=== PATIENT | female | born 1945 | race Caucasian/White ===

== ENCOUNTER 2020-03-27 06:55 | Outpatient (REF) | payer MEDICARE, SELFPAY | END 2020-03-27 06:56 | disposition home or self-care (01) | LOC: HO.MDS 06:55 | PROVIDERS: Visit Provider Internal Medicine | DX: G61.81 Chronic inflammatory demyelinating polyneuritis (principal) | CPT/HCPCS: 96365; 96366; 96375; J1572; Q0163 ==

== ENCOUNTER 2020-03-28 | Outpatient (REF) | payer MEDICARE, SELFPAY | END 2020-03-28 00:01 | disposition home or self-care (01) | LOC: HO.MDS | PROVIDERS: Visit Provider Internal Medicine | DX: G61.81 Chronic inflammatory demyelinating polyneuritis (principal) | CPT/HCPCS: Q0163 ==

== ENCOUNTER 2020-03-29 | Outpatient (REF) | payer MEDICARE, SELFPAY | END 2020-03-29 00:01 | disposition home or self-care (01) | LOC: HO.MDS | PROVIDERS: Visit Provider Internal Medicine | DX: G61.81 Chronic inflammatory demyelinating polyneuritis (principal) | CPT/HCPCS: 96365; 96366; 96375; J1572; Q0163 ==

== ENCOUNTER 2020-03-30 | Outpatient (REF) | payer MEDICARE, SELFPAY | END 2020-03-30 00:01 | disposition home or self-care (01) | LOC: HO.MDS | PROVIDERS: Visit Provider Internal Medicine | DX: G61.81 Chronic inflammatory demyelinating polyneuritis (principal) ==

== ENCOUNTER 2020-03-31 06:49 | Outpatient (REF) | payer MEDICARE, SELFPAY | END 2020-03-31 06:50 | disposition home or self-care (01) | LOC: HO.MDS 06:49 | PROVIDERS: Visit Provider Internal Medicine | DX: G61.81 Chronic inflammatory demyelinating polyneuritis (principal) | CPT/HCPCS: 96365; 96366; 96375; J1572; Q0163 ==

== ENCOUNTER → 2020-05-10 10:40 | Outpatient (BNV) | payer MEDICARE, SELFPAY | PROVIDERS: Visit Provider Internal Medicine | DX: D47.2 Monoclonal gammopathy (principal) | CPT/HCPCS: 99213; 99214; G2211 ==

== ENCOUNTER 2020-07-06 08:57 | Outpatient (REF) | payer MEDICARE, SELFPAY | END 2020-07-06 08:58 | disposition home or self-care (01) | LOC: HO.LAB 08:57 | PROVIDERS: Visit Provider Nurse Practitioner Family | DX: R30.0 Dysuria (principal) | CPT/HCPCS: 87086 ==

== ENCOUNTER 2020-07-08 11:06 | Emergency (ER) | payer MEDICARE, SELFPAY ==
[2020-07-08 12:03] VITALS: BP 148/59; PULSE 94; RESP 18; TEMP 36.8; O2SAT 93; BMI 23.1
[2020-07-08 12:54] LABS: Glucose Urine UA 100 MG/DL (NEG); Leukocyte Esterase Urine NEG (NEG); Nitrite Urine NEG (NEG); PH 6.5 (5.0-8.0); Urine Blood TRACE (NEG); Urine Ketones NEG (NEG); Urine Protein NEG (NEG-TRACE)
[2020-07-08 12:58] LABS: Appearance Urine CLEAR; Color Urine YELLOW
[2020-07-08 13:12] LABS: RBC Urine 0-2 /HPF (0); Squamous Epithelial Cell Urine TRACE /LPF; WBC Urine 0-2 /HPF (0-4)
--- NOTE | 2020-07-08 16:13 | CT_ITS ---
EXAMINATION: CT ABDOMEN AND PELVIS WITHOUT CONTRAST CLINICAL INFORMATION: Right flank pain COMPARISON: Previous abdominal ultrasound July TECHNIQUE: Multidetector volumetric imaging was performed from the superior aspect of the liver through the pubic symphysis. Sagittal and coronal reformatted images were obtained on the technologist's workstation. This CT examination was performed using dose optimization techniques as appropriate, variously including the following: *Automated exposure control *Adjustment of mA and/or kV according to patient size (this includes techniques or standardized protocols for targeted exams where dose is matched to indication/reason for exam; i.e. extremities or head) *Use of iterative reconstruction technique DLP: 431 mGy-cm FINDINGS: LUNG BASES: There are several small bilateral pulmonary nodules. These appear to be associated with bronchi representing bronchial wall thickening and bronchial soft tissue opacification. LIVER, GALLBLADDER, AND BILIARY TREE: There is a small 5 mm low-attenuation lesion in the right lobe of the liver axial image 18 series 2. This is a small to definitively characterize but may represent a small cyst. No other focal liver lesion is seen. The liver is otherwise unremarkable. The gallbladder is unremarkable. There is no biliary duct dilatation. PANCREAS: Unremarkable. SPLEEN: Unremarkable. ADRENAL GLANDS: There is slightly nodular contour to both adrenal glands. There is calcification of the posterior limb of the right adrenal gland. KIDNEYS AND URETERS: There are bilateral low-attenuation renal lesions probably representing cysts. No stone or hydronephrosis is seen. BLADDER: Unremarkable. GASTROINTESTINAL TRACT: There is severe diverticulosis of the colon. No evidence of diverticulitis is seen. Small and large bowel is otherwise unremarkable. The appendix is not identified. The stomach is unremarkable. ABDOMINAL WALL: No significant hernia is appreciated. LYMPH NODES: Normal. VASCULAR: There is evidence of atherosclerotic disease. No aneurysm is seen. PELVIC VISCERA: The uterus is enlarged with multiple calcifications suggestive of fibroids. OSSEOUS STRUCTURES: There are degenerative changes of the spine. CT/CT abdomen pelvis wo con IMPRESSION: Severe diverticulosis of the colon. No evidence of diverticulitis. Appendix not seen. No inflammatory changes in the right lower quadrant. Probable bilateral renal cysts. No renal stone or hydronephrosis. Probable small liver cyst. Evidence of mild airways disease at the lung bases. Degenerative changes of the spine.
--- NOTE | 2020-07-08 16:16 | ED_ITS ---
HPI - General Adult General Chief complaint: Abdominal Pain Stated complaint: flank pain Time Seen by Provider: 07/08/20 16:00 Source: patient Mode of arrival: ambulatory Limitations: no limitations History of Present Illness HPI narrative: Patient comes to the emergency room complaining of right-sided flank pain. Patient states the pain started approximately 6-7 days ago. Two days ago patient went to a walk-in clinic, she was prescribed cephalexin. At that time, patient states that she did not have pain. Patient states she took the antibiotic, but now the pain returned. Patient has been seeing blood inte rmittently throughout the week when she wipes. Patient describes the pain as nagging and intermittent. Patient denies dysuria. MD complaint: Right-sided flank pain Onset (ago): week(s) Related Data Home Medications Medication Instructions Recorded Confirmed Vitamin D3 25 mg PO DAILY 05/10/20 05/10/20 clindamycin phosphate 1 % lotion TOPICAL BID 07/06/20 lorazepam 1 mg tablet 1 mg PO BID 07/06/20 Previous Rx's Medication Instructions Recorded ferrous sulfate 1 tab PO DAILY #30 tab 05/30/20 cephalexin 500 mg capsule 500 mg PO TID 10 Days #30 cap 07/06/20 Allergies Allergy/AdvReac Type Severity Reaction Status Date / Time dextran 40 [DEXTRAN 40] Allergy Severe TACHYCARDIA Verified 07/08/20 12:03 AND HYPERTENSIVE azithromycin AdvReac Unknown nauseous Verified 07/08/20 12:03 erythromycin base AdvReac Unknown NAUSEA & Verified 07/08/20 12:03 [ERYTHROMYCIN BASE] VOMITING succinylcholine AdvReac Unknown FEVER, Verified 07/08/20 12:03 [SUCCINYLCHOLINE] COULD NOT MOVE immune globulin,gamma (IgG) AdvReac Hives Verified 07/08/20 12:03 human [From Flebogamma] Erythromycin AdvReac Unknown nausea Uncoded 01/28/19 00:00 Review of Systems Review of Systems: Constitutional : No Weight loss, No Fever, No Chills, No Night Sweats, No Fatigue, No Malaise ENT/Mouth : No Hearing loss, No Ear Pain, No Nasal Congestion, No Sinus Pain, No Hoarseness, No sore throat, No Rhinorrhea, No Swallowing Difficulty Eyes: No Eye Pain, No Swelling, No Redness, No Foreign Body, No Discharge, No Vision Changes Cardiovascular : No Chest Pain, No SOB, No Dyspnea on Exertion, No Orthopnea, No Edema, No Palpitations Respiratory : No Cough, No Sputum, No Wheezing, No Smoke Exposure, No Dyspnea Gastrointestinal : No Nausea, No Vomiting, No Diarrhea, No Constipation, No abdominal Pain, No Hematochezia, No Melena Genitourinary : no irregular bleeding, No Dysuria, No Urinary Frequency, complaining of intermittent Hematuria, right-sided flank pain No Urinary Incontinence, No Urgency, No Flank Pain, No Urinary Flow Changes, No Hesitancy Musculoskeletal : No joint pain, No Myalgias, No Joint Swelling Skin : No Skin Lesions, No rash Neuro : No Weakness, No Numbness, No Paresthesias, No Loss of Consciousness, No Dizziness, No Headache Psych : No Anxiety/Panic, No Depression, No SI/HI/AH/VH, No Social Issues, Heme/Lymph: No Bruising, No Bleeding,No Lymphadenopathy Endocrine : No Polyuria, No Polydipsia, No Temperature Intolerance PMFSH Past Medical History Medical History Neuropathy Surgical History History of bladder surgery Family History Family History (Updated 05/10/20 @ 12:01 by Mary Ann Reyes RN) Sister Heart disease Brother Heart disease Sister Cancer Father Diabetes Mother Ovarian cancer Social History Social History Advance Directives: No Advance Directives Information Provided: Yes Physical Exam Vital Signs: Vital Signs: Last Vital Signs Temp 98.3 F 07/08/20 12:03 Pulse 87 07/08/20 18:47 Resp 18 07/08/20 18:47 BP 131/56 L 07/08/20 18:47 Pulse Ox 93 07/08/20 18:47 Body Mass Index 23.1 Appearance: Alert. Oriented X3. No acute distress. Eyes: Pupils equal, round and reactive to light. ENT: Pharynx normal. Neck: Normal inspection. Neck supple. No lymph nodes noted. No crepitus CVS: Normal heart rate and rhythm. Pulses normal. Normal S1 and S2 Respiratory: No respiratory distress. Breath sounds normal. No Wheezing. No rales Abdomen: Soft and nontender. No rigidity. No distention. good BS x4, mild positive CVA tenderness in the right flank Skin: Skin warm and dry. Normal skin color. Normal skin turgor. Extremities: No lower extremity edema. No lower extremity edema. No Lacerations. No Rash Neuro: Oriented X 3. No motor deficit. No sensory deficit. Moving all extermities. No slurred speech. Course Course Course Narrative: I discussed the labs and imaging with the patient, patient did not have a kidney stone, it is possible that she may have passed already a small stone. At this time, patient states that she feels better, she is very hungry and has no pain. No urinary tract infection. Patient was instructed to finish the course of antibiotic that was prescribed at the walk-in clinic. I also discussed with the patient that her appendix was not visualized on CT scan, however there is no surrounding inflammation or elevated white blood cell count that would indicate appendicitis, But it cannot be rule out. I discussed with the patient that if she has any worsening symptoms, to return to the emergency room. Medical Decision Making Lab Data Result diagrams: 07/08/20 17:02 07/08/20 18:00 Labs: Lab Results 07/08/20 07/08/20 07/08/20 Range/Units 12:14 17:02 18:00 WBC 9.0 (4.8-10.8) X10*3/uL RBC 5.29 (4.20-5.50) X10*6/uL Hgb 14.9 (12.0-16.0) g/dl Hct 47.2 H (37-47) % MCV 89.2 (80-98) fL MCH 28.2 (27.0-33.0) pg MCHC 31.6 (31.0-35.0) g/dl RDW 12.2 (11.0-16.0) % Plt Count 413 H (160-400) X10*3/uL MPV 10.3 (9.4-12.3) fL Immature Gran % (Auto) 0.2 (0.0-0.4) % Neut % (Auto) 68.1 (45-73) % Lymph % (Auto) 19.8 L (20-40) % [place] % (Auto) 8.9 (2-11) % Eos % (Auto) 2.2 (0-4) % Baso % (Auto) 0.8 (0-2) % Lymph # (Auto) 1.8 (1.2-4.9) X10*3/uL [place] # (Auto) 0.8 (0.1-1.2) X10*3/uL Eos # (Auto) 0.2 (0.0-0.4) X10*3/uL Baso # (Auto) 0.1 (0.0-0.2) X10*3/uL Abs Immat Gran (auto) 0.02 (0.00-0.03) X10*3/uL Absolute Neuts (auto) 6.2 (2.0-8.3) X10*3/uL Absolute Nucleated RBC 0.000 (0.0-0.012) X10*3/uL Nucleated RBC % (auto) 0.0 (0.0-0.2) /100WBC Sodium 139 (135-145) mmol/L Potassium 4.5 (3.3-5.1) mmol/l Chloride 101 (96-108) mmol/L Carbon Dioxide 29 (22-29) mmol/L Anion Gap 14 (12-20) BUN 12 (9-16) mg/dL Creatinine 0.73 (0.5-1.4) mg/dL Estim Creat Clear Calc 62.3 Estimated GFR > 60 Random Glucose 88 (60-115) mg/dL Calcium 9.2 (8.4-10.2) mg/dL Total Bilirubin 0.3 (0.0-1.0) mg/dL Direct Bilirubin 0.2 (0.0-0.5) mg/dL AST 16 (5-31) U/L ALT 22 (0-31) U/L Alkaline Phosphatase 117 (39-117) U/L Total Protein 7.3 (6.5-8.0) g/dL Albumin 4.2 (3.5-5.0) g/dL Urine Color YELLOW Urine Appearance CLEAR Urine pH 6.5 (5.0-8.0) Ur Specific [place] 1.010 (1.005-1.025) Urine Protein NEG (NEG-TRACE) MG/DL Urine Glucose (UA) 100 H (NEG) MG/DL Urine Ketones NEG (NEG) MG/DL Urine Blood TRACE (NEG) Urine Nitrite NEG (NEG) Ur Leukocyte Esterase NEG (NEG) Urine RBC 0-2 (0) /HPF Urine WBC 0-2 (0-4) /HPF Ur Squamous Epith Cells TRACE /LPF Urine Bacteria NONE /LPF Imaging Data CT scan - abdomen: Radiologist's impression: INDINGS: LUNG BASES: There are several small bilateral pulmonary nodules. These appear to be associated with bronchi representing bronchial wall thickening and bronchial soft tissue opacification. LIVER, GALLBLADDER, AND BILIARY TREE: There is a small 5 mm low-attenuation lesion in the right lobe of the liver axial image 18 series 2. This is a small to definitively characterize but may represent a small cyst. No other focal liver lesion is seen. The liver is otherwise unremarkable. The gallbladder is unremarkable. There is no biliary duct dilatation. PANCREAS: Unremarkable. SPLEEN: Unremarkable. ADRENAL GLANDS: There is slightly nodular contour to both adrenal glands. There is calcification of the posterior limb of the right adrenal gland. KIDNEYS AND URETERS: There are bilateral low-attenuation renal lesions probably representing cysts. No stone or hydronephrosis is seen. BLADDER: Unremarkable. GASTROINTESTINAL TRACT: There is severe diverticulosis of the colon. No evidence of diverticulitis is seen. Small and large bowel is otherwise unremarkable. The appendix is not identified. The stomach is unremarkable. ABDOMINAL WALL: No significant hernia is appreciated. LYMPH NODES: Normal. VASCULAR: There is evidence of atherosclerotic disease. No aneurysm is seen. PELVIC VISCERA: The uterus is enlarged with multiple calcifications suggestive of fibroids. OSSEOUS STRUCTURES: There are degenerative changes of the spine. CT/CT abdomen pelvis wo con IMPRESSION: Severe diverticulosis of the colon. No evidence of diverticulitis. Appendix not seen. No inflammatory changes in the right lower quadrant. Probable bilateral renal cysts. No renal stone or hydronephrosis. Probable small liver cyst. Evidence of mild airways disease at the lung bases. Degenerative changes of the spine. Discharge Plan Discharge Clinical Impression: Acute right flank pain Patient Disposition: Home, Self-Care Instructions: Flank Pain (ED) Additional Instructions: Please finish a course of antibiotics that were prescribed for UTI. Please follow-up with your primary care physician tomorrow. If you have any worsening or new symptoms, please return to the emergency room or call 911 Prescriptions: No Action Vitamin D3 25 mg PO DAILY RF: 0 ferrous sulfate 324 mg (65 mg iron) tablet,delayed release (DR/EC) 1 tab PO DAILY Qty: 30 RF: 3 clindamycin phosphate 1 % lotion topical BID RF: 0 lorazepam 1 mg tablet 1 mg PO BID RF: 0 cephalexin [Keflex] 500 mg capsule 500 mg PO TID 10 Days Qty: 30 RF: 0
[2020-07-08] MEDS: ondansetron HCL 4 MG/2 ML VIAL IVPUSH (16:51)
[2020-07-08] MEDS: Ketorolac Tromethamine 30 MG/ML VIAL IVPUSH (16:51)
[2020-07-08 17:06] LABS: MANUAL DIFF FLAG NO
[2020-07-08 17:40] LABS: Basophils Absolute Auto 0.1 X10*3/uL (0.0-0.2); Basophils Percent Auto 0.8 % (0-2); Eosinophils Absolute Auto 0.2 X10*3/uL (0.0-0.4); Eosinophils Percent Auto 2.2 % (0-4); Hematocrit 47.2 % (37-47); Hemoglobin 14.9 g/dl (12.0-16.0); Imm Gran Abs Auto 0.02 X10*3/uL (0.00-0.03); Imm Gran Pct Auto 0.2 % (0.0-0.4); Lymphocytes Absolute Auto 1.8 X10*3/uL (1.2-4.9); Lymphocytes Percent Auto 19.8 % (20-40); Mean Corpuscular HGB Conc 31.6 g/dl (31.0-35.0); Mean Corpuscular Hemoglobin 28.2 pg (27.0-33.0); Mean Corpuscular Volume 89.2 fL (80-98); Mean Platelet Volume 10.3 fL (9.4-12.3); Monocytes Absolute Auto 0.8 X10*3/uL (0.1-1.2); Monocytes Percent Auto 8.9 % (2-11); Neutrophils Absolute Auto 6.2 X10*3/uL (2.0-8.3); Neutrophils Percent Auto 68.1 % (45-73); Platelet Count 413 X10*3/uL (160-400); Red Blood Count 5.29 X10*6/uL (4.20-5.50); Red Cell Distribution Width 12.2 % (11.0-16.0)
--- NOTE | 2020-07-08 17:55 | PC.NURSE ---
nurse notified of recollect
[2020-07-08 18:47] VITALS: BP 131/56; PULSE 87; RESP 18; O2SAT 93
[2020-07-08 18:47] LABS: Alanine Aminotransferase 22 U/L (0-31); Albumin Level 4.2 g/dL (3.5-5.0); Alkaline Phosphatase 117 U/L (39-117); Anion Gap 14 (12-20); Aspartate Amino Transferase 16 U/L (5-31); Bilirubin Direct 0.2 mg/dL (0.0-0.5); Bilirubin Total 0.3 mg/dL (0.0-1.0); Blood Urea Nitrogen 12 mg/dL (9-16); Calcium 9.2 mg/dL (8.4-10.2); Carbon Dioxide 29 mmol/L (22-29); Chloride 101 mmol/L (96-108); Creatinine Clr Calc Pharmacy 62.3; Estimated Glomerular Filt Rate > 60; Glucose Random 88 mg/dL (60-115); Potassium 4.5 mmol/l (3.3-5.1); Sodium 139 mmol/L (135-145); Total Protein 7.3 g/dL (6.5-8.0)
[2020-07-08 19:47] VITALS: BP 138/58; PULSE 75; RESP 16; O2SAT 91
== END 2020-07-08 19:58 | disposition home or self-care (01) ==
PROVIDERS: Emergency Provider Emergency Medicine
DX: R10.9 Unspecified abdominal pain (principal); Z79.899 Other long term (current) drug therapy
CPT/HCPCS: 36415; 74176; 80048; 80076; 81001; 81003; 85025; 96374; 96375; 99284; J1885; J2405

== ENCOUNTER 2020-07-17 08:29 | Outpatient (REF) | payer MEDICARE, SELFPAY ==
--- NOTE | 2020-07-17 08:32 | US_ITS ---
EXAMINATION: US RETROPERITONEAL COMPLETE (RENAL) CLINICAL INFORMATION: Bilateral renal cysts/hematuria. COMPARISON: CT abdomen and pelvis 07/08/2020. TECHNIQUE: Real-time imaging of the kidneys and bladder. FINDINGS: RIGHT KIDNEY: 10.7 x 4.2 x 5.6 cm (SAG x AP x TRV). The kidney is normal in size, contour, and echogenicity. Renal cortical thickness is normal. There are a few anechoic cyst. In upper pole cyst measures 1.2 x 1.4 x 1.5 cm. In midpole cyst measures 0.5 x 0.6 x 0.5 cm. There is an echogenic upper pole calculus measuring 0.4 x 0.3 x 0.3 cm. There is no caliectasis. There is no hydronephrosis. LEFT KIDNEY: 11.6 x 6.0 x 5.1 cm (SAG x AP x TRV). The kidney is normal in size, contour, and echogenicity. Renal cortical thickness is normal. No renal calculi or hydronephrosis. There are several anechoic cysts seen. An upper pole cyst measures 1.3 x 1.5 x 1.2 cm and 0.8 x 1.0 x 0.9 cm, partially exophytic. Midpole partially exophytic cyst measures 0.9 x 1.0 x 1.1 cm and 1.2 x 1.1 x 1.3 cm, partially exophytic. BLADDER: Well distended and normal. Bilateral ureteral jets are demonstrated. Prevoid bladder volume is 196 mL. Postvoid bladder volume is 15.7 mL. US/US retroperitoneal comp IMPRESSION: Bilateral renal cysts. Nonobstructive echogenic stone upper pole right kidney. There is no calyces or hydronephrosis on either side. Tiny postvoid residual volume with normal bilateral ureteral jets seen.
== END 2020-07-17 08:30 | disposition home or self-care (01) ==
LOC: HO.HMGCX 08:29
PROVIDERS: PCP Physician Assistant; Visit Provider Physician Assistant
DX: R31.9 Hematuria, unspecified (principal); N28.1 Cyst of kidney, acquired
CPT/HCPCS: 76770

== ENCOUNTER 2020-07-18 13:15 | Outpatient (REF) | payer MEDICARE, SELFPAY ==
[2020-07-18 14:09] LABS: Urine Cytology See Pathology rpt
[2020-07-18 14:25] LABS: Glucose Urine UA NEG (NEG); Leukocyte Esterase Urine NEG (NEG); Nitrite Urine NEG (NEG); Urine Blood TRACE (NEG); Urine Ketones NEG (NEG); Urine Protein NEG (NEG-TRACE)
[2020-07-18 14:30] LABS: Appearance Urine CLEAR; Color Urine YELLOW
[2020-07-18 14:37] LABS: Mucus Urine 1+ /LPF; RBC Urine 0-2 /HPF (0); Squamous Epithelial Cell Urine 1+ /LPF; WBC Urine 0 /HPF (0-4)
== END 2020-07-18 13:16 | disposition home or self-care (01) ==
LOC: HO.LAB 13:15
PROVIDERS: PCP Physician Assistant; Visit Provider Physician Assistant
DX: R31.9 Hematuria, unspecified (principal)
CPT/HCPCS: 81001; 88112

== ENCOUNTER 2020-08-11 16:08 | Outpatient (REF) | payer MEDICARE, SELFPAY ==
--- NOTE | ~2020-08-11 | CT_ITS ---
EXAMINATION: CT ABDOMEN AND PELVIS WITHOUT CONTRAST CLINICAL INFORMATION: Abdominal pain. Calculus of kidney. COMPARISON: CT scan abdomen pelvis 07/08/2020 TECHNIQUE: Multidetector volumetric imaging was performed from the superior aspect of the liver through the pubic symphysis. Sagittal and coronal reformatted images were obtained on the technologist's workstation. This CT examination was performed using dose optimization techniques as appropriate, variously including the following: *Automated exposure control *Adjustment of mA and/or kV according to patient size (this includes techniques or standardized protocols for targeted exams where dose is matched to indication/reason for exam; i.e. extremities or head) *Use of iterative reconstruction technique DLP: 293 mGy-cm FINDINGS: LUNG BASES: The visualized lung bases are unremarkable. LIVER, GALLBLADDER, AND BILIARY TREE: The liver is normal in size, shape, and attenuation. No focal hepatic lesion or biliary ductal dilatation is present. The gallbladder is unremarkable with no evidence of radiopaque gallstones, gallbladder wall thickening, or obvious pericholecystic inflammatory changes. PANCREAS: Unremarkable. SPLEEN: Unremarkable. ADRENAL GLANDS: Adrenal glands of normal size. Small calcifications in the right adrenal gland. KIDNEYS AND URETERS: The kidneys are normal in size, shape, and attenuation. No hydronephrosis, hydroureter, or calculi seen. No perinephric stranding. Stable hypodense lesions in both kidneys likely small cyst. BLADDER: Unremarkable. GASTROINTESTINAL TRACT: There are numerous diverticula of the colon. There is no diverticulitis. There is no bowel wall thickening /edema. There is no bowel obstruction. There is a moderate volume of stool in the colon. The appendix is nonvisualized . There is no inflammatory change of the mesentery. The small bowel loops are unremarkable. The stomach is normal. There is no hiatal hernia. ABDOMINAL WALL: No significant hernia is appreciated. LYMPH NODES: Normal. VASCULAR: There are vascular calcifications of aorta and iliac arteries. There is no aneurysm. PELVIC VISCERA: Uterus is anteverted. Multiple coarse calcifications within the uterus. There is no adnexal abnormality. OSSEOUS STRUCTURES: Multilevel degenerative spondylosis spine. CT/CT abdomen pelvis wo con IMPRESSION: There is marked diverticulosis of the colon. There is no acute abnormality of the bowel, no diverticulitis. No acute abnormality of the abdomen or pelvis.
== END 2020-08-11 16:09 | disposition home or self-care (01) ==
LOC: HO.CT 16:08
PROVIDERS: PCP Physician Assistant; Visit Provider Urology
DX: N20.0 Calculus of kidney (principal)
CPT/HCPCS: 74176

== ENCOUNTER 2020-08-28 06:09 | Outpatient (REF) | payer MEDICARE, SELFPAY ==
[2020-08-28 11:23] LABS: Glucose Urine UA 100 MG/DL (NEG); Leukocyte Esterase Urine NEG (NEG); Nitrite Urine NEG (NEG); Specific Gravity - Urine >= 1.030 (1.005-1.025); Urine Blood 1+ (NEG); Urine Ketones NEG (NEG); Urine Protein NEG (NEG-TRACE)
[2020-08-28 11:25] LABS: Appearance Urine CLOUDY; Color Urine YELLOW
[2020-08-28 11:40] LABS: Cholesterol 163 mg/dL; HDL Cholesterol 46 mg/dL; LDL Cholesterol Calculated 97 mg/dl; Triglycerides 100 mg/dL
[2020-08-28 12:03] LABS: Squamous Epithelial Cell Urine 1+ /LPF; WBC Urine 0-2 /HPF (0-4)
[2020-08-28 12:04] LABS: Amorphous Sediment Urine 2+ /LPF
[2020-08-28 12:16] LABS: TSH reflex Free T4 0.66 uIU/mL (0.32-4.0)
== END 2020-08-28 06:10 | disposition home or self-care (01) ==
LOC: HO.HMGCLDS 06:09
PROVIDERS: PCP Physician Assistant; Visit Provider Physician Assistant
DX: R30.0 Dysuria (principal); R31.9 Hematuria, unspecified; Z13.29 Encounter for screening for other suspected endocrine disorder; Z13.220 Encounter for screening for lipoid disorders
CPT/HCPCS: 36415; 80061; 81001; 84443

== ENCOUNTER 2020-09-22 07:44 | Day surgery (SDC) | payer MEDICARE, SELFPAY ==
[2020-09-15 20:42] VITALS: BMI 23.2
--- NOTE | 2020-09-21 08:55 | P.CONAN_ITS ---
HPI - Anesthesia Eval Consult details Narrative: 75yo F for Colonoscopy PMFSH Active Problems Active Problems: All Active Problems (Updated 09/15/20 @ 20:46 by Radha Mcpherson RN) Gammopathy, monoclonal (Chronic) Hematuria (Acute) Dysuria (Acute) Smoker (Acute) Bilateral renal cysts (Acute) Nephrolithiasis (Acute) Tubular adenoma of colon (Acute) Screening for hypercholesterolemia (Acute) Screening for hypothyroidism (Acute) Flank pain (Acute) Microscopic hematuria (Acute) Past Medical History Medical History (Updated 09/15/20 @ 20:46 by Radha Mcpherson RN) Anemia Arthritis GERD (gastroesophageal reflux disease) Neuropathy Family History Family History Sister Heart disease Brother Heart disease Sister Cancer Father Diabetes Mother Ovarian cancer Surgical History Surgical History (Updated 09/15/20 @ 20:46 by Radha Mcpherson RN) History of appendectomy History of bladder surgery History of colonoscopy Social History Social History (Updated 07/12/20 @ 07:32 by Siddharth Garcia PA-C) Are you a primary career and technology education teacher to a significant other at home: No Do you presently have visiting nurse or other home services: No Smoking Status: Current every day smoker Packs Per Day: 1 Cigarettes Per Day: 20.0 Years Smoked: 50 Smoked in Last 30 Days: Yes Patient Interested in Nicotine Replacement: No Patient Given Instructions on How to Stop Smoking: No Second Hand Smoke Exposure: No Use of substances other than those prescribed or required for medical reasons: No Have you been hit, kicked, punched, or otherwise hurt by someone within the past year? If so, by whom?: No Advance Directives: Yes Advance Directives Information Provided: Yes Advance Directives on File: No (will bring copy) Advance Directives Date on File: 07/25/14 Meds Allergies Allergy/AdvReac Type Severity Reaction Status Date / Time dextran 40 [DEXTRAN 40] Allergy Severe TACHYCARDIA Verified 09/22/20 08:03 AND HYPERTENSIVE azithromycin AdvReac Unknown nauseous Verified 09/22/20 08:03 erythromycin base AdvReac Unknown NAUSEA & Verified 09/22/20 08:03 [ERYTHROMYCIN BASE] VOMITING succinylcholine AdvReac Unknown FEVER, Verified 09/22/20 08:03 [SUCCINYLCHOLINE] COULD NOT MOVE immune globulin,gamma (IgG) AdvReac Hives Verified 09/22/20 08:03 human [From [facility]] Home Medications Medication Instructions Recorded Confirmed Last Taken Type Vitamin D3 25 mg PO DAILY 05/10/20 09/15/20 Unknown History lorazepam 1 mg tablet 1 mg PO BID PRN 07/06/20 09/22/20 09/22/20 History ferrous sulfate 1 tab PO DAILY 09/15/20 09/15/20 Unknown History omeprazole 1 cap PO DAILY 09/15/20 09/15/20 Unknown History Exam Exam Date and Time: September 21, 2020 0855 Height,Weight and Vital Signs: Height 5 ft 6 in Weight 65.317 kg Pertinent Lab Results Pertinent Lab Results: Laboratory Tests 07/08/20 07/08/20 17:02 18:00 WBC 9.0 Hgb 14.9 Hct 47.2 H Plt Count 413 H Sodium 139 Potassium 4.5 Chloride 101 Carbon Dioxide 29 BUN 12 Creatinine 0.73
[2020-09-22 08:05] VITALS: BP 139/70; PULSE 85; RESP 18; TEMP 36.2; O2SAT 95
[2020-09-22] MEDS: Lactated Ringers 1,000 ML 100 ML IVCONT (08:26)
--- NOTE | 2020-09-22 09:06 | MHC.SHP ---
Pre-Procedural Eval Section A The patient is an INPATIENT: No Changes since office visit: No Cold of Flu in the past 2 weeks, No New Medical Problems, No Changes in Medication and No Patient answered all questions The History & Physical has been completed within 30 days and I have reviewed it.: Yes Section B Chief Complaint: hx colonic polyps Allergies: Allergies Allergy/AdvReac Type Severity Reaction Status Date / Time dextran 40 [DEXTRAN 40] Allergy Severe TACHYCARDIA Verified 09/22/20 08:03 AND HYPERTENSIVE azithromycin AdvReac Unknown nauseous Verified 09/22/20 08:03 erythromycin base AdvReac Unknown NAUSEA & Verified 09/22/20 08:03 [ERYTHROMYCIN BASE] VOMITING succinylcholine AdvReac Unknown FEVER, Verified 09/22/20 08:03 [SUCCINYLCHOLINE] COULD NOT MOVE immune globulin,gamma (IgG) AdvReac Hives Verified 09/22/20 08:03 human [From [facility]] Plan I have reviewed the history and physical and performed a pertinent physical examination on my patient. No changes have occurred unless specified.
--- NOTE | 2020-09-22 09:09 | HO.ANESPROP2 ---
[facility] Active Problems Active Problems: All Active Problems (Updated 09/15/20 @ 20:46 by Radha Mcpherson RN) Gammopathy, monoclonal (Chronic) Hematuria (Acute) Dysuria (Acute) Smoker (Acute) Bilateral renal cysts (Acute) Nephrolithiasis (Acute) Tubular adenoma of colon (Acute) Screening for hypercholesterolemia (Acute) Screening for hypothyroidism (Acute) Flank pain (Acute) Microscopic hematuria (Acute) Past Medical History Medical History (Updated 09/15/20 @ 20:46 by Radha Mcpherson RN) Anemia Arthritis GERD (gastroesophageal reflux disease) Neuropathy Family History Family History Sister Heart disease Brother Heart disease Sister Cancer Father Diabetes Mother Ovarian cancer Surgical History Surgical History (Updated 09/15/20 @ 20:46 by Radha Mcpherson RN) History of appendectomy History of bladder surgery History of colonoscopy Social History Social History (Updated 07/12/20 @ 07:32 by Siddharth Garcia PA-C) Are you a primary care rep to a significant other at home: No Do you presently have visiting nurse or other home services: No Smoking Status: Current every day smoker Packs Per Day: 1 Cigarettes Per Day: 20.0 Years Smoked: 50 Smoked in Last 30 Days: Yes Patient Interested in Nicotine Replacement: No Patient Given Instructions on How to Stop Smoking: No Second Hand Smoke Exposure: No Use of substances other than those prescribed or required for medical reasons: No Have you been hit, kicked, punched, or otherwise hurt by someone within the past year? If so, by whom?: No Advance Directives: Yes Advance Directives Information Provided: Yes Advance Directives on File: No (will bring copy) Advance Directives Date on File: 07/25/14 Meds Allergies Allergy/AdvReac Type Severity Reaction Status Date / Time dextran 40 [DEXTRAN 40] Allergy Severe TACHYCARDIA Verified 09/22/20 08:03 AND HYPERTENSIVE azithromycin AdvReac Unknown nauseous Verified 09/22/20 08:03 erythromycin base AdvReac Unknown NAUSEA & Verified 09/22/20 08:03 [ERYTHROMYCIN BASE] VOMITING succinylcholine AdvReac Unknown FEVER, Verified 09/22/20 08:03 [SUCCINYLCHOLINE] COULD NOT MOVE immune globulin,gamma (IgG) AdvReac Hives Verified 09/22/20 08:03 human [From [facility]bog[facility]] Active Medications: Current Medications Generic Name Dose Route Start Last Admin Trade Name Earl PRN Reason Stop Dose Admin Lactated Ringer's 1,000 mls @ 100 mls/hr 09/22/20 08:00 09/22/20 08:26 Lr IVCONT 100 mls/hr .Q10H QASIM Administration Ondansetron HCl 4 mg 09/22/20 08:51 Ondansetron Hcl 4 Mg/2 Ml Vial IVPUSH ONCE PRN Nausea and Vomiting Home Medications Medication Instructions Recorded Confirmed Last Taken Type Vitamin D3 25 mg PO DAILY 05/10/20 09/15/20 Unknown History lorazepam 1 mg tablet 1 mg PO BID PRN 07/06/20 09/22/20 09/22/20 History ferrous sulfate 1 tab PO DAILY 09/15/20 09/15/20 Unknown History omeprazole 1 cap PO DAILY 09/15/20 09/15/20 Unknown History Exam Exam Date and Time: September 22, 2020 0909 Height,Weight and Vital Signs: Height 5 ft 6 in Weight 65.317 kg Last Vital Signs Temp 97.2 F 09/22/20 08:05 Pulse 85 09/22/20 08:05 Resp 18 09/22/20 08:05 BP 139/70 09/22/20 08:05 Pulse Ox 95 09/22/20 08:05 Airway Mallampati Class: II TM Dist: >3cm Neck ROM: Full Heart: RRR Lungs: CTA BL Assessment and Plan Assessment Anesthesia Assessment: Anesthesia Plan Discussed and Chart Reviewed Final Anesthetic Review NPO: Yes (Sip water with meds) ASA Class: III Final Preanesthetic Review: No Changes in Pt Med Stat and Consent Obtained/Reviewed Patient Risk: Intermediate Procedure Risk: Intermediate Anesthetic Plan Anesthetic Plan: MAC: Disposition: Standard PACU
[2020-09-22 09:44] VITALS: BP 100/45; PULSE 72; RESP 16; TEMP 36; O2SAT 92
--- NOTE | 2020-09-22 09:48 | PM.OP ---
Brief Operative Note Date of Service: 09/22/20 Pre-op diagnosis: hx polyps Post-op diagnosis: same Surgeon: Jude Jimenez Anesthesia: MAC Estimated blood loss (mL): 0 Pathology: other (polyps x 2) Condition: stable Disposition: PACU
[2020-09-22 09:59] VITALS: BP 106/51; PULSE 76; RESP 18; O2SAT 95
[2020-09-22 10:14] VITALS: BP 123/60; PULSE 74; RESP 16; O2SAT 96
--- NOTE | 2020-09-22 11:41 | OP_ITS ---
SURGEON: Jude Jimenez MD INDICATIONS: Colon cancer screening and prior history of adenomatous colon polyps. PREOPERATIVE DIAGNOSIS: POSTOPERATIVE DIAGNOSIS: PROCEDURE PERFORMED: Colonoscopy to the terminal ileum with snare polypectomy. ESTIMATED BLOOD LOSS: COMPLICATIONS: ANESTHESIA: ASSISTANTS: SPECIMENS: MEDICATIONS: Monitored anesthesia care. DESCRIPTION OF PROCEDURE: History and physical performed. The risks and benefits of the procedure were explained to the patient. Informed consent was obtained. The patient was placed in the left lateral decubitus position. A digital rectal exam was performed and was found to be normal. The Olympus pediatric video colonoscope was introduced into the rectum and advanced to the cecum without difficulty. The cecum was identified by transillumination, palpation, and identification of ileocecal valve. Examination was performed and the scope was removed. She tolerated the procedure well and was taken to recovery area in stable condition. FINDINGS: The terminal ileum was normal. The visualized colonic mucosa was normal. There were 2 AVMs in the right colon, one just above the cecum measuring approximately 10 mm and one near the hepatic flexure measuring approximately 4 mm. Two polyps were identified and removed with a snare. Both measured approximately 6 mm. These were located at 50 cm and in the rectosigmoid at 15 cm. There was extensive sigmoid diverticulosis. Retroflexed examination was normal. IMPRESSION: Colon polyps. RECOMMENDATION: Follow up the biopsy results. MD BHAVYA Gilman/BRENTONL / [id number]
== END 2020-09-22 10:44 | disposition home or self-care (01) ==
PROVIDERS: PCP Physician Assistant; Visit Provider Internal Medicine Gastroenterology
PROC: 0DJD8ZZ Inspection of Lower Intestinal Tract, Via Natural or Artificial Opening Endoscopic (ICD-10-PCS; CPT 45378; principal; 2020-09-22 09:00)
DX: Z12.11 Encounter for screening for malignant neoplasm of colon (principal); Z86.010 Personal history of colon polyps; D12.5 Benign neoplasm of sigmoid colon; D12.7 Benign neoplasm of rectosigmoid junction; K21.9 Gastro-esophageal reflux disease without esophagitis; D64.9 Anemia, unspecified; G57.93 Unspecified mononeuropathy of bilateral lower limbs; F17.210 Nicotine dependence, cigarettes, uncomplicated; Z79.899 Other long term (current) drug therapy; Z88.1 Allergy status to other antibiotic agents; Z88.8 Allergy status to other drugs, medicaments and biological substances
CPT/HCPCS: 45385; 88305

== ENCOUNTER 2020-11-13 07:24 | Outpatient (REF) | payer MEDICARE, SELFPAY | END 2020-11-13 07:25 | disposition home or self-care (01) | LOC: HO.MDS 07:24 | PROVIDERS: PCP Physician Assistant; Visit Provider Internal Medicine | DX: G61.81 Chronic inflammatory demyelinating polyneuritis (principal) | CPT/HCPCS: 96365; 96366; 96375; J1569 ==

== ENCOUNTER 2020-11-14 07:24 | Outpatient (REF) | payer MEDICARE, SELFPAY | END 2020-11-14 07:25 | disposition home or self-care (01) | LOC: HO.MDS 07:24 | PROVIDERS: PCP Physician Assistant; Visit Provider Internal Medicine | DX: G61.81 Chronic inflammatory demyelinating polyneuritis (principal) | CPT/HCPCS: 96365; 96366; 96375; J1569 ==

== ENCOUNTER 2020-11-15 07:26 | Outpatient (REF) | payer MEDICARE, SELFPAY | END 2020-11-15 07:27 | disposition home or self-care (01) | LOC: HO.MDS 07:26 | PROVIDERS: PCP Physician Assistant; Visit Provider Internal Medicine | DX: G61.81 Chronic inflammatory demyelinating polyneuritis (principal) | CPT/HCPCS: 96365; 96366; 96375; J1569 ==

== ENCOUNTER 2020-11-16 07:30 | Outpatient (REF) | payer MEDICARE, SELFPAY | END 2020-11-16 07:31 | disposition home or self-care (01) | LOC: HO.MDS 07:30 | PROVIDERS: PCP Physician Assistant; Visit Provider Internal Medicine | DX: G61.81 Chronic inflammatory demyelinating polyneuritis (principal) | CPT/HCPCS: 96365; 96366; 96375; J1569 ==

== ENCOUNTER 2020-11-17 07:20 | Outpatient (REF) | payer MEDICARE, SELFPAY | END 2020-11-17 07:21 | disposition home or self-care (01) | LOC: HO.MDS 07:20 | PROVIDERS: PCP Physician Assistant; Visit Provider Internal Medicine | DX: G61.81 Chronic inflammatory demyelinating polyneuritis (principal) | CPT/HCPCS: 96365; 96366; J1569 ==

== ENCOUNTER 2020-11-28 12:23 | Outpatient (REF) | payer MEDICARE, SELFPAY ==
--- NOTE | ~2020-11-28 | XR_ITS ---
EXAMINATION: XR SHOULDER, RIGHT CLINICAL INFORMATION: Pain. COMPARISON: None TECHNIQUE: AP external rotation, Grashey, scapular Y, and axillary views of the right shoulder. FINDINGS: There is bony demineralization. Bony alignment is normal. The glenohumeral joint is intact. There is mild osteoarthritic change of the glenohumeral joint. The acromioclavicular and coracoclavicular intervals are normal. There is moderate osteoarthritic change of the acromioclavicular joint. There is calcific tendinitis of the right rotator cuff insertion. There is distal acromial osteophyte formation. There is cortical irregularity of the greater tuberosity of the proximal right humerus. No foreign body is seen. There is no right pneumothorax. XR/XR shoulder RT min 2V IMPRESSION: 1. There is calcific tendinitis of the right rotator cuff. 2. There is mild osteoarthritic change of the right glenohumeral joint, and moderate osteoarthritic change is seen of the acromioclavicular joint. 3. No fracture or dislocation is seen.
== END 2020-11-28 12:24 | disposition home or self-care (01) ==
LOC: HO.XRAY 12:23
PROVIDERS: PCP Physician Assistant; Visit Provider Physician Assistant
DX: M25.511 Pain in right shoulder (principal)
CPT/HCPCS: 73030

== ENCOUNTER → 2021-01-02 07:58 | Outpatient (BNVA) | payer MEDICARE, SELFPAY | PROVIDERS: Visit Provider Physician Assistant | DX: M19.011 Primary osteoarthritis, right shoulder (principal); M75.32 Calcific tendinitis of left shoulder | CPT/HCPCS: 20610; 99202; J1040 ==

== ENCOUNTER 2021-01-17 07:22 | Outpatient (REF) | payer MEDICARE, SELFPAY ==
--- NOTE | ~2021-01-17 | MM_ITS ---
EXAMINATION: MM SCREENING DIGITAL BREAST TOMOSYNTHESIS, BILATERAL CLINICAL INFORMATION: Screening. Asymptomatic. The lifetime risk of breast cancer based on the Tyrer-Cuzick Model is 2%. COMPARISON: Mammography: 01/12/2020, 01/06/2019, 12/17/2017 TECHNIQUE: Digital breast tomosynthesis is performed in both the craniocaudal and mediolateral oblique views along with computer-aided detection (CAD). Synthesized 2D images are generated from the tomosynthesis. FINDINGS: There are scattered areas of fibroglandular density (ACR BI-RADS breast composition Category b). There are no significant masses, abnormal calcifications, or other abnormalities. Parenchymal pattern is similar to prior studies. The axilla and skin contours are unremarkable. There are no significant changes. MM/MM tomosynthesis screening BI IMPRESSION: No mammographic evidence of malignancy. ASSESSMENT: BI-RADS 1: Negative RECOMMENDATION: Routine annual mammography screening. This patient's information was entered into a reminder system with a target due date for their next mammogram.
--- NOTE | ~2021-01-17 | MM_ITS ---
EXAMINATION: BONE DENSITOMETRY CLINICAL INDICATION: Asymptomatic menopausal state. COMPARISON: Baseline BD dated 04/20/2007. TECHNIQUE: Using a [employer] DXA System (software version: 13.1) manufactured by [employer], dual-energy x-ray absorptiometry was performed of the spine and left hip. The images are of good technical quality. Summary results are attached. FINDINGS: AP SPINE L1-L4: Current: BMD 1.300 g/cm2, Z-score 2.8, T-score 1.0, normal, 1.8% decrease from baseline (<5% change is not significant). Baseline: BMD 1.324 g/cm2. LEFT FEMUR, NECK: Current: BMD 0.835 g/cm2, Z-score 0.5, T-score -1.5, osteopenia. Baseline: BMD 0.970 g/cm2. LEFT FEMUR, TOTAL: Current: BMD 0.878 g/cm2, Z-score 0.8, T-score -1.0, normal, 21.3% decrease from baseline (<5% change is not significant). Baseline: BMD 1.115 g/cm2. IDENTIFIED RISK FACTORS: Menopause, tobacco use (current smoker), recurrent falls. HISTORY OF FRACTURE: None listed. MEDICATIONS: Vitamin D. MM/XR DEXA axial skeleton IMPRESSION: 1. DIAGNOSIS: Osteopenia based on the lowest T-score value of -1.5 in the femoral neck applying World Health Organization criteria. 2. 10-YEAR FRACTURE RISK PREDICTION, FRAX: Major osteoporotic fracture (clinical spine, forearm, hip or shoulder) 11.9%. Hip fracture 3.8%. 3. Treatment Recommendations: NOF guidelines recommend consideration for treatment in postmenopausal women and men age 50 and older presenting with the following: -A hip or vertebral (clinical or morphometric) fracture. -T-score less than or equal to -2.5 at the femoral neck or spine after appropriate evaluation to exclude secondary causes. -Low bone mass at the hip or spine and a 10-year fracture probability by FRAX of greater than or equal to 3% for hip fracture or greater than or equal to 20% for major osteoporotic fracture based on the [place] adapted WHO algorithm. 4. Other Recommendations: All treatment decisions require clinical judgment and consideration of individual patient factors, including patient preferences, comorbidities, previous drug use, risk factors not captured in the FRAX model (e.g. frailty, falls, vitamin D deficiency, increased bone turnover, interval significant decline in bone density) and possible under or overestimation of fracture risk by FRAX. Additional medical evaluation for secondary cause of low bone mineral density may be appropriate. FUTURE SCAN RECOMMENDATION: People with diagnosed cases of osteoporosis or at high risk for fracture should have regular bone mineral density tests. For patients eligible for Medicare, routine testing is allowed once every 2 years. The testing frequency can be increased to one year for patients who have rapidly progressing disease, those who are receiving or discontinuing medical therapy to restore bone mass, or have additional risk factors.
== END 2021-01-17 07:23 | disposition home or self-care (01) ==
LOC: HO.MAMMO 07:22
DX: Z12.31 Encounter for screening mammogram for malignant neoplasm of breast (principal); Z13.820 Encounter for screening for osteoporosis; M85.80 Other specified disorders of bone density and structure, unspecified site; F17.200 Nicotine dependence, unspecified, uncomplicated; Z78.0 Asymptomatic menopausal state; Z79.899 Other long term (current) drug therapy
CPT/HCPCS: 77063; 77067; 77080

== ENCOUNTER 2021-01-24 06:01 | Outpatient (REF) | payer MEDICARE, SELFPAY ==
[2021-01-24 11:27] LABS: Glucose Urine UA 500 MG/DL (NEG); Leukocyte Esterase Urine NEG (NEG); Nitrite Urine NEG (NEG); Specific Gravity - Urine <= 1.005 (1.005-1.025); Urine Blood NEG (NEG); Urine Ketones NEG (NEG); Urine Protein NEG (NEG-TRACE)
[2021-01-24 11:33] LABS: Appearance Urine CLEAR; Color Urine YELLOW
[2021-01-24 11:36] LABS: Alanine Aminotransferase 23 U/L (0-31); Albumin Level 4.3 g/dL (3.5-5.0); Alkaline Phosphatase 108 U/L (39-117); Anion Gap 12 (12-20); Aspartate Amino Transferase 18 U/L (5-31); Bilirubin Total 0.5 mg/dL (0.0-1.0); Blood Urea Nitrogen 15 mg/dL (9-16); Calcium 9.6 mg/dL (8.4-10.2); Carbon Dioxide 33 mmol/L (22-29); Chloride 100 mmol/L (96-108); Estimated Glomerular Filt Rate > 60; Glucose Fasting 110 mg/dL (60-99); Potassium 5.2 mmol/L (3.3-5.1); Sodium 140 mmol/L (135-145); Total Protein 7.3 g/dL (6.5-8.0)
[2021-01-24 11:56] LABS: Estimated Average Glucose 123 mg/dL; Hemoglobin A1c % 5.9 %
[2021-01-24 11:58] LABS: TSH reflex Free T4 0.53 uIU/mL (0.32-4.0)
[2021-01-24 12:07] LABS: Folate 7.9 ng/mL (> or = 4.0); Vitamin B12 637 pg/mL (200-900)
[2021-01-27 23:06] LABS: Arsenic, Blood <3 mcg/L (<23); Lead, Blood <1 mcg/dL (<5); Mercury, Blood <4 mcg/L (<=10)
[2021-01-29 12:16] LABS: Vitamin B6 6.1 ng/mL (2.1-21.7)
== END 2021-01-24 06:02 | disposition home or self-care (01) ==
LOC: HO.HMGCLDS 06:01
PROVIDERS: PCP Physician Assistant; Visit Provider Physician Assistant
DX: R30.0 Dysuria (principal); R31.29 Other microscopic hematuria; G62.9 Polyneuropathy, unspecified
CPT/HCPCS: 36415; 80053; 81003; 82175; 82607; 82746; 83036; 83655; 83825; 84207; 84443

== ENCOUNTER 2021-03-14 07:00 | Outpatient (RCR) | payer MEDICARE, SELFPAY ==
--- NOTE | 2021-02-07 09:50 | MHC.PT.EP ---
[facility] [place] Office [place] Office [place] Office [address] Katie Hernandez [address] [phone] F: [phone] F: [phone] F: [phone] F: [phone] Physical Therapy Plan of Care Date of Evaluation: Date of Surgery: Diagnosis: OA of R shoulder Assessment: Patient is a 75 year old R handed female who presents with s/s consistent with R shoulder pain. She sustained the injury after a fall in her cellar, landing on the involved side. She is not working but likes to stay active at home with house and yard chores. Patient past medical history includes GERD and neuropathy. Current impairments include pain, ROM, strength, safety, independence, activity tolerance and functional mobility. Functional limitations include decreased ability to reach overhead or out to the side, lift, carry, and perform weight bearing activities.. Patient is motivated with good rehab potential. Skilled PT will address impairments and functional limitations in order to achieve goals. Frequency and Duration: The patient will be seen 2x/week for 5 weeks Short Term Goals: I with HEP - 2 weeks Pain free AROM flex and abd to 130 - 3 weeks IR/ER arc to 120 - 3 weeks Intermediate Goals: No pain with ADLS - [address] hands behind head on couch pain free - 5 weeks Strength 4+/5 grossly - 5 weeks Treatment Plan: Modalities to reduce pain, spasms and effusion. Manual therapy to restore motion and function. Therapeutic exercise to improve strength and flexibility. Neuromuscular re-education for posture and balance. Therapeutic activities to return to functional activities of daily living. Electronically signed by: Jack Agustin, PT Please sign and return to therapist. Thank you for your referral.
--- NOTE | 2021-05-30 13:36 | MHC.PT.DC ---
[facility] [place] Office [place] Office [place] Office [address] [phone] F: [phone] F: [phone] F: [phone] F: [phone] Physical Therapy Discharge Report Diagnosis: OA of R shoulder Date of Surgery: Date of Evaluation: 02/07/21 Date of Discharge: 03/14/21 Treatments to Date: 8 Cancellations to Date: 0 No Shows to Date: 0 Discharge Status: Patient Elected to Stop Discharge Summary: 03/14/21: pt has been demonstrating excellent AROM and AAROM. s/s of pain with AROM seem to be less consistent but we are cautious with progression. Pt is contemplating getting another cortisone. At this time, we she decided to stop PT. 03/12/21: Pt notes she still has pain with reaching overhead at varying angles. We assessed her ROM and strength today with is improving. Flexion to 150, ER to 65, IR 64, Abduction to 140. We issued a stat patch with instructions again in order to reduce painful arc. Patient is a 75 year old R handed female who presents with s/s consistent with R shoulder pain. She sustained the injury after a fall in her cellar, landing on the involved side. She is not working but likes to stay active at home with house and yard chores. Patient past medical history includes GERD and neuropathy. Current impairments include pain, ROM, strength, safety, independence, activity tolerance and functional mobility. Functional limitations include decreased ability to reach overhead or out to the side, lift, carry, and perform weight bearing activities.. Patient is motivated with good rehab potential. Skilled PT will address impairments and functional limitations in order to achieve goals. Electronically signed by: Jack Agustin, PT Please sign and return to therapist. Thank you for your referral.
== END 2021-05-30 13:37 | disposition home or self-care (01) ==
LOC: HO.PTCHIC 07:00
PROVIDERS: PCP Physician Assistant; Visit Provider Physician Assistant
DX: M19.011 Primary osteoarthritis, right shoulder (principal)
CPT/HCPCS: 97110; 97140; 97161

== ENCOUNTER 2021-03-27 07:56 | Outpatient (REF) | payer MEDICARE, SELFPAY ==
[2021-03-27 12:03] LABS: Appearance Urine CLEAR; Color Urine STRAW; Glucose Urine UA >=1000 MG/DL (NEG); Leukocyte Esterase Urine NEG (NEG); Nitrite Urine NEG (NEG); Specific Gravity - Urine <= 1.005 (1.005-1.025); UACC Culture Trigger NO; Urine Blood TRACE (NEG); Urine Ketones NEG (NEG); Urine Protein NEG (NEG-TRACE)
[2021-03-27 12:35] LABS: Squamous Epithelial Cell Urine 1+ /LPF
[2021-03-27 12:36] LABS: RBC Urine 0 /HPF (0); WBC Urine 0 /HPF (0-4)
== END 2021-03-27 07:57 | disposition home or self-care (01) ==
LOC: HO.HMGCLDS 07:56
PROVIDERS: PCP Physician Assistant; Visit Provider Physician Assistant
DX: R30.0 Dysuria (principal); R31.29 Other microscopic hematuria
CPT/HCPCS: 81001; 81003

== ENCOUNTER 2021-06-08 13:14 | Outpatient (REF) | payer MEDICARE, SELFPAY ==
--- NOTE | ~2021-06-08 | CT_ITS ---
EXAMINATION: CT CHEST SCREENING CLINICAL INFORMATION: Smoking history. 56 pack year history. COMPARISON: Current previous chest x-ray September 2013 TECHNIQUE: Multidetector volumetric CT imaging of the chest is performed without contrast using low dose technique. Additional 2D coronal and sagittal reformatted images and axial 3D maximum intensity projection (MIP) images are generated on the CT workstation. This CT examination was performed using dose optimization techniques as appropriate, variously including the following: *Automated exposure control *Adjustment of mA and/or kV according to patient size (this includes techniques or standardized protocols for targeted exams where dose is matched to indication/reason for exam; i.e. extremities or head) *Use of iterative reconstruction technique DLP: 62 mGy-cm FINDINGS: LUNGS: There is evidence of emphysema. There is a 6 x 9 mm semisolid left upper lobe nodule axial image 19 series 5. There is a 4 mm superior segment left lower lobe semisolid nodule axial image 170 series 5. There is evidence of airways disease seen at the lung bases with bronchial wall thickening and some bronchial soft tissue opacification. There are clustered peribronchial nodules or tree-in-bud appearance in the medial segment of the right middle lobe and inferior segment of the left lower lobe probably representing airways disease, for example axial image 380 and 403 series 5. There is a 5 mm heterogeneous or semisolid left lower lobe nodule axial image 355 series 5. MEDIASTINUM: The thyroid gland is enlarged. There is a 4 x 2.8 cm left isthmus and lower lobe nodule. There is a 2.3 cm partially calcified right lower pole nodule. The heart does not appear enlarged. There is no pericardial effusion. There is mild coronary artery calcification. The thoracic aorta is normal in caliber. There are no enlarged hilar or mediastinal lymph nodes. PLEURA: There is no pleural effusion. No pleural mass or thickening. AXILLA: No lymphadenopathy. UPPER ABDOMEN: There is calcification in the right adrenal gland probably related to old granulomatous disease or trauma. There is a 1.6 cm lesion exophytic to the medial upper pole of the left kidney. Hounsfield units about contrast measure 21 not compatible with a simple cyst. OSSEOUS STRUCTURES: There are degenerative changes of the spine. CT/CT lung screening IMPRESSION: Emphysema. Several heterogeneous or semisolid pulmonary nodules, largest measuring 6 x 9 mm in the left upper lobe. Airways disease and clustered peribronchial nodules or tree-in-bud appearance in the right middle lobe and lingula. Mild coronary artery calcification. Enlarged thyroid gland with bilateral nodules. Indeterminate 1.6 cm left renal lesion. ASSESSMENT: Lung-RADS category 3S RECOMMENDATION: Six-month low-dose chest CT follow-up. Thyroid and renal ultrasound follow-up recommended.
== END 2021-06-08 13:15 | disposition home or self-care (01) ==
LOC: HO.CT 13:14
PROVIDERS: PCP Physician Assistant; Visit Provider Physician Assistant Medical
DX: Z12.2 Encounter for screening for malignant neoplasm of respiratory organs (principal); F17.210 Nicotine dependence, cigarettes, uncomplicated
CPT/HCPCS: 71271; G0296

== ENCOUNTER 2021-06-20 12:04 | Outpatient (REF) | payer MEDICARE, SELFPAY ==
[2021-06-20 15:26] LABS: TSH reflex Free T4 0.49 uIU/mL (0.32-4.0)
[2021-06-20 15:27] LABS: Cholesterol 178 mg/dL; HDL Cholesterol 50 mg/dL; LDL Cholesterol Calculated 100 mg/dl; Triglycerides 141 mg/dL
== END 2021-06-20 12:05 | disposition home or self-care (01) ==
LOC: HO.HMGCLDS 12:04
PROVIDERS: Visit Provider Physician Assistant
DX: Z13.220 Encounter for screening for lipoid disorders (principal); Z13.29 Encounter for screening for other suspected endocrine disorder
CPT/HCPCS: 36415; 80061; 84443

== ENCOUNTER 2021-06-28 13:56 | Outpatient (REF) | payer MEDICARE, SELFPAY ==
--- NOTE | ~2021-06-28 | US_ITS ---
EXAMINATION: US RETROPERITONEAL COMPLETE (RENAL) CLINICAL INFORMATION: Left renal lesion. COMPARISON: CT chest dated 06/08/2021. CT abdomen pelvis dated 08/02/2020; renal ultrasound dated 07/17/2020. TECHNIQUE: Real-time imaging of the kidneys and bladder. FINDINGS: RIGHT KIDNEY: 9.5 x 4.0 x 6.1 cm (SAG x AP x TRV). The kidney is normal in size, contour, and echogenicity. Renal cortical thickness is normal. No focal parenchymal solid lesions. At the upper pole, a 1.9 cm in maximal diameter simple cyst is seen. At the interpolar aspect, a 7 mm in maximal diameter simple cyst is seen. At the upper pole, a 3 mm nonobstructing calculus is seen, with twinkle artifact. No hydronephrosis. LEFT KIDNEY: 10.3 x 5.8 x 5.4 cm (SAG x AP x TRV). The kidney is normal in size, contour, and echogenicity. Renal cortical thickness is normal. No calculi or focal parenchymal solid lesions. At the upper pole, 1.9 cm and 0.9 cm in maximal diameter simple cysts are seen. At the interpolar aspect, a 1.1 cm in maximal diameter single cyst is seen. At the lower pole, a 1.2 cm in maximal diameter simple cyst is seen. No hydronephrosis. BLADDER: Well distended and normal. Bilateral ureteral jets are demonstrated. Prevoid bladder volume is 481 mL. Postvoid bladder volume is 71 mL. US/US retroperitoneal comp IMPRESSION: 1. Multiple simple bilateral renal cysts are seen, as above. No solid renal mass is noted. 2. A tiny right renal upper pole nonobstructing calculus is seen, with twinkle artifact. 3. There is a borderline increased postvoid residual volume.
--- NOTE | ~2021-06-28 | US_ITS ---
EXAMINATION: US THYROID CLINICAL INFORMATION: Nontoxic single thyroid nodule. COMPARISON: None TECHNIQUE: Linear transducer grayscale and color Doppler examination with attention to the region of the thyroid. FINDINGS: SIZE: Measurements of the thyroid lobes and nodules are given in sagittal, anteroposterior and transverse dimensions respectively. Right Thyroid Lobe: 6.14 x 2.96 x 2.16 cm, volume 20.6 mL. Parenchyma: The gland echotexture is heterogeneous. Thyroid vascularity is normal. Left Thyroid Lobe: 7.37 x 4.02 x 2.77 cm, volume 43.0 mL. Parenchyma: The gland echotexture is heterogeneous. Thyroid vascularity is normal. Isthmus: 1.27 cm in maximum AP dimension. Estimated total number of nodules greater than or equal to 1 cm: 6 to 10. [place] nodules are described as follows: 1. Location: Isthmus. Size: 0.8 x 0.6 x 0.6 cm, volume 0.15 mL. Nodule characteristics: Composition: Cannot be determined (2). Echogenicity: Cannot be determined (1). Shape: Not taller than wide (0). Margins: Smooth (0). Echogenic Foci: Peripheral calcifications (2). ACR TI-RADS total points: 5 ACR TI-RADS category: 4 2. Location: Right inferior. Size: 0.8 x 0.8 x 1.0 cm, volume 0.33 mL. Nodule characteristics: Composition: Cannot be determined (2). Echogenicity: Hypoechoic (2). Shape: Not taller than wide (0). Margins: Smooth (0). Echogenic Foci: Peripheral calcifications (2). ACR TI-RADS total points: 6 ACR TI-RADS category: 4 3. Location: Right mid. Size: 2.0 x 1.7 x 1.6 cm, volume 2.8 mL. Nodule characteristics: Composition: Solid (2). Echogenicity: Hyperechoic (1). Shape: Not taller than wide (0). Margins: Smooth (0). Echogenic Foci: Punctate echogenic foci (3). ACR TI-RADS total points: 6 ACR TI-RADS category: 4 4. Location: Right mid. Size: 2.8 x 1.9 x 2.2 cm, volume 6.1 mL. Nodule characteristics: Composition: Mixed cystic and solid (1). Echogenicity: Cannot be determined (1). Shape: Not taller than wide (0). Margins: Smooth (0). Echogenic Foci: Punctate echogenic foci (3). ACR TI-RADS total points: 5 ACR TI-RADS category: 4 5. Location: Left mid/inferior. Size: 4.7 x 2.5 x 4.4 cm, volume 27.0 mL. Nodule characteristics: Composition: Mixed cystic and solid (1). Echogenicity: Hyperechoic (1). Shape: Not taller than wide (0). Margins: Smooth (0). Echogenic Foci: Punctate echogenic foci (3). ACR TI-RADS total points: 5 ACR TI-RADS category: 4 NODES: Within the left neck is a hypoechoic appearing lymph node measuring up to 8 mm in short axis. US/US thyroid IMPRESSION: 1. Nodule in the isthmus measures up to 0.8 cm with a TI-RADS Category 4. Nodule does not require follow-up. 2. Nodule in the lower pole of the right thyroid lobe measures up to 1.0 cm with a TI-RADS category of 4. Follow-up as below. 3. Nodule in the midportion of the right thyroid lobe (nodule #3) measures up to 2.0 cm with a TI-RADS Category 4. Nodule is amenable to biopsy if not already performed. 4. Nodule in the midportion of the right thyroid lobe (nodule #4) measures up to 2.8 cm with a TI-RADS Category 4. Nodule is amenable to biopsy if not already performed. 5. Nodule in the mid/lower region of the left thyroid lobe measures up to 4.7 cm with a TI-RADS Category 4. Nodule is amenable to biopsy already performed. 6. Bilateral thyroid lobes demonstrate heterogeneous echotexture with normal vascularity, both are enlarged with asymmetry in size, left greater than right. 7. Within the left neck is a hypoechoic appearing lymph node measuring up to 8 mm in short axis. ACR TI-RADS RECOMMENDATION REFERENCE: * TR4 (4-6 points): FNA if more than or equal to 1.5 cm in maximum dimension, followup ultrasound in 1, 2, 3 and 5 years if 1 to 1.4 cm in maximum dimension. * TR4 nodules that are below the size threshold for follow up receive no follow up.
== END 2021-06-28 13:57 | disposition home or self-care (01) ==
LOC: HO.HMGCX 13:56
PROVIDERS: PCP Physician Assistant; Visit Provider Physician Assistant
DX: N28.9 Disorder of kidney and ureter, unspecified (principal); E04.1 Nontoxic single thyroid nodule
CPT/HCPCS: 76536; 76770

== ENCOUNTER 2021-07-13 08:27 | Outpatient (REF) | payer MEDICARE, SELFPAY ==
--- NOTE | ~2021-07-13 | XR_ITS ---
EXAMINATION: XR DORSAL SPINE CLINICAL INFORMATION: Reason for Exam M54.6 - Pain in thoracic spine COMPARISON: None available at the time of this dictation. TECHNIQUE: Frontal and lateral FINDINGS: There is no evidence of fracture or dislocation. The vertebral bodies maintain normal height and alignment. Narrowing of intervertebral disc spaces suggest underlying degenerative disc disease. Calcification along the anterior longitudinal ligament suggesting DISH. The paravertebral soft tissues are unremarkable. Included adjacent lungs are clear. XR/XR thoracic spine 3V IMPRESSION: No fracture Narrowing of intervertebral disc spaces suggest underlying degenerative disc disease. . Calculation along the anterior longitudinal ligament suggesting probably DISH.
--- NOTE | ~2021-07-13 | XR_ITS ---
EXAMINATION: XR HIP, RIGHT , CLINICAL INFORMATION: Pain COMPARISON: 2016 TECHNIQUE: Frontal and lateral views of the hip acquired. , FINDINGS: There is no evidence of acute fracture or dislocation. There are mild degenerative arthritic changes of the hip evident by sclerotic changes of the acetabular roof and narrowing of the joint space. Mild degenerative changes of the symphysis pubis. Mild degenerative changes of the SI joints. Coarse popcorn pelvic calcifications probably necrotic uterine fibroid unchanged. Adjacent pubic rami are intact. Surrounding soft tissues are unremarkable. XR/XR hip RT min 2V IMPRESSION: Mild degenerative arthritis. Coarse popcorn calcification in the pelvis most likely necrotic uterine fibroid.
== END 2021-07-13 08:28 | disposition home or self-care (01) ==
LOC: HO.HMGCX 08:27
PROVIDERS: Visit Provider Physician Assistant
DX: M54.6 Pain in thoracic spine (principal); M25.551 Pain in right hip
CPT/HCPCS: 72072; 73502

== ENCOUNTER → 2021-07-16 12:26 | Outpatient (BNVA) | payer MEDICARE, SELFPAY | PROVIDERS: PCP Physician Assistant; Visit Provider Internal Medicine | DX: Z13.89 Encounter for screening for other disorder (principal) | CPT/HCPCS: 99202 ==

== ENCOUNTER 2021-07-16 13:25 | Outpatient (REF) | payer MEDICARE, SELFPAY ==
[2021-07-16 16:54] LABS: Alanine Aminotransferase 19 U/L (0-31); Albumin Level 4.3 g/dL (3.5-5.0); Alkaline Phosphatase 105 U/L (39-117); Anion Gap 12 (12-20); Aspartate Amino Transferase 18 U/L (5-31); Bilirubin Total 0.4 mg/dL (0.0-1.0); Blood Urea Nitrogen 12 mg/dL (9-16); Calcium 9.9 mg/dL (8.4-10.2); Carbon Dioxide 32 mmol/L (22-29); Chloride 101 mmol/L (96-108); Estimated Glomerular Filt Rate > 60; Glucose Random 88 mg/dL (60-115); Potassium 4.8 mmol/L (3.3-5.1); Sodium 140 mmol/L (135-145); Total Protein 7.7 g/dL (6.5-8.0)
[2021-07-16 17:18] LABS: Free T4 (Free Thyroxine) 1.08 ng/dL (0.71-1.85); Thyroid Stimulating Hormone 0.46 uIU/mL (0.32-4.0); Vitamin D 25-OH Total 49.2 ng/mL (>30)
[2021-07-17 14:20] LABS: PTHI 29 pg/mL (14-64)
== END 2021-07-16 13:26 | disposition home or self-care (01) ==
LOC: HO.HMGCLDS 13:25
PROVIDERS: PCP Internal Medicine; Visit Provider Internal Medicine
DX: E04.2 Nontoxic multinodular goiter (principal); E55.9 Vitamin D deficiency, unspecified
CPT/HCPCS: 36415; 80053; 82306; 83970; 84100; 84439; 84443; 99202

== ENCOUNTER 2021-07-24 07:37 | Outpatient (REF) | payer MEDICARE, SELFPAY ==
--- NOTE | ~2021-07-24 | CT_ITS ---
EXAMINATION: CT SOFT TISSUE NECK WITHOUT CONTRAST CLINICAL INFORMATION: Nontoxic multinodular goiter. COMPARISON: Previous thyroid ultrasound from earlier this month and chest CT May 2021. TECHNIQUE: Helical imaging was performed in the axial plane with generation of coronal and sagittal reformatted images. This CT examination was performed using dose optimization techniques as appropriate, variously including the following: *Automated exposure control *Adjustment of mA and/or kV according to patient size (this includes techniques or standardized protocols for targeted exams where dose is matched to indication/reason for exam; i.e. extremities or head) *Use of iterative reconstruction technique DLP: 365 mGy-cm FINDINGS: The thyroid gland is enlarged. The right lobe measures 7.2 x 0.3 x 2 cm in longitudinal AP and transverse dimension. The left lobe measures 7.3 x 4.5 x 3.2 cm in sagittal AP and transverse dimension. Thyroid isthmus measures 1.3 cm. There are multiple bilateral nodules. Largest nodule is a 2.6 x 3.6 cm left inferior nodule. There are calcified nodules in the right isthmus and lower pole. There is an exophytic nodule arising from the inferior right lobe that extends to the level of the clavicular head/clavicular manubrial joint. There is minimal displacement of the trachea to the right. There is no mass effect on the trachea. There are small cervical lymph nodes. No enlarged lymph nodes are seen. Visualized intracranial structures are normal. The orbits are normal. The paranasal sinuses, mastoid air cells and middle ears are clear. The salivary glands are normal. The nasooro-and hypopharynx and larynx are normal. There is biapical pleural and parenchymal scarring. There is evidence of mild centrilobular emphysema. Evaluation of the lung apices is limited due to respiratory motion artifact. There is a 1 cm heterogeneous or semisolid left upper lobe nodule axial image 122 series 2. This is not appear appreciably changed from most recent chest CT May 2021. There is multilevel degenerative spondylosis of the cervical spine. CT/CT soft tissue neck wo con IMPRESSION: Enlarged thyroid gland with multiple bilateral nodules. Slight displacement of the trachea to the right. No mass effect on the trachea. No enlarged cervical lymph nodes. Stable chest CT findings from May 2021.
== END 2021-07-24 07:38 | disposition home or self-care (01) ==
LOC: HO.CT 07:37
PROVIDERS: Visit Provider Internal Medicine
DX: E04.2 Nontoxic multinodular goiter (principal)
CPT/HCPCS: 70490

== ENCOUNTER 2021-08-30 09:31 | Outpatient (REF) | payer MEDICARE, SELFPAY ==
--- NOTE | ~2021-08-30 | CT_ITS ---
EXAMINATION: CT CHEST SCREENING CLINICAL INFORMATION: Smoker. COMPARISON: CT chest 06/08/2021. TECHNIQUE: Multidetector volumetric CT imaging of the chest is performed without contrast using low dose technique. Additional 2D coronal and sagittal reformatted images and axial 3D maximum intensity projection (MIP) images are generated on the CT workstation. This CT examination was performed using dose optimization techniques as appropriate, variously including the following: *Automated exposure control *Adjustment of mA and/or kV according to patient size (this includes techniques or standardized protocols for targeted exams where dose is matched to indication/reason for exam; i.e. extremities or head) *Use of iterative reconstruction technique DLP: 46 mGy-cm FINDINGS: LUNGS: There is a 7 mm ground-glass opacity left upper lobe axial image 15/4, 4 mm ground-glass nodule left lower lobe laterally axial image 357/6, 5 mm nodule in the lingula axial image 296/6, 5 mm subpleural nodule in the lingula axial image 390/6. There are focal atelectatic changes in the right middle lobe. Mild thickening of the right medial inferior major fissure is stable as well. MEDIASTINUM: Heart size and the great vessels are normal caliber. The left thyroid lobe is enlarged with heterogeneous appearance consistent with goiter. There is some scattered calcification seen in the right lobe. Mild compromise of the trachea from thyroid enlargement is noted. Rest of the trachea is widely patent. Trace coronary artery calcification seen. No abnormal-sized mediastinal or hilar lymph node seen. PLEURA: There is no pleural effusion. No pleural mass or thickening. AXILLA: No lymphadenopathy. UPPER ABDOMEN: Visualized liver, spleen, pancreas and bilateral adrenal glands are unremarkable. There is bulbous appearance of right adrenal gland medial limb with trace calcification. Exophytic lesion upper pole left kidney measures 1.6 cm is stable. OSSEOUS STRUCTURES: No lytic or sclerotic process seen. There is anterior longitudinal ligament calcification. CT/CT lung screen follow up IMPRESSION: Stable several ground-glass/semisolid pulmonary nodules largest nodule measuring 7 mm in the left upper lobe compared to 9 mm on the previous study. No new nodules. No tree-in-bud appearance trace coronary artery calcifications. Minimal atelectatic changes right middle lobe and lingula. Likely thyroid goiter with enlarged left lobe and scattered calcifications in the right lobe. Stable exophytic lesion upper pole left kidney and right adrenal focal nodule with calcification. ASSESSMENT: Lung-RADS category 2: Benign RECOMMENDATION: Low-dose annual CT chest.
== END 2021-08-30 09:32 | disposition home or self-care (01) ==
LOC: HO.CT 09:31
PROVIDERS: Visit Provider Physician Assistant Medical
DX: Z87.891 Personal history of nicotine dependence (principal)
CPT/HCPCS: 71250

== ENCOUNTER → 2021-09-14 10:05 | Outpatient (BNVA) | payer MEDICARE, SELFPAY | PROVIDERS: PCP Physician Assistant; Visit Provider Surgery | DX: F17.210 Nicotine dependence, cigarettes, uncomplicated (principal); R91.1 Solitary pulmonary nodule | CPT/HCPCS: 99202 ==

== ENCOUNTER 2021-10-01 08:00 | Outpatient (REF) | payer MEDICARE, SELFPAY ==
--- NOTE | 2021-10-01 11:06 | PFT_ITS ---
FLOWS: FEV1 40% of predicted at 0.92 L. FVC 58% of predicted at 1.74 L. FEV1 to FVC ratio of 0.53. Positive bronchodilator response. LUNG VOLUMES: Total lung capacity 75% of predicted at 4.02 L. Residual volume 100% of predicted at 2.44 L. Slow vital capacity 54% of predicted at 1.58 L. Expiratory reserve volume 88% of predicted at 0.60 L. Diffusion capacity is severely decreased, diffusion capacity adjust to being moderately decreased after correction for alveolar ventilation. IMPRESSION: Severe to very severe obstructive ventilatory defect combined with restrictive ventilatory defect with positive bronchodilator response. Decreased diffusion capacity suggests emphysema. MD LUIS Rice/MODL / [id number]
== END 2021-10-01 08:01 | disposition home or self-care (01) ==
LOC: HO.RESP 08:00
PROVIDERS: PCP Physician Assistant; Visit Provider Surgery
DX: R91.1 Solitary pulmonary nodule (principal)
CPT/HCPCS: 94060; 94727; 94729

== ENCOUNTER 2021-11-20 06:00 | Outpatient (REF) | payer MEDICARE, SELFPAY ==
[2021-11-20 11:38] LABS: Hematocrit 43.1 % (37.0-47.0); Mean Corpuscular HGB Conc 30.2 g/dl (31.0-35.0); Mean Corpuscular Hemoglobin 26.5 pg (27.0-33.0); Mean Corpuscular Volume 87.8 fL (80.0-98.0); Mean Platelet Volume 10.2 fL (9.4-12.3); Platelet Count 443 X10*3/uL (160-400); Red Blood Count 4.91 X10*6/uL (4.20-5.50); Red Cell Distribution Width 13.1 % (11.0-16.0); White Blood Count 6.1 X10*3/uL (4.8-10.8)
[2021-11-20 12:04] LABS: Alanine Aminotransferase 15 U/L (0-31); Albumin Level 4.3 g/dL (3.5-5.0); Alkaline Phosphatase 92 U/L (39-117); Anion Gap 13 (12-20); Aspartate Amino Transferase 16 U/L (5-31); Bilirubin Total 0.5 mg/dL (0.0-1.0); Blood Urea Nitrogen 18 mg/dL (9-16); Calcium 9.9 mg/dL (8.4-10.2); Carbon Dioxide 30 mmol/L (22-29); Chloride 101 mmol/L (96-108); Cholesterol 153 mg/dL; Estimated Average Glucose 131 mg/dL; Estimated Glomerular Filt Rate > 60; Glucose Fasting 107 mg/dL (60-99); HDL Cholesterol 46 mg/dL; Hemoglobin A1c % 6.2 %; LDL Cholesterol Calculated 92 mg/dl; Potassium 4.9 mmol/L (3.3-5.1); Sodium 139 mmol/L (135-145); Total Protein 7.7 g/dL (6.5-8.0); Triglycerides 78 mg/dL
[2021-11-20 12:39] LABS: TSH reflex Free T4 0.27 uIU/mL (0.32-4.0)
[2021-11-20 13:31] LABS: Free T4 (Free Thyroxine) 1.23 ng/dL (0.71-1.85)
== END 2021-11-20 06:01 | disposition home or self-care (01) ==
LOC: HO.HMGCLDS 06:00
PROVIDERS: Visit Provider Physician Assistant
DX: Z13.1 Encounter for screening for diabetes mellitus (principal); Z13.220 Encounter for screening for lipoid disorders; E04.2 Nontoxic multinodular goiter; R73.01 Impaired fasting glucose
CPT/HCPCS: 36415; 80053; 80061; 83036; 84439; 84443; 85027

== ENCOUNTER → 2021-11-23 08:51 | Outpatient (BNVA) | payer MEDICARE, SELFPAY | PROVIDERS: PCP Physician Assistant; Visit Provider Surgery | DX: R91.1 Solitary pulmonary nodule (principal); F17.210 Nicotine dependence, cigarettes, uncomplicated; Z71.6 Tobacco abuse counseling | CPT/HCPCS: 99212 ==

== ENCOUNTER 2022-01-18 07:50 | Outpatient (REF) | payer MEDICARE, SELFPAY ==
--- NOTE | ~2022-01-18 | MM_ITS ---
EXAMINATION: MM SCREENING DIGITAL BREAST TOMOSYNTHESIS, BILATERAL CLINICAL INFORMATION: Screening. Asymptomatic. The lifetime risk of breast cancer based on the Tyrer-Cuzick Model is 4%. COMPARISON: Mammography: 01/17/2021, 01/12/2020, 01/06/2019 TECHNIQUE: Digital breast tomosynthesis is performed in both the craniocaudal and mediolateral oblique views along with computer-aided detection (CAD). Synthesized 2D images are generated from the tomosynthesis. FINDINGS: There are scattered areas of fibroglandular density (ACR BI-RADS breast composition Category b). Parenchymal pattern is similar to prior studies and there is no developing density or interval mass or architectural abnormality. No abnormal calcifications on the right. The bilateral axilla and skin contours are unremarkable. Left breast has some loosely grouped calcifications posterior upper outer quadrant increased in number from prior study along with probable digital processing artifact. Patient will be recalled for additional magnification views to fully characterize. MM/MM tomosynthesis screening BI IMPRESSION: Left: -Loosely grouped calcifications posterior upper outer left breast. Right: -No mammographic evidence of malignancy. ASSESSMENT: BI-RADS 0: Incomplete - Need Additional Imaging Evaluation RECOMMENDATION: 1. Additional views of the left breast (magnification CC, magnification ML). 2. Radiology department staff will contact the patient for additional imaging. This patient's information was entered into a reminder system with a target due date for their next mammogram.
== END 2022-01-18 07:51 | disposition home or self-care (01) ==
LOC: HO.MAMMO 07:50
PROVIDERS: Visit Provider Physician Assistant
DX: Z12.31 Encounter for screening mammogram for malignant neoplasm of breast (principal)
CPT/HCPCS: 77063; 77067

== ENCOUNTER 2022-01-24 07:46 | Outpatient (REF) | payer MEDICARE, SELFPAY ==
--- NOTE | 2022-01-24 08:58 | P.BOP_ITS ---
Brief Operative Note Date of Service: 01/24/22 Pre-op diagnosis: Multinodular Thyroid Procedure: This is doctor Tanya Coombs. This is an ultrasound-guided fine-needle aspiration report. Date of Examination: 01/24/2022 Indication: Multinodular Thyroid Porcedure: Procedure was explained to the patient. Alternatives, the risk and benefits were discussed. Written consent was obtained. A time-out was also obtained. After sterile preparation, fine-needle aspiration of a left mid pole 4.3 cm thyroid nodule was performed using direct ultrasound guidance to confirm accurate needle placement. Four aspirations were made using 27 gauge needles. Samples were submitted for cytology. One pass was dedicated for [employer] sequencing consumer safety officer testing. Our attention was then turned to the right lobe. Fine-needle aspiration of a right mid pole 1.8 cm thyroid nodule was performed using direct ultrasound guidance to confirm accurate needle placement. Four aspirations were made using 27 gauge needles. Samples were submitted for cytology. One pass was dedicated for [employer] sequencing consumer safety officer testing. Our attention was then turned to the right lower pole. Fine-needle aspiration of a right lower lobe 1.8 cm thyroid nodule was performed using direct ultrasound guidance to confirm accurate needle placement. Four aspirations were made using 27 gauge needles. Samples were submitted for cytology. One pass was dedicated for [employer] sequencing consumer safety officer testing. She additionally had 2 fully calcified nodules within the R lobe which were not biopsied. Her L lobe was found to be significantly enlarged and she is complaining of compressive symptoms, so we discussed the need for at least a left hemithyroidectomy today. Decision of total vs hemithyroidectomy will be based on final cytology. The patient tolerated the procedure well. Aftercare instructions were provided. Impression: Uncomplicated fine needle aspiration biopsy of a left mid pole 4.3 cm, right mid pole 1.8 cm and right lower pole 1.8 cm thyroid nodule under ultrasound guidance. Surgeon: Tanya Coombs, DO Was an Propellant Charge Loader used for this Procedure?: No Estimated blood loss (mL): 0
[2022-01-24] MEDS: Lidocaine HCl 1 % MPF 5 ML VIAL SUBCUT (09:50)
== END 2022-01-24 07:47 | disposition home or self-care (01) ==
LOC: HO.US 07:46
PROVIDERS: Visit Provider Internal Medicine
DX: E04.2 Nontoxic multinodular goiter (principal)
CPT/HCPCS: 10005; 10006; 88172; 88173; 88177

== ENCOUNTER 2022-01-30 14:05 | Outpatient (REF) | payer MEDICARE, SELFPAY ==
--- NOTE | ~2022-01-30 | MM_ITS ---
EXAMINATION: MM DIAGNOSTIC DIGITAL MAMMOGRAPHY, LEFT CLINICAL INFORMATION: Recall from screening for loosely grouped calcifications posterior upper outer left breast. COMPARISON: Mammography: 01/18/2022 (BI-RADS 0), 01/17/2021, 01/12/2020, 01/06/2019 TECHNIQUE: Digital mammography is performed in the following views: Magnification CC and magnification ML FINDINGS: There are scattered areas of fibroglandular density (ACR BI-RADS breast composition Category b). The additional magnification views confirm some additional loosely grouped calcifications in the upper outer left breast. They appear relatively coarse and likely related to fibroadenomatous changes. Left breast will be reassessed again in 6 months to include magnification views. Results are discussed with the patient at time of visit. MM/MM added views LT IMPRESSION: Probable benign relatively coarse calcifications upper outer quadrant, suspect benign fibroadenomatous change. ASSESSMENT: BI-RADS 3: Probably Benign RECOMMENDATION: Diagnostic left mammography in 6 months. This patient's information was entered into a reminder system with a target due date for their next mammogram.
== END 2022-01-30 14:06 | disposition home or self-care (01) ==
LOC: HO.MAMMO 14:05
PROVIDERS: PCP Physician Assistant; Visit Provider Physician Assistant
DX: R92.1 Mammographic calcification found on diagnostic imaging of breast (principal)
CPT/HCPCS: 77065

== ENCOUNTER 2022-02-07 12:23 | Outpatient (REF) | payer MEDICARE, SELFPAY ==
[2022-02-07 17:11] LABS: Albumin Level 4.4 g/dL (3.5-5.0); Phosphorus 4.4 mg/dL (2.7-4.5)
[2022-02-07 17:35] LABS: Free T4 (Free Thyroxine) 1.23 ng/dL (0.71-1.85); Thyroid Stimulating Hormone 0.22 uIU/mL (0.32-4.0); Vitamin D 25-OH Total 66.2 ng/mL (>30)
[2022-02-10 12:52] LABS: Calcium (PTHI) 9.8 mg/dL (8.6-10.4); PTHI 37 pg/mL (16-77)
== END 2022-02-07 12:24 | disposition home or self-care (01) ==
LOC: HO.HMGCLDS 12:23
PROVIDERS: PCP Physician Assistant; Visit Provider Internal Medicine
DX: E04.2 Nontoxic multinodular goiter (principal); E55.9 Vitamin D deficiency, unspecified
CPT/HCPCS: 36415; 82040; 82306; 83970; 84100; 84439; 84443; 99212

== ENCOUNTER 2022-02-11 11:54 | Outpatient (REF) | payer MEDICARE, SELFPAY | END 2022-02-11 11:55 | disposition home or self-care (01) | LOC: HO.LNP 11:54 | PROVIDERS: Visit Provider Nurse Practitioner Family | DX: N30.01 Acute cystitis with hematuria (principal) | CPT/HCPCS: 87086; 87088; 87186 ==

== ENCOUNTER 2022-02-12 11:17 | Outpatient (REF) | payer MEDICARE, SELFPAY ==
[2022-02-12 14:52] LABS: Thyroid Stimulating Hormone 0.25 uIU/mL (0.32-4.0)
[2022-02-14 04:45] LABS: Triiodothyronine T3 Total 132 ng/dL (76-181)
[2022-02-16 18:51] LABS: Thyrotropin Receptor Antibody <1.00 IU/L (<=2.00)
[2022-02-20 16:06] LABS: Thyroid Stimulating Immunoglob <89 % baseline (<140)
== END 2022-02-12 11:18 | disposition home or self-care (01) ==
LOC: HO.HMGCLDS 11:17
PROVIDERS: PCP Physician Assistant; Visit Provider Internal Medicine
DX: E04.2 Nontoxic multinodular goiter (principal)
CPT/HCPCS: 36415; 83520; 84439; 84443; 84445; 84480

== ENCOUNTER 2022-02-26 15:49 | Outpatient (REF) | payer MEDICARE, SELFPAY ==
--- NOTE | ~2022-02-26 | CT_ITS ---
EXAMINATION: CT CHEST SCREENING CLINICAL INFORMATION: Six-month follow-up. 100 fractures smoking history. Current smoker. COMPARISON: Previous chest CT scans August 2021 and May 2021 TECHNIQUE: Multidetector volumetric CT imaging of the chest is performed without contrast using low dose technique. Additional 2D coronal and sagittal reformatted images and axial 3D maximum intensity projection (MIP) images are generated on the CT workstation. This CT examination was performed using dose optimization techniques as appropriate, variously including the following: *Automated exposure control *Adjustment of mA and/or kV according to patient size (this includes techniques or standardized protocols for targeted exams where dose is matched to indication/reason for exam; i.e. extremities or head) *Use of iterative reconstruction technique DLP: 59 mGy-cm FINDINGS: LUNGS: There is evidence of emphysema. There is mild biapical pleural and parenchymal scarring. There is a 1 cm semisolid left upper lobe nodule axial image 97 series 5. Slightly increased from 7 x 8 mm August 2021 exam and may be slightly increased in density. The 5 mm solid lingula nodule axial image 281 series 5 is stable. The groundglass attenuation left lower lobe nodule measures 4 x 7 mm axial image 341 series 5 and does not appear appreciably changed. There are scattered areas of bronchial wall thickening. There are clustered peribronchial nodules or nodular opacities in the right middle lobe and lingula. These appear increased from previous exam and may be related to airways disease/infectious or inflammatory process.. MEDIASTINUM: Enlarged heterogeneous thyroid gland with multiple nodules and calcification. This not appear appreciably changed. Coronary artery calcification. Normal heart size. Normal caliber thoracic aorta. No enlarged hilar or mediastinal lymph nodes. PLEURA: There is no pleural effusion. No pleural mass or thickening. AXILLA: No lymphadenopathy. UPPER ABDOMEN: 1.3 cm lesion exophytic to the upper pole the left kidney stable. Small calcifications right adrenal gland and low-attenuation left adrenal nodule that are stable. OSSEOUS STRUCTURES: Degenerative changes of the spine. CT/CT lung screen follow up IMPRESSION: Severe emphysema. Slight interval increase in size and density in the now 1 cm slightly spiculated nodule in the left upper lobe. Stable solid 5 mm lingular nodule and 4 x 7 mm left lower lobe groundglass attenuation nodule. Probable increasing airways disease in the right middle lobe and lingula. Enlarged thyroid gland with multiple nodules. Mild coronary artery calcification. Stable abdominal findings. ASSESSMENT: Lung-RADS category 4B: Suspicious RECOMMENDATION: Tissue sampling, PET/CT or short-term follow-up chest CT should be considered.
== END 2022-02-26 15:50 | disposition home or self-care (01) ==
LOC: HO.CT 15:49
PROVIDERS: PCP Physician Assistant; Visit Provider Physician Assistant Medical
DX: R91.1 Solitary pulmonary nodule (principal)
CPT/HCPCS: 71250

== ENCOUNTER → 2022-02-27 10:24 | Outpatient (REF) | payer MEDICARE, SELFPAY ==
--- NOTE | ~2022-02-27 | NM_ITS ---
EXAMINATION: THYROID UPTAKE AND SCAN CLINICAL INFORMATION: Thyrotoxicosis. COMPARISON: No previous radionuclide thyroid scan is available for comparison. Thyroid ultrasound dated 06/28/2021 is available for comparison. TECHNIQUE: Following the oral administration of 261 microcuries of I-123 sodium iodide, thyroid uptake was performed and expressed as a percentage of the administrated dose. Gamma scintillation camera images of the thyroid in the anterior and right and left anterior oblique views were obtained using a pinhole collimator following the administration of 10 mCi Tc-99m pertechnetate. FINDINGS: The uptake is 8.4% at 4 hours and 27.1% at 24 hours (Normal radioiodine uptake at 24 hours is 10% to 30%). The radioiodine uptake is normal. The radiopertechnetate thyroid scintigram shows the thyroid gland to be moderately enlarged approximately 3 times normal in size. There is moderate heterogeneity within the gland with small foci of decreased activity present laterally in the mid to upper and mid to lower aspects of the right lobe and medially in the mid left lobe. The trapping function in the remainder of the gland is moderately increased. A single anterior radioiodine image obtained at the time of the 24-hour uptake measurement is similar to the radio pertechnetate image but does not delineate detail within the gland as well. The thyroid ultrasound dated 06/28/2021 showed multiple bilateral nodules of varying sizes, the largest in the mid left lobe, possibly corresponding to the focus of decreased activity in this region described above, but the latter is not as large as the nodule on the ultrasound. NM/NM thyroid w uptake IMPRESSION: These findings in the clinical setting of thyrotoxicosis are probably due to Graves' disease with multiple coexisting hypofunctioning (cold) nodules. Less likely, the findings may be due to a toxic multinodular goiter (Charleston's disease). If clinically indicated, the presence or absence of thyroid stimulating immunoglobulins should be helpful in differentiating these two entities. The radioiodine uptake is normal and this would be more compatible with Charleston's disease rather than Graves' disease.
== END ==
LOC: HO.NUCMED 10:24
PROVIDERS: PCP Physician Assistant; Visit Provider Internal Medicine
DX: E05.90 Thyrotoxicosis, unspecified without thyrotoxic crisis or storm (principal)
CPT/HCPCS: 78014; A9512; A9516

== ENCOUNTER → 2022-03-01 08:52 | Outpatient (BNVA) | payer MEDICARE, SELFPAY | PROVIDERS: PCP Physician Assistant; Visit Provider Surgery | DX: R91.1 Solitary pulmonary nodule (principal); Z87.891 Personal history of nicotine dependence | CPT/HCPCS: 99212 ==

== ENCOUNTER 2022-03-12 06:27 | Outpatient (REF) | payer MEDICARE, SELFPAY ==
[2022-03-12 12:15] LABS: Estimated Average Glucose 131 mg/dL; Hemoglobin A1c % 6.2 %
[2022-03-12 12:20] LABS: Alanine Aminotransferase 16 U/L (0-31); Albumin Level 4.3 g/dL (3.5-5.0); Alkaline Phosphatase 108 U/L (39-117); Anion Gap 15 (12-20); Aspartate Amino Transferase 16 U/L (5-31); Bilirubin Total 0.6 mg/dL (0.0-1.0); Blood Urea Nitrogen 15 mg/dL (9-16); Calcium 9.7 mg/dL (8.4-10.2); Carbon Dioxide 32 mmol/L (22-29); Chloride 98 mmol/L (96-108); Estimated Glomerular Filt Rate > 60; Glucose Fasting 125 mg/dL (60-99); Potassium 4.9 mmol/L (3.3-5.1); Sodium 140 mmol/L (135-145); Total Protein 7.5 g/dL (6.5-8.0)
== END 2022-03-12 06:28 | disposition home or self-care (01) ==
LOC: HO.HMGCLDS 06:27
PROVIDERS: PCP Physician Assistant; Visit Provider Physician Assistant
DX: R73.09 Other abnormal glucose (principal)
CPT/HCPCS: 36415; 80053; 83036

== ENCOUNTER 2022-03-25 10:58 | Outpatient (REF) | payer MEDICARE, SELFPAY ==
[2022-03-25 14:55] LABS: Free T4 (Free Thyroxine) 1.22 ng/dL (0.71-1.85); Thyroid Stimulating Hormone 0.24 uIU/mL (0.32-4.0)
[2022-03-27 02:27] LABS: Triiodothyronine T3 Total 135 ng/dL (76-181)
== END 2022-03-25 10:59 | disposition home or self-care (01) ==
LOC: HO.HMGCLDS 10:58
PROVIDERS: PCP Physician Assistant; Visit Provider Internal Medicine
DX: E05.90 Thyrotoxicosis, unspecified without thyrotoxic crisis or storm (principal)
CPT/HCPCS: 36415; 84439; 84443; 84480

== ENCOUNTER 2022-03-26 10:57 | Outpatient (REF) | payer MEDICARE, SELFPAY ==
[2022-03-26 14:16] LABS: Appearance Urine Clear; Color Urine Yellow; Glucose Urine UA 500 mg/dL (Negative); Leukocyte Esterase Urine Negative (Negative); Nitrite Urine Negative (Negative); Urine Blood Negative (Negative); Urine Ketones Negative (Negative); Urine Protein Negative (Neg-Trace)
== END 2022-03-26 10:58 | disposition home or self-care (01) ==
LOC: HO.HMGCLDS 10:57
PROVIDERS: PCP Physician Assistant; Visit Provider Physician Assistant
DX: R30.0 Dysuria (principal); R39.15 Urgency of urination
CPT/HCPCS: 81003

== ENCOUNTER → 2022-04-10 12:01 | Day surgery (SDC) | payer MEDICARE, SELFPAY ==
--- NOTE | ~2022-04-10 | CT_ITS ---
PROCEDURE: ABORTED CT GUIDED BIOPSY, LUNG CLINICAL INFORMATION: Patient stated prior to being consented for the lung biopsy that she did not want to take the risk of the biopsy at this point. I then discussed options with the patient including follow up or biopsy with its complications. I also discussed possibility of performing a PET CT and using the results of this exam to direct whether to proceed with biopsy or follow up. RECOMMENDATION: PET/CT. If left upper lobe lesion is PET positive then recommend attempted biopsy versus surgical resection. If PET/CT is negative would recommend CT follow up in 6 months.
[2022-04-10 10:30] VITALS: BP 144/65; PULSE 90; RESP 16; TEMP 36.8; O2SAT 95
[2022-04-10 10:45] VITALS: PULSE 73; RESP 22; O2SAT 93
[2022-04-10 12:33] VITALS: BMI 22.6
[2022-04-10 13:15] VITALS: PULSE 82; RESP 18; O2SAT 93
[2022-04-10] MEDS: Albuterol Sulfate 2.5 MG, Albuterol Sulfate (0.083%) 2.5 MG 5 MG INHALE (13:15)
[2022-04-10 13:33] LABS: MANUAL DIFF FLAG NO
[2022-04-10 13:37] LABS: Basophils Absolute Auto 0.1 X10*3/uL (0.0-0.2); Basophils Percent Auto 0.8 % (0-2); Eosinophils Absolute Auto 0.1 X10*3/uL (0.0-0.4); Eosinophils Percent Auto 1.5 % (0-4); Hematocrit 44.4 % (37.0-47.0); Hemoglobin 13.6 g/dl (12.0-16.0); Imm Gran Abs Auto 0.02 X10*3/uL (0.00-0.03); Imm Gran Pct Auto 0.3 % (0.0-0.4); Lymphocytes Percent Auto 14.6 % (20-40); Mean Corpuscular HGB Conc 30.6 g/dl (31.0-35.0); Mean Corpuscular Volume 84.9 fL (80.0-98.0); Mean Platelet Volume 9.9 fL (9.4-12.3); Monocytes Absolute Auto 0.6 X10*3/uL (0.1-1.2); Neutrophils Absolute Auto 5.2 x10*3/uL (2.0-8.3); Neutrophils Percent Auto 73.8 % (45-73); Platelet Count 445 X10*3/uL (160-400); Red Blood Count 5.23 X10*6/uL (4.20-5.50); Red Cell Distribution Width 13.6 % (11.0-16.0); White Blood Count 7.1 X10*3/uL (4.8-10.8)
[2022-04-10 13:42] LABS: Prothrombin Time 11.4 SEC (10.0-13.1)
[2022-04-10 13:44] LABS: Partial Thromboplastin Time 34.9 SEC (26.0-36.4)
[2022-04-10 13:48] LABS: Anion Gap 15 (12-20); Carbon Dioxide 31 mmol/L (22-29); Chloride 101 mmol/L (96-108); Potassium 5.7 mmol/L (3.3-5.1); Sodium 141 mmol/L (135-145)
== END ==
PROVIDERS: Radiology Diagnostic Radiology; PCP Physician Assistant; Visit Provider Radiology Diagnostic Radiology
DX: R91.1 Solitary pulmonary nodule (principal); Z53.8 Procedure and treatment not carried out for other reasons; Z79.51 Long term (current) use of inhaled steroids; F17.210 Nicotine dependence, cigarettes, uncomplicated
CPT/HCPCS: 32408; 36415; 80051; 85025; 85610; 85730; 94640; J2250; J3010

== ENCOUNTER 2022-04-12 10:07 | Outpatient (REF) | payer MEDICARE, SELFPAY ==
[2022-04-12 12:38] LABS: Free T4 (Free Thyroxine) 1.03 ng/dL (0.71-1.85)
[2022-04-14 15:37] LABS: Triiodothyronine T3 Total 136 ng/dL (76-181)
== END 2022-04-12 10:08 | disposition home or self-care (01) ==
LOC: HO.HMGCLDS 10:07
PROVIDERS: PCP Physician Assistant; Visit Provider Internal Medicine
DX: E05.90 Thyrotoxicosis, unspecified without thyrotoxic crisis or storm (principal)
CPT/HCPCS: 36415; 84439; 84480

== ENCOUNTER → 2022-04-19 09:56 | Outpatient (BNVA) | payer MEDICARE, SELFPAY | PROVIDERS: PCP Physician Assistant; Visit Provider Surgery | DX: R91.1 Solitary pulmonary nodule (principal); F17.210 Nicotine dependence, cigarettes, uncomplicated | CPT/HCPCS: 99212 ==

== ENCOUNTER 2022-04-30 09:12 | Outpatient (REF) | payer MEDICARE, SELFPAY ==
--- NOTE | ~2022-04-30 | PE_ITS ---
EXAMINATION: Fluorine-18 FDG PET/CT Scan CLINICAL INDICATION: Initial treatment management. Pulmonary nodule. PROCEDURE: 68 minutes following the intravenous administration of 14.7 mCi of fluorine 18 FDG, images from the base of the skull to the mid thighs were obtained using a combined PET/CT scanner with CT scan based attenuation correction. No oral contrast was administered. No intravenous contrast was administered. Transverse, coronal, sagittal, and volume reconstruction projections were obtained. The patient's blood glucose as determined by a finger stick, was 102 mg/dl immediately prior to injection. Total CT exam dose-length product 338.64 mGy-cm * These CT images were obtained using dose optimization techniques as appropriate, variously including the following: Automated exposure control * Adjustment of mA and/or kV according to patient size (this includes techniques or standardized protocols for targeted exams where dose is matched to indication/reason for exam; i.e. extremities or head) * Use of iterative reconstruction technique COMPARISON: No previous PET/CT scan is available for comparison. CT scan of the chest dated 02/26/[address] scan of the abdomen and pelvis dated 08/11/2020 are available for comparison. CT scan of the neck soft tissues dated 07/24/2021 is also available for comparison. FINDINGS: NECK AND VISUALIZED HEAD: No foci of abnormal FDG activity are noted. The distribution of FDG activity is physiological. There is no cervical lymphadenopathy. The thyroid gland is moderately enlarged and multinodular in appearance with dense coarse calcifications present in the right lobe. There is no suspicious abnormally increased FDG activity present within the thyroid gland. The appearance is not significantly changed from the CT scan of the neck soft tissues dated 07/24/2021. THORAX: Several small pulmonary nodules are present. The largest of these is a subpleural nodule in the anterolateral aspect of the left upper lobe measuring 1.0 x 0.5 cm in largest transverse dimensions. This is probably too small to be characterized on the FDG PET images. It does not appear significantly changed since 02/26/[address] scan[address]Several additional smaller pulmonary nodules are visualized, and these are all too small to be characterized on the FDG PET images. These do not appear significantly changed from the diagnostic 02/26/2022 CT scan, although the smaller nodules in particular were better visualized on that diagnostic quality chest CT scan. There are some nodular subcentimeter opacities associated with scarring or atelectasis anteriorly in the right middle lobe and anterolaterally in the lingula and although these show no abnormal FDG activity, they are probably too small to be characterized on the FDG PET images. No foci of abnormal FDG activity are present in the chest. There is no pleural or pericardial fluid or pneumothorax. There is no mediastinal, supraclavicular, or axillary lymphadenopathy.: ABDOMEN AND PELVIS: There are are no foci of abnormal FDG activity in the abdomen or pelvis. There is mild FDG activity present throughout the gastrointestinal tract without a suspicious focal component. There is extensive diverticulosis without evidence of diverticulitis, most prominently in the rectosigmoid colon. The hollow viscera are otherwise unremarkable. The liver, gallbladder, spleen, kidneys, adrenal glands and pancreas appear unremarkable. There is no retroperitoneal, mesenteric, pelvic or inguinal lymphadenopathy. Calcified uterine fibroids are present but the uterus does not appear significantly changed from the 08/11/[address] scan. The pelvic organs are otherwise unremarkable. MUSCULOSKELETAL: There are no foci of abnormal FDG activity in the osseous structures. A mild thoracolumbar scoliosis is present with lumbar convexity to the left. There are degenerative changes in the spine but no suspicious sclerotic or lytic lesions are visualized. VASCULAR: Vascular calcifications are noted. PET/PET CT fusion skull to thigh IMPRESSION: 1. A left upper lobe pulmonary nodule is visualized and is probably too small to be characterized on the FDG PET images. The absence of abnormal FDG activity which suggests a benign etiology but this nodule is probably too small to properly characterized. Because approximately 10% of pulmonary malignancies demonstrate no abnormal FDG activity, if biopsy of this nodule is not obtained, followup with diagnostic CT scan in 6 months is recommended. 2. Several additional small subcentimeter pulmonary nodules are present, most of these better visualized on the recent 02/26/[address] scan and all too small to be characterized on the FDG PET images. Monitoring these with diagnostic CT imaging in 9-12 months is recommended for follow-up. 3. No additional abnormalities suspicious for metastatic or other malignant lesions are noted.
== END 2022-04-30 09:13 | disposition home or self-care (01) ==
LOC: HO.PET 09:12
PROVIDERS: Visit Provider Surgery
DX: Z13.89 Encounter for screening for other disorder (principal)

== ENCOUNTER 2022-05-08 09:53 | Outpatient (REF) | payer MEDICARE, SELFPAY ==
[2022-05-08 12:17] LABS: Free T4 (Free Thyroxine) 0.96 ng/dL (0.71-1.85)
[2022-05-10 02:17] LABS: Triiodothyronine T3 Total 118 ng/dL (76-181)
== END 2022-05-08 09:54 | disposition home or self-care (01) ==
LOC: HO.HMGCLDS 09:53
PROVIDERS: PCP Physician Assistant; Visit Provider Internal Medicine
DX: E05.90 Thyrotoxicosis, unspecified without thyrotoxic crisis or storm (principal)
CPT/HCPCS: 36415; 84439; 84480

== ENCOUNTER → 2022-05-10 08:55 | Outpatient (BNVA) | payer MEDICARE, SELFPAY | PROVIDERS: PCP Physician Assistant; Visit Provider Surgery | DX: R91.1 Solitary pulmonary nodule (principal); F17.210 Nicotine dependence, cigarettes, uncomplicated | CPT/HCPCS: 99212 ==

== ENCOUNTER 2022-06-04 09:20 | Outpatient (REF) | payer MEDICARE, SELFPAY ==
[2022-06-04 12:53] LABS: Free T4 (Free Thyroxine) 0.92 ng/dL (0.71-1.85); Thyroid Stimulating Hormone 2.41 uIU/mL (0.32-4.0)
[2022-06-06 08:53] LABS: Triiodothyronine T3 Total 134 ng/dL (76-181)
== END 2022-06-04 09:21 | disposition home or self-care (01) ==
LOC: HO.HMGCLDS 09:20
PROVIDERS: PCP Physician Assistant; Visit Provider Internal Medicine
DX: E05.90 Thyrotoxicosis, unspecified without thyrotoxic crisis or storm (principal)
CPT/HCPCS: 36415; 84439; 84443; 84480

== ENCOUNTER 2022-06-25 06:02 | Outpatient (REF) | payer MEDICARE, SELFPAY ==
[2022-06-25 11:39] LABS: Hematocrit 44.3 % (37.0-47.0); Hemoglobin 13.5 g/dl (12.0-16.0); Mean Corpuscular HGB Conc 30.5 g/dl (31.0-35.0); Mean Corpuscular Hemoglobin 26.9 pg (27.0-33.0); Mean Corpuscular Volume 88.4 fL (80.0-98.0); Mean Platelet Volume 10.1 fL (9.4-12.3); Platelet Count 436 X10*3/uL (160-400); Red Blood Count 5.01 X10*6/uL (4.20-5.50); Red Cell Distribution Width 13.9 % (11.0-16.0); White Blood Count 5.7 X10*3/uL (4.8-10.8)
[2022-06-25 11:55] LABS: Estimated Average Glucose 126 mg/dL
[2022-06-25 12:12] LABS: Alanine Aminotransferase 18 U/L (0-31); Albumin Level 4.4 g/dL (3.5-5.0); Alkaline Phosphatase 130 U/L (39-117); Anion Gap 11 (12-20); Aspartate Amino Transferase 19 U/L (5-31); Bilirubin Total 0.5 mg/dL (0.0-1.0); Blood Urea Nitrogen 17 mg/dL (9-16); Calcium 9.8 mg/dL (8.4-10.2); Carbon Dioxide 33 mmol/L (22-29); Chloride 100 mmol/L (96-108); Estimated Glomerular Filt Rate > 60; Glucose Fasting 112 mg/dL (60-99); Potassium 4.8 mmol/L (3.3-5.1); Sodium 139 mmol/L (135-145); Total Protein 7.6 g/dL (6.5-8.0)
== END 2022-06-25 06:03 | disposition home or self-care (01) ==
LOC: HO.HMGCLDS 06:02
PROVIDERS: PCP Physician Assistant; Visit Provider Physician Assistant
DX: R73.09 Other abnormal glucose (principal); E55.9 Vitamin D deficiency, unspecified; E05.90 Thyrotoxicosis, unspecified without thyrotoxic crisis or storm; E04.2 Nontoxic multinodular goiter
CPT/HCPCS: 36415; 80053; 83036; 85027

== ENCOUNTER 2022-06-26 12:25 | Outpatient (REF) | payer MEDICARE, SELFPAY ==
[2022-06-26 14:37] LABS: Alanine Aminotransferase 21 U/L (0-31); Albumin Level 4.7 g/dL (3.5-5.0); Alkaline Phosphatase 131 U/L (39-117); Anion Gap 12 (12-20); Aspartate Amino Transferase 18 U/L (5-31); Bilirubin Total 0.4 mg/dL (0.0-1.0); Blood Urea Nitrogen 15 mg/dL (9-16); Calcium 10.3 mg/dL (8.4-10.2); Carbon Dioxide 31 mmol/L (22-29); Chloride 101 mmol/L (96-108); Estimated Glomerular Filt Rate > 60; Glucose Random 84 mg/dL (60-115); Phosphorus 4.4 mg/dL (2.7-4.5); Potassium 5.4 mmol/L (3.3-5.1); Sodium 139 mmol/L (135-145); Total Protein 8.1 g/dL (6.5-8.0)
[2022-06-26 14:44] LABS: Vitamin D 25-OH Total 69.3 ng/mL (>30)
[2022-06-27 14:13] LABS: Calcium (PTHI) 10.3 mg/dL (8.6-10.4); PTHI 17 pg/mL (16-77)
[2022-06-28 05:14] LABS: Thyroglobulin Antibodies 3 IU/mL (< or = 1); Thyroid Peroxidase Antibodies 129 IU/mL (<9)
[2022-06-30 10:18] LABS: Thyrotropin Receptor Antibody <1.00 IU/L (<=2.00)
[2022-07-01 15:18] LABS: Thyroid Stimulating Immunoglob <89 % baseline (<140)
== END 2022-06-26 12:26 | disposition home or self-care (01) ==
LOC: HO.LAB 12:25
PROVIDERS: PCP Physician Assistant; Visit Provider Internal Medicine
DX: E05.90 Thyrotoxicosis, unspecified without thyrotoxic crisis or storm (principal); E55.9 Vitamin D deficiency, unspecified; E04.2 Nontoxic multinodular goiter; R91.8 Other nonspecific abnormal finding of lung field; Z79.899 Other long term (current) drug therapy
CPT/HCPCS: 36415; 80053; 82306; 83520; 83970; 84100; 84445; 86376; 86800; 99212

== ENCOUNTER 2022-08-06 10:55 | Outpatient (REF) | payer MEDICARE, SELFPAY ==
--- NOTE | ~2022-08-06 | MM_ITS ---
EXAMINATION: MM DIAGNOSTIC DIGITAL BREAST TOMOSYNTHESIS, LEFT CLINICAL INFORMATION: Short interval follow-up probable benign calcifications posterior upper outer left breast, suspect fibroadenomatous change. TC score 4%. Family history breast cancer, sister. COMPARISON: Mammography: 01/30/2022, 01/18/2022 (BI-RADS 0), 01/17/2021 TECHNIQUE: Digital breast tomosynthesis is performed in both the craniocaudal and mediolateral oblique views along with computer-aided detection (CAD). Synthesized 2D images are generated from the tomosynthesis. Additional magnification left CC and magnification left ML views are obtained. FINDINGS: There are scattered areas of fibroglandular density (ACR BI-RADS breast composition Category b). Parenchymal pattern is similar to prior exams and there is no developing density or interval mass or architectural abnormality. The calcifications for follow-up are stable, probable benign and possibly fibroadenomatous change. They will be reassessed again at time of annual bilateral mammography, due in 6 months. Results are provided to the patient at time of visit by the technologist. MM/MM tomosynthesis diagnostic LT IMPRESSION: No significant changes probable benign calcifications for follow-up upper outer left breast. ASSESSMENT: BI-RADS 3: Probably Benign RECOMMENDATION: Diagnostic mammography at time of annual bilateral exam, due in 6 months. This patient's information was entered into a reminder system with a target due date for their next mammogram.
== END 2022-08-06 10:56 | disposition home or self-care (01) ==
LOC: HO.MAMMO 10:55
PROVIDERS: Visit Provider Physician Assistant
DX: R92.1 Mammographic calcification found on diagnostic imaging of breast (principal)
CPT/HCPCS: 77061; 77065

== ENCOUNTER 2022-11-08 07:20 | Outpatient (REF) | payer MEDICARE, SELFPAY ==
--- NOTE | ~2022-11-08 | CT_ITS ---
EXAMINATION: CT CHEST SCREENING CLINICAL INFORMATION: Current smoker. 50 pack year history. COMPARISON: Previous CT scan most recent February 2022 TECHNIQUE: Multidetector volumetric CT imaging of the chest is performed without contrast using low dose technique. Additional 2D coronal and sagittal reformatted images and axial 3D maximum intensity projection (MIP) images are generated on the CT workstation. This CT examination was performed using dose optimization techniques as appropriate, variously including the following: *Automated exposure control *Adjustment of mA and/or kV according to patient size (this includes techniques or standardized protocols for targeted exams where dose is matched to indication/reason for exam; i.e. extremities or head) *Use of iterative reconstruction technique DLP: 63 mGy-cm FINDINGS: LUNGS: Severe emphysema. Diffuse airways disease with areas of wall thickening. Stable 10 mm heterogeneous or semisolid left upper lobe nodule axial image 112 series 5. Stable heterogeneous 7 mm left lower lobe nodule axial image 358 series 5. New abnormal parenchymal density measuring 0.3 x 1.5 cm in AP and transverse dimension axial image 188 series 5. New heterogeneous or semisolid 7 mm right upper lobe nodule axial image 220 series 5. New increased areas of groundglass attenuation in the right upper lobe for example axial 2 6 0 series 5. Multiple new peripheral or subpleural right lower lobe nodules for example, 2 adjacent nodules medially adjacent to the posterior mediastinum measuring 4 mm axial image 36 series 5 and 2 adjacent nodules in the posterior costophrenic sulcus adjacent to the right hemidiaphragm largest measuring 0.5 x 0.7 cm and 4 mm axial image 360 series 5. New 4 mm left lower lobe nodules laterally and peripheral or pleural nodules medially adjacent to the posterior mediastinum and more anteriorly adjacent to the diaphragm axial image 400 series 5. Atelectasis/airspace disease seen in the right middle lobe and lingula. This is increased in the right middle lobe compared to previous exam. Increased attenuation in the bilateral mainstem bronchi probably representing patient secretions. MEDIASTINUM: The thyroid gland has been removed. Small mediastinal lymph nodes. No enlarged mediastinal lymph nodes. Normal heart size. CORONARY ARTERY CALCIFICATION: Mild PLEURA: There is no pleural effusion. No pleural mass or thickening. AXILLA: No lymphadenopathy. UPPER ABDOMEN: Right adrenal calcification. Small liver and left renal lesions that appear stable. OSSEOUS STRUCTURES: Degenerative changes of the spine. CT/CT lung screen follow up IMPRESSION: Severe emphysema. Diffuse airways disease increased from previous exam. Multiple new pulmonary nodules, largest measuring 7 mm in the right upper lobe and 0.3 x 1.5 cm in the right upper lobe. ASSESSMENT: Lung-RADS category 4 RECOMMENDATION: 3 month low-dose chest CT follow-up recommended.
== END 2022-11-08 07:21 | disposition home or self-care (01) ==
LOC: HO.CT 07:20
PROVIDERS: PCP Physician Assistant; Visit Provider Surgery
DX: R91.1 Solitary pulmonary nodule (principal)
CPT/HCPCS: 71250

== ENCOUNTER 2022-11-19 13:47 | Outpatient (REF) | payer MEDICARE, SELFPAY ==
[2022-11-19 17:02] LABS: Free T4 (Free Thyroxine) 1.22 ng/dL (0.71-1.85); Thyroid Stimulating Hormone 3.71 uIU/mL (0.32-4.0)
[2022-11-21 11:28] LABS: Triiodothyronine T3 Total 105 ng/dL (76-181)
== END 2022-11-19 13:48 | disposition home or self-care (01) ==
LOC: HO.HMGCLDS 13:47
PROVIDERS: PCP Physician Assistant; Visit Provider Internal Medicine
DX: E05.90 Thyrotoxicosis, unspecified without thyrotoxic crisis or storm (principal); E04.2 Nontoxic multinodular goiter
CPT/HCPCS: 36415; 84439; 84443; 84480

== ENCOUNTER 2022-12-05 13:54 | Outpatient (REF) | payer MEDICARE, SELFPAY ==
[2022-12-05 15:53] LABS: Alanine Aminotransferase 11 U/L (0-31); Albumin Level 4.1 g/dL (3.5-5.0); Alkaline Phosphatase 97 U/L (39-117); Anion Gap 14 (12-20); Aspartate Amino Transferase 13 U/L (5-31); Bilirubin Total 0.3 mg/dL (0.0-1.0); Blood Urea Nitrogen 13 mg/dL (9-16); Calcium 9.7 mg/dL (8.4-10.2); Carbon Dioxide 31 mmol/L (22-29); Chloride 100 mmol/L (96-108); Estimated Glomerular Filt Rate > 60; Glucose Random 94 mg/dL (60-115); Phosphorus 3.6 mg/dL (2.7-4.5); Potassium 4.5 mmol/L (3.3-5.1); Sodium 140 mmol/L (135-145); Total Protein 7.9 g/dL (6.5-8.0)
[2022-12-05 16:02] LABS: Free T4 (Free Thyroxine) 1.05 ng/dL (0.71-1.85); Thyroid Stimulating Hormone 6.17 uIU/mL (0.32-4.0)
[2022-12-09 15:34] LABS: Calcium (PTHI) 9.9 mg/dL (8.6-10.4); PTHI 52 pg/mL (16-77)
== END 2022-12-05 13:55 | disposition home or self-care (01) ==
LOC: HO.LAB 13:54
PROVIDERS: PCP Physician Assistant; Visit Provider Internal Medicine
DX: E04.2 Nontoxic multinodular goiter (principal); E89.0 Postprocedural hypothyroidism; E55.9 Vitamin D deficiency, unspecified
CPT/HCPCS: 36415; 80053; 82306; 83970; 84100; 84439; 84443; 99212

== ENCOUNTER → 2022-12-06 08:51 | Outpatient (BNVA) | payer MEDICARE, SELFPAY | PROVIDERS: PCP Physician Assistant; Visit Provider Surgery | DX: R91.1 Solitary pulmonary nodule (principal); F17.210 Nicotine dependence, cigarettes, uncomplicated | CPT/HCPCS: 99212 ==

== ENCOUNTER 2023-02-04 10:49 | Outpatient (REF) | payer MEDICARE, SELFPAY ==
--- NOTE | ~2023-02-04 | MM_ITS ---
EXAMINATION: MM DIAGNOSTIC DIGITAL BREAST TOMOSYNTHESIS, BILATERAL CLINICAL INFORMATION: Diagnostic for left breast calcifications upper outer quadrant, middle one third depth. Patient also due for routine bilateral screening exam. The lifetime risk of breast cancer based on the Tyrer-Cuzick Model is 4%. COMPARISON: Mammography: 08/06/2022, 01/30/2022, 01/18/2022, 01/17/2021, and exams dating back to 2015. TECHNIQUE: Digital breast tomosynthesis is performed in both the craniocaudal and mediolateral oblique views along with computer-aided detection (CAD). Synthesized 2D images are generated from the tomosynthesis. In addition, a solitary left spot magnification CC view was performed. FINDINGS: There are scattered areas of fibroglandular density (ACR BI-RADS breast composition Category b). In the left breast, upper outer quadrant, there are loosely grouped somewhat coarse appearing calcifications with a few filling barely perceptible punctate calcifications interspersed. No significant pleomorphism, and casting, or branching. Distribution is unremarkable. Findings are probably benign. Otherwise, no suspicious calcifications, suspicious masses, or regions of architectural distortion are identified in either breast. The parenchymal pattern is stable from prior exams. Results are provided to the patient at time of visit by the technologist. MM/MM tomosynthesis diagnostic BI IMPRESSION: Probably benign calcifications upper outer left breast. Six-month interval follow-up left breast magnification views in the CC and ML projections recommended to ensure stability. No suspicious findings in the right breast. ASSESSMENT: BI-RADS BI-RADS 3 - Probably benign finding(s) - 6 month follow-up suggested RECOMMENDATION: 6 Month F/U This patient's information was entered into a reminder system with a target due date for their next mammogram.
== END 2023-02-04 10:50 | disposition home or self-care (01) ==
LOC: HO.MAMMO 10:49
PROVIDERS: PCP Physician Assistant; Visit Provider Physician Assistant
DX: R92.1 Mammographic calcification found on diagnostic imaging of breast (principal)
CPT/HCPCS: 77062; 77066

== ENCOUNTER → 2023-02-04 11:00 | Outpatient (BNV) | payer MEDICARE, SELFPAY | PROVIDERS: PCP Physician Assistant; Visit Provider Radiology Diagnostic Radiology | DX: R92.1 Mammographic calcification found on diagnostic imaging of breast (principal) | CPT/HCPCS: 77062; 77066; G0279 ==

== ENCOUNTER 2023-02-21 07:21 | Outpatient (REF) | payer MEDICARE, SELFPAY ==
--- NOTE | ~2023-02-21 | CT_ITS ---
EXAMINATION: CT CHEST WITHOUT CONTRAST CLINICAL INFORMATION: Pulmonary nodule COMPARISON: Previous chest CT scans, most recent lung cancer screening exam October 2022 ON back to oldest available chest CT May 2021 TECHNIQUE: Multidetector volumetric CT imaging of the chest was done. Axial MIP volume rendering provided. Sagittal and coronal reformatted images were obtained. This CT examination was performed using dose optimization techniques as appropriate, variously including the following: *Automated exposure control *Adjustment of mA and/or kV according to patient size (this includes techniques or standardized protocols for targeted exams where dose is matched to indication/reason for exam; i.e. extremities or head) *Use of iterative reconstruction technique DLP: 190 mGy-cm FINDINGS: LUNGS: Mild biapical pleural parenchymal scarring There is evidence of emphysema. There is a heterogeneous partially solid partially groundglass attenuation left upper lobe nodule. Solid component measures 4 mm. Axial image 1:15 series 6. Including more peripheral groundglass attenuation component of this measures 1 cm in diameter. Compared to prior exams, for example May 2021 the solid component appears new/increased in density. Overall there is no appreciable change in size. There is mild focal bronchiectasis and bronchial wall thickening in the right upper lobe for example axial image 189 series 6. This is seen in the area previously described as abnormal parenchymal density appears less dense/less solid. There is interval decrease in size in the previously identified new right upper lobe nodule from 5 to 3 mm axial image 221 series 5. There are clustered peribronchial nodules and bronchial wall thickening in the right middle lobe and lingula that appear unchanged. There is a heterogeneous 6 mm left lower lobe nodule axial image 361 series 6 that is unchanged. Previously described areas of increased groundglass attenuation on most recent exam October 2022 are no longer seen. MEDIASTINUM: The thyroid gland may been removed. No enlarged mediastinal lymph nodes. Normal heart size. Mild coronary artery and aortic valve calcification. No pericardial effusion. CORONARY ARTERY CALCIFICATION: None visualized on this study. PLEURA: There is no pleural effusion. No pleural mass or thickening. AXILLA: No lymphadenopathy. UPPER ABDOMEN: Stable abdominal findings of the probable liver and left renal cysts and right adrenal calcification.. OSSEOUS STRUCTURES: Degenerative changes of the spine. CT/CT chest wo IV con IMPRESSION: Emphysema. Gradual increase in density with now 4 mm central solid component of the heterogeneous left upper lobe nodule. PET CT scan or tissue sampling recommended. Scattered airways disease. Improved scattered areas of groundglass attenuation and right upper nodules that were new on October 2022 exam. Heterogeneous left lower lobe nodule appears unchanged. Fleischner guidelines were followed. Findings will be communicated by the [employer] workflow customer service advisor
== END 2023-02-21 07:22 | disposition home or self-care (01) ==
LOC: HO.CT 07:21
PROVIDERS: PCP Physician Assistant; Visit Provider Surgery
DX: R91.1 Solitary pulmonary nodule (principal)
CPT/HCPCS: 71250

== ENCOUNTER 2023-02-26 13:07 | Outpatient (AMB) | payer MEDICARE, SELFPAY ==
--- NOTE | 2023-02-26 13:19 | A.OFFVIS_ITS ---
Intake Vital Signs 02/26/23 13:26 Height 5 ft 6 in Weight 136 lb 2 oz BMI 22.0 BP 130/60 Blood Pressure Location Lt brachial Position Sitting Respiration 16 Pulse 80 Pulse Source Pulse Oximeter Pulse Oximetry (%) 94 Oxygen Delivery Method Room Air Intake Visit Reasons: AWV Intake Note: Patient is here for an Annual Wellness Visit. Detention Deputy Required: No Accompanied by: Self / Same As Patient Allergies dextran 40 [DEXTRAN 40] Allergy (Severe, Verified 02/26/23 13:37) TACHYCARDIA AND HYPERTENSIVE prednisone Adverse Reaction (Intermediate, Verified 02/26/23 13:37) flushed azithromycin Adverse Reaction (Unknown, Verified 02/26/23 13:37) nauseous erythromycin base [ERYTHROMYCIN BASE] Adverse Reaction (Unknown, Verified 02/26/23 13:37) NAUSEA & VOMITING succinylcholine [SUCCINYLCHOLINE] Adverse Reaction (Unknown, Verified 02/26/23 13:37) FEVER, COULD NOT MOVE immune globulin,gamma (IgG) human [From Flebogamma] Adverse Reaction (Verified 02/26/23 13:37) Hives Medication List - Last Reconciled 02/26/23 by Siddharth Garcia PA-C calcium citrate-vitamin D3 315 mg-6.25 mcg (250 unit) (Citracal + Vitamin D Maximum) 1 tab PO DAILY ferrous sulfate 1 tab PO DAILY fluticasone propion-salmeterol 250-50 mcg/dose (Wixela Inhub) 1 inh inhalation Q12H levothyroxine 112 mcg PO DAILY 30 days lorazepam (Ativan) 1 mg PO BID PRN HPI AWV HPI Details 78-year-old female here today for annual wellness visit. Discussed patient's [place] of care and end of life planning and given a MOLST form to fill out with her family. -concern-> continues to have neuropathy in her lower extremities which has caused her to have balance issues due to weakness in her legs. She is interested in physical therapy to help with her balance. Hearing has been a concern bilaterally and is willing to getting hearing exam to evaluate for the need for hearing aids. Vaccines: Up-to-date with COVID vaccine, pneumonia vaccine, declines tetanus and flu vaccines. Mammogram: Up-to-date with mammogram HPI Comments History of Present Illness Details reviewed past medical history- yes reviewed surgical / hospitalization history- yes reviewed current medications- yes reviewed family history- yes home safety throw rugs? grab bars? raised toilet seat? working smoke detectors? activities of daily living difficulty bathing or showering? difficulty dressing? difficulty using the toilet? difficulty getting in and out of bed? difficulty walking? receives help from other person's with any of the above tasks? instrumental activities of daily living uses telephone - gets to place out of walking distance- go shopping for groceries- repairs own meals- does own minor home maintenance- does own laundry- does own housework- manages own money- currently takes medication- end of life planning discussed advanced directives- yes advanced directives on file? discussed wishes expressed in advanced directives. fall risk have you had any falls with injuries in the past year? have you had 2 or more falls in the past year? fall risk assessment: [facility] Medical History Anemia Arthritis AMANDA (generalized anxiety disorder) Gammopathy, monoclonal (~2018) GERD (gastroesophageal reflux disease) Hyperthyroidism Hyperthyroidism Multinodular thyroid Neuropathy Nicotine dependence, cigarettes, uncomplicated Osteopenia (~2020) Post-menopausal Postoperative hypothyroidism Tubular adenoma of colon (~2020) Vitamin D deficiency Surgical History H/O thyroidectomy (~10/15/22) History of bone marrow biopsy (~01/2019) History of esophagogastroduodenoscopy (EGD) (~2018) History of colonoscopy (~09/2020) History of appendectomy History of bladder surgery (~1994) Family History Sister Heart disease Brother Heart disease Sister Cancer Father Diabetes Mother Ovarian cancer Social History Housing: House Are you a primary in home caregiver to a significant other at home: No Do you presently have visiting nurse or other home services: No Alcohol intake: current Alcohol intake frequency: does not drink Patient Tobacco Use Status: Current everyday Tobacco user Tobacco use type: Cigarette Cigarette Packs Per Day: 1.5 Cigarettes Per Day: 20.0 Years Smoked: onset 20yo, 1-1.5ppd x 56yrs - 70+PYH e-Cigarette/Vaping Use: Never Used Second Hand Smoke Exposure: No Advance Directives Date on File: 07/25/14 Current occupational status: retired Cognitive needs: No Hearing needs: No Vision needs: Yes Questionnaire Medicare Wellness Checkup What [age] What gender do you identify with?: female During the past 4 weeks, how much have you been bothered by emotional problems such as feeling anxious, depressed, irritable, sad or downhearted, and blue?: quite a bit During the past 4 weeks, has your physical & emotional health limited your social activities with family, friends, neighbors, or groups?: slightly During the past 4 weeks, how much bodily pain have you generally had?: very mild pain During the past 4 weeks, was someone available to help you if you needed & wanted help?: yes, as much as I wanted During the past 4 weeks, what was the hardest physical activity you could do for at least 2 minutes?: light Can you get to places out of walking distance without help? (For eg., can you travel alone on buses, taxis or drive your car?): Yes Can you go shopping for groceries or clothes without someone's help?: Yes Can you prepare your own meals?: Yes Can you do your housework without help?: Yes Because of any health problems, do you need the help of another person with your personal care needs such as eating, bathing, dressing or getting around the house?: No Can you handle your own money without help?: Yes During the past 4 weeks, how would you rate your health in general?: good During the past 4 weeks how have things been going for you?: good & bad parts about equal Are you having difficulties driving your car?: no Do you always fasten your seat belt when you are in a car?: no During past 4 weeks, have you been bothered by the following: never: Falling or dizzy when standing up, often: Sexual problems? and always: Trouble eating well? (no appetite per pt) Have you fallen 2 or more times in the past year?: No Are you afraid of falling?: Yes Are you a smoker?: yes, and I might quit During the past 4 weeks, how many drinks of wine, beer, or other alcoholic beverages did you have?: no alcohol at all Do you exercise for about 20 minutes 3 or more times a week?: no, I usually do not exercise this much Have you been given information to help with the following?: yes: Hazards in your house that might hurt you? and yes: Keeping track of your medications? How often do you have trouble taking medicines the way you have been told to take them?: I always take medicine as prescribed How confident are you that you can control & manage most of your health problems?: somewhat confident What is your race?: White Mini Mental State Exam (MMSE) Orientation What is the (year) (season) (date) (day) (month)?: year Where are we (state) (county) (town or city) (hospital) (floor)?: county and town or city Attention & Calculation (CHOOSE ONE) Spell WORLD backwards (DLROW): 5 letters Score Score: 8 Activity of Daily Living Bathing - sponge bath, tub bath or shower: receives no assistance (gets in/out by self, if usual bathing means Dressing - getting clothes from closets & drawers, including inner/outer garments & fasteners.: gets clothes & gets completely dressed without help Toileting - going to the 'toilet room' for urine/bowel elimination & cleaning self/arranging clothes: goes to toilet room, cleans self, arranges clothes without help Transfer: moves in & out of bed and chair without help (may use support object) Continence: controls urination/bowel movements completely by self Feeding: feeds self without help Total Score: 0 Information obtained from: patient Using telephone: independent Traveling: independent Shopping: independent Preparing meals: independent Housework: independent Taking medicine: independent Managing money: independent PHQ-9 Over the last 2 weeks, how often have you been bothered by any of the following problems? 1. Little interest or pleasure in doing things: not at all 2. Feeling down, depressed, or hopeless: not at all 3. Trouble falling or staying asleep, or sleeping too much: more than half the days 4. Feeling tired or having little energy: more than half the days 5. Poor appetite or overeating: more than half the days 6. Feeling bad about yourself - or that you are a failure or have let yourself or your family down: not at all 7. Trouble concentrating on things, such as reading the newspaper or watching television: not at all 8. Moving or speaking so slowly that other people could have noticed. Or the opposite - being so fidgety or restless that you have been moving around a lot more than usual: not at all 9. Thoughts that you would be better off or of hurting yourself in some way: not at all Total score: 6 Depression Screening Interpretation: Positive 18448 - PHQ-9 Billing: Yes Source: Developed by Drs. Barry Treviño, Tanya Nuñez, Evelio Ruiz and colleagues, with an educational obi from [employer]. Physical Exam Vital Signs: Last Vital Signs Pulse 80 02/26/23 13:26 Resp 16 02/26/23 13:26 BP 130/60 02/26/23 13:26 Pulse Ox 94 02/26/23 13:26 Oxygen Delivery Method Room Air 02/26/23 13:26 BMI result Body Mass Index 22.0 HEENT Other: hearing screening whisper test- failed Eyes Other: vision screening- 20/20 OS OD OU Other: urinary incontinence? - no Neuro Other: balance Romberg- normal tandem walk test- able walk-in turned test- able rise from sit to stand- within 2 seconds Assessment & Plan Assessment & Plan (1) Medicare annual wellness visit, initial: Code(s): Z00.00 - Encounter for general adult medical examination without abnormal findings (2) Balance problem: Code(s): R26.89 - Other abnormalities of gait and mobility Plan: Will order PT for balance training (3) Post-menopausal: Code(s): Z78.0 - Asymptomatic menopausal state Plan: Bone density done in 2020 showing osteopenia. Will repeat own density to evaluate for osteoporosis (4) SNHL (sensorineural hearing loss): Code(s): H90.5 - Unspecified sensorineural hearing loss Qualifiers: Laterality: bilateral Qualified Code(s): H90.3 - Sensorineural hearing loss, bilateral Plan: Failed was per test today in office. Will send for audiological testing. Orders: Orders PT Evaluation and Treatment 02/26/23 R26.89 - Other abnormalities of gait and mobility XR DEXA axial skeleton Today M85.80 - Other specified disorders of bone density and structure, unspecified site, Z78.0 - Asymptomatic menopausal state Referrals Speech and Hearing Referral H90.5 - Unspecified sensorineural hearing loss Medications: Changed From lorazepam (Ativan) 1 mg PO BID PRN Anxiety F41.1 - Generalized anxiety disorder To lorazepam (Ativan) 1 mg PO BID PRN 60 tabs 3RF Anxiety 30 days F41.1 - Generalized anxiety disorder Refilled levothyroxine 112 mcg PO DAILY 30 tabs 3RF 30 days R26.89 - Other abnormalities of gait and mobility Quality Reporting (2019) Depression/Bipolar (159/160/161/177) PHQ-9: Total score: 6 Coding Level of Care Code Medicare First (G0438) Diagnoses Medicare annual wellness visit, initial Z00.00 Balance problem R26.89 Post-menopausal Z78.0 Sensorineural hearing loss (SNHL) of both ears H90.3 Laterality: bilateral CPT Codes Advance Care Planning - Time spent: 1-15 minutes, not on file ([id number]) Advance Care Planning Advance Care Planning discussion: Exists, not on file Date of discussion: 02/26/23 Forms completed: MOLST Time spent: 1-15 minutes, not on file
[2023-02-26 13:26] VITALS: BP 130/60; PULSE 80; RESP 16; O2SAT 94; BMI 22.0
== END 2023-02-26 14:20 | disposition home or self-care (01) ==
PROVIDERS: PCP Physician Assistant; Visit Provider Physician Assistant
DX: Z00.00 Encounter for general adult medical examination without abnormal findings (principal); R26.89 Other abnormalities of gait and mobility; Z78.0 Asymptomatic menopausal state; H90.3 Sensorineural hearing loss, bilateral
CPT/HCPCS: 1124F; G0438; G0439

== ENCOUNTER 2023-03-07 09:14 | Outpatient (AMB) | payer MEDICARE, SELFPAY ==
--- NOTE | 2023-03-07 09:27 | A.OFFVIS_ITS ---
Intake Vital Signs 03/07/23 09:36 Height 5 ft 6 in Weight 138 lb BMI 22.3 BP 140/80 H Blood Pressure Location Lt brachial Position Sitting Pulse 90 Pulse Oximetry (%) 90 L Intake Visit Reasons: S/p ct chest Allergies dextran 40 [DEXTRAN 40] Allergy (Severe, Verified 03/07/23 09:37) TACHYCARDIA AND HYPERTENSIVE prednisone Adverse Reaction (Intermediate, Verified 03/07/23 09:37) flushed azithromycin Adverse Reaction (Unknown, Verified 03/07/23 09:37) nauseous erythromycin base [ERYTHROMYCIN BASE] Adverse Reaction (Unknown, Verified 03/07/23 09:37) NAUSEA & VOMITING succinylcholine [SUCCINYLCHOLINE] Adverse Reaction (Unknown, Verified 03/07/23 09:37) FEVER, COULD NOT MOVE immune globulin,gamma (IgG) human [From Flebogamma] Adverse Reaction (Verified 03/07/23 09:37) Hives Medication List - Last Reconciled 03/07/23 by Devan Claudio MD calcium citrate-vitamin D3 315 mg-6.25 mcg (250 unit) (Citracal + Vitamin D Maximum) 1 tab PO DAILY ferrous sulfate 1 tab PO DAILY fluticasone propion-salmeterol 250-50 mcg/dose (Wixela Inhub) 1 inh inhalation Q12H levothyroxine 112 mcg PO DAILY 30 days lorazepam (Ativan) 1 mg PO BID PRN 30 days HPI S/p ct chest HPI Details [age] old woman long-time and current smoker 2 packs per day who is part of the lung cancer screening program initially had a low-dose CT scan on 06/08 2021 showing a small mixed ground-glass solid nodule in the left upper lobe any even smaller left lower lobe pulmonary nodule.? This was followed up with a low-dose CT scan on 08/30/2021 which again showed this left upper lobe and left lower lobe pulmonary nodules both were stable at that point.? She did have pulmonary function testing on 09/21/2021 which showed an FEV1 of 32% of predicted which goes up to 40% of predicted with bronchodilators and a DLCO VA of 52% of predicted.? At a previous visit she opted for continued surveillance and a six-month follow-up CT scan of the chest was arranged which was done on 02/26/2022.? there is slight increase in size and density of the nodule in the left upper lobe and stable left lower lobe pulmonary nodule.? Initially, after a previous visit she opted for 3 month surveillance which was set up and then called back about a month later and wanted to have a CT-guided biopsy.? She did go to that appointment for her biopsy but declined to have the procedure done due to anxiety at the time.? After that visit, we decided to get a PET scan and go from there.? The PET scan was done on 04/30/2022 which showed no increased uptake in the nodule and no increased uptake outside of the chest. At that point she opted for six-month follow-up CT scan of the chest which was done on 11/08/2022 which showed a stable left upper lobe nodule that we have been following but some new right-sided nodules including a 7 mm right upper lobe nodule and a 0.3 x 1.5 cm right upper lobe nodule that are irregularly shaped. She does continue to smoke and has not been able to get an appointment with the smoking cessation counselor as of yet. She did finally have her thyroid surgery in September about 2 weeks prior to her CT scan. We then have repeated her CT scan again on 02/21/2023 which showed the mixed left upper lobe nodule measuring 1 cm in size with a 4 mm solid component now that has increased in density and solid component. She has seen the smoking cessation counselor in we did discuss today for about 6 minutes using the lozenges to slowly wean down off cigarettes over the course of several weeks rather than trying to stop abruptly. She is going to make another appointment with the counselor but thinks she is going to try the technique discussed today to stop smoking completely. [facility] Medical History Postoperative hypothyroidism Hyperthyroidism Nicotine dependence, cigarettes, uncomplicated Hyperthyroidism Vitamin D deficiency Multinodular thyroid Osteopenia (~2020) AMANDA (generalized anxiety disorder) Post-menopausal Arthritis Anemia GERD (gastroesophageal reflux disease) Tubular adenoma of colon (~2020) Neuropathy Gammopathy, monoclonal (~2018) Surgical History H/O thyroidectomy (~10/15/22) History of bone marrow biopsy (~01/2019) History of esophagogastroduodenoscopy (EGD) (~2018) History of colonoscopy (~09/2020) History of appendectomy History of bladder surgery (~1994) Family History Sister Heart disease Brother Heart disease Sister Cancer Father Diabetes Mother Ovarian cancer Social History Housing: House Are you a primary healthcare economics consultant to a significant other at home: No Do you presently have visiting nurse or other home services: No Alcohol intake: current Alcohol intake frequency: does not drink Patient Tobacco Use Status: Current everyday Tobacco user Tobacco use type: Cigarette Cigarette Packs Per Day: 1.5 Cigarettes Per Day: 20.0 Years Smoked: onset 20yo, 1-1.5ppd x 56yrs - 70+PYH e-Cigarette/Vaping Use: Never Used Second Hand Smoke Exposure: No Advance Directives Date on File: 07/25/14 Current occupational status: retired Cognitive needs: No Hearing needs: No Vision needs: Yes Physical Exam Vital Signs: Last Vital Signs Pulse 90 03/07/23 09:36 BP 140/80 H 03/07/23 09:36 Pulse Ox 90 L 03/07/23 09:36 BMI result Body Mass Index 22.3 General: No acute distress HEENT: Moist mucous membranes, normocephalic, pupils equal round and reactive to light. Neck: No thyromegaly, supple, no JVD Lymph: No cervical, supraclavicular, or other lymphadenopathy Chest: No chest wall abnormalities or deformities Heart: Regular rate and rhythm Lungs: Clear to auscultation bilaterally Abdomen: Soft, nontender, normal bowel sounds Extremities: No edema, cyanosis, or clubbing. Full range of motion Neuro: Grossly intact, alert and oriented x3, and nonfocal Skin: Warm and dry no rashes Affect: Normal Assessment & Plan Assessment & Plan (1) Nicotine dependence, cigarettes, uncomplicated: Comment: (active smoker, onset 20, 1-2ppd x 56yrs, 80+PYH) Code(s): F17.210 - Nicotine dependence, cigarettes, uncomplicated Plan: Smoking cessation as above (2) Pulmonary nodule: Code(s): R91.1 - Solitary pulmonary nodule Plan: 78-year-old woman now with an enlarging and increasing density pulmonary nodule in the left upper lobe that has been followed now for some time. This is a clinical stage I lung cancer in till proven otherwise in my opinion. I spent time discussing with her pulmonary nodules in general again hilar size, shape, and increase over time factor level of suspicion for malignancy specially in smokers or former smokers. I discussed with her the options of continued observation which I would not necessarily recommend versus needle biopsy and possibly SBRT versus surgical wedge resection which is all I think she would tolerate. Again we also talked about the diagnosis, staging, and treatment of lung cancer which he seemed understand. She wants to take some time to discuss this with her and decide how to proceed and she will call us with what she wants to do. Coding Level of Care Code Est Pt Level 5 (25069) Diagnoses Nicotine dependence, cigarettes, uncomplicated F17.210 Pulmonary nodule R91.1
[2023-03-07 09:36] VITALS: BP 140/80; PULSE 90; O2SAT 90; BMI 22.3
== END 2023-03-07 09:59 | disposition home or self-care (01) ==
PROVIDERS: PCP Physician Assistant; Visit Provider Surgery
DX: F17.210 Nicotine dependence, cigarettes, uncomplicated (principal); R91.1 Solitary pulmonary nodule

== ENCOUNTER → 2023-03-07 09:14 | Outpatient (BNVA) | payer MEDICARE, SELFPAY | PROVIDERS: PCP Physician Assistant; Visit Provider Surgery | DX: R91.1 Solitary pulmonary nodule (principal); F17.210 Nicotine dependence, cigarettes, uncomplicated | CPT/HCPCS: 99212 ==

== ENCOUNTER 2023-03-14 08:14 | Outpatient (REF) | payer MEDICARE, SELFPAY ==
--- NOTE | ~2023-03-14 | MM_ITS ---
EXAMINATION: BONE DENSITOMETRY CLINICAL INDICATION: Asymptomatic menopausal state. COMPARISON: Previous BD dated 01/17/2021 and baseline BD dated 04/20/2007. TECHNIQUE: Using a [employer] DXA System (software version: 13.1) manufactured by [employer], dual-energy x-ray absorptiometry was performed of the lumbar spine and left hip. The images are of good technical quality. Summary results are attached. FINDINGS: LEFT FEMUR, NECK: Current: BMD 0.609 g/cm2, Z-score -1.0, T-score -3.1, osteoporosis. Prior: BMD 0.835 g/cm2. Baseline: BMD 0.970 g/cm2. LEFT FEMUR, TOTAL: Current: BMD 0.680 g/cm2, Z-score -0.6, T-score -2.6, osteoporosis, 22.6% decrease from previous, 39.0% decrease from baseline (<5% change is not significant). Prior: BMD 0.878 g/cm2. Baseline: BMD 1.115 g/cm2. AP SPINE L1-L4: Current: BMD 1.251 g/cm2, Z-score 2.5, T-score 0.6, normal, 3.8% decrease from previous, 5.5% decrease from baseline (<5% change is not significant). Prior: BMD 1.300 g/cm2. Baseline: BMD 1.324 g/cm2. IDENTIFIED RISK FACTORS: Menopause, tobacco use (current smoker). HISTORY OF FRACTURE: None listed. MEDICATIONS: None listed. MM/XR DEXA axial skeleton IMPRESSION: 1. DIAGNOSIS: Osteoporosis based on the lowest T-score value of -3.1 in the femoral neck applying World Health Organization criteria. 2. 10-YEAR FRACTURE RISK PREDICTION, FRAX: According to the guidelines, FRAX calculation should only be performed on patients in the osteopenia bone density category. Therefore, FRAX was not performed on this patient. 3. Treatment Recommendations: NOF guidelines recommend consideration for treatment in postmenopausal women and men age 50 and older presenting with the following: -A hip or vertebral (clinical or morphometric) fracture. -T-score less than or equal to -2.5 at the femoral neck or spine after appropriate evaluation to exclude secondary causes. -Low bone mass at the hip or spine and a 10-year fracture probability by FRAX of greater than or equal to 3% for hip fracture or greater than or equal to 20% for major osteoporotic fracture based on the [place] adapted WHO algorithm. 4. Other Recommendations: All treatment decisions require clinical judgment and consideration of individual patient factors, including patient preferences, comorbidities, previous drug use, risk factors not captured in the FRAX model (e.g. frailty, falls, vitamin D deficiency, increased bone turnover, interval significant decline in bone density) and possible under or overestimation of fracture risk by FRAX. Additional medical evaluation for secondary cause of low bone mineral density may be appropriate. FUTURE SCAN RECOMMENDATION: People with diagnosed cases of osteoporosis or at high risk for fracture should have regular bone mineral density tests. For patients eligible for Medicare, routine testing is allowed once every 2 years. The testing frequency can be increased to one year for patients who have rapidly progressing disease, those who are receiving or discontinuing medical therapy to restore bone mass, or have additional risk factors.
== END 2023-03-14 08:15 | disposition home or self-care (01) ==
LOC: HO.MAMMO 08:14
PROVIDERS: PCP Physician Assistant; Visit Provider Physician Assistant
DX: Z13.820 Encounter for screening for osteoporosis (principal); Z78.0 Asymptomatic menopausal state; M85.80 Other specified disorders of bone density and structure, unspecified site
CPT/HCPCS: 77080

== ENCOUNTER 2023-06-03 15:15 | Outpatient (REF) | payer MEDICARE, SELFPAY | END 2023-06-03 15:16 | disposition home or self-care (01) | LOC: HO.SH 15:15 | PROVIDERS: Visit Provider Physician Assistant | DX: Z01.118 Encounter for examination of ears and hearing with other abnormal findings (principal); H90.3 Sensorineural hearing loss, bilateral | CPT/HCPCS: 92557; 92567 ==

== ENCOUNTER 2023-07-23 08:10 | Outpatient (AMB) | payer MEDICARE, SELFPAY ==
[2023-07-23 08:31] VITALS: BP 128/62; PULSE 106; O2SAT 94; BMI 22.0
--- NOTE | 2023-07-23 08:31 | AM.OFFWIN_ITS ---
Intake Vital Signs 3 07/23/23 08:31 Height 5 ft 6 in Weight 136 lb 2 oz BMI 22.0 BP 128/62 Blood Pressure Location Rt brachial Position Sitting Pulse 106 H Pulse Source Pulse Oximeter Pulse Oximetry (%) 94 Oxygen Delivery Method Room Air Intake Visit Reasons: EP ?UTI Patient Tobacco Use Status: Current everyday Tobacco user Allergies dextran 40 [DEXTRAN 40] Allergy (Severe, Verified 07/23/23 08:35) TACHYCARDIA AND HYPERTENSIVE prednisone Adverse Reaction (Intermediate, Verified 07/23/23 08:35) flushed azithromycin Adverse Reaction (Unknown, Verified 07/23/23 08:35) nauseous erythromycin base [ERYTHROMYCIN BASE] Adverse Reaction (Unknown, Verified 07/23/23 08:35) NAUSEA & VOMITING succinylcholine [SUCCINYLCHOLINE] Adverse Reaction (Unknown, Verified 07/23/23 08:35) FEVER, COULD NOT MOVE immune globulin,gamma (IgG) human [From Flebogamma] Adverse Reaction (Verified 07/23/23 08:35) Hives Medication List - Last Reconciled 07/23/23 by Mireille Bryant MD calcium carbonate (Calcium 500) 500 mg PO BID 90 days cholecalciferol (vitamin D3) 50 mcg PO DAILY 90 days ferrous sulfate 325 mg PO DAILY fluticasone propion-salmeterol 250-50 mcg/dose (Wixela Inhub) 1 inh inhalation Q12H levothyroxine 112 mcg PO DAILY 30 days lorazepam (Ativan) 1 mg PO BID PRN 30 days Do you need a note to return to daycare/school/sports/work: No HPI EP ?UTI 2 HPI0 Details Patient is a 78-year-old female came in today to be evaluated for possible urinary tract infection Patient has been having symptoms for the past 4 days, which are frequency and dysuria This morning she also noticed some blood when she wiped after urinating There is no fever no chills no back pain no abdominal pain there is no nausea vomiting She also have a rash on her left buttock that has been there for a while Patient says that she is embarrassed to talk to her primary care about it But she let me examine her She has eczematous scaly round patch left buttock for that I have sent Lotrisone cream Patient is to follow with primary care [facility] Medical History Postoperative hypothyroidism (~2022) Nicotine dependence, cigarettes, uncomplicated Vitamin D deficiency Osteopenia (~2020) AMANDA (generalized anxiety disorder) Post-menopausal Arthritis Anemia GERD (gastroesophageal reflux disease) Tubular adenoma of colon (~2020) Neuropathy Gammopathy, monoclonal (~2018) Surgical History History of total thyroidectomy (~2022) History of bone marrow biopsy (~2018) History of esophagogastroduodenoscopy (EGD) (~2018) History of colonoscopy (~2020) History of appendectomy History of bladder surgery (~1994) Family History Sister Heart disease Brother Heart disease Sister Cancer Father Diabetes Mother Ovarian cancer Social History Household Members: Spouse Housing: House Are you a primary director critical care to a significant other at home: No Do you presently have visiting nurse or other home services: No Alcohol intake: current Alcohol intake frequency: does not drink Patient Tobacco Use Status: Current everyday Tobacco user Tobacco use type: Cigarette Cigarette Packs Per Day: 1.5 Cigarettes Per Day: 20.0 Years Smoked: onset 20yo, 1-1.5ppd x 56yrs - 70+PYH e-Cigarette/Vaping Use: Never Used Second Hand Smoke Exposure: No Advance Directives Date on File: 07/25/14 service: No Current occupational status: retired Cognitive needs: No Hearing needs: No Vision needs: Yes Review of Systems Const All systems reviewed & are unremarkable except as noted in HPI and below Physical Exam Vital Signs: Last Vital Signs Pulse 106 H 07/23/23 08:31 BP 128/62 07/23/23 08:31 Pulse Ox 94 07/23/23 08:31 Oxygen Delivery Method Room Air 07/23/23 08:31 BMI result Body Mass Index 22.0 Const General: no acute distress Orientation/consciousness: patient oriented x3 Eyes General: appearance normal, both eyes and all related structures Resp Effort & Inspection: normal respiratory effort and able to speak in complete sentences Auscultation: clear to auscultation bilaterally Cardio Other: S1 S2 GI Other: No suprapubic pain General: Yes no CVA tenderness Back/Spine/Pelvis Back: no CVA tenderness Skin Full body images: 2 1. Round about 3 in diameter scaly erythematous rash Neuro General: patient oriented x3 Psych Mental Status: mental status grossly normal Results AMB Urinalysis, Automated 2 UA Leukoctes 125 Sonja/uL Last Edit by Sue Parson CMA on 07/23/23 08:45 UA Nitrite Negative Last Edit by Sue Parson CMA on 07/23/23 08:45 UA Urobilinogen 0.2 mg/dL Last Edit by Sue Parson CMA on 07/23/23 08:45 UA Protein 15 mg/dL Last Edit by Sue Parson CMA on 07/23/23 08:45 UA pH 6.0 Last Edit by Sue Parson CMA on 07/23/23 08:45 UA Blood 200 Srinivasa/uL Last Edit by Sue Parson CMA on 07/23/23 08:45 UA Specific [place] 1.010 Last Edit by Sue Parson CMA on 07/23/23 08:4 5 UA Ketone Negative Last Edit by Sue Parson CMA on 07/23/23 08:45 UA Bilirubin 0 mg/dL Last Edit by Sue Parson CMA on 07/23/23 08:45 UA Glucose 0 mg/dL Last Edit by Sue Parson CMA on 07/23/23 08:45 Results Reviewed Results Reviewed: Laboratory Last Values Urine pH (Auto) 6.0 07/23/23 08:44 Specific [place] (Auto) 1.010 07/23/23 08:44 Urine Protein (Auto) 15 mg/dL 07/23/23 08:44 Glucose (UA)(Auto) 0 mg/dL 07/23/23 08:44 Urine Ketones (Auto) Negative 07/23/23 08:44 Urine Blood (Auto) 200 Srinivasa/uL 07/23/23 08:44 Urine Nitrite (Auto) Negative 07/23/23 08:44 Urine Bilirubin (Auto) 0 mg/dL 07/23/23 08:44 Urine Urobilinogen (Auto) 0.2 mg/dL 07/23/23 08:44 Leukocyte Esterase (Auto) 125 Sonja/uL 07/23/23 08:44 Assessment & Plan Assessment & Plan (1) Acute cystitis: Code(s): N30.00 - Acute cystitis without hematuria Qualifiers: Hematuria presence: with hematuria Qualified Code(s): N30.01 - Acute cystitis with hematuria (2) Eczema: Code(s): L30.9 - Dermatitis, unspecified Qualifiers: Eczema type: unspecified Qualified Code(s): L30.9 - Dermatitis, unspecified Plan Patient is a 78-year-old female came in today to be evaluated for possible urinary tract infection Patient has been having symptoms for the past 4 days, which are frequency and dysuria This morning she also noticed some blood when she wiped after urinating There is no fever no chills no back pain no abdominal pain there is no nausea vomiting She also have a rash on her left buttock that has been there for a while Patient says that she is embarrassed to talk to her primary care about it But she let me examine her She has eczematous scaly round patch left buttock for that I have sent Lotrisone cream Patient is to follow with primary care Orders: Orders 2 AMB Urinalysis Automated Today Z13.9 - Encounter for screening, unspecified Urine Culture Today N30.00 - Acute cystitis without hematuria Medications: New 2 clotrimazole-betamethasone 1-0.05 % 1 appl topical ONCE 45 grams 0RF 30 days levofloxacin 500 mg PO DAILY 5 tabs 0RF 5 days Coding Level of Care Code Est Pt Level 4 (47835) Diagnoses Acute cystitis with hematuria N30.01 Hematuria presence: with hematuria Eczema, unspecified type L30.9 Eczema type: unspecified
== END 2023-07-23 09:18 | disposition home or self-care (01) ==
PROVIDERS: PCP Physician Assistant; Visit Provider Internal Medicine
DX: N30.01 Acute cystitis with hematuria (principal); L30.9 Dermatitis, unspecified
CPT/HCPCS: 81003; 99214

== ENCOUNTER 2023-07-23 12:17 | Outpatient (REF) | payer MEDICARE, SELFPAY | END 2023-07-23 12:18 | disposition home or self-care (01) | LOC: HO.LNP 12:17 | PROVIDERS: Visit Provider Internal Medicine | DX: N30.00 Acute cystitis without hematuria (principal) | CPT/HCPCS: 87086; 87088; 87186 ==

== ENCOUNTER 2023-07-31 10:41 | Outpatient (AMB) | payer MEDICARE, SELFPAY ==
[2023-07-31 10:43] VITALS: BP 160/68; PULSE 90; TEMP 36.2; O2SAT 89; BMI 22.1
--- NOTE | 2023-07-31 10:43 | MHC.OFFWIV ---
Intake Vital Signs 07/31/23 10:43 Height 5 ft 6 in Weight 137 lb BMI 22.1 BP 160/68 H Blood Pressure Location Lt brachial Position Sitting Pulse 90 Pulse Source Pulse Oximeter Temp 97.2 F Temp Source Temporal Artery Scan Pulse Oximetry (%) 89 L Oxygen Delivery Method Room Air Intake Visit Reasons: EST/right side back pain (lobby) Intake Note: pt is here for rt side back pain started yesterday Patient Tobacco Use Status: Current everyday Tobacco user Allergies dextran 40 [DEXTRAN 40] Allergy (Severe, Verified 07/31/23 10:43) TACHYCARDIA AND HYPERTENSIVE prednisone Adverse Reaction (Intermediate, Verified 07/31/23 10:43) flushed azithromycin Adverse Reaction (Unknown, Verified 07/31/23 10:43) nauseous erythromycin base [ERYTHROMYCIN BASE] Adverse Reaction (Unknown, Verified 07/31/23 10:43) NAUSEA & VOMITING succinylcholine [SUCCINYLCHOLINE] Adverse Reaction (Unknown, Verified 07/31/23 10:43) FEVER, COULD NOT MOVE immune globulin,gamma (IgG) human [From Flebogamma] Adverse Reaction (Verified 07/31/23 10:43) Hives Do you need a note to return to daycare/school/sports/work: No HPI HPI Comments History of Present Illness Details 78 y/o female presents to walk in clinic with c/o lower back pain since yesterday. 07/23 she was diagnosed with cystitis and treated with Levofl, she completed the course. Today denies Urinary or vaginal symptoms. Denies trauma or injury to back. [facility] Medical History Postoperative hypothyroidism (~2022) Nicotine dependence, cigarettes, uncomplicated Vitamin D deficiency Osteopenia (~2020) AMANDA (generalized anxiety disorder) Post-menopausal Arthritis Anemia GERD (gastroesophageal reflux disease) Tubular adenoma of colon (~2020) Neuropathy Gammopathy, monoclonal (~2018) Surgical History History of total thyroidectomy (~2022) History of bone marrow biopsy (~2018) History of esophagogastroduodenoscopy (EGD) (~2018) History of colonoscopy (~2020) History of appendectomy History of bladder surgery (~1994) Family History Sister Heart disease Brother Heart disease Sister Cancer Father Diabetes Mother Ovarian cancer Social History Household Members: Spouse Housing: House Are you a primary care information associate to a significant other at home: No Do you presently have visiting nurse or other home services: No Alcohol intake: current Alcohol intake frequency: does not drink Patient Tobacco Use Status: Current everyday Tobacco user Tobacco use type: Cigarette Cigarette Packs Per Day: 1.5 Cigarettes Per Day: 20.0 Years Smoked: onset 20yo, 1-1.5ppd x 56yrs - 70+PYH e-Cigarette/Vaping Use: Never Used Second Hand Smoke Exposure: No Advance Directives Date on File: 07/25/14 service: No Current occupational status: retired Cognitive needs: No Hearing needs: No Vision needs: Yes Review of Systems Const All systems reviewed & are unremarkable except as noted in HPI and below Physical Exam Vital Signs: Last Vital Signs Temp 97.2 F 07/31/23 10:43 Pulse 90 07/31/23 10:43 BP 160/68 H 07/31/23 10:43 Pulse Ox 89 L 07/31/23 10:43 Oxygen Delivery Method Room Air 07/31/23 10:43 BMI result Body Mass Index 22.1 Const General: no acute distress General: Yes no CVA tenderness Back/Spine/Pelvis Back: no CVA tenderness, No mass and No erythema Cervical Spine: normal cervical lordosis and cervical ROM normal Thoracic/Lumbar Spine: thoracic and lumbar spine normal to inspection and thoraco-lumbar ROM normal Sacrum: no ecchymosis, no erythema and no swelling Coccyx: no swelling Assessment & Plan Assessment & Plan (1) Lower back pain: Code(s): M54.50 - Low back pain, unspecified Qualifiers: Back pain laterality: bilateral Chronicity: acute Sciatica presence: without sciatica Qualified Code(s): M54.50 - Low back pain, unspecified Plan: - Acetaminophen for relief - Will order urine culture Orders: Orders Urine Culture Today M54.50 - Low back pain, unspecified Medications: New acetaminophen 1,000 mg (2 x 500 mg) PO Q6H PRN 30 caps 0RF back pain M54.50 - Low back pain, unspecified Coding Level of Care Code Est Pt Level 3 (12103) Diagnoses Acute bilateral low back pain without sciatica M54.50 Back pain laterality: bilateral Chronicity: acute Sciatica presence: without sciatica Time Spent (min) 15
== END 2023-07-31 11:55 | disposition home or self-care (01) ==
PROVIDERS: PCP Physician Assistant; Visit Provider Nurse Practitioner Family
DX: M54.50 Low back pain, unspecified (principal)
CPT/HCPCS: 99213

== ENCOUNTER 2023-07-31 13:50 | Outpatient (REF) | payer MEDICARE, SELFPAY | END 2023-07-31 13:51 | disposition home or self-care (01) | LOC: HO.LNP 13:50 | PROVIDERS: Visit Provider Nurse Practitioner Family | DX: M54.50 Low back pain, unspecified (principal) | CPT/HCPCS: 87086 ==

== ENCOUNTER → 2023-08-12 08:30 | Outpatient (BNV) | payer MEDICARE, SELFPAY | PROVIDERS: PCP Physician Assistant; Visit Provider Radiology Diagnostic Radiology | DX: R92.1 Mammographic calcification found on diagnostic imaging of breast (principal) | CPT/HCPCS: 77065; G0279 ==

== ENCOUNTER 2023-08-12 08:34 | Outpatient (REF) | payer MEDICARE, SELFPAY ==
--- NOTE | ~2023-08-12 | MM_ITS ---
EXAMINATION: MM DIAGNOSTIC DIGITAL BREAST TOMOSYNTHESIS, LEFT CLINICAL INFORMATION: The patient presents for six-month follow-up of the upper outer quadrant left breast calcifications. COMPARISON: Mammography: This study is compared with prior mammograms dating back to 2020. TECHNIQUE: Digital breast tomosynthesis is performed in both the craniocaudal and mediolateral oblique views along with computer-aided detection (CAD). Synthesized 2D images are generated from the tomosynthesis. FINDINGS: There are scattered areas of fibroglandular density (ACR BI-RADS breast composition Category b). There are no significant masses, abnormal calcifications, or other abnormalities. There has been no interval change in the slowly coarsening upper outer quadrant calcifications of the left breast. A 6 month follow-up examination is advised for the left breast. At that time, the screening mammogram of the right breast will be due. MM/MM tomosynthesis diagnostic LT IMPRESSION: There are no significant changes from prior study. ASSESSMENT: BI-RADS BI-RADS 3 - Probably benign finding(s) - 12 month follow-up suggested RECOMMENDATION: 6 Month F/U Results were provided to the patient at time of visit by the technologist. This patient's information was entered into a reminder system with a target due date for their next mammogram.
== END 2023-08-12 08:35 | disposition home or self-care (01) ==
LOC: HO.MAMMO 08:34
PROVIDERS: PCP Physician Assistant; Visit Provider Physician Assistant
DX: R92.1 Mammographic calcification found on diagnostic imaging of breast (principal)
CPT/HCPCS: 77061; 77065

== ENCOUNTER 2023-08-14 12:00 | Outpatient (RCR) | payer MEDICARE, SELFPAY ==
--- NOTE | 2023-05-20 10:03 | MHC.PT.EP ---
[facility] [place] Office [place] Office [place] Office [address] [phone] F: [phone] F: [phone] F: [phone] F: [phone] Physical Therapy Plan of Care Date of Evaluation: 05/20/23 Date of Surgery: Diagnosis: gait abnormality, balance Assessment: Patient is a pleasant 78 y.o. female who is referred to PT by Siddharth Garcia PA-C with Dx of abnormalities of gait and mobility, impaired balance secondary to neuropathy in bilateral feet. Patient impairments include weakness in hips, antalgic gait and fair to poor static and dynamic balance. Patient current functional limitations are walking, stair use with railing (one at at time), bathing/standing, difficulty on uneven surfaces, getting on/off curb. Patient will benefit from skilled PT to address aforementioned impairments and functional limitations to meet established goals. Frequency and Duration: The patient will be seen 2x/week for 4 weeks Short Term Goals: 2 weeks Patient demonstrates consistency and independence with HEP to self manage symptoms. Group Home Goals: 4 weeks Patient is able to perform SLS on R 5 seconds to improve gait and reduce gait deviation. Patient presents with increased bilateral hip flexion 4+/5 to be able to perform reciprocal stairs with railings. Treatment Plan: Modalities to reduce pain, spasms and effusion. Manual therapy to restore motion and function. Therapeutic exercise to improve strength and flexibility. Neuromuscular re-education for posture and balance. Therapeutic activities to return to functional activities of daily living. Electronically signed by: Nohemi Burgess, PT, DPT Please sign and return to therapist. Thank you for your referral.
--- NOTE | 2023-08-14 14:32 | MHC.PT.DC ---
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 I reinforced to her to perform holding onto sturdy chair or counter for safety and utilize one hand and as it improves, progress to 2 fingers then 1 finger. She reports feeling confident to continue this at home and doing the exercises she feels improves her gait. She feels ready for discharge this session, can continue independently with HEP. Electronically signed by: Nohemi Burgess, PT, DPT Please sign and return to therapist. Thank you for your referral.
== END 2023-08-14 14:32 | disposition home or self-care (01) ==
LOC: HO.PT 12:00
PROVIDERS: PCP Physician Assistant; Visit Provider Physician Assistant
DX: R26.89 Other abnormalities of gait and mobility (principal)
CPT/HCPCS: 97110; 97112; 97161; 97530

== ENCOUNTER 2023-08-28 06:01 | Outpatient (REF) | payer MEDICARE, SELFPAY ==
[2023-08-28 11:52] LABS: Estimated Average Glucose 123 mg/dL; Hemoglobin A1C 149.9846 umol/L; Hemoglobin A1c % 5.9 % (<6.0)
[2023-08-28 12:27] LABS: Alanine Aminotransferase 16 U/L (0-31); Albumin Level 4.4 g/dL (3.5-5.0); Alkaline Phosphatase 105 U/L (39-117); Anion Gap 12 (12-20); Aspartate Amino Transferase 17 U/L (5-31); Bilirubin Total 0.4 mg/dL (0.0-1.0); Blood Urea Nitrogen 12 mg/dL (9-16); Calcium 9.5 mg/dL (8.4-10.2); Carbon Dioxide 33 mmol/L (22-29); Chloride 99 mmol/L (96-108); Estimated Glomerular Filt Rate > 60; Glucose Fasting 106 mg/dL (60-99); Potassium 4.5 mmol/L (3.3-5.1); Sodium 139 mmol/L (135-145); TSH reflex Free T4 1.22 uIU/mL (0.32-4.0); Total Protein 8.1 g/dL (6.5-8.0); Vitamin D 25-OH Total 31.8 ng/mL (>30)
== END 2023-08-28 06:02 | disposition home or self-care (01) ==
LOC: HO.HMGCLDS 06:01
PROVIDERS: PCP Physician Assistant; Visit Provider Physician Assistant
DX: R73.09 Other abnormal glucose (principal); E05.90 Thyrotoxicosis, unspecified without thyrotoxic crisis or storm; E55.9 Vitamin D deficiency, unspecified
CPT/HCPCS: 36415; 80053; 82306; 83036; 84443

== ENCOUNTER 2023-09-04 08:21 | Outpatient (AMB) | payer MEDICARE, SELFPAY ==
[2023-09-04 08:36] VITALS: BP 140/62; PULSE 82; O2SAT 91; BMI 21.8
--- NOTE | 2023-09-04 08:36 | A.OFFPC_ITS ---
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 Required: No Tax Assessor: Not Required per policy Accompanied by: Self / Same As Patient Allergies dextran 40 [DEXTRAN 40] Allergy (Severe, Verified 09/04/23 08:45) TACHYCARDIA AND HYPERTENSIVE prednisone Adverse Reaction (Intermediate, Verified 09/04/23 08:45) flushed azithromycin Adverse Reaction (Unknown, Verified 09/04/23 08:45) nauseous erythromycin base [ERYTHROMYCIN BASE] Adverse Reaction (Unknown, Verified 09/04/23 08:45) NAUSEA & VOMITING succinylcholine [SUCCINYLCHOLINE] Adverse Reaction (Unknown, Verified 09/04/23 08:45) FEVER, COULD NOT MOVE immune globulin,gamma (IgG) human [From Flebogamma] Adverse Reaction (Verified 09/04/23 08:45) Hives Medication List - Last Reconciled 09/04/23 by Siddharth Garcia PA-C acetaminophen 1,000 mg (2 x 500 mg) PO Q6H PRN calcium carbonate (Calcium 500) 500 mg PO BID 90 days cholecalciferol (vitamin D3) 50 mcg PO DAILY 90 days clotrimazole-betamethasone 1-0.05 % 1 appl topical ONCE 30 days ferrous sulfate 325 mg PO DAILY levothyroxine 112 mcg PO DAILY 30 days lorazepam (Ativan) 1 mg PO BID PRN 30 days Tobacco use date assessed: 09/04/23 Fall risk assessment: No Falls in past year Last assessed Fall Risk: 09/04/23 Dental Screening Dental Screen Date: 09/04/23 Did you have a dental visit in the last 12 months?: Yes Did you have a dental problem in the last 6 months where you did not have access to dental care?: No Was dental information given to patient?: Patient has dentist HPI f/u AMANDA/ smoking cessation HPI Details patient is a 78-year-old female here today for follow-up visit..? Patient has a past medical history significant for tobacco use disorder, thyroid nodules, nephrolithiasis, impaired glucose metabolism, anxiety disorder, gammopathy monoclonal. Concern--> has been dealing with a dry itchy rash over her left buttocks. Has been using dual clotrimazole beclomethasone cream though feels it is not effective. PLAN: Will change to a more occlusive agents such as triamcinolone ointment. Advised on hgly-owe-yefrtyc D and D ointment to be used as well. .. Pulmonary nodule:? Patient is followed by thoracic surgeon lung cancer screening program.? Has an upper left pulmonary nodule at 9 mm that is stable since previous imaging.? She has chosen to follow this nodule over a 3 month baisis. Considering lung biopsy Patient likely not surgical candidate. She is followed up with a inside sales director in recent [place] showing stable nodules. She did undergo a pulmonary function test did show evidence of COPD. She was advised to start inhaler for maintenance .. .. Impaired glucose metabolism: Most recent A1c 5.9 fasting blood sugar has improved. . /.. Gammopathy:? 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 She reports she continues to have neuropathy in both her hands and feet. She is very bothered by her neuropathic pain worse at night. She is willing to start low-dose gabapentin at night. .. Smoking:? She does understand she needs to quit smoking though reports it is very hard for her.? Has tried nicotine replacement in the past.? Also discussed her smoking history as she has been smoking over 30 years. She is tried Chantix in the past though had side effect. We did discuss perhaps using Wellbutrin SR though she is considering. Does have nicotine patches available to her at home [facility] Medical History (Updated 09/04/23 @ 09:05 by Siddharth Garcia PA-C) Postoperative hypothyroidism (~2022) Nicotine dependence, cigarettes, uncomplicated Vitamin D deficiency Osteopenia (~2020) AMANDA (generalized anxiety disorder) Post-menopausal Arthritis Anemia GERD (gastroesophageal reflux disease) Tubular adenoma of colon (~2020) Neuropathy Gammopathy, monoclonal (~2018) Surgical History History of total thyroidectomy (~2022) History of bone marrow biopsy (~2018) History of esophagogastroduodenoscopy (EGD) (~2018) History of colonoscopy (~2020) History of appendectomy History of bladder surgery (~1994) Family History Sister Heart disease Brother Heart disease Sister Cancer Father Diabetes Mother Ovarian cancer Social History Household Members: Spouse Housing: House Are you a primary adult care manager to a significant other at home: No Do you presently have visiting nurse or other home services: No Alcohol intake: current Alcohol intake frequency: does not drink Patient Tobacco Use Status: Current everyday Tobacco user Tobacco use type: Cigarette Cigarette Packs Per Day: 1.5 Cigarettes Per Day: 20.0 Years Smoked: onset 20yo, 1-1.5ppd x 56yrs - 70+PYH e-Cigarette/Vaping Use: Never Used Second Hand Smoke Exposure: No Advance Directives Date on File: 07/25/14 service: No Current occupational status: retired Cognitive needs: No Hearing needs: No Vision needs: Yes Questionnaire PHQ-9 Over the last 2 weeks, how often have you been bothered by any of the following problems? 1. Little interest or pleasure in doing things: not at all 2. Feeling down, depressed, or hopeless: not at all 3. Trouble falling or staying asleep, or sleeping too much: not at all 4. Feeling tired or having little energy: not at all 5. Poor appetite or overeating: not at all 6. Feeling bad about yourself - or that you are a failure or have let yourself or your family down: not at all 7. Trouble concentrating on things, such as reading the newspaper or watching television: not at all 8. Moving or speaking so slowly that other people could have noticed. Or the opposite - being so fidgety or restless that you have been moving around a lot more than usual: not at all 9. Thoughts that you would be better off or of hurting yourself in some way: not at all Total score: 0 Depression Screening Interpretation: Positive Depression Screening Done: Yes 45207 - PHQ-9 Billing: Yes Source: Developed by Drs. Barry Treviño, Tanya Nuñez, Evelio Ruiz and colleagues, with an educational obi from [employer] Thrive Questionnaire Date Thrive assessed: 09/04/23 I am a: Patient What is your living situation today?: I have a steady place to live Within the past 12 months, did the food you bought not last and you didn't have the money to get more?: Never true Within the past 12 months, did you worry whether your food would run out before you got money to buy more?: Never true Do you have trouble paying for medicines?: No Do you have trouble getting transportation to medical appointments?: No Do you have trouble paying your heating and electricity bill?: No Do you have trouble taking care of your child, family member or friend?: No Do you have trouble with day-to-day activities such as bathing, preparing meals, shopping, managing finances, etc.?: No Are you currently unemployed and looking for a job?: No Are you interested in more education?: No Please select the resources that you would like help with: None THRIVE Score: 0 AUDIT C Alcohol Use Questionnaire (AUDIT-C) 1. How often do you have a drink containing alcohol?: Never 3. How often do you have six or more drinks on one occasion?: Never Total Score: 0 AMANDA-7 AMB Questionnaire AMANDA-7 Date AMANDA - 7 assessed: 09/04/23 Feeling nervous, anxious, or on edge: 0 = Not at all Not being able to stop or control worryin = Not at all Worrying too much about different things: 0 = Not at all Trouble relaxin = Not at all Being so restless that it is hard to sit still: 0 = Not at all Becoming easily annoyed or irritable: 0 = Not at all Feeling afraid as if something awful might happen: 0 = Not at all Total AMANDA-7 score (0-4 normal; 5-9 mild; 10-14 moderate; 15-21 severe): 0 Source: Developed by Drs. Barry Treviño, Tanya Nuñez, Evelio Ruiz and colleagues, with an educational obi from [employer] Review of Systems Const Denies headache(s) Eyes Denies loss of vision ENT Denies vertigo, Denies dizziness, Denies headache(s) and Denies sore throat Card Denies chest pain, Denies leg edema and Denies lightheadedness Resp Denies cough, Denies hemoptysis and Denies wheezing GI Denies abdominal pain, Denies melena, Denies constipation, Denies diarrhea and Denies vomiting Denies urinary frequency, Denies dysuria and Denies urinary urgency Musc Denies arthralgias, Denies joint swelling, Denies numbness and Denies tingling Neuro Denies Abnormal speech present, Denies behavioral changes, Denies vertigo, Denies dizziness, Denies headache(s), Denies loss of vision, Denies memory loss, Denies numbness and Denies tingling Psych Denies anxiety, Denies behavioral changes, Denies depression, Denies memory loss and Denies panic attacks Sergei/Lymph Denies easy bleeding and Denies easy bruising Aller/Immun Denies wheezing Physical exam (Primary Care) Vital Signs: Last Vital Signs Pulse 82 09/04/23 08:36 BP 140/62 H 09/04/23 08:36 Pulse Ox 91 L 09/04/23 08:36 Oxygen Delivery Method Room Air 09/04/23 08:36 BMI result Body Mass Index 21.8 Tobacco/Smoking Status: Tobacco use Status Tobacco use date assessed 09/04/23 09/04/23 08:37 Patient Tobacco Use Status Current everyday Tobacco 09/04/23 08:37 Tobacco use type Cigarette 09/04/23 08:37 e-Cigarette/Vaping Use Never Used 09/04/23 08:37 Are you ready to quit: Yes Tobacco cessation counseling provided: Yes Items discussed: Nicotine replacement Relapse Prevention: discussed the importance of a supportive environment, discussed negative mood or depression after quitting, weight gain after smoking is common and discussed dietary, exercise and/or lifestyle changes Number of minutes spent counselin CPT code: 90720 - 4-10 Minutes PHQ-9: PHQ-9 Score PHQ-9: Total score 0 09/04/23 08:51 Depression Screening Interpretation: Positive Thrive Assessment: Date of Thrive Assessment Date Thrive assessed 09/04/23 09/04/23 08:37 Const General: healthy appearing, no acute distress, alert and awake Nutritional Appearance: well nourished Orientation/consciousness: oriented to person, oriented to place and oriented to time HENMT Ears: TM's normal bilaterally General nose exam: Normal nasal mucous membranes and turbinates present Eyes Conjunctivae: conjunctivae normal Sclerae: sclerae normal Pupils: Equal, round and reactive pupils present Neck Neck: Yes no lymphadenopathy and Yes no JVD Thyroid: Thyroid normal Carotids: no bruits Resp Effort & Inspection: normal respiratory effort and not tachypneic Auscultation: no crackles, no rales, no rhonchi and no wheezes Cardio Rate: regular rate Rhythm: regular rhythm Heart sounds: no murmurs and normal S1 and S2 GI Palpation (GI): Soft to palpation, nontender, no hepatomegaly and no splenomegaly Auscultation: normal bowel sounds Skin General skin exam: no rashes or lesions noted and dry skin Neuro General: oriented to person, oriented to place and oriented to time Cranial nerves: Yes Equal, round and reactive pupils present Speech: No Abnormal speech present Gait exam (Neuro): Normal gait present Motor exam (neuro): no tremor noted Extrem Right upper extremity: full ROM Left upper extremity: full ROM Right lower extremity: full ROM; no edema Left lower extremity: full ROM; no edema Psych Mental Status: mental status grossly normal Speech and movement: Normal speech and movement present Affect: normal affect Attitude: cooperative Thought process: Normal thought process present Assessment and Plan Assessment & Plan (1) COPD (chronic obstructive pulmonary disease): Code(s): J44.9 - Chronic obstructive pulmonary disease, unspecified Qualifiers: COPD type: chronic bronchitis Chronic bronchitis type: simple Qualified Code(s): J41.0 - Simple chronic bronchitis Plan: Has recently established care with a inside sales director at [facility]. CT scan showing stable nodules. She underwent a pulmonary function test did show COPD. She was told to follow up with her PCP about starting inhalers. Had long discussion about smoking cessation and she is willing to try with nicotine patches (2) Hyperthyroidism: Code(s): E05.90 - Thyrotoxicosis, unspecified without thyrotoxic crisis or storm Plan: Patient followed by endocrinology and recently placed on methimazole for her hyperthyroidism. (3) Pulmonary nodule: Code(s): R91.1 - Solitary pulmonary nodule Plan: Now followed by Pulmponologist at [facility] and get CT chest, has multiple stable nodules. (4) Personal history of nicotine dependence: Comment: (active smoker, onset 20, 1-2ppd x 56yrs, 80+PYH) Code(s): Z87.891 - Personal history of nicotine dependence Plan: Patient does understand she needs to quit smoking and has been reducing her smoking on her own. Not interested in doing nicotine replacement at this time. (5) AMANDA (generalized anxiety disorder): Code(s): F41.1 - Generalized anxiety disorder Plan: Patient reports her anxiety has not been well controlled in reports she has to use lorazepam more often. She does understand that lorazepam visit habit- forming medication and will only use on a p.r.n. basis. Not interested in any daily anxiety medication at this time. (6) Impaired glucose metabolism: Code(s): R73.09 - Other abnormal glucose Plan: Most recent A1c is improved at 5.9.. Was previously on metformin though stop this medication. Goal fasting blood sugar below 110 (7) Neuropathy: Comment: feet bilateral Code(s): G62.9 - Polyneuropathy, unspecified Plan: Continues to have neuropathic pain worse at night in her lower legs and feet. She is willing to try gabapentin at night to help her with her neuropathic symptoms (8) Dermatitis: Code(s): L30.9 - Dermatitis, unspecified Plan: As per HPI Medications: New umeclidinium-vilanterol 62.5-25 mcg/actuation (Anoro Ellipta) 1 inh inhalation DAILY 30 days 60 ea 3RF J41.0 - Simple chronic bronchitis triamcinolone acetonide 0.1% 1 appl topical DAILY 30 days 80 grams 1RF L30.9 - Dermatitis, unspecified albuterol sulfate 90 mcg/actuation 1 inh inhalation QID 30 days PRN 8.5 grams 0RF shortness of breath or wheezing J41.0 - Simple chronic bronchitis gabapentin 100 mg PO BEDTIME 30 days 30 caps 3RF D47.2 - Monoclonal gammopathy, G62.9 - Polyneuropathy, unspecified Discontinued clotrimazole-betamethasone 1-0.05 % Discontinued Reason: Doctor's Order 1 appl topical ONCE 30 days 45 grams 0RF Coding Level of Care Code Est Pt Level 4 (09935) Diagnoses Simple chronic bronchitis J41.0 COPD type: chronic bronchitis Chronic bronchitis type: simple Hyperthyroidism E05.90 Pulmonary nodule R91.1 Personal history of nicotine dependence Z87.891 AMANDA (generalized anxiety disorder) F41.1 Impaired glucose metabolism R73.09 Neuropathy G62.9 Dermatitis L30.9 Additional Codes Vital Signs *Quality* - CPT code: 54040 - 4-10 Minutes ([id number])
== END 2023-09-04 09:18 | disposition home or self-care (01) ==
PROVIDERS: PCP Physician Assistant; Visit Provider Physician Assistant
DX: J41.0 Simple chronic bronchitis (principal); E05.90 Thyrotoxicosis, unspecified without thyrotoxic crisis or storm; R91.1 Solitary pulmonary nodule; Z87.891 Personal history of nicotine dependence; F17.210 Nicotine dependence, cigarettes, uncomplicated; F41.1 Generalized anxiety disorder; R73.09 Other abnormal glucose; G62.9 Polyneuropathy, unspecified; L30.9 Dermatitis, unspecified
CPT/HCPCS: 99214; 99406

== ENCOUNTER 2023-11-05 10:10 | Outpatient (AMB) | payer MEDICARE, SELFPAY ==
[2023-11-05 10:20] VITALS: BP 122/60; PULSE 84; O2SAT 95; BMI 22.2
--- NOTE | 2023-11-05 10:20 | A.OFFPC_ITS ---
Vital Signs 11/05/23 10:20 Height 5 ft 6 in Weight 137 lb 8 oz BMI 22.2 BP 122/60 Blood Pressure Location Lt brachial Position Sitting Pulse 84 Pulse Source Pulse Oximeter Pulse Oximetry (%) 95 Oxygen Delivery Method Room Air Intake Visit Reasons: f/u smoking cessation Door Fitter Required: No Accompanied by: Self / Same As Patient Allergies dextran 40 [DEXTRAN 40] Allergy (Severe, Verified 11/05/23 10:26) TACHYCARDIA AND HYPERTENSIVE prednisone Adverse Reaction (Intermediate, Verified 11/05/23 10:26) flushed azithromycin Adverse Reaction (Unknown, Verified 11/05/23 10:26) nauseous erythromycin base [ERYTHROMYCIN BASE] Adverse Reaction (Unknown, Verified 11/05/23 10:26) NAUSEA & VOMITING succinylcholine [SUCCINYLCHOLINE] Adverse Reaction (Unknown, Verified 11/05/23 10:) FEVER, COULD NOT MOVE immune globulin,gamma (IgG) human [From Flebogamma] Adverse Reaction (Verified 11/05/23 10:26) Hives Medication List - Last Reconciled 11/05/23 by Siddharth Garcia PA-C acetaminophen 1,000 mg (2 x 500 mg) PO Q6H PRN albuterol sulfate 90 mcg/actuation 1 inh inhalation QID PRN 30 days calcium carbonate (Calcium 500) 500 mg PO BID 90 days cholecalciferol (vitamin D3) 50 mcg PO DAILY 90 days ferrous sulfate 325 mg PO DAILY levothyroxine 112 mcg PO DAILY 30 days lorazepam (Ativan) 1 mg PO BID PRN 30 days umeclidinium-vilanterol 62.5-25 mcg/actuation (Anoro Ellipta) 1 inh inhalation DAILY 30 days Tobacco use date assessed: 09/04/23 Fall risk assessment: No Falls in past year Last assessed Fall Risk: 11/05/23 Dental Screening Dental Screen Date: 09/04/23 HPI f/u smoking cessation HPI Details patient is a 78-year-old female here today for follow-up visit..? Patient has a past medical history significant for tobacco use disorder, thyroid nodules, nephrolithiasis, impaired glucose metabolism, anxiety disorder, gammopathy monoclonal. Concern--> .. Pulmonary nodule:? Patient is followed by thoracic surgeon lung cancer screening program.? Has an upper left pulmonary nodule at 9 mm that is stable since previous imaging.? She has chosen to follow this nodule over a 3 month baisis. Considering lung biopsy Patient likely not surgical candidate. She is followed up with a tool and die assembler in recent [place] showing stable nodules. She did undergo a pulmonary function test did show evidence of COPD. She was advised to start inhaler for maintenance .. .. Impaired glucose metabolism: Most recent A1c 5.9 fasting blood sugar has improved. . /.. Gammopathy:? 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 She reports she continues to have neuropathy in both her hands and feet. She is very bothered by her neuropathic pain worse at night. She has tried some physical therapy which included lower extremity cycling which had helped. She is considering getting herself a seated cycling machine. .. Smoking:? She does understand she needs to quit smoking though reports it is very hard for her.? Has tried nicotine replacement in the past.? Also discussed her smoking history as she has been smoking over 30 years. She is tried Chantix in the past though had side effect. We did discuss perhaps using Wellbutrin SR though she is considering. Does have nicotine patches available to her at home [facility] Medical History Postoperative hypothyroidism (~2022) Nicotine dependence, cigarettes, uncomplicated Vitamin D deficiency Osteopenia (~2020) AMANDA (generalized anxiety disorder) Post-menopausal Arthritis Anemia GERD (gastroesophageal reflux disease) Tubular adenoma of colon (~2020) Neuropathy Gammopathy, monoclonal (~2018) Surgical History History of total thyroidectomy (~2022) History of bone marrow biopsy (~2018) History of esophagogastroduodenoscopy (EGD) (~2018) History of colonoscopy (~2020) History of appendectomy History of bladder surgery (~1994) Family History Sister Heart disease Brother Heart disease Sister Cancer Father Diabetes Mother Ovarian cancer Social History Household Members: Spouse Housing: House Are you a primary career technical supervisor to a significant other at home: No Do you presently have visiting nurse or other home services: No Alcohol intake: current Alcohol intake frequency: does not drink Patient Tobacco Use Status: Current everyday Tobacco user Tobacco use type: Cigarette Cigarette Packs Per Day: 1.5 Cigarettes Per Day: 20.0 Years Smoked: onset 20yo, 1-1.5ppd x 56yrs - 70+PYH e-Cigarette/Vaping Use: Never Used Second Hand Smoke Exposure: No Advance Directives Date on File: 07/25/14 service: No Current occupational status: retired Cognitive needs: No Hearing needs: No Vision needs: Yes Questionnaire Thrive Questionnaire Date Thrive assessed: 09/04/23 AMANDA-7 AMB Questionnaire AMANDA-7 Date AMANDA - 7 assessed: 09/04/23 Source: Developed by Drs. Barry Treviño, Tanya Nuñez, Evelio Ruiz and colleagues, with an educational obi from [employer]. Review of Systems Const Denies headache(s) Eyes Denies loss of vision ENT Denies vertigo, Denies dizziness, Denies headache(s) and Denies sore throat Card Denies chest pain, Denies leg edema and Denies lightheadedness Resp Denies cough, Denies hemoptysis and Denies wheezing GI Denies abdominal pain, Denies melena, Denies constipation, Denies diarrhea and Denies vomiting Denies urinary frequency, Denies dysuria and Denies urinary urgency Musc Denies arthralgias, Denies joint swelling, Denies numbness and Denies tingling Neuro Denies Abnormal speech present, Denies behavioral changes, Denies vertigo, Denies dizziness, Denies headache(s), Denies loss of vision, Denies memory loss, Denies numbness and Denies tingling Psych Denies anxiety, Denies behavioral changes, Denies depression, Denies memory loss and Denies panic attacks Sergei/Lymph Denies easy bleeding and Denies easy bruising Aller/Immun Denies wheezing Physical exam (Primary Care) Vital Signs: Last Vital Signs Pulse 84 11/05/23 10:20 BP 122/60 11/05/23 10:20 Pulse Ox 95 11/05/23 10:20 Oxygen Delivery Method Room Air 11/05/23 10:20 BMI result Body Mass Index 22.2 Tobacco/Smoking Status: Tobacco use Status Tobacco use date assessed 09/04/23 11/05/23 10:25 Patient Tobacco Use Status Current everyday Tobacco 11/05/23 10:25 Tobacco use type Cigarette 11/05/23 10:25 e-Cigarette/Vaping Use Never Used 11/05/23 10:25 Are you ready to quit: No Tobacco cessation counseling provided: Yes Items discussed: Nicotine replacement Relapse Prevention: discussed the importance of a supportive environment, discussed negative mood or depression after quitting, weight gain after smoking is common and discussed dietary, exercise and/or lifestyle changes Number of minutes spent counselin CPT code: 08597 - 4-10 Minutes Thrive Assessment: Date of Thrive Assessment Date Thrive assessed 09/04/23 11/05/23 10:25 Const General: healthy appearing, no acute distress, alert and awake Nutritional Appearance: well nourished Orientation/consciousness: oriented to person, oriented to place and oriented to time HENMT Ears: TM's normal bilaterally General nose exam: Normal nasal mucous membranes and turbinates present Eyes Conjunctivae: conjunctivae normal Sclerae: sclerae normal Pupils: Equal, round and reactive pupils present Neck Neck: Yes no lymphadenopathy and Yes no JVD Thyroid: Thyroid normal Carotids: no bruits Resp Effort & Inspection: normal respiratory effort and not tachypneic Auscultation: no crackles, no rales, no rhonchi and no wheezes Cardio Rate: regular rate Rhythm: regular rhythm Heart sounds: no murmurs and normal S1 and S2 GI Palpation (GI): Soft to palpation, nontender, no hepatomegaly and no splenomegaly Auscultation: normal bowel sounds Skin General skin exam: no rashes or lesions noted and dry skin Neuro General: oriented to person, oriented to place and oriented to time Cranial nerves: Yes Equal, round and reactive pupils present Speech: No Abnormal speech present Gait exam (Neuro): Normal gait present Motor exam (neuro): no tremor noted Extrem Right upper extremity: full ROM Left upper extremity: full ROM Right lower extremity: full ROM; no edema Left lower extremity: full ROM; no edema Psych Mental Status: mental status grossly normal Speech and movement: Normal speech and movement present Affect: normal affect Attitude: cooperative Thought process: Normal thought process present Assessment and Plan Assessment & Plan (1) COPD (chronic obstructive pulmonary disease): Code(s): J44.9 - Chronic obstructive pulmonary disease, unspecified Qualifiers: COPD type: chronic bronchitis Chronic bronchitis type: simple Qualified Code(s): J41.0 - Simple chronic bronchitis Plan: Seeing tool and die assembler at [facility]. CT scan showing stable nodules. She underwent a pulmonary function test did show COPD. She was told to follow up with her PCP about starting inhalers. Had long discussion about smoking cessation and she is willing to try with nicotine patches (2) Pulmonary nodule: Code(s): R91.1 - Solitary pulmonary nodule Plan: Now followed by Pulmponologist at [facility] and get CT chest, has multiple stable nodules. (3) Personal history of nicotine dependence: Comment: (active smoker, onset 20, 1-2ppd x 56yrs, 80+PYH) Code(s): Z87.891 - Personal history of nicotine dependence Plan: Patient does understand she needs to quit smoking and has been reducing her smoking on her own. She does nicotine replacement available to her though has found it very difficult to start (4) Impaired glucose metabolism: Code(s): R73.09 - Other abnormal glucose Plan: Most recent A1c is improved at 5.9.. Was previously on metformin though stop this medication. Goal fasting blood sugar below 110 (5) Neuropathy: Comment: feet bilateral Code(s): G62.9 - Polyneuropathy, unspecified Plan: Continues to have neuropathic pain worse at night in her lower legs and feet. Physical therapy has been helpful. (6) Hypothyroid: Code(s): E03.9 - Hypothyroidism, unspecified Qualifiers: Hypothyroidism type: acquired Qualified Code(s): E03.9 - Hypothyroidism, unspecified Plan: Patient continues on levothyroxine 112 mcg and seems to be clinically and chemically euthyroid. Most recent TSH stable Orders: Orders Hemoglobin A1c Today R73.09 - Other abnormal glucose Comprehensive [place]. Panel Fast Today R73.09 - Other abnormal glucose Vitamin D 25-OH Total Today E55.9 - Vitamin D deficiency, unspecified TSH reflex Free T4 Today E05.90 - Thyrotoxicosis, unspecified without thyrotoxic crisis or storm Medications: Refilled levothyroxine 112 mcg PO DAILY 90 tabs 1RF 30 days R26.89 - Other abnormalities of gait and mobility Coding Level of Care Code Est Pt Level 4 (90499) Diagnoses Simple chronic bronchitis J41.0 COPD type: chronic bronchitis Chronic bronchitis type: simple Pulmonary nodule R91.1 Personal history of nicotine dependence Z87.891 Impaired glucose metabolism R73.09 Neuropathy G62.9 Acquired hypothyroidism E03.9 Hypothyroidism type: acquired Additional Codes Vital Signs *Quality* - CPT code: 72607 - 4-10 Minutes ([id number])
== END 2023-11-05 10:48 | disposition home or self-care (01) ==
PROVIDERS: PCP Physician Assistant; Visit Provider Physician Assistant
DX: J41.0 Simple chronic bronchitis (principal); R91.1 Solitary pulmonary nodule; Z87.891 Personal history of nicotine dependence; R73.09 Other abnormal glucose; G62.9 Polyneuropathy, unspecified; E03.9 Hypothyroidism, unspecified
CPT/HCPCS: 99214

== ENCOUNTER 2024-03-04 10:45 | Outpatient (REF) | payer MEDICARE, SELFPAY ==
--- NOTE | ~2024-03-04 | MM_ITS ---
EXAMINATION: MM DIAGNOSTIC DIGITAL BREAST TOMOSYNTHESIS, BILATERAL CLINICAL INFORMATION: -6 month follow-up for probably benign left breast calcifications upper outer quadrant, middle one third. COMPARISON: Mammography: 08/06/2022, 01/30/2022, 01/18/2022, 01/17/2021, and exams dating back to 2016. TECHNIQUE: Digital breast tomosynthesis is performed in both the craniocaudal and mediolateral oblique views along with computer-aided detection (CAD). Synthesized 2D images are generated from the tomosynthesis. In addition to standard views, 2-D spot magnification left CC and ML view x2 are also obtained. FINDINGS: There are scattered areas of fibroglandular density (ACR BI-RADS breast composition Category b). Calcifications in the upper outer left breast have remained entirely stable over the past 2 years since 01/30/2022, and are hence benign. No aggressive changes are present. Otherwise, there are no suspicious masses, new suspicious grouped calcifications, or areas of architectural distortion in either breast. The parenchymal pattern is stable from prior exams. There is no skin or axillary abnormality. MM/MM tomosynthesis diagnostic BI IMPRESSION: -No mammographic evidence of malignancy. -Left breast upper outer calcifications and stable over 2 years, without aggressive changes, and are benign. No further follow-up suggested. Recommend the patient resume routine annual screening mammography. ASSESSMENT: BI-RADS BI-RADS 2 - Benign Findings RECOMMENDATION: 1 year F/U Results were provided to the patient at time of visit by the technologist. This patient's information was entered into a reminder system with a target due date for their next mammogram. Electronically signed by: Raymon Kaur MD 03/04/2024 01:19 PM EDT
== END 2024-03-04 10:46 | disposition home or self-care (01) ==
LOC: HO.MAMMO 10:45
PROVIDERS: PCP Physician Assistant; Visit Provider Physician Assistant
DX: R92.1 Mammographic calcification found on diagnostic imaging of breast (principal)
CPT/HCPCS: 77062; 77066

== ENCOUNTER → 2024-03-04 11:00 | Outpatient (BNV) | payer MEDICARE, SELFPAY | PROVIDERS: PCP Physician Assistant; Visit Provider Radiology Diagnostic Radiology | DX: R92.1 Mammographic calcification found on diagnostic imaging of breast (principal) | CPT/HCPCS: 77066; G0279 ==

== ENCOUNTER 2024-05-12 09:03 | Outpatient (AMB) | payer MEDICARE, SELFPAY ==
[2024-05-12 09:04] VITALS: BP 122/74; PULSE 76; O2SAT 96; BMI 21.8
--- NOTE | 2024-05-12 09:04 | MHC.PC.OV ---
Vital Signs 05/12/24 09:04 Height 5 ft 6 in Weight 135 lb BMI 21.8 BP 122/74 Blood Pressure Location Lt brachial Position Sitting Pulse 76 Pulse Source Pulse Oximeter Pulse Oximetry (%) 96 Oxygen Delivery Method Room Air Intake Visit Reasons: f/u Hypothy, smoking - see comments Welt Stitch Cleaner Required: No Allergies dextran 40 [DEXTRAN 40] Allergy (Severe, Verified 05/12/24 09:27) TACHYCARDIA AND HYPERTENSIVE prednisone Adverse Reaction (Intermediate, Verified 05/12/24 09:27) flushed azithromycin Adverse Reaction (Unknown, Verified 05/12/24 09:27) nauseous erythromycin base [ERYTHROMYCIN BASE] Adverse Reaction (Unknown, Verified 05/12/24 09:27) NAUSEA & VOMITING succinylcholine [SUCCINYLCHOLINE] Adverse Reaction (Unknown, Verified 05/12/24:) FEVER, COULD NOT MOVE immune globulin,gamma (IgG) human [From Flebogamma] Adverse Reaction (Verified 05/12/24 09:27) Hives Medication List - Last Reconciled 05/12/24 by Siddharth Garcia PA-C acetaminophen 1,000 mg (2 x 500 mg) PO Q6H PRN albuterol sulfate 90 mcg/actuation 1 inh inhalation QID PRN 30 days calcium carbonate (Calcium 500) 500 mg PO BID 90 days cholecalciferol (vitamin D3) 50 mcg PO DAILY 90 days ferrous sulfate 325 mg PO DAILY levothyroxine 112 mcg PO DAILY 30 days lorazepam (Ativan) 1 mg PO BID PRN 30 days umeclidinium-vilanterol 62.5-25 mcg/actuation (Anoro Ellipta) 1 inh inhalation DAILY 30 days Tobacco use date assessed: 05/12/24 Fall risk assessment: No Falls in past year Last assessed Fall Risk: 05/12/24 Dental Screening Dental Screen Date: 09/04/23 HPI f/u Hypothy, smoking - see comments HPI Details patient is a 79-year-old female here today for follow-up visit..? Patient has a past medical history significant for tobacco use disorder, thyroid nodules, nephrolithiasis, impaired glucose metabolism, anxiety disorder, gammopathy monoclonal. Concern--> she reports her appetite has not been great over the past few years. She has lost 5 lb since 2021. She is willing to try mirtazapine 7.5 mg at night to try to help her with her appetite .. Pulmonary nodule:? Patient is followed by thoracic surgeon lung cancer screening program.? Has an upper left pulmonary nodule at 9 mm that is stable since previous imaging.? She has chosen to follow this nodule over a 3 month baisis. Considering lung biopsy Patient likely not surgical candidate. She is followed up with a shirt ironer supervisor in recent CT showing stable nodules. She did undergo a pulmonary function test did show evidence of COPD. She was advised to start inhaler for maintenance .. .. Impaired glucose metabolism: Most recent A1c 5.9 fasting blood sugar has improved. . /.. Gammopathy:? Continues to follow robotics engineer, does also follow a specialist in [place] and receives infusions. She reports she continues to have neuropathy in both her hands and feet. She is very bothered by her neuropathic pain worse at night. She has tried an online supplement though does not feel it is helpful. PLAN: Will try alpha lipoic acid for her neuropathic pain in her lower extremities She has tried some physical therapy which included lower extremity cycling which had helped. She is considering getting herself a seated cycling machine. .. Smoking:? She does understand she needs to quit smoking though reports it is very hard for her.? Has tried nicotine replacement in the past.? Also discussed her smoking history as she has been smoking over 30 years. She is tried Chantix in the past though had side effect. We did discuss perhaps using Wellbutrin SR though she is considering. Does have nicotine patches available to her at home. Laboratory Tests 06/25/22 11/06/22 12/05/22 06:09 09:13 14:42 RBC 4.55 Hgb Carbon Dioxide Creatinine 0.82 Random Glucose 94 Fasting Glucose Hemoglobin A1c % 6.0 Ferritin Total Protein 25-OH Vitamin D To alondra TSH 6.17 H IgM 04/30/23 08/28/23 10/29/23 08:42 06:05 08:28 RBC 4.66 Hgb Carbon Dioxide 28 33 H Creatinine 0.74 Random Glucose Fasting Glucose 106 H Hemoglobin A1c % 5.9 Ferritin 18 Total Protein 8.1 H 25-OH Vitamin D To alondra 31.8 TSH 1.22 IgM 418 H 446 H 04/26/24 09:07 RBC 4.70 Hgb 12.8 Carbon Dioxide Creatinine 0.83 Random Glucose Fasting Glucose Hemoglobin A1c % Ferritin Total Protein 8.2 H 25-OH Vitamin D To alondra TSH IgM 442 H PFSH Medical History Postoperative hypothyroidism (~2022) Nicotine dependence, cigarettes, uncomplicated Vitamin D deficiency Osteopenia (~2020) AMANDA (generalized anxiety disorder) Post-menopausal Arthritis Anemia GERD (gastroesophageal reflux disease) Tubular adenoma of colon (~2020) Neuropathy Gammopathy, monoclonal (~2018) Surgical History History of total thyroidectomy (~2022) History of bone marrow biopsy (~2018) History of esophagogastroduodenoscopy (EGD) (~2018) History of colonoscopy (~2020) History of appendectomy History of bladder surgery (~1994) Family History Sister Heart disease Brother Heart disease Sister Cancer Father Diabetes Mother Ovarian cancer Social History Household Members: Spouse Housing: House Are you a primary out of school hours care worker to a significant other at home: No Do you presently have visiting nurse or other home services: No Alcohol intake: current Alcohol intake frequency: does not drink Patient Tobacco Use Status: Current everyday Tobacco user Tobacco use type: Cigarette Cigarette Packs Per Day: 1.5 Cigarettes Per Day: 20.0 Years Smoked: onset 20yo, 1-1.5ppd x 56yrs - 70+PYH e-Cigarette/Vaping Use: Never Used Second Hand Smoke Exposure: No Advance Directives Date on File: 07/25/14 service: No Current occupational status: retired Cognitive needs: No Hearing needs: No Vision needs: Yes Questionnaire Thrive Questionnaire Date Thrive assessed: 09/04/23 AUDIT C Alcohol Use Questionnaire (AUDIT-C) 1. How often do you have a drink containing alcohol?: Never 3. How often do you have six or more drinks on one occasion?: Never Total Score: 0 AMANDA-7 AMB Questionnaire AMANDA-7 Date AMANDA - 7 assessed: 09/04/23 Source: Developed by Drs. Barry Treviño, Tanya Nuñez, Evelio Ruiz and colleagues, with an educational obi from [employer]. Review of Systems Const Denies headache(s) Eyes Denies loss of vision ENT Denies vertigo, Denies dizziness, Denies headache(s) and Denies sore throat Card Denies chest pain, Denies leg edema and Denies lightheadedness Resp Denies cough, Denies hemoptysis and Denies wheezing GI Denies abdominal pain, Denies melena, Denies constipation, Denies diarrhea and Denies vomiting Denies urinary frequency, Denies dysuria and Denies urinary urgency Musc Denies arthralgias, Denies joint swelling, Denies numbness and Denies tingling Neuro Denies Abnormal speech present, Denies behavioral changes, Denies vertigo, Denies dizziness, Denies headache(s), Denies loss of vision, Denies memory loss, Denies numbness and Denies tingling Psych Denies anxiety, Denies behavioral changes, Denies depression, Denies memory loss and Denies panic attacks Sergei/Lymph Denies easy bleeding and Denies easy bruising Aller/Immun Denies wheezing Physical exam (Primary Care) Vital Signs: Last Vital Signs Pulse 76 05/12/24 09:04 BP 122/74 05/12/24 09:04 Pulse Ox 96 05/12/24 09:04 Oxygen Delivery Method Room Air 05/12/24 09:04 BMI result Body Mass Index 21.8 Tobacco/Smoking Status: Tobacco use Status Tobacco use date assessed 05/12/24 05/12/24 09:14 Patient Tobacco Use Status Current everyday Tobacco 05/12/24 09:06 Tobacco use type Cigarette 05/12/24 09:06 e-Cigarette/Vaping Use Never Used 05/12/24 09:06 Are you ready to quit: No Tobacco cessation counseling provided: Yes Items discussed: Nicotine replacement Relapse Prevention: discussed the importance of a supportive environment, discussed negative mood or depression after quitting, weight gain after smoking is common and discussed dietary, exercise and/or lifestyle changes Number of minutes spent counselin CPT code: 16695 - 4-10 Minutes Thrive Assessment: Date of Thrive Assessment Date Thrive assessed 09/04/23 05/12/24 09:06 Const General: healthy appearing, no acute distress, alert and awake Nutritional Appearance: well nourished Orientation/consciousness: oriented to person, oriented to place and oriented to time HENMT Ears: TM's normal bilaterally General nose exam: Normal nasal mucous membranes and turbinates present Eyes Conjunctivae: conjunctivae normal Sclerae: sclerae normal Pupils: Equal, round and reactive pupils present Neck Neck: Yes no lymphadenopathy and Yes no JVD Thyroid: Thyroid normal Carotids: no bruits Resp Effort & Inspection: normal respiratory effort and not tachypneic Auscultation: no crackles, no rales, no rhonchi and no wheezes Cardio Rate: regular rate Rhythm: regular rhythm Heart sounds: no murmurs and normal S1 and S2 GI Palpation (GI): Soft to palpation, nontender, no hepatomegaly and no splenomegaly Auscultation: normal bowel sounds Skin General skin exam: no rashes or lesions noted and dry skin Neuro General: oriented to person, oriented to place and oriented to time Cranial nerves: Yes Equal, round and reactive pupils present Speech: No Abnormal speech present Gait exam (Neuro): Normal gait present Motor exam (neuro): no tremor noted Extrem Right upper extremity: full ROM Left upper extremity: full ROM Right lower extremity: full ROM; no edema Left lower extremity: full ROM; no edema Psych Mental Status: mental status grossly normal Speech and movement: Normal speech and movement present Affect: normal affect Attitude: cooperative Thought process: Normal thought process present Coding Level of Care Code Est Pt Level 4 (80075) Diagnoses Acquired hypothyroidism E03.9 Hypothyroidism type: acquired Nicotine dependence, cigarettes, uncomplicated F17.210 Gammopathy, monoclonal D47.2 AMANDA (generalized anxiety disorder) F41.1 Appetite loss R63.0 Additional Codes Vital Signs *Quality* - CPT code: 45833 - 4-10 Minutes ([id number]) Assessment & Plan Assessment & Plan (1) Hypothyroid: Code(s): E03.9 - Hypothyroidism, unspecified Category: Medical Qualifiers: Hypothyroidism type: acquired Qualified Code(s): E03.9 - Hypothyroidism, unspecified Plan: Patient continues on levothyroxine. Most recent TSH has been stable. She continues to complain of dry skin, hair and nails which may be related to her thyroid dysfunction. (2) Nicotine dependence, cigarettes, uncomplicated: Comment: (active smoker, onset 20, 1-2ppd x 56yrs, 80+PYH) Code(s): F17.210 - Nicotine dependence, cigarettes, uncomplicated Category: Medical Plan: Patient continues to smoke and does not have any desire to stop at this point. We have offered a nicotine replacement though she declines. (3) Gammopathy, monoclonal: Onset Date: ~2018 Comment: (IgM monoclonal gammopathy - dx 06/2018) Code(s): D47.2 - Monoclonal gammopathy Category: Medical Plan: Patient continues to have neuropathy in her lower extremities. Has not found any particular treatment. She has been using an online supplement that has a alpha lipoic acid and vitamins though has not seen much difference. She is willing to try a prescribed alpha lipoic acid for her neuropathy. (4) AMANDA (generalized anxiety disorder): Code(s): F41.1 - Generalized anxiety disorder Category: Medical Plan: Patient is still suffers with anxiety to which she uses lorazepam for (5) Appetite loss: Code(s): R63.0 - Anorexia Category: Medical Plan: As per HPI she is willing to try mirtazapine 7.5 mg before bed to help increase her appetite. Medications: New mirtazapine 7.5 mg PO BEDTIME 30 tabs 3RF 30 days R63.0 - Anorexia alpha lipoic acid 600 mg PO BID 180 tabs 1RF 90 days G62.9 - Polyneuropathy, unspecified
== END 2024-05-12 09:52 | disposition home or self-care (01) ==
PROVIDERS: PCP Physician Assistant; Visit Provider Physician Assistant
DX: E03.9 Hypothyroidism, unspecified (principal); F17.210 Nicotine dependence, cigarettes, uncomplicated; D47.2 Monoclonal gammopathy; F41.1 Generalized anxiety disorder; R63.0 Anorexia

== ENCOUNTER → 2024-05-12 09:03 | Outpatient (BNVA) | payer MEDICARE, SELFPAY | PROVIDERS: PCP Physician Assistant; Visit Provider Physician Assistant | DX: E03.9 Hypothyroidism, unspecified (principal); D47.2 Monoclonal gammopathy; F41.1 Generalized anxiety disorder; R63.0 Anorexia; F17.210 Nicotine dependence, cigarettes, uncomplicated; Z71.6 Tobacco abuse counseling | CPT/HCPCS: 99212 ==

== ENCOUNTER 2024-11-09 08:24 | Outpatient (AMB) | payer MEDICARE, SELFPAY ==
--- OUTSIDE RECORDS SUMMARY | 2024-11-09 08:32 | XMS_ITS ---
Author Organization [facility] Sravani [place] Address [address] [place] [address] Care Team Providers Care Gravity Prospecting Operator Helper Name Role Phone Siddharth Garcia Primary Care Provider Unavailab Liborio Mooney [phone] REASON FOR VISIT Purchased Salome Pads Encounters Encounter Location Date Provider Diagnosis [facility] [address] [place] [place] [address] 05/27/2023 Liborio Cardona Plan Of Treatment No Information Progress Notes * Radha MADSEN EDOB:1945 (78 yo F)Acc No.[id number]:05/27/2023 Patient:?Radha Madsen :1945???Age:78 Y???Sex:Female Address:[address] [place] [address] * true * Date:? Generated for Printi ng/Fashre/eTransmitting on:?11/09/2024 08:32 AM EDT
--- NOTE | 2024-11-09 08:33 | MHC.PC.OV ---
Vital Signs 11/09/24 08:36 Height 5 ft 6 in Weight 138 lb BMI 22.3 BP 128/70 Blood Pressure Location Lt brachial Position Sitting Pulse 78 Pulse Source Pulse Oximeter Temp 97.1 F Temp Source Temporal Artery Scan Pulse Oximetry (%) 94 Oxygen Delivery Method Room Air Intake Visit Reasons: 6 month f/u Intake Note: Patient is here to follow up on Hypothyroidism, Neuropathy, COPD. Elevator Installer Required: No Conference Planning Manager: Not Required per policy Accompanied by: Self / Same As Patient Allergies dextran 40 [DEXTRAN 40] Allergy (Severe, Verified 11/09/24 08:43) TACHYCARDIA AND HYPERTENSIVE prednisone Adverse Reaction (Intermediate, Verified 11/09/24 08:43) flushed azithromycin Adverse Reaction (Unknown, Verified 11/09/24 08:43) nauseous erythromycin base [ERYTHROMYCIN BASE] Adverse Reaction (Unknown, Verified 11/09/24 08:43) NAUSEA & VOMITING succinylcholine [SUCCINYLCHOLINE] Adverse Reaction (Unknown, Verified 11/09/24 08:43) FEVER, COULD NOT MOVE immune globulin,gamma (IgG) human [From Flebogamma] Adverse Reaction (Verified 11/09/24 08:43) Hives Medication List - Last Reconciled 11/09/24 by Siddharth Garcia PA-C acetaminophen 1,000 mg (2 x 500 mg) PO Q6H PRN albuterol sulfate 90 mcg/actuation 1 inh inhalation QID PRN 30 days alpha lipoic acid 600 mg PO BID 90 days calcium carbonate (Calcium 500) 500 mg PO BID 90 days cholecalciferol (vitamin D3) 50 mcg PO DAILY 90 days ferrous sulfate 325 mg PO DAILY levothyroxine 112 mcg PO DAILY 30 days lorazepam (Ativan) 1 mg PO BID PRN 30 days mirtazapine 7.5 mg PO BEDTIME 30 days mirtazapine 7.5 mg (1/2 x 15 mg) PO BEDTIME 30 days umeclidinium-vilanterol 62.5-25 mcg/actuation (Anoro Ellipta) 1 inh inhalation DAILY 30 days vitamin B complex 1 tab PO DAILY vitamin E (dl, acetate) 180 mg PO DAILY Tobacco use date assessed: 11/09/24 Fall risk assessment: No Falls in past year Last assessed Fall Risk: 11/09/24 Dental Screening Dental Screen Date: 11/09/24 Did you have a dental visit in the last 12 months?: Yes Did you have a dental problem in the last 6 months where you did not have access to dental care?: No Was dental information given to patient?: Patient has dentist HPI 6 month f/u HPI Details patient is a 79-year-old female here today for follow-up visit..? Patient has a past medical history significant for tobacco use disorder, thyroid nodules, nephrolithiasis, impaired glucose metabolism, anxiety disorder, gammopathy monoclonal. Concern--> continues to complain of neuropathy in her lower extremities. Has tried many different dsrq-crn-citpfeo neuropathic remedies though have not been effective. Has tried gabapentin in the past though Radha reports she had side effects of this. She also continues to complain of her close not fitting right and lack of appetite. We have prescribed her mirtazapine 7.5 mg in hopes to increase her appetite though she would never taking the medication. We did discuss CBD or THC as alternative therapy to help increase appetite. .. Pulmonary nodule:? She is currently followed by [facility] pulmonology. Patient is followed by lung cancer screening program.? Has an upper left pulmonary nodule at 9 mm that is stable since previous imaging.? She has chosen to follow this nodule over a 3 month baisis. Considering lung biopsy Patient likely not surgical candidate. recent mom CT showing stable nodules. She did undergo a pulmonary function test did show evidence of COPD. She was advised to start inhaler for maintenance .. .. Impaired glucose metabolism: Most recent A1c 5.9 fasting blood sugar has improved. . /.. IGM Gammopathy:? Continues to follow emblem maker, does also follow a specialist in [place] and receives infusions. She reports she continues to have neuropathy in both her hands and feet. She is very bothered by her neuropathic pain worse at night. She has tried an online supplement though does not feel it is helpful. .. Smoking:? She does understand she needs to quit smoking though reports it is very hard for her.? Has tried nicotine replacement in the past.? Also discussed her smoking history as she has been smoking over 30 years. She is tried Chantix in the past though had side effect. We did discuss perhaps using Wellbutrin SR though she is considering. Does have nicotine patches available to her at home. [facility] Medical History Postoperative hypothyroidism (~2022) Nicotine dependence, cigarettes, uncomplicated Vitamin D deficiency Osteopenia (~2020) AMANDA (generalized anxiety disorder) Post-menopausal Arthritis Anemia GERD (gastroesophageal reflux disease) Tubular adenoma of colon (~2020) Neuropathy Gammopathy, monoclonal (~2018) Surgical History History of total thyroidectomy (~2022) History of bone marrow biopsy (~2018) History of esophagogastroduodenoscopy (EGD) (~2018) History of colonoscopy (~2020) History of appendectomy History of bladder surgery (~1994) Family History Sister Heart disease Brother Heart disease Sister Cancer Father Diabetes Mother Ovarian cancer Social History (Updated 11/09/24 @ 08:42 by ANDRIA Yee) Household Members: Spouse Housing: House Are you a primary foster care case manager to a significant other at home: No Do you presently have visiting nurse or other home services: No Alcohol intake: current Alcohol intake frequency: does not drink Patient Tobacco Use Status: Current everyday Tobacco user Tobacco use type: Cigarette Cigarette Packs Per Day: 1 Cigarettes Per Day: 20.0 Years Smoked: onset 20yo, 1-1.5ppd x 56yrs - 70+PYH e-Cigarette/Vaping Use: Never Used Second Hand Smoke Exposure: No Advance Directives Date on File: 07/25/14 service: No Current occupational status: retired Cognitive needs: No Hearing needs: No Vision needs: Yes Questionnaire PHQ-9 Over the last 2 weeks, how often have you been bothered by any of the following problems? 1. Little interest or pleasure in doing things: nearly every day 2. Feeling down, depressed, or hopeless: not at all 3. Trouble falling or staying asleep, or sleeping too much: nearly every day 4. Feeling tired or having little energy: more than half the days 5. Poor appetite or overeating: nearly every day 6. Feeling bad about yourself - or that you are a failure or have let yourself or your family down: not at all 7. Trouble concentrating on things, such as reading the newspaper or watching television: not at all 8. Moving or speaking so slowly that other people could have noticed. Or the opposite - being so fidgety or restless that you have been moving around a lot more than usual: not at all 9. Thoughts that you would be better off or of hurting yourself in some way: not at all Total score: 11 Depression Screening Interpretation: Positive Depression Screening Done: Yes Source: Developed by Drs. Barry Treviño, Tanya Nuñez, Evelio Ruiz and colleagues, with an educational obi from [employer]. Thrive Questionnaire Date Thrive assessed: 11/09/24 I am a: Patient What is your living situation today?: I have a steady place to live Within the past 12 months, did the food you bought not last and you didn't have the money to get more?: I choose not to answer this question Within the past 12 months, did you worry whether your food would run out before you got money to buy more?: Never true Do you have trouble paying for medicines?: I choose not to answer this question Do you have trouble getting transportation to medical appointments?: No Do you have trouble paying your heating and electricity bill?: No Do you have trouble taking care of your child, family member or friend?: No Do you have trouble with day-to-day activities such as bathing, preparing meals, shopping, managing finances, etc.?: No Are you currently unemployed and looking for a job?: No Are you interested in more education?: No Please select the resources that you would like help with: None Currently or been in a relationship where the following occur: No concerns reported THRIVE Score: 0 AUDIT C Alcohol Use Questionnaire (AUDIT-C) 1. How often do you have a drink containing alcohol?: Never Total Score: 0 AMANDA-7 AMB Questionnaire AMANDA-7 Date AMANDA - 7 assessed: 11/09/24 Feeling nervous, anxious, or on edge: 3 = Nearly every day Not being able to stop or control worryin = Nearly every day Worrying too much about different things: 3 = Nearly every day Trouble relaxin = Nearly every day Being so restless that it is hard to sit still: 3 = Nearly every day Becoming easily annoyed or irritable: 3 = Nearly every day Feeling afraid as if something awful might happen: 3 = Nearly every day Total AMANDA-7 score (0-4 normal; 5-9 mild; 10-14 moderate; 15-21 severe): 21 Source: Developed by Drs. Barry Treviño, Tanya Nuñez, Evelio Ruiz and colleagues, with an educational obi from [employer]. AMANDA-7 Assessment Billing AMANDA-7 Assessment Tool: AMANDA-7 Assessment 17447 Review of Systems Const Denies headache(s) Eyes Denies loss of vision ENT Denies vertigo, Denies dizziness, Denies headache(s) and Denies sore throat Card Denies chest pain, Denies leg edema and Denies lightheadedness Resp Denies cough, Denies hemoptysis and Denies wheezing GI Denies abdominal pain, Denies melena, Denies constipation, Denies diarrhea and Denies vomiting Denies urinary frequency, Denies dysuria and Denies urinary urgency Musc Denies arthralgias, Denies joint swelling, Denies numbness and Denies tingling Neuro Denies Abnormal speech present, Denies behavioral changes, Denies vertigo, Denies dizziness, Denies headache(s), Denies loss of vision, Denies memory loss, Denies numbness and Denies tingling Psych Denies anxiety, Denies behavioral changes, Denies depression, Denies memory loss and Denies panic attacks Sergei/Lymph Denies easy bleeding and Denies easy bruising Aller/Immun Denies wheezing Physical exam (Primary Care) Vital Signs: Last Vital Signs Temp 97.1 F 11/09/24 08:36 Pulse 78 11/09/24 08:36 BP 128/70 11/09/24 08:36 Pulse Ox 94 11/09/24 08:36 Oxygen Delivery Method Room Air 11/09/24 08:36 BMI result Body Mass Index 22.3 Tobacco/Smoking Status: Tobacco use Status Tobacco use date assessed 11/09/24 11/09/24 08:43 Patient Tobacco Use Status Current everyday Tobacco 11/09/24 08:43 Tobacco use type Cigarette 11/09/24 08:43 e-Cigarette/Vaping Use Never Used 11/09/24 08:43 PHQ-9: PHQ-9 Score PHQ-9: Total score 11 11/09/24 08:48 Depression Screening Interpretation: Positive Thrive Assessment: Date of Thrive Assessment Date Thrive assessed 11/09/24 11/09/24 08:43 Currently or been in a relationship where the following occur: No concerns reported Const General: healthy appearing, no acute distress, alert and awake Nutritional Appearance: well nourished Orientation/consciousness: oriented to person, oriented to place and oriented to time HENMT Ears: TM's normal bilaterally General nose exam: Normal nasal mucous membranes and turbinates present Eyes Conjunctivae: conjunctivae normal Sclerae: sclerae normal Pupils: Equal, round and reactive pupils present Neck Neck: Yes no lymphadenopathy and Yes no JVD Thyroid: Thyroid normal Carotids: no bruits Resp Effort & Inspection: normal respiratory effort and not tachypneic Auscultation: no crackles, no rales, no rhonchi and no wheezes Cardio Rate: regular rate Rhythm: regular rhythm Heart sounds: no murmurs and normal S1 and S2 GI Palpation (GI): Soft to palpation, nontender, no hepatomegaly and no splenomegaly Auscultation: normal bowel sounds Skin General skin exam: no rashes or lesions noted and dry skin Neuro General: oriented to person, oriented to place and oriented to time Cranial nerves: Yes Equal, round and reactive pupils present Speech: No Abnormal speech present Gait exam (Neuro): Normal gait present Motor exam (neuro): no tremor noted Extrem Right upper extremity: full ROM Left upper extremity: full ROM Right lower extremity: full ROM; no edema Left lower extremity: full ROM; no edema Psych Mental Status: mental status grossly normal Speech and movement: Normal speech and movement present Affect: normal affect Attitude: cooperative Thought process: Normal thought process present Coding Level of Care Code Est Pt Level 4 (04145) Diagnoses Acquired hypothyroidism E03.9 Hypothyroidism type: acquired Nicotine dependence, cigarettes, uncomplicated F17.210 Gammopathy, monoclonal D47.2 AMANDA (generalized anxiety disorder) F41.1 Neuropathy G62.9 Additional Codes AMANDA-7 Assessment Billing - AMANDA-7 Assessment Tool: AMANDA-7 Assessment 44310 ([id number]) Assessment & Plan Assessment & Plan (1) Hypothyroid: Code(s): E03.9 - Hypothyroidism, unspecified Category: Medical Qualifiers: Hypothyroidism type: acquired Qualified Code(s): E03.9 - Hypothyroidism, unspecified Plan: Patient continues on levothyroxine. Most recent TSH has been stable. She continues to complain of dry skin, hair and nails which may be related to her thyroid dysfunction. (2) Nicotine dependence, cigarettes, uncomplicated: Comment: (active smoker, onset 20, 1-2ppd x 56yrs, 80+PYH) Code(s): F17.210 - Nicotine dependence, cigarettes, uncomplicated Category: Medical Plan: Patient continues to smoke and does not have any desire to stop at this point. We have offered a nicotine replacement though she declines. (3) Gammopathy, monoclonal: Onset Date: ~2018 Comment: (IgM monoclonal gammopathy - dx 06/2018) Code(s): D47.2 - Monoclonal gammopathy Category: Medical Plan: Patient continues to have neuropathy in her lower extremities. Has not found any particular treatment. She has been using an online supplement that has a alpha lipoic acid and vitamins though has not seen much difference. We did discuss trying gabapentin again though she is not fond of side effects from this medication as she has tried this in the past. (4) AMANDA (generalized anxiety disorder): Code(s): F41.1 - Generalized anxiety disorder Category: Medical Plan: Patient's AMANDA-7 score positive for anxiety which has been existing condition for her.. She continues with p.r.n. use of her lorazepam to which she has been on for many years. \ (5) Neuropathy: Comment: feet bilateral Code(s): G62.9 - Polyneuropathy, unspecified Category: Medical Plan: As above she has tried many different aulk-osr-kyohncl remedies for neuropathy though have not been effective. We did discuss neuro modulators such as gabapentin in [place] though she declines that she has had side effects to gabapentin in the past. Orders: Orders TSH reflex Free T4 Today E03.9 - Hypothyroidism, unspecified Hemoglobin A1c Today R73.09 - Other abnormal glucose Comprehensive [place]. Panel Fast Today R73.09 - Other abnormal glucose Complete Blood Count no Diff Today R73.09 - Other abnormal glucose Vitamin D 25-OH Total Today E55.9 - Vitamin D deficiency, unspecified Medications: Discontinued mirtazapine Discontinued Reason: Doctor's Order 7.5 mg PO BEDTIME 30 days 30 tabs 3RF R63.0 - Anorexia mirtazapine Discontinued Reason: Doctor's Order 7.5 mg (1/2 x 15 mg) PO BEDTIME 30 days 15 tabs 1RF R63.0 - Anorexia
--- OUTSIDE RECORDS SUMMARY | 2024-11-09 08:33 | XMS_ITS | Continuity of Care Document ---
Author Organization [facility] Address [address] [address]- Care Team Providers Care Poker Dealer Name Role Phone Siddharth Law Primary Care Physician [place] [facility] [place](s): 10/08/24 - 11/07/24 [facility] [address] [facility] [address] [place] [address] Encounter Type: Triage Allergies, Adverse Reactions, Alerts Substance Criticality Severity Reaction Reaction Severity Status erythromycin Active predniSONE Active succinylcholine Acti ve Immunizations Given and Recorded Vaccine Date Status Refusal Reason SARS-CoV-2 (COVID-19) mRNA BNT-162b2 vac 08/27/20 Recorded SARS-CoV-2 (COVID-19) mRNA BNT-162b2 vac 08/06/20 Recorded Medications Albuterol (Eqv-ProAir HFA) 90 mcg/inh inhalation aerosol 2 puffs, Inhalation, Every 6 hours, j44.9, # 8.5 Gm, 6 Refills, Maintenance, 10/09/23 12:21:00 PM EDT, [facility]/pharmacy #[id number], Partial fill upon patient request if the prescription is for a schedule II opioid drug., 2 puffs Inhalation Every 6 hours,Instr:j44.9, 167, cm, 08/01/23 15:22:00 EST, Height, 62.1, kg, 10/15/22 8:45:00 EDT, Dry Weight Start Date: 10/09/23 Status: Ordered Quantity: 8.5 Unit: g Repeat number: 7 Bevespi Aerosphere 9 mcg-4.8 mcg/inh inhalation aerosol 2 puffs, Inhalation, 2 times a day, j44.9, # 1 each, 11 Refills, Maintenance, 06/30/24 9:14:00 AM EST, [facility], Partial fill upon patient request if the prescription is for a schedule II opioid drug.,2 puffs Inhalation 2 times a day,Instr:j44.9, 167, cm, 12/05/23 12:56:00 EDT, Height, 62.1, kg, 10/15/22 8:45:00 EDT, Dry Weight Start Date: 06/30/24 Status: Ordered Quantity: 1.0 Unit: each Repeat number: 12 calcium (as carbonate) 500 mg oral tablet, chewable 1 tablet = 500 mg, Daily, 0 Refills, Maintenance, 07/07/24 3:09:00 PM EST, Partial fill upon patientrequest if the prescription is for a schedule II opioid drug. Start Date: 07/07/24 Status: Ordered Repeat number: 1 chantix 1mg tablet 1 tablet = 1 mg, By Mouth, 2 times a day, for 16 week(s), Start after the starter pack, # 224 tablet, 4 Refills, Acute 04/21/26 9:19:00 AM EDT, 10/08/24 9:19:00 AM EDT, Tablet, [facility] #[id number], Please fill after patient has already completed chantix starter pack., 167, cm, 10/08/24 8:23:00 EDT, Height, 62.1, kg, 10/15/22 8:45:00 EDT, Dry Weight Start Date: 10/08/24 Stop Date: 04/21/26 Status: Ordered Quantity: 224.0 Unit: tablet Repeat number: 5 Chantix Starter Pack 0.5 mg-1 mg oral tablet 1 tablet, By Mouth, 2 times a day, as directed on package labeling, # 53 tablet, 0 Refills, Maintenance, 12/05/23 1:27:00 PM EDT, Tablet, [id number], Partial fill upon patient request if the prescription is for a schedule II opioid drug., 1 tablet By Mouth 2 times a day,Instr:as directed on package labeling, 167, cm, 12/05/23 12:56:00 EDT, Height, 62.1, kg, 10/15/22 8:45:00 EDT, Dry Weight Start Date: 12/05/23 Status: Ordered Quantity: 53.0 Unit: tablet Repeat number: 1 Chantix Starter Pack 0.5 mg-1 mg oral tablet 1 tablet, By Mouth, 2 times a day, as directed on package labeling, # 53 tablet, 0 Refills, Maintenance, 10/08/24 9:18:00 AM EDT, Tablet, [facility]/pharmacy #[id number], Partial fill upon patient request if the prescription is for a schedule II opioid drug., 1 tablet By Mouth 2 times a day,Instr:as directed on package labeling, 167, cm, 10/08/24 8:23:00 EDT, Height, 62.1, kg, 10/15/22 8:45:00 EDT, Dry Weight Start Date: 10/08/24 Status: Ordered Quantity: 53.0 Unit: tablet Repeat number: 1 ferrous sulfate 325 mg oral enteric coated tablet 325 mg, 1, tablet, By Mouth, Daily, Refills 0, Maintenance, 01/26/19 3:41:15 PM EDT Start Date: 01/26/19 Status: Ordered Repeat number: 1 Glucosamine By Mouth, 0 Refills, Maintenance, 06/28/22 2:33:00 PM EST, Partial fill upon patient request if the prescription is for a schedule II opioid drug. Start Date: 06/28/22 Status: Ordered Repeat number: 1 levothyroxine 0.112 mg oral tablet 0 Refills, Maintenance, 09/21/24 7:52:00 AM EDT, Partial fill upon patient request if the prescription is for a schedule II opioid drug. Start Date: 09/21/24 Status: Ordered Repeat number: 1 Lorazepam PRN as needed for anxiety, 0 Refills, Maintenance, 01/20/18 9:42:02 AM EDT Start Date: 01/20/18 Status: Ordered Repeat number: 1 nicotine 21 mg/24 hr transdermal film, extended release 1 patch, Topically, Daily, for 30 days, # 30 patch, 5 Refills, Acute 04/06/25 9:15:00 AM EDT, 10/08/24 9:15:00 AM EDT, Patch, [facility]/pharmacy #[id number], Partial fill upon patient request if the prescription is for a schedule II opioid drug., 1 patch Topically Daily,x30 days, 167, cm, 10/08/24 8:23:00 EDT, Height, 62.1, kg, 10/15/22 8:45:00 EDT, Dry Weight Start Date: 10/08/24 Stop Date: 04/06/25 Status: Ordered Quantity: 30.0 Unit: patch Repeat number: 6 Vitamin D3 50 mcg (2000 intl units) oral tablet, chewable 1 tablet = 50 mcg, By Mouth, Daily, 0 Refills, Maintenance, 08/01/23 3:27:00 PM EST, Partial fill upon patient request if the prescription is for a schedule II opioid drug. Start Date: 08/01/23 Status: Ordered Repeat number: 1 Problem List Condition Confirmation Course Effective Dates Status H ealth Status Informant Anxiety Confirmed Active Carotid artery stenosis without cerebral infarction Confirmed Active Generalized osteoarthritis Confirmed Active HLD (hyperlipidemia) Confirmed Active Hyperthyroidism Confirmed Active OLIVIA (iron deficiency anemia) Confirmed Active MGUS (monoclonal gammopathy of unknown significance) Confirmed Active Multiple thyroid nodules Confirmed Active Vitamin D deficiency Confirmed Active Social History Social History Type Response Smoking Status 10 or more cigarette s (1/2 pack or more)/day in last 30 days; Interested in cessation: No; Patient wants NRT during admission No entered on: 07/07/24 Sex Sex Representation Female (finding) Patient Care team information Care Team Personnel Name: Siddharth Law Position: Reference Physician Member Role: PCP Address: [address] [place] [address] Telecom: Name: Geneva English RN Position: S RN Member Role: Primary Care Nurse Care Team Related Persons Name: PARVIN MADSEN Name: PARVIN MADSEN Insurance Providers Guarantor name: GAYLE MADSEN Health Plan Information #: 1 Payer: MEDICARE PART B OUTPT Member Number: NA Policy Number: NA Group Number: NA Health Plan Information #: 2 Payer: MEDEX Member Number: NA Policy Number: NA Group Number: NA
--- OUTSIDE RECORDS SUMMARY | 2024-11-09 08:33 | XMS_ITS | Continuity of Care Document ---
Author Organization [facility] Address [address] [address]- Care Team Providers Care Flight Follower Name Role Phone Siddharth Law Primary Care Physician [place] [facility] [place] Date(s): 10/08/24 - 11/07/24 [facility] [address] [place] [address]- Attending Physician: Ray Perales Admitting Physician: AdmtrRay Referring Physician: Admtr, [id number] Encounter Type: Triage Allergies, Adverse Reactions, Alerts [...] 6 Refills, Maintenance, 10/09/23 12:21:00 PM EDT, [facility]/pharmacy #[id number], Partial fill upon patient request if the [...] Refills, Maintenance, 10/08/24 9:18:00 AM EDT, Tablet, [facility]/pharmacy #[id number], Partial fill upon patient request [...] AM EDT, 10/08/24 9:15:00 AM EDT, Patch, [facility]/pharmacy #[id number], Partial fill upon patient request [...] Position: Reference Physician Member Role: PCP Address: [address] [place] [address]- Telecom: Name: Geneva English RN Position: S RN Member Role: Primary Care Nurse Care Team Related Persons Name: PARVIN MADSEN Name: PARVIN MADSEN Insurance Providers Guarantor name: GAYLE BRIONESJAYLON Health Plan Information #: 1 Payer: MEDICARE PART B OUTPT Member Number: NA Policy Number: NA Group Number: NA Health Plan Information #: 2 Payer: MEDEX Member Number: NA Policy Number: NA Group Number: NA
--- OUTSIDE RECORDS SUMMARY | 2024-11-09 08:33 | XMS_ITS | Patient Health Record ---
Author Organization [facility] Address [address] [place] [address] Care Team Providers Care Anchorman Name Role Phone Siddharth Garcia Primary Care Provider UnavailJude Hoffman Jr Unavailable Allergies Allergen (clinical drug ingredient) Drug/Non Drug Allergy documented on EMR Reaction Allergy Type Onset Date Status succinylcholine Succinylcholine Chloride Unknown Drug Allergy Active PredniSONE Unknown Drug Allergy Active erythromycin Erythromycin Unknown Drug Allergy A ctive Reason For Referral No Information Medications Medication SIG (Take, Route, Frequency, Duration) Notes Start Date End Date Status Ferrous Sulfate 324 MG Orally Active Advil PRN Active Omeprazole 20 MG 1 capsule 30 minutes before morning meal Orally Once a day for 30 day(s) 09/11/2020 Active Prevagen 10 MG Orally Activ e Vitamin D3 25 MCG (1000 UT) Orally Active LORazepam 1 MG Orally Activ e Immunizations Vaccine Route Administration Date Status Comme nts Influenza Unknown 09/11/2020 Refused Social History Tobacco Use: Social History Observation Description Date Details (start date - stop date) Current Smoker NA - NA Tobacco Use/Smoking Question Answer Notes Patient is a current smoker How often do you smoke cigarettes? every day How many cigarettes a day do you smoke? 6-10 How soon after you wake up do you smoke your fir st cigarette? 6-30 minutes Are you interested in quitting? Not ready to faina t Alcohol Screen Question Answer Notes Did you have a drink containing alcohol in the p ast year? No Points 0 Interpretation Negative Problems Problem Type SNOMED Code ICD Code Onset Dates Problem Status W/U Status Risk Notes Problem [id number] History of colon polyps (Z86.010) Active confirmed Plan Of Treatment Future Test Test Name Order Date COLONOSCOPY 09/11/2020 Insurance Providers Payer Name Payer Address Payer Phone Subscriber Number Group Number Insured Name Patient Relationship to Insured Coverage Start Date Coverage End Date MEDICARE OF [place] [address] [place]IE [place]O [place] [address] [id number] GAYLE MADSEN Self - patient is the insured MEDEX ATTN CLAIMS [address] [place] [address] [id number] GAYLE MADSEN Self - patient is the insured Medical (General) History Medical History History ICD Code anemia anxiety memory loss Surgical History Surgery Date(Month/Year) bladder suspension appendectomy
--- OUTSIDE RECORDS SUMMARY | 2024-11-09 08:33 | XMS_ITS | Patient Health Record ---
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 Name Role Phone Siddharth Garcia Primary Care Provider UnavailLiborio Lopez Unavailable [phone] Allergies Allergen (clinical drug ingredient) Drug/Non Drug Allergy documented on EMR Reaction Allergy Type Onset Date Status Biaxin sick Drug Allergy Active erythromycin Erythromycin sick Drug Allergy A ctive predniSONE heart races Drug Allergy Acti ve succinylcholine Succinylcholine Chloride could not move Drug Allergy Active Z-Pac sick Drug Allergy Active Reason For Referral No Information Medications Medication SIG (Take, Route, Frequency, Duration) Notes Start Date End Date Status Kenalog 10 MG/ML as directed Injection Not-Taking Diclofenac Sodium No t-Taking Voltaren Not-Taking Lactulose Encephalopathy Not-Taking [facility] Gas Relief Not-T aking Omeprazole Not-Takin g Advil 200 MG 1 tablet as needed Orally every 6 hrs 12/09/2012 Not-Taking Ranitidine HCl Not-T aking Metoprolol Succinate ER Not-Taking Pantoprazole Sodium Not-Taking predniSONE Not-Takin g methIMAzole 5 MG 1 tablet Orally Once a day for 30 day(s) Active Ferrous Sulfate 324 (65 Fe) MG 1 tablet Orally Once a day for 30 day(s) Active LORazepam 1 MG as directed Orally Active Atorvastatin Calcium Not-Taking Social History Tobacco Use: Social History Observation Description Date Details (start date - stop date) Current Smoker NA - NA Tobacco Use/Smoking Question Answer Notes Are you a: current smoker How often do you smoke cigarettes? every day How many cigarettes a day do you smoke? 11-20 Additional Findings: Tobacco User Modera te cigarette smoker (10-19 cigs/day) Alcohol Screen Question Answer Notes Did you have a drink containing alcohol in the p ast year? No Points 0 Interpretation Negative Tobacco use other than smoking: Question Answer Notes Are you an other tobacco user? No Problems Problem Type SNOMED Code ICD Code Onset Dates Problem Status W/U Status Risk Notes Problem Localized, primary osteoarthritis of the ankle and/or foot (446894603) Primary osteoarthrit is, right ankle and foot (M19.071) Active confirmed Problem Localized, primary osteoarthritis of the ankle and/or foot (702762439) Primary osteoarthrit is, left ankle and foot (M19.072) Active confirmed Problem Acquired hammer toe of right foot (6526708185548059) Other hammer toe(s) (acquired), right foot (M20.41) Active confirmed Problem Acquired hammer toe of left foot (9628024104564439) Other hammer toe(s) (acquired), left foot (M20.42) Active confirmed Plan Of Treatment Pending Test Test Name Order Date X ray : Foot, left 2V 12/09/2012 X ray : Foot, left 2V 01/21/2018 X ray : Foot, right 2V 01/21/2018 X ray : Foot, right 2V 12/09/2012 X ray : Foot, right 3V 08/22/2022 [id number] Destruction, 1-14 08/13/2016 [id number] Destruction, 1-14 02/07/2014 14977- Debride <25 sq cm 09/14/2014 76424- Debride <25 sq cm 12/09/2012 Insurance Providers Payer Name Payer Address Payer Phone Subscriber Number Group Number Insured Name Patient Relationship to Insured Coverage Start Date Coverage End Date Medicare National Govt Svcs [employer] [address] [place] [phone] [id number] Radha Ndiaye Self - patient is the insured [employer] [address] [place] [address] [phone] [id number] Radha Ndiaye Self - patient is the insured Medical (General) History Medical History History ICD Code psoriasis/eczema Anxiety Arthritis nerve disorder Numbness thyroid Transfusions Surgical History Surgery Date(Month/Year) bladder suspension - urinary incontinenc e 1994 appendicitis - ruptured appendix 1963
[2024-11-09 08:36] VITALS: BP 128/70; PULSE 78; TEMP 36.2; O2SAT 94; BMI 22.3
== END 2024-11-09 09:08 | disposition home or self-care (01) ==
LOC: HO.HMCH 08:25
PROVIDERS: PCP Physician Assistant; Visit Provider Physician Assistant
DX: E03.9 Hypothyroidism, unspecified (principal); F17.210 Nicotine dependence, cigarettes, uncomplicated; D47.2 Monoclonal gammopathy; F41.1 Generalized anxiety disorder; G62.9 Polyneuropathy, unspecified

== ENCOUNTER → 2024-11-09 08:24 | Outpatient (BNVA) | payer MEDICARE, SELFPAY | PROVIDERS: PCP Physician Assistant; Visit Provider Physician Assistant | DX: E03.9 Hypothyroidism, unspecified (principal); D47.2 Monoclonal gammopathy; F41.1 Generalized anxiety disorder; G62.9 Polyneuropathy, unspecified; F17.210 Nicotine dependence, cigarettes, uncomplicated; Z71.6 Tobacco abuse counseling | CPT/HCPCS: 96127; 99212 ==

== ENCOUNTER 2024-11-11 06:01 | Outpatient (REF) | payer MEDICARE, SELFPAY ==
[2024-11-11 10:28] LABS: Hematocrit 40.3 % (37.0-47.0); Hemoglobin 12.5 g/dl (12.0-16.0); Mean Corpuscular Hemoglobin 27.5 pg (27.0-33.0); Mean Corpuscular Volume 88.6 fL (80.0-98.0); Mean Platelet Volume 10.1 fL (9.4-12.3); Platelet Count 465 X10*3/uL (160-400); Red Blood Count 4.55 X10*6/uL (4.20-5.50); Red Cell Distribution Width 13.3 % (11.0-16.0); White Blood Count 7.1 X10*3/uL (4.8-10.8)
[2024-11-11 11:12] LABS: Estimated Average Glucose 126 mg/dL; Hemoglobin A1C 139.2788 umol/L; Total Hemoglobin (HGBA1C) 3335.1639 umol/L
[2024-11-11 11:53] LABS: Alanine Aminotransferase 18 U/L (0-31); Albumin Level 4.3 g/dL (3.5-5.0); Alkaline Phosphatase 112 U/L (39-117); Anion Gap 13 (12-20); Aspartate Amino Transferase 25 U/L (5-31); Bilirubin Total 0.6 mg/dL (0.0-1.0); Blood Urea Nitrogen 18 mg/dL (9-16); Calcium 9.5 mg/dL (8.4-10.2); Carbon Dioxide 30 mmol/L (22-29); Chloride 102 mmol/L (96-108); Estimated Glomerular Filt Rate > 60; Glucose Fasting 109 mg/dL (60-99); Potassium 4.3 mmol/L (3.3-5.1); Sodium 141 mmol/L (135-145); TSH reflex Free T4 1.22 uIU/mL (0.32-4.0); Total Protein 7.7 g/dL (6.5-8.0)
== END 2024-11-11 06:02 | disposition home or self-care (01) ==
LOC: HO.HMGCLDS 06:01
PROVIDERS: PCP Physician Assistant; Visit Provider Physician Assistant
DX: R73.09 Other abnormal glucose (principal); E03.9 Hypothyroidism, unspecified; E55.9 Vitamin D deficiency, unspecified
CPT/HCPCS: 36415; 80053; 82306; 83036; 84443; 85027

== ENCOUNTER 2024-11-22 08:01 | Outpatient (AMB) | payer MEDICARE, SELFPAY ==
--- OUTSIDE RECORDS SUMMARY | 2024-11-22 08:04 | XMS_ITS | Patient Health Record ---
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 Name Role Phone Siddharth Garcia Primary [...] Problem Status W/U Status Risk Notes Problem [id number] History of colon polyps (Z86.010) Active confirmed Plan Of Treatment Future Test Test Name Order Date COLONOSCOPY 09/11/2020 Insurance Providers Payer Name Payer Address Payer Phone Subscriber Number Group Number Insured Name Patient Relationship to Insured Coverage Start Date Coverage End Date MEDICARE OF [place] [address] [place] [address] [id number] GAYLE MADSEN Self - patient is the insured [employer] CLAIMS [address] [place] [address] [phone] [id number] GAYLE MADSEN Self - patient is the insured Medical (General) History Medical History History ICD Code anemia anxiety memory loss Surgical History Surgery Date(Month/Year) bladder suspension appendectomy
[2024-11-22 08:10] VITALS: BP 138/78; PULSE 84; TEMP 36.6; O2SAT 92; BMI 21.6
--- NOTE | 2024-11-22 08:10 | AM.OFFWIN_ITS ---
Intake Vital Signs 11/22/24 08:10 Height 5 ft 6 in Weight 134 lb BMI 21.6 BP 138/78 Blood Pressure Location Lt brachial Position Sitting Pulse 84 Pulse Source Pulse Oximeter Temp 97.9 F Temp Source Oral Pulse Oximetry (%) 92 Oxygen Delivery Method Room Air Intake Visit Reasons: EP-?sinus infection Intake Note: Pt presents to the office today for c/o sinus pressure, headache, runny nose x7 days. Patient Tobacco Use Status: Current everyday Tobacco user Allergies dextran 40 [DEXTRAN 40] Allergy (Severe, Verified 11/22/24 08:12) TACHYCARDIA AND HYPERTENSIVE succinylcholine [SUCCINYLCHOLINE] Adverse Reaction (Unknown, Verified 11/22/24 08:12) FEVER, COULD NOT MOVE immune globulin,gamma (IgG) human [From Flebogamma] Adverse Reaction (Verified 11/22/24 08:12) Hives HPI HPI Comments History of Present Illness Details 79 y/o Female patient who presents to [facility] with c/o sinus pressure, Poor appetite, headache, Fatigue and runny nose x7 days. with similar symptoms at home. H/o COPD and current smoker. [facility] Medical History (Updated 11/22/24 @ 08:29 by Julia Conway NP) Acute respiratory disease Wheezing on auscultation Postoperative hypothyroidism (~2022) Nicotine dependence, cigarettes, uncomplicated Vitamin D deficiency Osteopenia (~2020) AMANDA (generalized anxiety disorder) Post-menopausal Arthritis Anemia GERD (gastroesophageal reflux disease) Tubular adenoma of colon (~2020) Neuropathy Gammopathy, monoclonal (~2018) Surgical History History of total thyroidectomy (~2022) History of bone marrow biopsy (~2018) History of esophagogastroduodenoscopy (EGD) (~2018) History of colonoscopy (~2020) History of appendectomy History of bladder surgery (~1994) Family History Sister Heart disease Brother Heart disease Sister Cancer Father Diabetes Mother Ovarian cancer Social History Household Members: Spouse Housing: House Are you a primary home health care case manager to a significant other at home: No Do you presently have visiting nurse or other home services: No Alcohol intake: current Alcohol intake frequency: does not drink Patient Tobacco Use Status: Current everyday Tobacco user Tobacco use type: Cigarette Cigarette Packs Per Day: 1 Cigarettes Per Day: 20.0 Years Smoked: onset 20yo, 1-1.5ppd x 56yrs - 70+PYH e-Cigarette/Vaping Use: Never Used Second Hand Smoke Exposure: No Advance Directives Date on File: 07/25/14 service: No Current occupational status: retired Cognitive needs: No Hearing needs: No Vision needs: Yes Review of Systems Const All systems reviewed & are unremarkable except as noted in HPI and below Physical Exam Vital Signs: Last Vital Signs Temp 97.9 F 11/22/24 08:10 Pulse 84 11/22/24 08:10 BP 138/78 11/22/24 08:10 Pulse Ox 92 11/22/24 08:10 Oxygen Delivery Method Room Air 11/22/24 08:10 BMI result Body Mass Index 21.6 Const General: no acute distress; No comfortable Orientation/consciousness: patient oriented x3 Resp Effort & Inspection: normal respiratory effort Auscultation: crackles, no rales, no rhonchi, wheezes inspiratory wheezes and diminished lung sounds localized Cardio Heart sounds: S1 normal heart sound present and S2 normal heart sound present Neuro General: patient oriented x3 Assessment & Plan Assessment & Plan (1) Wheezing on auscultation: Code(s): R06.2 - Wheezing Plan: Ordered Chest Xray Ordered Prednisone Ordered Zpack Rest and hydrate well Acetaminophen for pain relief. (2) Acute respiratory disease: Code(s): J06.9 - Acute upper respiratory infection, unspecified Plan: Ordered Chest Xray Ordered Prednisone Ordered Zpack Rest and hydrate well Acetaminophen for pain relief. Orders: Orders XR chest 2V Today J06.9 - Acute upper respiratory infection, unspecified, R06.2 - Wheezing Medications: New prednisone 50 mg PO DAILY 5 days 5 tabs 0RF R06.2 - Wheezing azithromycin 500 mg PO DAILY 3 days 3 tabs 0RF J06.9 - Acute upper respiratory infection, unspecified, R06.2 - Wheezing Coding Level of Care Code Est Pt Level 4 (28129) Diagnoses Wheezing on auscultation R06.2 Acute respiratory disease J06.9 Time Spent (min) 20
== END 2024-11-22 08:36 | disposition home or self-care (01) ==
PROVIDERS: PCP Physician Assistant; Visit Provider Nurse Practitioner Family
DX: R06.2 Wheezing (principal); J06.9 Acute upper respiratory infection, unspecified

== ENCOUNTER 2024-11-22 08:01 | Outpatient (REF) | payer MEDICARE, SELFPAY ==
--- NOTE | ~2024-11-22 | XR_ITS ---
EXAMINATION: XR CHEST CLINICAL INFORMATION: J06.9 - Acute upper respiratory infection, unspecified COMPARISON: Correlation made with CT chest 02/21/2023. TECHNIQUE: 2 views of the chest were obtained. FINDINGS: The cardiac and mediastinal contours are normal. Aortic mural calcifications. Prominent pulmonary arteries in the hilar regions, suspect for pulmonary hypertension. The lungs are diffusely hyperaerated bilaterally, in keeping with COPD. Lungs otherwise clear. There is no pneumothorax or pleural effusion. There is no focal osseous or soft tissue abnormality. There are degenerative changes in the spine. XR/XR chest 2V IMPRESSION: Findings in keeping with COPD. No definite active superimposed disease. Electronically signed by: Raymon Kaur MD 11/22/2024 08:54 AM EDT
== END 2024-11-22 08:02 | disposition home or self-care (01) ==
LOC: HO.HMGCX 08:01
PROVIDERS: PCP Physician Assistant; Visit Provider Nurse Practitioner Family
DX: R06.2 Wheezing (principal); J06.9 Acute upper respiratory infection, unspecified; F17.210 Nicotine dependence, cigarettes, uncomplicated
CPT/HCPCS: 71046; 99212

== ENCOUNTER → 2024-11-22 08:40 | Outpatient (BNV) | payer MEDICARE, SELFPAY | PROVIDERS: PCP Physician Assistant; Visit Provider Radiology Diagnostic Radiology | DX: J44.9 Chronic obstructive pulmonary disease, unspecified (principal) | CPT/HCPCS: 71046 ==

== ENCOUNTER 2025-03-08 07:53 | Outpatient (REF) | payer MEDICARE, SELFPAY ==
--- NOTE | ~2025-03-08 | MM_ITS ---
EXAMINATION: MM SCREENING DIGITAL BREAST TOMOSYNTHESIS, BILATERAL CLINICAL INFORMATION: Screening. Asymptomatic. COMPARISON: Comparison made to multiple prior, most recent March 04, 2024, and most remote January 18, 2022. TECHNIQUE: Digital breast tomosynthesis is performed in mediolateral oblique and craniocaudal views along with computer-aided detection (CAD). Synthesized 2D images are generated from the tomosynthesis. FINDINGS: BREAST COMPOSITION: There are scattered areas of fibroglandular density (ACR BI-RADS breast composition Category b). BILATERAL BREASTS: No significant masses, suspicious calcifications or other abnormalities are seen in either breast. MM/MM tomosynthesis screening BI IMPRESSION: BILATERAL BREASTS: Negative, no mammographic evidence of malignancy. Normal interval follow-up is recommended in 12 months. ASSESSMENT: BI-RADS 1 - Negative RECOMMENDATION: Routine annual mammography screening. FOLLOW-UP: 1 year F/U This examination should not preclude the clinical evaluation of a suspicious palpable abnormality. This patient's information was entered into a reminder system with a target due date for their next mammogram. Electronically signed by: Scotty Willams MD 03/08/2025 07:10 PM EDT
--- OUTSIDE RECORDS SUMMARY | 2025-03-08 07:59 | XMS_ITS | Clinical Summary ---
Author Organization [facility] Address [address] [place] [id number] Phone Care Team Providers Care Front Tender Name Role Phone Siddharth Garcia Primary Care Provider + Allergies Active Allergy Reactions Criticality Noted Date Comments Erythromycin 2019 Patient thinks they might be allergic. Medications loratadine (CLARITIN) 10 mg tablet Take 10 mg by mouth daily. Active ferrous sulfate 324 mg (65 mg sun'aq iron) TbEC Take 324 mg by mouth daily with breakfast. Active cholecalciferol (VITAMIN D3) 1,000 unit tablet Take 1,000 Units by mouth daily. Active LORazepam (ATIVAN) 0.5 MG tablet Take 0.5 mg by mouth every 6 (six) hours as needed for anxiety. Active Medication-Free TextIndications :LC [facility] Gas 80 mg as needed. Indications: LC [facility]S Gas 80 mg Active DULoxetine (CYMBALTA) 30 MG capsuleIndicati ons:Polyneuropa thy Take 1 capsule (30 mg total) by mouth daily. 30 capsule 5 0 Active Additional Information Patient not taking.Reported on 01/13/2020 Social History Tobacco Use Types Packs/Day Years Used Date Smoking Tobacco: Every Day Smokeless Tobacco: Never Education Answer Date Recorded Are you interested in more education? Not on jairo e 10/18/2022 Are you concerned about learning? Not on file 10/18/2022 No 10/18/2022 No 10/18/2022 Digital Access Answer Date Recorded No 11/16/2022 No 11/16/2022 No 11/16/2022 Reliable internet access at home? Not on file 11/16/2022 Device with a working camera? Not on file Comments Unknown Sex and Gender Information Value Date Recorded Sex Assigned at Female 01/09/2020 6:02 PM EDT Legal Sex Female 10:08 PM EDT Gender Identity Female 01/09/2020 6:02 PM EDT Sexual Orientation Straight 01/09/2020 6: 02 PM EDT Last Filed Vital Signs Vital Sign Reading Time Taken Comments Blood Pressure 142/75 10/06/2020 10:43 AM EDT Pulse 93 10/06/2020 10:43 AM EDT Temperature 37.1 C (98.7 F) 10/06/2020 10:43 AM EDT Respiratory Rate - - Oxygen Saturation 94% 10/06/2020 10:43 AM EDT Inhaled Oxygen Concentration - - Weight 64.9 kg (143 lb) 10/06/2020 10:43 AM EDT Height 162.6 cm (5' 4 ) 10/06/2020 10:43 AM EDT Body Mass Index 24.55 10/06/2020 10:43 AM EDT Plan of Treatment Health Maintenance Due Date Last Done Comments Adult Td,Tdap Booster 1945 LIPID PANEL 1945 DEPRESSION SCREENING 1957 SMOKING Hx and SMOKELESS TOBACCO SCREENING 1958 ZOSTER VACCINES (1 of 2) 1995 OSTEOPOROSIS SCREENING INITI AL (ONE-TIME) 2010 PNEUMOCOCCAL VACCINES (50+ years) (2 of 2 - PPSV23) 03/05/2019 01/08/2019 RSV VACCINE (1 - 1-dose 75+ series) 02/16/2020 INFLUENZA VACCINE (#1) 2025 COVID-19 VACCINE (3 - 2024-2 6 season) 2025 08/27/2020, 08/06/2020 HEPATITIS A VACCINES Aged Out No long er eligible based on patient's age to complete this topic HIB VACCINES Aged Out No longer eligi ble based on patient's age to complete this topic MENINGOCOCCAL VACCINES (ACWY) Aged Out No longer eligible based on patient's age to complete this topic MENINGOCOCCAL VACCINES (B) Aged Out N o longer eligible based on patient's age to complete this topic Medical Devices Not on file Insurance MEDICARE PART A & B [employer] MEDEX SUPPLEMENT MEDICARE PART A & B [employer] MED[employer] SUPPLEMENT MEDICARE PART A & B [facility] MEDEX SUPPLEMENT MEDICARE PART A & B [employer] MEDEX SUPPLEMENT MEDICARE PART A & B [employer] MEDEX SUPPLEMENT MEDICARE PART A & B [employer] MEDEX SUPPLEMENT MEDICARE PART A & B [employer] MEDEX SUPPLEMENT MEDICARE PART A & B [employer] MEDEX SUPPLEMENT MEDICARE PART A & B [employer] MEDEX SUPPLEMENT Care Teams Front Tender Relationship Specialty Start Date End Date Siddharth Garcia PA [facility] [place] [address] PCP - General 10/06/20 Additional Source Comments The information contained in this document represents components of the legal health record. It is not the complete legal health record.[facility]
--- OUTSIDE RECORDS SUMMARY | 2025-03-08 08:00 | XMS_ITS | Patient Health Record ---
Author Organization [facility] Address [address] [place] [address] Care Team Providers Care Transport Technician Name Role Phone Siddharth Garcia Primary Care [...] Problem Status W/U Status Risk Notes Problem [id number] History of colon polyps (Z86.010) Active confirmed Plan Of Treatment Future Test Test Name Order Date COLONOSCOPY 09/11/2020 Insurance Providers Payer Name Payer Address Payer Phone Subscriber Number Group Number Insured Name Patient Relationship to Insured Coverage Start Date Coverage End Date MEDICARE OF [place] [address] JACKIE CAMILO [place]ERR[place] [address] [phone] [id number] GAYLE MADSEN Self - patient is the insured [employer] ATT[employer] CLAIMS [address] [place] [address] [phone] [id number] GAYLE MADSEN Self - patient is the insured Medical (General) History Medical History History ICD Code anemia anxiety memory loss Surgical History Surgery Date(Month/Year) bladder suspension appendectomy
--- OUTSIDE RECORDS SUMMARY | 2025-03-08 08:00 | XMS_ITS | Patient Health Record ---
Author Organization [facility] Sravani shelly Catracho Address [address] [place] [address] Care Team Providers Care Telephone Lineworker Name Role Phone Siddharth Garcia Primary Care Provider UnavailLiborio Lopez Unavailable [phone] Allergies Allergen (clinical drug ingredient) Drug/Non Drug [...] 5 MG 1 tablet Orally Once a day; Duration: 30 day(s) Active Ferrous Sulfate 324 (65 Fe) MG 1 tablet Orally Once a day; Duration: 30 day(s) Active LORazepam 1 MG as [...] primary osteoarthritis of the ankle and/or foot (446058079) Primary osteoarthrit is, right ankle and foot (M19.071) Active confirmed Problem Localized, primary osteoarthritis of the ankle and/or foot (592566109) Primary osteoarthrit is, left ankle and foot (M19.072) Active confirmed Problem Acquired hammer toe of right foot (5096693391239972) Other hammer toe(s) (acquired), right foot (M20.41) Active confirmed Problem Acquired hammer toe of left foot (7421145487334437) Other hammer toe(s) (acquired), left foot (M20.42) Active confirmed Plan Of Treatment Pending Test Test Name Order Date X ray : Foot, left 2V 12/09/2012 X ray : Foot, left 2V 01/21/2018 X ray : Foot, right 2V 01/21/2018 X ray : Foot, right 2V 12/09/2012 X ray : Foot, right 3V 08/22/2022 [id number] Destruction, 1-14 08/13/2016 [id number] Destruction, 1-14 02/07/2014 10887- Debride <25 sq cm 09/14/2014 15660- Debride <25 sq cm 12/09/2012 Insurance Providers Payer Name Payer Address Payer Phone Subscriber Number Group Number Insured Name Patient Relationship to Insured Coverage Start Date Coverage End Date Medicare National Govt [employer] [facility] [address] [place] [address] [phone] [id number] Radha Ndiaye Self - patient is the insured [employer] [address] [place] [address] [id number] Radha Ndiaye Self - patient is the insured Medical (General) History Medical History History ICD Code psoriasis/eczema Anxiety Arthritis nerve disorder Numbness thyroid Transfusions Surgical History Surgery Date(Month/Year) bladder suspension - urinary incontinenc e 1994 appendicitis - ruptured appendix 1963
== END 2025-03-08 07:54 | disposition home or self-care (01) ==
LOC: HO.MAMMO 07:53
PROVIDERS: PCP Physician Assistant; Visit Provider Physician Assistant
DX: Z12.31 Encounter for screening mammogram for malignant neoplasm of breast (principal)
CPT/HCPCS: 77063; 77067

== ENCOUNTER → 2025-03-08 08:00 | Outpatient (BNV) | payer MEDICARE, SELFPAY | PROVIDERS: PCP Physician Assistant; Visit Provider Radiology Body Imaging | DX: Z12.31 Encounter for screening mammogram for malignant neoplasm of breast (principal) | CPT/HCPCS: 77063; 77067 ==

== ENCOUNTER 2025-05-12 08:32 | Outpatient (AMB) | payer MEDICARE, SELFPAY ==
--- NOTE | 2025-05-12 08:37 | A.OFFPC_ITS ---
Vital Signs 05/12/25 08:38 Height 5 ft 6 in Weight 130 lb BMI 21.0 BP 128/68 Blood Pressure Location Lt brachial Position Sitting Pulse 83 Pulse Source Pulse Oximeter Pulse Oximetry (%) 94 Oxygen Delivery Method Room Air Intake Visit Reasons: f/u labs / smoking - see comments Allergies dextran 40 (DEXTRAN 40) Allergy (Severe, Verified 05/12/25 08:48) TACHYCARDIA AND HYPERTENSIVE prednisone Adverse Reaction (Intermediate, Verified 05/12/25 08:48) Palpitations erythromycin base Adverse Reaction (Mild, Verified 05/12/25 08:48) Nausea and Vomiting succinylcholine (SUCCINYLCHOLINE) Adverse Reaction (Unknown, Verified 05/12/25 08:48) FEVER, COULD NOT MOVE immune globulin,gamma (IgG) human (From FleDelta Systemsmma) Adverse Reaction (Verified 05/12/25 08:48) Hives Medication List - Last Reconciled 05/12/25 by Siddharth Garcia PA-C acetaminophen 1,000 mg (2 x 500 mg) PO Q6H PRN albuterol sulfate 90 mcg/actuation 1 inh inhalation QID PRN 30 days alpha lipoic acid 600 mg PO BID 90 days calcium carbonate (Calcium 500) 500 mg PO BID 90 days cholecalciferol (vitamin D3) 50 mcg PO DAILY 90 days ferrous sulfate 325 mg PO DAILY glucosamine sulfate (Glucosamine) 500 mg PO DAILY levothyroxine 112 mcg PO DAILY 30 days lorazepam (Ativan) 1 mg PO BID PRN 30 days umeclidinium-vilanterol 62.5-25 mcg/actuation (Anoro Ellipta) 1 inh inhalation DAILY 30 days vitamin B complex 1 tab PO DAILY vitamin E (dl, acetate) 180 mg PO DAILY Tobacco use date assessed: 11/09/24 Fall risk assessment: No Falls in past year Last assessed Fall Risk: 05/12/25 Dental Screening Dental Screen Date: 11/09/24 HPI f/u labs / smoking - see comments HPI Details Patient is a 80-year-old female here today for follow-up visit..? Patient has a past medical history significant for tobacco use disorder, thyroid nodules, nephrolithiasis, impaired glucose metabolism, anxiety disorder, gammopathy monoclonal. Concern--> continues to complain of neuropathy in her lower extremities. Has tried many different lytx-uol-xaufuks neuropathic remedies though have not been effective. Has tried gabapentin in the past though Radha reports she had side effects of this. Last week, the patient experienced an episode of left hand numbness that lasted for approximately two days. This prevented the patient from performing fine motor tasks such as buckling a bathrobe or applying makeup, and was associated with lightheadedness, which caused anxiety about a possible stroke. The patient has a known history of neuropathy in the feet, but this is the first time symptoms have affected the hands. .. Memory impairment: The patient reports concerns about developing Alzheimer's disease, citing recent difficulty with managing finances, confusion while baking, and trouble with short-term memory and maintaining a train of thought. . .. Pulmonary nodule:? She is currently followed by [facility] pulmonology. Patient is followed by lung cancer screening program.? Has an upper left pulmonary nodule at 9 mm that is stable since previous imaging.? She has chosen to follow this nodule over a 3 month baisis. Considering lung biopsy Patient likely not surgical candidate. recent mom CT showing stable nodules. She did undergo a pulmonary function test did show evidence of COPD. She was advised to start inhaler for maintenance .. .. Impaired glucose metabolism: Most recent A1c 5.9 fasting blood sugar has improved. . /.. IGM Gammopathy:? 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 She reports she continues to have neuropathy in both her hands and feet. She is very bothered by her neuropathic pain worse at night. She has tried an online supplement though does not feel it is helpful. .. Smoking:? She does understand she needs to quit smoking though reports it is very hard for her.? Has tried nicotine replacement in the past.? Also discussed her smoking history as she has been smoking over 30 years. She is tried Chantix in the past though had side effect. We did discuss perhaps using Wellbutrin SR though she is considering. -- >PLAN: She is somewhat open to the i gigi of starting nicotine patches [facility] Medical History (Updated 05/12/25 @ 09:38 by Siddharth Garcia PA-C) Acute respiratory disease Wheezing on auscultation Postoperative hypothyroidism (~2022) Nicotine dependence, cigarettes, uncomplicated Vitamin D deficiency Osteopenia (~2020) AMANDA (generalized anxiety disorder) Post-menopausal Arthritis Anemia GERD (gastroesophageal reflux disease) Tubular adenoma of colon (~2020) Neuropathy Gammopathy, monoclonal (~2018) Surgical History History of total thyroidectomy (~2022) History of bone marrow biopsy (~2018) History of esophagogastroduodenoscopy (EGD) (~2018) History of colonoscopy (~2020) History of appendectomy History of bladder surgery (~1994) Family History Sister Heart disease Brother Heart disease Sister Cancer Father Diabetes Mother Ovarian cancer Social History Household Members: Spouse Housing: House Are you a primary animal daycare provider to a significant other at home: No Do you presently have visiting nurse or other home services: No Alcohol intake: current Alcohol intake frequency: does not drink Patient Tobacco Use Status: Current everyday Tobacco user Tobacco use type: Cigarette Cigarette Packs Per Day: 1 Cigarettes Per Day: 20.0 Years Smoked: onset 20yo, 1-1.5ppd x 56yrs - 70+PYH e-Cigarette/Vaping Use: Never Used Second Hand Smoke Exposure: No Advance Directives Date on File: 07/25/14 service: No Current occupational status: retired Cognitive needs: No Hearing needs: No Vision needs: Yes Questionnaire Thrive Questionnaire Date Thrive assessed: 11/09/24 I am a: Patient What is your living situation today?: I have a steady place to live Within the past 12 months, did the food you bought not last and you didn't have the money to get more?: I choose not to answer this question Within the past 12 months, did you worry whether your food would run out before you got money to buy more?: Never true Do you have trouble paying for medicines?: I choose not to answer this question Do you have trouble getting transportation to medical appointments?: No Do you have trouble paying your heating and electricity bill?: No Do you have trouble taking care of your child, family member or friend?: No Do you have trouble with day-to-day activities such as bathing, preparing meals, shopping, managing finances, etc.?: No Are you currently unemployed and looking for a job?: No Are you interested in more education?: No Please select the resources that you would like help with: None Currently or been in a relationship where the following occur: No concerns reported THRIVE Score: 0 AMANDA-7 AMB Questionnaire AMANDA-7 Date AMANDA - 7 assessed: 11/09/24 Source: Developed by Drs. Barry Treviño, Tanya Nuñez, Evelio Ruiz and colleagues, with an educational obi from [employer]. Review of Systems Const Denies headache(s) Eyes Denies loss of vision ENT Denies vertigo, Denies dizziness, Denies headache(s) and Denies sore throat Card Denies chest pain, Denies leg edema and Denies lightheadedness Resp Denies cough, Denies hemoptysis and Denies wheezing GI Denies abdominal pain, Denies melena, Denies constipation, Denies diarrhea and Denies vomiting Denies urinary frequency, Denies dysuria and Denies urinary urgency Musc Denies arthralgias, Denies joint swelling, Denies numbness and Denies tingling Neuro Denies Abnormal speech present, Denies behavioral changes, Denies vertigo, Denies dizziness, Denies headache(s), Denies loss of vision, Denies memory loss, Denies numbness and Denies tingling Psych Denies anxiety, Denies behavioral changes, Denies depression, Denies memory loss and Denies panic attacks Sergei/Lymph Denies easy bleeding and Denies easy bruising Aller/Immun Denies wheezing Physical exam (Primary Care) Vital Signs: Last Vital Signs Pulse 83 05/12/25 08:38 BP 128/68 05/12/25 08:38 Pulse Ox 94 05/12/25 08:38 Oxygen Delivery Method Room Air 05/12/25 08:38 BMI result Body Mass Index 21.0 Tobacco/Smoking Status: Tobacco use Status Tobacco use date assessed 11/09/24 05/12/25 08:45 Patient Tobacco Use Status Current everyday Tobacco 05/12/25 08:45 Tobacco use type Cigarette 05/12/25 08:45 e-Cigarette/Vaping Use Never Used 05/12/25 08:45 Thrive Assessment: Date of Thrive Assessment Date Thrive assessed 11/09/24 05/12/25 08:45 Currently or been in a relationship where the following occur: No concerns reported Const General: healthy appearing, no acute distress, alert and awake Nutritional Appearance: well nourished Orientation/consciousness: oriented to person, oriented to place and oriented to time HENMT Ears: TM's normal bilaterally General nose exam: Normal nasal mucous membranes and turbinates present Eyes Conjunctivae: conjunctivae normal Sclerae: sclerae normal Pupils: Equal, round and reactive pupils present Neck Neck: Yes no lymphadenopathy and Yes no JVD Thyroid: Thyroid normal Carotids: no bruits Resp Effort & Inspection: normal respiratory effort and not tachypneic Auscultation: no crackles, no rales, no rhonchi and no wheezes Cardio Rate: regular rate Rhythm: regular rhythm Heart sounds: no murmurs and normal S1 and S2 GI Palpation (GI): Soft to palpation, nontender, no hepatomegaly and no splenomegaly Auscultation: normal bowel sounds Skin General skin exam: no rashes or lesions noted and dry skin Neuro General: oriented to person, oriented to place and oriented to time Cranial nerves: Yes Equal, round and reactive pupils present Speech: No Abnormal speech present Gait exam (Neuro): Normal gait present Motor exam (neuro): no tremor noted Extrem Right upper extremity: full ROM Left upper extremity: full ROM Right lower extremity: full ROM; no edema Left lower extremity: full ROM; no edema Psych Mental Status: mental status grossly normal Speech and movement: Normal speech and movement present Affect: normal affect Attitude: cooperative Thought process: Normal thought process present Coding Level of Care Code Est Pt Level 4 (42572) Diagnoses Left hand paresthesia R20.2 Memory impairment R41.3 Acquired hypothyroidism E03.9 Hypothyroidism type: acquired Nicotine dependence, cigarettes, uncomplicated F17.210 Gammopathy, monoclonal D47.2 AMANDA (generalized anxiety disorder) F41.1 Simple chronic bronchitis J41.0 COPD type: chronic bronchitis Chronic bronchitis type: simple Chronic idiopathic constipation K59.04 Constipation type: chronic idiopathic constipation Assessment & Plan Assessment & Plan (1) Left hand paresthesia: Code(s): R20.2 - Paresthesia of skin Category: Medical Plan: A nerve conduction study will also be ordered for the left arm to investigate for peripheral neuropathy, such as cubital or carpal tunnel syndrome. (2) Memory impairment: Code(s): R41.3 - Other amnesia Category: Medical Plan: o evaluate the patient's memory impairment and recent onset of left-hand numbness, a brain MRI will be ordered to assess for signs of a previous stroke or other pathology. (3) Hypothyroid: Code(s): E03.9 - Hypothyroidism, unspecified Category: Medical Qualifiers: Hypothyroidism type: acquired Qualified Code(s): E03.9 - Hypothyroidism, unspecified Plan: Patient continues on levothyroxine. Most recent TSH has been stable. She continues to complain of dry skin, hair and nails which may be related to her thyroid dysfunction. (4) Nicotine dependence, cigarettes, uncomplicated: Comment: (active smoker, onset 20, 1-2ppd x 56yrs, 80+PYH) Code(s): F17.210 - Nicotine dependence, cigarettes, uncomplicated Category: Medical Plan: Patient continues to smoke and does not have any desire to stop at this point. We have offered a nicotine replacement though she declines. (5) Gammopathy, monoclonal: Onset Date: ~2018 Comment: (IgM monoclonal gammopathy - dx 06/2018) Code(s): D47.2 - Monoclonal gammopathy Category: Medical Plan: Patient continues to have neuropathy in her lower extremities. Has not found any particular treatment. She has been using an online supplement that has a alpha lipoic acid and vitamins though has not seen much difference. We did discuss trying gabapentin again though she is not fond of side effects from this medication as she has tried this in the past. (6) AMANDA (generalized anxiety disorder): Code(s): F41.1 - Generalized anxiety disorder Category: Medical Plan: Patient has battling with anxiety for entire life. She takes lorazepam on a daily basis which really helps her. \ (7) COPD (chronic obstructive pulmonary disease): Code(s): J44.9 - Chronic obstructive pulmonary disease, unspecified Category: Medical Qualifiers: COPD type: chronic bronchitis Chronic bronchitis type: simple Qualified Code(s): J41.0 - Simple chronic bronchitis Plan: Continues to follow up pulmonology, she does have maintenance inhaler she uses on a daily basis with good effect. She reports her pulmonary status is fairly stable. --We did discuss has been need to do a high-dose flu shot due to her age and her COPD though she is considering at this time. (8) Constipation: Code(s): K59.00 - Constipation, unspecified Category: Medical Qualifiers: Constipation type: chronic idiopathic constipation Qualified Code(s): K59.04 - Chronic idiopathic constipation Plan: Advised on increasing fiber in her diet. Orders: Orders NE electromyogram (EMG) Today R20.2 - Paresthesia of skin NE nerve conduction velocity Today R20.2 - Paresthesia of skin MR head/brain wo con Today R41.3 - Other amnesia Medications: New nicotine 1 patch transdermal DAILY 14 ea 0RF 14 days F17.200 - Nicotine dependence, unspecified, uncomplicated, F17.210 - Nicotine dependence, cigarettes, uncomplicated Refilled lorazepam (Ativan) 1 mg PO BID PRN 60 tabs 3RF Anxiety 30 days F41.1 - Generalized anxiety disorder
[2025-05-12 08:38] VITALS: BP 128/68; PULSE 83; O2SAT 94; BMI 21.0
== END 2025-05-12 09:18 | disposition home or self-care (01) ==
LOC: HO.HMCH 08:33
PROVIDERS: PCP Physician Assistant; Visit Provider Physician Assistant
DX: R20.2 Paresthesia of skin (principal); J41.0 Simple chronic bronchitis; R41.3 Other amnesia; E03.9 Hypothyroidism, unspecified; F17.210 Nicotine dependence, cigarettes, uncomplicated; D47.2 Monoclonal gammopathy; F41.1 Generalized anxiety disorder; K59.04 Chronic idiopathic constipation

== ENCOUNTER → 2025-05-12 08:32 | Outpatient (BNVA) | payer MEDICARE, SELFPAY | PROVIDERS: PCP Physician Assistant; Visit Provider Physician Assistant | DX: R20.2 Paresthesia of skin (principal); R41.3 Other amnesia; E03.9 Hypothyroidism, unspecified; D47.2 Monoclonal gammopathy; F41.1 Generalized anxiety disorder; J41.0 Simple chronic bronchitis; K59.04 Chronic idiopathic constipation; F17.210 Nicotine dependence, cigarettes, uncomplicated; Z71.6 Tobacco abuse counseling | CPT/HCPCS: 99212 ==

== ENCOUNTER 2025-05-14 06:32 | Outpatient (REF) | payer MEDICARE, SELFPAY ==
--- OUTSIDE RECORDS SUMMARY | 2025-05-11 23:59 | XMS_ITS | Continuity of Care Document ---
Author Organization [facility] Address [address] [address]- Care Team Providers Care Link Trainer Mechanic Name Role Phone Siddharth Law Primary Care Physician Encounter [facility] Date(s): 04/11/25 - 05/11/25 [facility] [address] [facility] [address] [place] [address] Encounter Type: Triage Allergies, Adverse Reactions, Alerts Substance Criticality Severity Reaction Reaction Severity Status erythromycin Active predniSONE Active succinylcholine Acti ve Immunizations Given and Recorded Vaccine Date Status Refusal Reason SARS-CoV-2 (COVID-19) mRNA BNT-162b2 vac 08/27/20 Recorded SARS-CoV-2 (COVID-19) mRNA BNT-162b2 vac 08/06/20 Recorded Medications Albuterol (Eqv-ProAir HFA) 90 mcg/inh inhalation aerosol 2 puffs, Inhalation, Every 6 hours, j44.9, # 3 each, 3 Refills, Maintenance, 05/05/25 10:14:00 AM EST, [facility]/pharmacy #[id number], Partial fill upon patient request if the prescription is for a schedule II opioid drug., 2 puffs Inhalation Every 6 hours,Instr:j44.9, 167, cm, 05/04/25 14:28:00 EST, Height Start Date: 05/05/25 Status: Ordered Medication Dispense Status: Completed Quantity: 3.0 Unit: each Total Allowed Fills: 4 Fills Dispensed: 0 Bevespi Aerosphere 9 mcg-4.8 mcg/inh inhalation aerosol 2 puffs, Inhalation, 2 times a day, j44.9, # 1 each, 11 Refills, Maintenance, 04/11/25 3:10:00 PM EDT, Partial fill upon patient request if the prescription is for a schedule II opioid drug. Start Date: 04/11/25 Status: Ordered Medication Dispense Status: Completed Quantity: 1.0 Unit: each Total Allowed Fills: 12 Fills Dispensed: 0 calcium (as carbonate) 500 mg oral tablet, chewable 1 tablet = 500 mg, Daily, 0 Refills, Maintenance, 07/07/24 3:09:00 PM EST, Partial fill upon patientrequest if the prescription is for a schedule II opioid drug. Start Date: 07/07/24 Status: Ordered Medication Dispense Status: Completed Total Allowed Fills: 1 Fills Dispensed: 0 chantix 1mg tablet 1 tablet = 1 [...] Date: 10/08/24 Stop Date: 04/21/26 Status: Ordered Medication Dispense Status: Completed Quantity: 224.0 Unit: tablet Total Allowed Fills: 5 Fills Dispensed: 0 Chantix Starter Pack 0.5 mg-1 mg oral [...] Dry Weight Start Date: 12/05/23 Status: Ordered Medication Dispense Status: Completed Quantity: 53.0 Unit: tablet Total Allowed Fills: 1 Fills Dispensed: 0 Chantix Starter Pack 0.5 mg-1 mg oral tablet 1 tablet, By Mouth, 2 times a day, as directed on package labeling, # 53 tablet, 0 Refills, Maintenance, 10/08/24 9:18:00 AM EDT, Tablet, [facility]/pharmacy #[id number], Partial fill upon patient request if the prescription is for a schedule II opioid drug., 1 tablet By Mouth 2 times a day,Instr:as directed on package labeling, 167, cm, 10/08/24 8:23:00 EDT, Height, 62.1, kg, 10/15/22 8:45:00 EDT, Dry Weight Start Date: 10/08/24 Status: Ordered Medication Dispense Status: Completed Quantity: 53.0 Unit: tablet Total Allowed Fills: 1 Fills Dispensed: 0 ferrous sulfate 325 mg oral enteric coated tablet 325 mg, 1, tablet, By Mouth, Daily, Refills 0, Maintenance, 01/26/19 3:41:15 PM EDT Start Date: 01/26/19 Status: Ordered Medication Dispense Status: Completed Total Allowed Fills: 1 Fills Dispensed: 0 Glucosamine By Mouth, 0 Refills, Maintenance, 06/28/22 2:33:00 PM EST, Partial fill upon patient request if the prescription is for a schedule II opioid drug. Start Date: 06/28/22 Status: Ordered Medication Dispense Status: Completed Total Allowed Fills: 1 Fills Dispensed: 0 levothyroxine 0.112 mg oral tablet 0 Refills, Maintenance, 09/21/24 7:52:00 AM EDT, Partial fill upon patient request if the prescription is for a schedule II opioid drug. Start Date: 09/21/24 Status: Ordered Medication Dispense Status: Completed Total Allowed Fills: 1 Fills Dispensed: 0 Lorazepam PRN as needed for anxiety, 0 Refills, Maintenance, 01/20/18 9:42:02 AM EDT Start Date: 01/20/18 Status: Ordered Medication Dispense Status: Completed Total Allowed Fills: 1 Fills Dispensed: 0 nicotine 21 mg/24 hr transdermal film, extended release 1 patch, Topically, Daily, for 30 days, # 30 patch, 11 Refills, Acute 04/29/26 2:44:00 PM EST, 05/04/25 2:44:00 PM EST, Patch, [facility]pharm[facility] #[id number], Partial fill upon patient request if the prescriptionis for a schedule II opioid drug., 1 patch Topically Daily,x30 days, 167, cm, 05/04/25 14:28:00 EST, Height Start Date: 05/04/25 Stop Date: 04/29/26 Status: Ordered Medication Dispense Status: Completed Quantity: 30.0 Unit: patch Total Allowed Fills: 12 Fills Dispensed: 0 Vitamin D3 50 mcg (2000 intl units) oral tablet, chewable 1 tablet = 50 mcg, By Mouth, Daily, 0 Refills, Maintenance, 08/01/23 3:27:00 PM EST, Partial fill upon patient request if the prescription is for a schedule II opioid drug. Start Date: 08/01/23 Status: Ordered Medication Dispense Status: Completed Total Allowed Fills: 1 Fills Dispensed: 0 Problem List Condition Confirmation Course Effective Dates [...] Position: Reference Physician Member Role: PCP Address: [address] [place] [address] [address] [place] [address] Telecom: Name: Geneva English RN Position: S RN Member Role: Primary Care Nurse Care Team Related Persons Name: PARVIN MADSEN Name: PARVIN MADSEN Insurance Providers Guarantor name: GAYLE ANSELMOJAYLON [employer] [facility] Information #: 1 Payer: MEDICARE B Payer Identifier: NA Member Number: [id number] Group Number: NA Subscriber Identifier: NA Relationship to Subscriber: self Coverage Type: NA Coverage Verification Date: NA Telecom: NA Address: Health Plan Information #: 2 Payer: MEDEX SECONDARY ONLY Payer Identifier: NA Member Number: [id number] Group Number: NA Subscriber Identifier: NA Relationship to Subscriber: self Coverage Type: Medicare Other Coverage Verification Date: NA Telecom: NA Address: NA
--- OUTSIDE RECORDS SUMMARY | 2025-05-14 06:37 | XMS_ITS | Patient Health Record ---
Author Organization [facility] Address [address] [place] [address] Care Team Providers Care Medical Scientific Liaison Name Role Phone Siddharth Garcia Primary Care Provider Jude Tobin Jr Unavailable Allergies Allergen (clinical drug ingredient) Drug/Non Drug Allergy documented on EMR Reaction Allergy Type Onset Date Status erythromycin Erythromycin Unknown Drug Allergy A ctive PredniSONE Unknown Drug Allergy Active succinylcholine Succinylcholine Chloride Unknown Drug Allergy Active Reason For Referral No Information Medications Medication SIG (Take, Route, Frequency, Duration) Notes Start Date End Date Status Ferrous Sulfate 324 MG Tablet Orally Active Advil PRN Active Omeprazole 20 MG Capsule Delayed Release 1 capsule 30 minutes before morning meal Orally Once a day; Duration: 30 day(s) 09/11/2020 Active Prevagen 10 MG Capsule Orally Active Vitamin D3 25 MCG (1000 UT) Capsule Orally Active LORazepam 1 MG Tablet Orally Active Immunizations Vaccine Route Administration Date Status Comme nts Influenza Unknown 09/11/2020 Refused Social History Tobacco Use: Social History Observation Description Date Details (start date - stop date) Current Smoker NA - NA Social History Drugs/Alcohol: Social Info Question Answer Notes Alcohol Screen Did you have a drink containing alcohol in the past year? No Points 0 Interpretation Negative Tobacco Use: Social Info Question Answer Notes Tobacco Use/Smoking Patient is a current smoker How often do you smoke cigarettes? every day How many cigarettes a day do you smoke? 6-10 How soon after you wake up do you smoke your first cigarette? 6-30 minutes Are you interested in quitting? Not ready to quit Additional Details Category Social Info Options Details Miscellaneous: Marital status: Occupation: retired Problems Problem Type SNOMED Code ICD Code Onset Dates Problem Status W/U Status Risk Notes Problem History of polyp of colon (situation) (199351394) History of colon polyps (Z86.010) Active confirmed Plan Of Treatment Future Test Test Name Order Date COLONOSCOPY 09/11/2020 Insurance Providers Payer Name Payer Address Payer Phone Subscriber Number Group Number Insured Name Patient Relationship to Insured Coverage Start Date Coverage End Date MEDICARE OF [place] [address] [place] [address] [phone] [id number] GAYLE MADSEN Self - patient is the insured [employer] ATT[employer] CLAIMS [address] [place] [phone] [id number] GAYLE MADSEN Self - patient is the insured Medical (General) History Medical History History ICD Code anemia anxiety memory loss Surgical History Surgery Date(Month/Year) bladder suspension appendectomy
--- OUTSIDE RECORDS SUMMARY | 2025-05-14 06:37 | XMS_ITS | Clinical Summary ---
Author Organization [facility] Address [address] [place] [address] Phone Care Team Providers Care Farm Equipment Maintenance Supervisor Name Role Phone Siddharth Garcia Primary Care Provider + Allergies Active Allergy Reactions Criticality Noted Date Comments Erythromycin 2019 Patient thinks they might be allergic. Medications loratadine (CLARITIN) 10 mg tablet Take 10 mg by mouth daily. Active ferrous sulfate 324 mg (65 mg [place] iron) TbEC Take 324 mg by mouth [...] VACCINES (50+ years) (2 of 2 - PPSV23, PCV20, or PCV21) 03/05/2019 01/08/2019 RSV VACCINE (1 - 1-dose [...] file Insurance MEDICARE PART A & B [employer] MEDEX SUPPLEMENT MEDICARE PART A & B [employer] MEDEX SUPPLEMENT MEDICARE PART A & B [facility] MEDEX SUPPLEMENT MEDICARE PART A & B [employer] MEDEX SUPPLEMENT MEDICARE PART A & B [employer] MEDEX SUPPLEMENT MEDICARE PART A & B [employer] MEDEX SUPPLEMENT MEDICARE PART A & B [employer] MEDEX SUPPLEMENT MEDICARE PART A & B [employer] MEDEX SUPPLEMENT MEDICARE PART A & B [employer] MEDEX SUPPLEMENT Care Teams Farm Equipment Maintenance Supervisor Relationship Specialty Start Date End Date Siddahrth Garcia PA [address] [place] [address] PCP - General 10/06/20 Additional Source Comments The information contained in this document represents components of the legal health record. It is not the complete legal health record.[facility]
--- OUTSIDE RECORDS SUMMARY | 2025-05-14 06:37 | XMS_ITS | Patient Health Record ---
Author Organization [facility] [place] Address [address] [place] [address] Care Team Providers Care Radiologist Name Role Phone Jose Siddharth Primary Care Provider Unavailab Liborio Ramey Unavailable [phone] Allergies Allergen (clinical drug ingredient) Drug/Non Drug [...] primary osteoarthritis of the ankle and/or foot (193079471) Primary osteoarthrit is, right ankle and foot (M19.071) Active confirmed Problem Localized, primary osteoarthritis of the ankle and/or foot (971257679) Primary osteoarthrit is, left ankle and foot (M19.072) Active confirmed Problem Acquired hammer toe of right foot (9829068227418722) Other hammer toe(s) (acquired), right foot (M20.41) Active confirmed Problem Acquired hammer toe of left foot (7971599831773543) Other hammer toe(s) (acquired), left foot (M20.42) Active confirmed Plan Of Treatment Pending Test Test Name Order Date X ray : Foot, left 2V 12/09/2012 X ray : Foot, left 2V 01/21/2018 X ray : Foot, right 2V 01/21/2018 X ray : Foot, right 2V 12/09/2012 X ray : Foot, right 3V 08/22/2022 [id number] Destruction, 1-14 08/13/2016 [id number] Destruction, 1-14 02/07/2014 46817- Debride <25 sq cm 12/09/2012 07334- Debride <25 sq cm 09/14/2014 Insurance Providers Payer Name Payer Address Payer Phone Subscriber Number Group Number Insured Name Patient Relationship to Insured Coverage Start Date Coverage End Date Medicare National Govt Sv[employer] [address] [place] [address] [phone] [id number] Radha Ndiaye Self - patient is the insured [employer] [address] [place] [address] [phone] [id number] Radha Ndiaye Self - patient is the insured Medical (General) History Medical History History ICD Code psoriasis/eczema Anxiety Arthritis nerve disorder Numbness thyroid Transfusions Surgical History Surgery Date(Month/Year) bladder suspension - urinary incontinenc e 1994 appendicitis - ruptured appendix 1963
[2025-05-14 11:14] LABS: Hematocrit 41.6 % (37.0-47.0); Hemoglobin 12.8 g/dl (12.0-16.0); Mean Corpuscular HGB Conc 30.8 g/dl (31.0-35.0); Mean Corpuscular Hemoglobin 26.9 pg (27.0-33.0); Mean Corpuscular Volume 87.6 fL (80.0-98.0); NRBC Abs Auto 0.000 X10*3/uL (0.0-0.012); NRBC Pct Auto 0.0 /100WBC (0.0-0.2); Platelet Count 450 X10*3/uL (160-400); Red Blood Count 4.75 X10*6/uL (4.20-5.50); White Blood Count 8.3 X10*3/uL (4.8-10.8)
[2025-05-14 11:35] LABS: Alanine Aminotransferase 18 U/L (0-31); Albumin Level 4.3 g/dL (3.5-5.0); Alkaline Phosphatase 118 U/L (39-117); Anion Gap 12 (12-20); Aspartate Amino Transferase 26 U/L (5-31); Blood Urea Nitrogen 21 mg/dL (9-16); Calcium 9.4 mg/dL (8.4-10.2); Carbon Dioxide 30 mmol/L (22-29); Chloride 103 mmol/L (96-108); Estimated Glomerular Filt Rate > 60; Potassium 4.6 mmol/L (3.3-5.1); Sodium 140 mmol/L (135-145); Total Protein 7.6 g/dL (6.5-8.0)
== END 2025-05-14 06:33 | disposition home or self-care (01) ==
LOC: HO.HMGCLDS 06:32
PROVIDERS: PCP Physician Assistant; Visit Provider Physician Assistant
DX: J41.0 Simple chronic bronchitis (principal); R73.09 Other abnormal glucose; E03.9 Hypothyroidism, unspecified; E55.9 Vitamin D deficiency, unspecified
CPT/HCPCS: 36415; 80053; 82306; 83036; 84443; 85027

== ENCOUNTER 2025-05-16 11:30 | Outpatient (REF) | payer MEDICARE, SELFPAY ==
--- OUTSIDE RECORDS SUMMARY | 2025-05-15 23:59 | XMS_ITS | Continuity of Care Document ---
Author Organization [facility] Address [address] [address]- Care Team Providers Care Customer Service Clerk Name Role Phone Siddharth Law Primary Care Physician Encounter [facility] Date(s): 04/15/25 - 05/15/25 [facility] [address] [facility] [address] [place], [place] [address] Encounter Type: Triage Allergies, Adverse [...] 3 Refills, Maintenance, 05/05/25 10:14:00 AM EST, [facility]/pharmacy #[id number], Partial fill upon patient request [...] Refills, Maintenance, 10/08/24 9:18:00 AM EDT, Tablet, [facility]/pharmacy #[id number], Partial fill upon patient request [...] Position: Reference Physician Member Role: PCP Address: [address] [place] [address] Telecom: Name: Geneva English RN Position: S RN Member Role: Primary Care Nurse Care Team Related Persons Name: PARVIN MADSEN Name: PARVIN MADSEN Insurance Providers Guarantor name: GAYLE MADSEN Health Plan Information #: 1 Payer: MEDICARE B Payer Identifier: NA Member Number: [id number] Group Number: NA Subscriber Identifier: NA Relationship to Subscriber: self Coverage Type: NA Coverage Verification Date: NA Telecom: NA Address: Health Plan Information #: 2 Payer: MEDEX SECONDARY ONLY Payer Identifier: NA Member Number: [id number] Group Number: NA Subscriber Identifier: NA Relationship to Subscriber: self Coverage Type: Medicare Other Coverage Verification Date: NA Telecom: NA Address: NA
[2025-05-16 13:18] LABS: Appearance Urine Cloudy; Glucose Urine UA 250 mg/dL (Negative); PH 5.5 (5.0-9.0); Specific Gravity - Urine 1.010 (1.005-1.025); UMIC TRIGGER UACC YES
[2025-05-16 14:07] LABS: UACC Culture Trigger YES
--- OUTSIDE RECORDS SUMMARY | 2025-05-16 15:48 | XMS_ITS | Clinical Summary ---
Author Organization [facility] Address [address] [place] [address] Phone Care Team Providers Care Hearing Care Professional Name Role Phone Siddharth Garcia Primary Care Provider + Allergies Active Allergy Reactions Criticality Noted Date Comments Erythromycin 2019 Patient thinks they might be allergic. Medications loratadine (CLARITIN) 10 mg tablet Take 10 mg by mouth daily. Active ferrous sulfate 324 mg (65 mg [place] iron) TbEC Take 324 mg by mouth [...] file Insurance MEDICARE PART A & B [place] MED[place] SUPPLEMENT MEDICARE PART A & B [place] MED[place] SUPPLEMENT MEDICARE PART A & B [facility] MEDEX SUPPLEMENT MEDICARE PART A & B [place] MED[employer] SUPPLEMENT MEDICARE PART A & B [place] MED[employer] SUPPLEMENT MEDICARE PART A & B [place] MED[employer] SUPPLEMENT MEDICARE PART A & B [place] MED[employer] SUPPLEMENT MEDICARE PART A & B [place] MED[employer] SUPPLEMENT MEDICARE PART A & B [place] MED[employer] SUPPLEMENT Care Teams Hearing Care Professional Relationship Specialty Start Date End Date Siddharth Garcia PA [address] [place] [address] PCP - General 10/06/20 Additional Source Comments The information contained in this document represents components of the legal health record. It is not the complete legal health record.[facility]
--- OUTSIDE RECORDS SUMMARY | 2025-05-16 15:48 | XMS_ITS | Patient Health Record ---
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 Name Role Phone Jose Siddharth Primary Care Provider Unavailab Liborio Ramey Unavailable [phone] Allergies Allergen (clinical drug ingredient) Drug/Non Drug [...] primary osteoarthritis of the ankle and/or foot (925072754) Primary osteoarthrit is, right ankle and foot (M19.071) Active confirmed Problem Localized, primary osteoarthritis of the ankle and/or foot (484490913) Primary osteoarthrit is, left ankle and foot (M19.072) Active confirmed Problem Acquired hammer toe of right foot (3744953913572217) Other hammer toe(s) (acquired), right foot (M20.41) Active confirmed Problem Acquired hammer toe of left foot (8017823832643864) Other hammer toe(s) (acquired), left foot (M20.42) Active confirmed Plan Of Treatment Pending Test Test Name Order Date X ray : Foot, left 2V 12/09/2012 X ray : Foot, left 2V 01/21/2018 X ray : Foot, right 2V 01/21/2018 X ray : Foot, right 2V 12/09/2012 X ray : Foot, right 3V 08/22/2022 [id number] Destruction, 1-14 08/13/2016 [id number] Destruction, 1-14 02/07/2014 33373- Debride <25 sq cm 09/14/2014 99142- Debride <25 sq cm 12/09/2012 Insurance Providers Payer Name Payer Address Payer Phone Subscriber Number Group Number Insured Name Patient Relationship to Insured Coverage Start Date Coverage End Date Medicare National [employer]t Sv[employer] [address] [facility] [place] [address] [id number] Radha Ndiaye Self - patient is the insured [employer] [address] [place] [address] [phone] [id number] Radha Ndiaye Self - patient is the insured Medical (General) History Medical History History ICD Code psoriasis/eczema Anxiety Arthritis nerve disorder Numbness thyroid Transfusions Surgical History Surgery Date(Month/Year) bladder suspension - urinary incontinenc e 1994 appendicitis - ruptured appendix 1963
--- OUTSIDE RECORDS SUMMARY | 2025-05-16 15:48 | XMS_ITS | Patient Health Record ---
Author Organization [facility] Address [address] [place] [address] Care Team Providers Care Emotional Disabilities Teacher Name Role Phone Siddharth Garcia Primary Care [...] Problem History of polyp of colon (situation) (725716831) History of colon polyps (Z86.010) Active confirmed Plan Of Treatment Future Test Test Name Order Date COLONOSCOPY 09/11/2020 Insurance Providers Payer Name Payer Address Payer Phone Subscriber Number Group Number Insured Name Patient Relationship to Insured Coverage Start Date Coverage End Date MEDICARE OF [place] [address] [place] [address] [id number] GAYLE MADSEN Self - patient is the insured [employer] ATT[employer] CLAIMS [address] [place] [address] [id number] GAYLE MADSEN Self - patient is the insured Medical (General) History Medical History History ICD Code anemia anxiety memory loss Surgical History Surgery Date(Month/Year) bladder suspension appendectomy
== END 2025-05-16 11:31 | disposition home or self-care (01) ==
LOC: HO.HMGCLNP 11:30
PROVIDERS: PCP Physician Assistant; Visit Provider Physician Assistant
DX: R39.9 Unspecified symptoms and signs involving the genitourinary system (principal)
CPT/HCPCS: 81001; 87086; 87088; 87186

== ENCOUNTER 2025-05-29 19:06 | Emergency (ER) | payer MEDICARE, SELFPAY ==
--- NOTE | 2025-05-29 | ECG_ITS ---
Test Reason : ALLERGIC REACTION Blood Pressure : */* mmHG Vent. Rate : 75 BPM Atrial Rate : 75 BPM P-R Int : 162 ms QRS Dur : 74 ms QT Int : 374 ms P-R-T Axes : 77 -50 72 degrees QTcB Int : 417 ms Normal sinus rhythm Left axis deviation Abnormal ECG When compared with ECG of 29-Sep-2003 11:19, Nonspecific T wave abnormality no longer evident in Lateral leads Referred By: Generic ED Physician Electronically Signed By: VIANCA PINEDA MD
--- NOTE | ~2025-05-29 | CT_ITS ---
CLINICAL HISTORY: left tongue swelling CT soft tissue neck with contrast Comparison: None provided Findings: Evaluation of the oral cavity is limited due to extensive streak artifact originating from the dental implants. The visualized intracranial contents are unremarkable. No prevertebral fluid. Epiglottis is within normal limits. Pharyngeal mucosal space and parapharyngeal fat are normal. Salivary glands are within normal limits. No sialoliths. Thyroid gland is unremarkable. No consolidation at the lung apices. No acute fracture or dislocation. IMPRESSION:Evaluation of the oral cavity is limited due to extensive streak artifact originating from the dental implants. No acute findings. Visualized lung bases are within normal limits. No abnormal enhancement, mass lesions or suspicious lymphadenopathy. This document has been electronically signed by: Anil Sanitago MD on 05/29/2025 21:38:04
--- NOTE | 2025-05-29 19:08 | ED.ALLEREA ---
HPI - Allergic Reaction General Chief complaint: Allergic Reaction Stated complaint: allergic reaction (difficulty breathing) Time Seen by Provider: 05/29/25 19:36 Related Data Home Medications ?Medication ?Instructions ?Recorded ?Confirmed vitamin B complex 1 tab PO DAILY 11/09/24 05/12/25 vitamin E (dl, acetate) 180 mg 180 mg PO DAILY 11/09/24 05/12/25 (400 unit) capsule glucosamine sulfate 500 mg tablet 500 mg PO DAILY 05/12/25 05/12/25 (Glucosamine) Previous Rx's ?Medication ?Instructions ?Recorded calcium carbonate (Calcium 500) 500 mg PO BID 90 days #180 tabs 04/07/23 cholecalciferol (vitamin D3) 50 50 mcg PO DAILY 90 days #90 caps 04/07/23 mcg (2,000 unit) capsule acetaminophen 500 mg capsule 1,000 mg (2 x 500 mg) PO Q6H PRN 07/31/23 back pain #30 caps albuterol sulfate 90 mcg/actuation 1 inh inhalation QID PRN shortness 09/04/23 aerosol inhaler of breath or wheezing 30 days #8.5 grams umeclidinium 62.5 mcg-vilanterol 1 inh inhalation DAILY 30 days #60 09/04/23 25 mcg/actuation powdr for ea inhalation (Anoro Ellipta) alpha lipoic acid 600 mg tablet 600 mg PO BID 90 days #180 tabs 05/13/24 ferrous sulfate 325 mg (65 mg 325 mg PO DAILY #90 tabs 10/25/24 iron) tablet levothyroxine 112 mcg tablet 112 mcg PO DAILY 30 days #90 tabs 05/04/25 lorazepam 1 mg tablet (Ativan) 1 mg PO BID PRN Anxiety 30 days 05/12/25 #60 tabs nicotine 21 mg/24 hr daily 1 patch transdermal DAILY 14 days 05/12/25 transdermal patch #14 ea nitrofurantoin 100 mg PO Q12H 5 days #10 caps 05/17/25 monohydrate/macrocrystals 100 mg capsule (Macrobid) diphenhydramine HCl 25 mg capsule 25 mg PO Q8H 5 days #15 caps 05/29/25 (Benadryl) epinephrine 0.3 mg/0.3 mL 0.3 mg (0.3 mL) IM ONCE PRN 05/29/25 injection, auto-injector (EpiPen) extreme reaction #1 ea famotidine 20 mg tablet (Pepcid) 20 mg PO BID 5 days #10 tabs 05/29/25 methylprednisolone 4 mg tablets in 4 mg PO DIRECTED #21 ea 05/29/25 a dose pack (Medrol (Jacoby)) Allergies Allergy/AdvReac Type Severity Reaction Status Date / Time dextran 40 (DEXTRAN 40) Allergy Severe TACHYCARDIA Verified 05/29/25 19:13 AND HYPERTENSIVE prednisone AdvReac Intermediate Palpitation Verified 05/29/25 19:13 s erythromycin base AdvReac Mild Nausea and Verified 05/29/25 19:13 Vomiting succinylcholine AdvReac Unknown FEVER, Verified 05/29/25 19:13 (SUCCINYLCHOLINE) COULD NOT MOVE immune globulin,gamma (IgG) AdvReac Hives Verified 05/29/25 19:13 human (From [facility]) [facility] Past Medical History Medical History Acute respiratory disease Wheezing on auscultation Postoperative hypothyroidism (~2022) Nicotine dependence, cigarettes, uncomplicated Vitamin D deficiency Osteopenia (~2020) AMANDA (generalized anxiety disorder) Post-menopausal Arthritis Anemia GERD (gastroesophageal reflux disease) Tubular adenoma of colon (~2020) Neuropathy Gammopathy, monoclonal (~2018) Surgical History History of total thyroidectomy (~2022) History of bone marrow biopsy (~2018) History of esophagogastroduodenoscopy (EGD) (~2018) History of colonoscopy (~2020) History of appendectomy History of bladder surgery (~1994) Family History Family History Sister Heart disease Brother Heart disease Sister Cancer Father Diabetes Mother Ovarian cancer Social History Social History Household Members: Spouse Housing: House Are you a primary lawn care technician to a significant other at home: No Do you presently have visiting nurse or other home services: No Alcohol intake: current Alcohol intake frequency: does not drink Patient Tobacco Use Status: Current everyday Tobacco user Tobacco use type: Cigarette Cigarette Packs Per Day: 1 Cigarettes Per Day: 20.0 Years Smoked: onset 20yo, 1-1.5ppd x 56yrs - 70+PYH e-Cigarette/Vaping Use: Never Used Second Hand Smoke Exposure: No Advance Directives: Yes Advance Directives Information Provided: No Advance Directives on File: No Advance Directives Date on File: 07/25/14 service: No Current occupational status: retired Cognitive needs: No Hearing needs: No Vision needs: Yes Physical Exam ED Vital Signs: Vital Signs - 24 hr 05/29/25 19:11 Temperature 97 F Pulse Rate 80 Respiratory Rate 16 Blood Pressure 157/70 H Pulse Oximetry 96 Oxygen Delivery Method Room Air BMI result Body Mass Index 20.6 Course Course Course Narrative: This is a Rapid Medical Exam performed in triage by Jocelin Duarte PA-C. Full HPI, ROS and PE to be performed by primary ED provider. 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 Admits to having prune juice 1x in the past w/o reaction. Just finished Macrobid for UTI - otherwise denies any new exposures PE: NAD, talking in complete sentences, hoarse voice - no resp distress, Uvula midline Plan: IV Meds - defer to main ED provider Medications Administered Discontinued Medications Generic Name Dose Route Start Last Admin Trade Name Earl PRN Reason Stop Dose Admin Diphenhydramine HCl 50 mg 05/29/25 19:12 05/29/25 19:35 Diphenhydramine Hcl 50 Mg/Ml Vial IVPUSH 05/29/25 19:13 50 mg ONCE ONE Administration Famotidine 20 mg 05/29/25 19:12 05/29/25 19:35 Famotidine/Pf 20 Mg/2 Ml Vial IVPUSH 05/29/25 19:13 20 mg ONCE ONE Administration Sodium Chloride 500 mls @ 999 mls/hr 05/29/25 19:45 05/29/25 20:36 Ns IV 05/29/25 20:15 999 mls/hr .Q31M QASIM Administration Iohexol 60 ml 05/29/25 20:54 05/29/25 21:00 Iohexol 350 Mg/Ml 100 Ml Infus..Btl IV 05/29/25 20:55 60 ml ONCE ONE Administration Methylprednisolone Sodium Succinate 125 mg 05/29/25 19:12 05/29/25 19:37 Methylprednisolone Sod Succ 125 Mg/2 Ml Vial IVPUSH 05/29/25 19:13 125 mg ONCE ONE Administration Medical Decision Making Lab Data 05/29/25 19:50 05/29/25 19:47 Labs: Lab Results 05/29/25 05/29/25 Range/Units 19:47 19:50 WBC 6.4 (4.8-10.8) X10*3/uL RBC 4.78 (4.20-5.50) X10*6/uL Hgb 12.7 (12.0-16.0) g/dl Hct 41.4 (37.0-47.0) % MCV 86.6 (80.0-98.0) fL MCH 26.6 L (27.0-33.0) pg MCHC 30.7 L (31.0-35.0) g/dl RDW 13.1 (11.0-16.0) % Plt Count 440 H (160-400) X10*3/uL MPV 9.7 (9.4-12.3) fL Immature Gran % (Auto) 0.3 (0.0-0.4) % Neut % (Auto) 70.8 (45-73) % Lymph % (Auto) 14.9 L (20-40) % Tripp % (Auto) 10.2 (2-11) % Eos % (Auto) 2.5 (0-4) % Baso % (Auto) 1.3 (0-2) % Lymph # (Auto) 1.0 L (1.2-4.9) X10*3/uL Tripp # (Auto) 0.7 (0.1-1.2) X10*3/uL Eos # (Auto) 0.2 (0.0-0.4) X10*3/uL Baso # (Auto) 0.1 (0.0-0.2) X10*3/uL Abs Immat Gran (auto) 0.02 (0.00-0.03) X10*3/uL Absolute Neuts (auto) 4.5 (2.0-8.3) x10*3/uL Absolute Nucleated RBC 0.000 (0.0-0.012) X10*3/uL Nucleated RBC % (auto) 0.0 (0.0-0.2) /100WBC Hold Purple Top SEE NOTE Hold Blue Top SEE NOTE Sodium 140 (135-145) mmol/L Potassium 4.7 (3.3-5.1) mmol/L Chloride 103 (96-108) mmol/L Carbon Dioxide 28 (22-29) mmol/L Anion Gap 14 (12-20) BUN 20 H (9-16) mg/dL Creatinine 0.88 (0.5-1.4) mg/dL Estim Creat Clear Calc 46.7 Estimated GFR > 60 Random Glucose 86 (60-115) mg/dL Calcium 9.1 (8.4-10.2) mg/dL Total Bilirubin 0.3 (0.0-1.0) mg/dL Direct Bilirubin 0.1 (0.0-0.5) mg/dL AST 29 (5-31) U/L ALT 27 (0-31) U/L Alkaline Phosphatase 118 H (39-117) U/L Total Protein 7.7 (6.5-8.0) g/dL Albumin 4.5 (3.5-5.0) g/dL Hold Yellow Top See Note Discharge Plan Discharge Clinical Impression: Allergic reaction Patient Disposition: Home, Self-Care Instructions: General Allergic Reaction (ED) Prescriptions: New famotidine [Pepcid] 20 mg tablet 20 mg PO BID 5 Days Qty: 10 0RF diphenhydramine HCl [Benadryl] 25 mg capsule 25 mg PO Q8H 5 Days Qty: 15 0RF epinephrine [EpiPen] 0.3 mg/0.3 mL auto-injector 0.3 mg IM ONCE PRN (Reason: extreme reaction) Qty: 1 0RF Rx Instructions: for 2 doses methylprednisolone [Medrol (Jacoby)] 4 mg tablets,dose pack 4 mg PO DIRECTED Qty: 21 0RF Rx Instructions: blister pack as directed No Action cholecalciferol (vitamin D3) 50 mcg (2,000 unit) capsule 50 mcg PO DAILY 90 Days Qty: 90 1RF calcium carbonate [Calcium 500] 500 mg calcium (1,250 mg) tablet,chewable 500 mg PO BID 90 Days Qty: 180 1RF alpha lipoic acid 600 mg tablet 600 mg PO BID 90 Days Qty: 180 1RF levothyroxine 112 mcg tablet 112 mcg PO DAILY 30 Days Qty: 90 1RF nitrofurantoin monohyd/m-cryst [Macrobid] 100 mg capsule 100 mg PO Q12H 5 Days Qty: 10 0RF Rx Instructions: must administer with a meal/food ferrous sulfate 325 mg (65 mg iron) Tablet 325 mg PO DAILY Qty: 90 1RF acetaminophen 500 mg capsule 1,000 mg PO Q6H PRN (Reason: back pain) Qty: 30 0RF albuterol sulfate 90 mcg/actuation HFA aerosol inhaler 1 inh inhalation QID PRN (Reason: shortness of breath or wheezing) 30 Days Qty: 8.5 0RF Anoro Ellipta 62.5-25 mcg/actuation blister with device 1 inh inhalation DAILY 30 Days Qty: 60 3RF glucosamine sulfate [Glucosamine] 500 mg tablet 500 mg PO DAILY Rx Instructions: administer with a meal lorazepam [Ativan] 1 mg tablet 1 mg PO BID PRN (Reason: Anxiety) 30 Days Qty: 60 3RF nicotine 21 mg/24 hr patch 24 hour 1 patch transdermal DAILY 14 Days Qty: 14 0RF vitamin E (dl, acetate) 180 mg (400 unit) capsule 180 mg PO DAILY vitamin B complex Tablet,Disintegrating 1 tab PO DAILY Referrals: Siddharth Garcia PA-C [Primary Care Provider, Internal Medicine] - 05/31/25 Print Language: Slovenian
[2025-05-29 19:11] VITALS: BP 157/70; PULSE 80; RESP 16; TEMP 36.1; O2SAT 96; BMI 20.6
[2025-05-29 19:58] LABS: MANUAL DIFF FLAG NO
[2025-05-29 20:01] LABS: Hematocrit 41.4 % (37.0-47.0); Hemoglobin 12.7 g/dl (12.0-16.0); Imm Gran Abs Auto 0.02 X10*3/uL (0.00-0.03); Imm Gran Pct Auto 0.3 % (0.0-0.4); Lymphocytes Absolute Auto 1.0 X10*3/uL (1.2-4.9); Mean Corpuscular HGB Conc 30.7 g/dl (31.0-35.0); Mean Corpuscular Hemoglobin 26.6 pg (27.0-33.0); Mean Corpuscular Volume 86.6 fL (80.0-98.0); NRBC Abs Auto 0.000 X10*3/uL (0.0-0.012); NRBC Pct Auto 0.0 /100WBC (0.0-0.2); Platelet Count 440 X10*3/uL (160-400); Red Blood Count 4.78 X10*6/uL (4.20-5.50); White Blood Count 6.4 X10*3/uL (4.8-10.8)
--- OUTSIDE RECORDS SUMMARY | 2025-05-29 20:07 | XMS_ITS | Clinical Summary ---
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 Medications loratadine (CLARITIN) 10 mg tablet Take 10 mg by mouth daily. Active ferrous sulfate 324 mg (65 mg [place] iron) TbEC Take 324 mg by mouth [...] file Insurance MEDICARE PART A & B [employer] MEDEX SUPPLEMENT MEDICARE PART A & B [employer] MED[employer] SUPPLEMENT MEDICARE PART A & B [facility] MEDEX SUPPLEMENT MEDICARE PART A & B [employer] MED[employer] SUPPLEMENT MEDICARE PART A & B [employer] SUPPLEMENT MEDICARE PART A & B [employer] SUPPLEMENT MEDICARE PART A & B [employer] SUPPLEMENT MEDICARE PART A & B [employer] MED[employer] SUPPLEMENT MEDICARE PART A & B [employer] MEDEX SUPPLEMENT Care Teams Amusement Ride Inspector Relationship Specialty Start Date End Date Siddharth Garcia PA [address] [place] [address] PCP - General 10/06/20 Additional Source Comments The information contained in this document represents components of the legal health record. It is not the complete legal health record.[facility]
[2025-05-29 20:13] LABS: Alanine Aminotransferase 27 U/L (0-31); Albumin Level 4.5 g/dL (3.5-5.0); Alkaline Phosphatase 118 U/L (39-117); Anion Gap 14 (12-20); Aspartate Amino Transferase 29 U/L (5-31); Blood Urea Nitrogen 20 mg/dL (9-16); Calcium 9.1 mg/dL (8.4-10.2); Carbon Dioxide 28 mmol/L (22-29); Chloride 103 mmol/L (96-108); Creatinine Clr Calc Pharmacy 46.7; Estimated Glomerular Filt Rate > 60; Potassium 4.7 mmol/L (3.3-5.1); Sodium 140 mmol/L (135-145); Total Protein 7.7 g/dL (6.5-8.0)
[2025-05-29] MEDS: iohexoL 350 MG/ML 100 ML INFUS..BTL 60 ML IV (21:00)
--- NOTE | 2025-05-29 23:38 | ED_ITS ---
HPI - Allergic Reaction General Chief complaint: Allergic Reaction Stated complaint: allergic reaction (difficulty breathing) Time Seen by Provider: 05/29/25 19:36 History of Present Illness HPI narrative: patient is an 80-year-old female patient complaining of increasing tongue swelling voice change just prior to arrival after drinking prune juice. There is no other change in her environment no new clothes no new pets no new medication patient is not on any SUE inhibitor. From home. No history of similar symptoms in the past. Feels that her tongue on the left side is swollen. Patient denies any diaphoresis. Denies any difficulty swallowing. Denies any shortness of breath. She is from home. Related Data Home Medications ?Medication ?Instructions ?Recorded ?Confirmed vitamin B complex 1 tab PO DAILY 11/09/2404/24 vitamin E (dl, acetate) 180 mg 180 mg PO DAILY 5 05/12/25 (400 unit) capsule glucosamine sulfate 500 mg tablet 500 mg PO DAILY 04/2405/12/25 (Glucosamine) Previous Rx's ?Medication ?Instructions ?Recorded calcium carbonate (Calcium 500) 500 mg PO BID 90 days #180 tabs 04/07/23 cholecalciferol (vitamin D3) 50 50 mcg PO DAILY 90 day s #90 caps 04/07/23 mcg (2,000 unit) capsule acetaminophen 500 mg capsule 1,000 mg (2 x 500 mg) PO Q6H PRN 07/31/23 back pain #30 caps albuterol sulfate 90 mcg/actuation 1 inh inhalation QI D PRN shortness 09/04/23 aerosol inhaler of breath or wheezing 30 day s #8.5 grams umeclidinium 62.5 mcg-vilanterol 1 inh inhalation JOSHUA Y 30 days #60 09/04/23 25 mcg/actuation powdr for ea inhalation (Anoro Ellipta) alpha lipoic acid 600 mg tablet 600 mg PO BID 90 days #180 tabs 05/13/24 ferrous sulfate 325 mg (65 mg 325 mg PO DAILY #90 tabs 10/25/24 iron) tablet levothyroxine 112 mcg tablet 112 mcg PO DAILY 30 days #90 tabs 05/04/25 lorazepam 1 mg tablet (Ativan) 1 mg PO BID PRN Anxiety 30 days 05/12/25 #60 tabs nicotine 21 mg/24 hr daily 1 patch transdermal DAILY 1 4 days 05/12/25 transdermal patch #14 ea nitrofurantoin 100 mg PO Q12H 5 days #10 ca ps 05/17/25 monohydrate/macrocrystals 100 mg capsule (Macrobid) diphenhydramine HCl 25 mg capsule 25 mg PO Q8H 5 days #15 caps 05/29/25 (Benadryl) epinephrine 0.3 mg/0.3 mL 0.3 mg (0.3 mL) IM ONCE PRN 05/29/25 injection, auto-injector (EpiPen) extreme reaction #1 ea famotidine 20 mg tablet (Pepcid) 20 mg PO BID 5 days # 10 tabs 05/29/25 methylprednisolone 4 mg tablets in 4 mg PO DIRECTED #21 ea 05/29/25 a dose pack (Medrol (Jacoby)) Allergies Allergy/AdvReac Type Severity Reaction Status Date / Time dextran 40 (DEXTRAN 40) Allergy Severe TACHYCARDIA Verified 05/29/25 19:13 AND HYPERTENSIVE prednisone AdvReac Intermediate Palpitation Verified 05/29/25 19:13 s erythromycin base AdvReac Mild Nausea and Verified 05/29/25 19:13 Vomiting succinylcholine AdvReac Unknown FEVER, Verified 05/29/25 19:13 (SUCCINYLCHOLINE) COULD NOT MOVE immune globulin,gamma (IgG) AdvReac Hives Verified 05/29/25 19:13 human (From [facility]) Review of Systems 2 Review of Systems: Positive feeling of swelling to the left tongue Yes all other systems are reviewed and are negative PMFSH Past Medical History Attestation statement: The following information was validated with the patient. Medical History Acute respiratory disease Wheezing on auscultation Postoperative hypothyroidism (~2022) Nicotine dependence, cigarettes, uncomplicated Vitamin D deficiency Osteopenia (~2020) AMANDA (generalized anxiety disorder) Post-menopausal Arthritis Anemia GERD (gastroesophageal reflux disease) Tubular adenoma of colon (~2020) Neuropathy Gammopathy, monoclonal (~2018) Surgical History History of total thyroidectomy (~2022) History of bone marrow biopsy (~2018) History of esophagogastroduodenoscopy (EGD) (~2018) History of colonoscopy (~2020) History of appendectomy History of bladder surgery (~1994) Family History Family History Sister Heart disease Brother Heart disease Sister Cancer Father Diabetes Mother Ovarian cancer Social History Social History Household Members: Spouse Housing: House Are you a primary congregational care pastor to a significant other at home: No Do you presently have visiting nurse or other home services: No Alcohol intake: current Alcohol intake frequency: does not drink Patient Tobacco Use Status: Current everyday Tobacco user Tobacco use type: Cigarette Cigarette Packs Per Day: 1 Cigarettes Per Day: 20.0 Years Smoked: onset 20yo, 1-1.5ppd x 56yrs - 70+PYH e-Cigarette/Vaping Use: Never Used Second Hand Smoke Exposure: No Advance Directives: Yes Advance Directives Information Provided: No Advance Directives on File: No Advance Directives Date on File: 07/25/14 service: No Current occupational status: retired Cognitive needs: No Hearing needs: No Vision needs: Yes Physical Exam ED Exam Exam: Appearance: Alert. Oriented X3. No acute distress. Eyes: Pupils equal, round and reactive to light. ENT: Pharynx normal. patient's tongue may look slightly swollen on the left side basically is essentially non swollen. Posterior pharynx is normal. There is no then though abscess palpable. There is no abscess palpable on the floor of the mouth. There is no tenderness on palpation of the gums. Dentition was grossly intact. Neck: Normal inspection. Neck supple. No lymph nodes noted. No crepitus CVS: Normal heart rate and rhythm. Pulses normal. Normal S1 and S2 Respiratory: No respiratory distress. Breath sounds normal. No Wheezing. No rales Abdomen: Soft and nontender. No rigidity. No distention. good BS x4 Skin: Skin warm and dry. Normal skin color. Normal skin turgor. Extremities: No lower extremity edema. Neurovascular intact to all extremities. No Lacerations. No Rash Neuro: Oriented X 3. No motor deficit. No sensory deficit. Moving all extermities. No slurred speech Vital Signs: Vital Signs - 24 hr 05/29/25 19:11 Temperature 97 F Pulse Rate 80 Respiratory Rate 16 Blood Pressure 157/70 H Pulse Oximetry 96 Oxygen Delivery Method Room Air BMI result Body Mass Index 20.6 Medications Administered Discontinued Medications Generic Name Dose Route Start Last Admin Trade Name Earl PRN Reason Stop Dose Admin Diphenhydramine HCl 50 mg 05/29/25 19:12 05/29/25 19:35 Diphenhydramine Hcl 50 Mg/Ml Vial IVPUSH 05/29/25 19:13 50 mg ONCE ONE Administration Famotidine 20 mg 05/29/25 19:12 05/29/25 19:35 Famotidine/Pf 20 Mg/2 Ml Vial IVPUSH 05/29/25 19:13 20 mg ONCE ONE Administration Sodium Chloride 500 mls @ 999 mls/hr 05/29/25 19:45 05/29/25 20:36 Ns IV 05/29/25 20:15 999 mls/hr .Q31M QASIM Administration Iohexol 60 ml 05/29/25 20:54 05/29/25 21:00 Iohexol 350 Mg/Ml 100 Ml Infus..Btl IV 05/29/25 20:55 60 ml ONCE ONE Administration Methylprednisolone Sodium Succinate 125 mg 05/29/25 19:12 05/29/25 19:37 Methylprednisolone Sod Succ 125 Mg/2 Ml Vial IVPUSH 05/29/25 19:13 125 mg ONCE ONE Administration Medical Decision Making Medical Decision Making [facility] Narrative: Complaining of some changes in her voice and also swelling to the left tongue. We gave patient some Pepcid some Benadryl some steroid monitored carefully. A CT scan of the soft tissue neck was done. No obvious abscess was noted. No obvious swelling was noted patient after monitoring for 3 hours symptomatically feels much improved. Voice is back to baseline. Patient has no difficulty swallowing no difficulty breathing wants to go home will discharge home. In stable condition. Asked to avoid prune juice if possible. Differential Diagnosis Differential Diagnoses: The differential diagnosis associated with the presentation includes Allergic reaction, angioedema, abscess Admission/Observation Consideration of admission/observation: Escalation of care including admission/observation considered Lab Data [facility] Lab Attestation statement: I reviewed the patient's lab results. 05/29/25 19:50 05/29/25 19:47 Labs: Lab Results 05/29/25 05/29/25 Range/Units 19:47 19:50 WBC 6.4 (4.8-10.8) X10*3/uL RBC 4.78 (4.20-5.50) X10*6/uL Hgb 12.7 (12.0-16.0) g/dl Hct 41.4 (37.0-47.0) % MCV 86.6 (80.0-98.0) fL MCH 26.6 L (27.0-33.0) pg MCHC 30.7 L (31.0-35.0) g/dl RDW 13.1 (11.0-16.0) % Plt Count 440 H (160-400) X10*3/uL MPV 9.7 (9.4-12.3) fL Immature Gran % (Auto) 0.3 (0.0-0.4) % Neut % (Auto) 70.8 (45-73) % Lymph % (Auto) 14.9 L (20-40) % [place] % (Auto) 10.2 (2-11) % Eos % (Auto) 2.5 (0-4) % Baso % (Auto) 1.3 (0-2) % Lymph # (Auto) 1.0 L (1.2-4.9) X10*3/uL [place] # (Auto) 0.7 (0.1-1.2) X10*3/uL Eos # (Auto) 0.2 (0.0-0.4) X10*3/uL Baso # (Auto) 0.1 (0.0-0.2) X10*3/uL Abs Immat Gran (auto) 0.02 (0.00-0.03) X10*3/uL Absolute Neuts (auto) 4.5 (2.0-8.3) x10*3/uL Absolute Nucleated RBC 0.000 (0.0-0.012) X10*3/uL Nucleated RBC % (auto) 0.0 (0.0-0.2) /100WBC Hold Purple Top SEE NOTE Hold Blue Top SEE NOTE Sodium 140 (135-145) mmol/L Potassium 4.7 (3.3-5.1) mmol/L Chloride 103 (96-108) mmol/L Carbon Dioxide 28 (22-29) mmol/L Anion Gap 14 (12-20) BUN 20 H (9-16) mg/dL Creatinine 0.88 (0.5-1.4) mg/dL Estim Creat Clear Calc 46.7 Estimated GFR > 60 Random Glucose 86 (60-115) mg/dL Calcium 9.1 (8.4-10.2) mg/dL Total Bilirubin 0.3 (0.0-1.0) mg/dL Direct Bilirubin 0.1 (0.0-0.5) mg/dL AST 29 (5-31) U/L ALT 27 (0-31) U/L Alkaline Phosphatase 118 H (39-117) U/L Total Protein 7.7 (6.5-8.0) g/dL Albumin 4.5 (3.5-5.0) g/dL Hold Yellow Top See Note Independent Interpretation I performed an independent interpretation of an: CT Scan ( CT scan of the soft tissue neck was grossly negative) Radiology Impression Discussion of test interpretation with radiology: I have reviewed the radiologist's reading. Discharge Plan Discharge Clinical Impression: Allergic reaction Patient Disposition: Home, Self-Care Instructions: General Allergic Reaction (ED) Prescriptions: New famotidine [Pepcid] 20 mg tablet 20 mg PO BID 5 Days Qty: 10 0RF diphenhydramine HCl [Benadryl] 25 mg capsule 25 mg PO Q8H 5 Days Qty: 15 0RF epinephrine [EpiPen] 0.3 mg/0.3 mL auto-injector 0.3 mg IM ONCE PRN (Reason: extreme reaction) Qty: 1 0RF Rx Instructions: for 2 doses methylprednisolone [Medrol (Jacoby)] 4 mg tablets,dose pack 4 mg PO DIRECTED Qty: 21 0RF Rx Instructions: blister pack as directed No Action cholecalciferol (vitamin D3) 50 mcg (2,000 unit) capsule 50 mcg PO DAILY 90 Days Qty: 90 1RF calcium carbonate [Calcium 500] 500 mg calcium (1,250 mg) tablet,chewable 500 mg PO BID 90 Days Qty: 180 1RF alpha lipoic acid 600 mg tablet 600 mg PO BID 90 Days Qty: 180 1RF levothyroxine 112 mcg tablet 112 mcg PO DAILY 30 Days Qty: 90 1RF nitrofurantoin monohyd/m-cryst [Macrobid] 100 mg capsule 100 mg PO Q12H 5 Days Qty: 10 0RF Rx Instructions: must administer with a meal/food ferrous sulfate 325 mg (65 mg iron) Tablet 325 mg PO DAILY Qty: 90 1RF acetaminophen 500 mg capsule 1,000 mg PO Q6H PRN (Reason: back pain) Qty: 30 0RF albuterol sulfate 90 mcg/actuation HFA aerosol inhaler 1 inh inhalation QID PRN (Reason: shortness of breath or wheezing) 30 Days Qty: 8.5 0RF Anoro Ellipta 62.5-25 mcg/actuation blister with device 1 inh inhalation DAILY 30 Days Qty: 60 3RF glucosamine sulfate [Glucosamine] 500 mg tablet 500 mg PO DAILY Rx Instructions: administer with a meal lorazepam [Ativan] 1 mg tablet 1 mg PO BID PRN (Reason: Anxiety) 30 Days Qty: 60 3RF nicotine 21 mg/24 hr patch 24 hour 1 patch transdermal DAILY 14 Days Qty: 14 0RF vitamin E (dl, acetate) 180 mg (400 unit) capsule 180 mg PO DAILY vitamin B complex Tablet,Disintegrating 1 tab PO DAILY Referrals: Siddharth Garcia PA-C [Primary Care Provider, Internal Medicine] - 05/31/25 Print Language: German
[2025-05-30 00:04] VITALS: BP 132/86; PULSE 64; RESP 18; TEMP 36.9; O2SAT 98
== END 2025-05-30 00:06 | disposition home or self-care (01) ==
PROVIDERS: Emergency Provider Emergency Medicine Emergency Medical Services; PCP Physician Assistant
DX: R06.00 Dyspnea, unspecified (principal); T78.19XA Other adverse food reactions, not elsewhere classified, initial encounter; R60.9 Edema, unspecified; X58.XXXA Exposure to other specified factors, initial encounter; Z87.19 Personal history of other diseases of the digestive system; F17.210 Nicotine dependence, cigarettes, uncomplicated; Z79.899 Other long term (current) drug therapy
CPT/HCPCS: 36415; 70491; 80048; 80076; 85025; 93005; 96361; 96374; 96375; 99283; 99284; J1200; J1308; J2919; Q9967

== ENCOUNTER → 2025-05-29 19:21 | Outpatient (BNV) | payer MEDICARE, SELFPAY | PROVIDERS: Emergency Provider Emergency Medicine Emergency Medical Services; PCP Physician Assistant; Visit Provider Internal Medicine Cardiovascular Disease | DX: R94.31 Abnormal electrocardiogram [ECG] [EKG] (principal); T78.40XA Allergy, unspecified, initial encounter | CPT/HCPCS: 93010 ==

== ENCOUNTER → 2025-05-29 19:38 | Outpatient (BNV) | payer MEDICARE, SELFPAY | PROVIDERS: Emergency Provider Emergency Medicine Emergency Medical Services; PCP Physician Assistant; Visit Provider Student in an Organized Health Care Education/Training Program | DX: K14.8 Other diseases of tongue (principal) | CPT/HCPCS: 70491 ==

== ENCOUNTER 2025-06-07 08:21 | Outpatient (REF) | payer MEDICARE, SELFPAY ==
--- NOTE | 2025-06-07 08:24 | EMG_ITS ---
Chief complaint: Left hand pain Referred by: AGUSTIN North Procedure done: NCS and EMG of left upper extremity Left median and ulnar motor studies were performed. Left median and ulnar mixed sensory and radial sensory study was performed and paraspinal muscles were tested with a needle. Findings: Median and ulnar motor distal latencies were significantly prolonged with normal amplitude. Ulnar conduction velocity was significantly reduced across elbow and was in low 20s. Median mixed sensory distal latencies was significantly prolonged with conduction velocity in 20s. Median ulnar mixed sensory distal latencies was moderately prolonged with slow conduction velocity. Radial study did not reveal any significant abnormality. Impression: 1. Moderately severe right median neuropathy across carpal tunnel affecting sensory and motor comprehends 2. [id number] left ulnar neuropathy across elbow. [place] [address] [facility]
--- OUTSIDE RECORDS SUMMARY | 2025-06-07 08:39 | XMS_ITS | Patient Health Record ---
Author Organization [facility] [place] Address [address] [place] [address] Care Team Providers Care Pattern Vault Clerk Name Role Phone Jose Siddharth Primary Care Provider Unavailab Liborio Ramey Unavailable [phone] Allergies Allergen (clinical drug ingredient) Drug/Non Drug [...] primary osteoarthritis of the ankle and/or foot (447817233) Primary osteoarthrit is, right ankle and foot (M19.071) Active confirmed Problem Localized, primary osteoarthritis of the ankle and/or foot (952593848) Primary osteoarthrit is, left ankle and foot (M19.072) Active confirmed Problem Acquired hammer toe of right foot (8941361507845360) Other hammer toe(s) (acquired), right foot (M20.41) Active confirmed Problem Acquired hammer toe of left foot (0868008632084353) Other hammer toe(s) (acquired), left foot (M20.42) Active confirmed Plan Of Treatment Pending Test Test Name Order Date X ray : Foot, left 2V 12/09/2012 X ray : Foot, left 2V 01/21/2018 X ray : Foot, right 2V 01/21/2018 X ray : Foot, right 2V 12/09/2012 X ray : Foot, right 3V 08/22/2022 [id number]-[id number] Destruction, 1-14 08/13/2016 [id number] Destruction, 1-14 02/07/2014 21944- Debride <25 sq cm 09/14/2014 99951- Debride <25 sq cm 12/09/2012 Insurance Providers Payer Name Payer Address Payer Phone Subscriber Number Group Number Insured Name Patient Relationship to Insured Coverage Start Date Coverage End Date Medicare National Govt Svcs Inc [address] [place] [address] [id number] Radha Ndiaye Self - patient is the insured [employer] Blue Shield [address] [place] [address] [id number] Radha Ndiaye Self - patient is the insured Medical (General) History Medical History History ICD Code psoriasis/eczema Anxiety Arthritis nerve disorder Numbness thyroid Transfusions Surgical History Surgery Date(Month/Year) bladder suspension - urinary incontinenc e 1994 appendicitis - ruptured appendix 1963
--- OUTSIDE RECORDS SUMMARY | 2025-06-07 08:39 | XMS_ITS | Clinical Summary ---
Author Organization [facility] Address [address] [place] [address] Phone Care Team Providers Care Recreation Specialist Name Role Phone Siddharth Garcia Primary Care Provider + Allergies Active Allergy Reactions Criticality Noted Date Comments Erythromycin 2019 Patient thinks they might be allergic. Medications loratadine (CLARITIN) 10 mg tablet Take 10 mg by mouth daily. Active ferrous sulfate 324 mg (65 mg kletsel dehe wintun iron) TbEC Take 324 mg by mouth [...] file Insurance MEDICARE PART A & B [employer] MED[employer] SUPPLEMENT MEDICARE PART A & B [employer] MED[employer] SUPPLEMENT MEDICARE PART A & B [facility] MEDEX SUPPLEMENT MEDICARE PART A & B [employer] MEDEX SUPPLEMENT MEDICARE PART A & B [employer] MED[employer] SUPPLEMENT MEDICARE PART A & B [employer] MEDEX SUPPLEMENT MEDICARE PART A & B [employer] MEDEX SUPPLEMENT MEDICARE PART A & B [employer] MED[employer] SUPPLEMENT MEDICARE PART A & B [employer] MEDEX SUPPLEMENT Care Teams Recreation Specialist Relationship Specialty Start Date End Date Siddharth Garcia PA [address] [place] [address] PCP - General 10/06/20 Additional Source Comments The information contained in this document represents components of the legal health record. It is not the complete legal health record.[facility]
--- OUTSIDE RECORDS SUMMARY | 2025-06-07 08:39 | XMS_ITS | Patient Health Record ---
Author Organization [facility] Address [address] [place] [address] Care Team Providers Care Woods Laborer Name Role Phone Siddharth Garcia Primary Care Provider Jude Tobin Jr Unavailable [phone] Allergies Allergen (clinical drug ingredient) Drug/Non Drug [...] Problem History of polyp of colon (situation) (422608347) History of colon polyps (Z86.010) Active confirmed Plan Of Treatment Future Test Test Name Order Date COLONOSCOPY 09/11/2020 Insurance Providers Payer Name Payer Address Payer Phone Subscriber Number Group Number Insured Name Patient Relationship to Insured Coverage Start Date Coverage End Date MEDICARE OF [place] [address] [place] [address] [id number] GAYLE MADSEN Self - patient is the insured MEDEX ATTN CLAIMS [address] [place] [address] [phone] [id number] GAYLE MADSEN Self - patient is the insured Medical (General) History Medical History History ICD Code anemia anxiety memory loss Surgical History Surgery Date(Month/Year) bladder suspension appendectomy
== END 2025-06-07 08:22 | disposition home or self-care (01) ==
LOC: HO.NEURO 08:21
PROVIDERS: PCP Physician Assistant; Visit Provider Physician Assistant
DX: R20.2 Paresthesia of skin (principal)
CPT/HCPCS: 95886; 95909

== ENCOUNTER → 2025-06-07 08:24 | Outpatient (BNV) | payer MEDICARE, SELFPAY | PROVIDERS: PCP Physician Assistant; Visit Provider Psychiatry & Neurology Neurology | DX: G56.01 Carpal tunnel syndrome, right upper limb (principal); G56.22 Lesion of ulnar nerve, left upper limb | CPT/HCPCS: 95886; 95909 ==

== ENCOUNTER → 2025-06-09 07:13 | Outpatient (BNV) | payer MEDICARE, SELFPAY | PROVIDERS: PCP Physician Assistant; Visit Provider Radiology Diagnostic Radiology | DX: R41.3 Other amnesia (principal) | CPT/HCPCS: 70551 ==

== ENCOUNTER 2025-06-09 07:15 | Outpatient (REF) | payer MEDICARE, SELFPAY ==
--- OUTSIDE RECORDS SUMMARY | 2025-06-03 23:59 | XMS_ITS | Continuity of Care Document ---
Author Organization [facility] Address [address] [address]- Care Team Providers Care Rehabilitation Construction Specialist Name Role Phone Siddharth Law Primary Care Physician [place] [facility] [place](s): 05/04/25 - 06/03/25 [facility] [address] [place] [address]- Attending Physician: Ray Perales Admitting Physician: Ray Perales Referring Physician: Admtr ArKm Encounter Type: Triage Allergies, Adverse Reactions, Alerts [...] 3 Refills, Maintenance, 05/05/25 10:14:00 AM EST, [facility]/pharmacy #[id number], Partial fill upon patient request [...] AM EDT, 10/08/24 9:19:00 AM EDT, Tablet, [facility]/pharmacy #[id number], Please fill after patient has already [...] Refills, Maintenance, 10/08/24 9:18:00 AM EDT, Tablet, [facility]/pharmacy #[id number], Partial fill upon patient request [...] Position: Reference Physician Member Role: PCP Address: [address] [place] [address] [address] [place] [address]- Telecom: Name: Geneva English RN Position: S RN Member Role: Primary Care Nurse Care Team Related Persons Name: PARVIN MADSEN Name: PARVIN MADSEN Insurance Providers Guarantor name: GAYLE MADSEN Health Plan Information #: 1 Payer: MEDICARE B Payer Identifier: NA Member Number: [id number] Group Number: NA Subscriber Identifier: NA Relationship to Subscriber: self Coverage Type: NA Coverage Verification Date: NA Telecom: NA Address: CLAUDIA Health Plan Information #: 2 Payer: MEDEX SECONDARY ONLY Payer Identifier: CLAUDIA Member Number: [id number] Group Number: CLAUDIA Subscriber Identifier: CLAUDIA Relationship to Subscriber: self Coverage Type: Medicare Other Coverage Verification Date: CLAUDIA Telecom: CLAUDIA Address:
--- OUTSIDE RECORDS SUMMARY | 2025-06-04 23:59 | XMS_ITS | Continuity of Care Document ---
Author Organization [facility] Address [address] [address]- Care Team Providers Care Intermediate Manager Name Role Phone Siddharth Law Primary Care Physician Encounter [facility] [place] Date(s): 05/05/25 - 06/04/25 [facility] [address] [facility] [address] [place], [place] [address] Encounter Type: Triage Allergies, Adverse Reactions, [...] 3 Refills, Maintenance, 05/05/25 10:14:00 AM EST, [facility]/pharmacy #[id number], Partial fill upon patient request [...] Refills, Maintenance, 10/08/24 9:18:00 AM EDT, Tablet, [facility]/pharmacy #[id number], Partial fill upon patient request [...] Position: Reference Physician Member Role: PCP Address: [address] [place] [address] Telecom: Name: Geneva English RN Position: S RN Member Role: Primary Care Nurse Care Team Related Persons Name: PARVNI MADSEN Name: PARVIN MADSEN Insurance Providers Guarantor name: GAYLE MADSEN Health Plan Information #: 1 Payer: MEDICARE B Payer Identifier: NA Member Number: [id number] Group Number: NA Subscriber Identifier: NA Relationship to Subscriber: self Coverage Type: NA Coverage Verification Date: NA Telecom: NA Address: Health Plan Information #: 2 Payer: MEDEX SECONDARY ONLY Payer Identifier: NA Member Number: [id number] Group Number: NA Subscriber Identifier: NA Relationship to Subscriber: self Coverage Type: Medicare Other Coverage Verification Date: NA Telecom: NA Address: NA
--- NOTE | ~2025-06-09 | MR_ITS ---
EXAMINATION: MR BRAIN WITHOUT CONTRAST CLINICAL INFORMATION: Amnesia. Worsening memory impairment. COMPARISON: None available. TECHNIQUE: MRI of the brain was obtained using routine sequences without contrast. FINDINGS: There are areas of restricted diffusion in cortical and subcortical subcortical white matter right frontal lobe on axial slice 40/6 with corresponding positive ADC findings. There is no corresponding hemorrhagic changes. Rest of the diffusion is unremarkable. There is extensive T2 weighted FLAIR signal changes in the deep white matter both cerebral hemispheres without mass effect suggestive of chronic small vessel ischemic changes. Similar findings are visualized extending into the hasmukh and the midbrain at the lateral ventricles. The lateral ventricles mildly enlarged but symmetrical in size and configuration. Normal flow-void signal is seen in major cerebral vasculature. Paranasal sinuses are well-aerated aerated and so are the mastoid sinuses. There is normal symmetry of optic nerves, optic globes and the periorbital soft tissues. IACs are symmetrical and unremarkable. The craniovertebral junction appears unremarkable. The scalp in the soft tissues are unremarkable. MR/MR head/brain wo con IMPRESSION: Nonhemorrhagic acute cortical and subcortical infarct right frontal lobe. Referring physician was tiger texted but no response hence ER was called and patient was directed for ER visit. Electronically signed by: Paul Meeks MD 06/09/2025 08:14 AM MIKE
--- OUTSIDE RECORDS SUMMARY | 2025-06-09 07:21 | XMS_ITS | Patient Health Record ---
Author Organization [facility] Address [address] [place] [address] Care Team Providers Care Briquette Operator Name Role Phone Siddharth Garcia Primary Care [...] Problem History of polyp of colon (situation) (046834387) History of colon polyps (Z86.010) Active confirmed Plan Of Treatment Future Test Test Name Order Date COLONOSCOPY 09/11/2020 Insurance Providers Payer Name Payer Address Payer Phone Subscriber Number Group Number Insured Name Patient Relationship to Insured Coverage Start Date Coverage End Date MEDICARE OF [place] [address] [place] [address] [id number] GAYLE MADSEN Self - patient is the insured MEDEX ATTN CLAIMS [address] [place] [address] [id number] GAYLE MADSEN Self - patient is the insured Medical (General) History Medical History History ICD Code anemia anxiety memory loss Surgical History Surgery Date(Month/Year) bladder suspension appendectomy
--- OUTSIDE RECORDS SUMMARY | 2025-06-09 07:21 | XMS_ITS | Patient Health Record ---
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 Name Role Phone Jose Siddharth Primary Care Provider Unavailab Liborio Ramey Unavailable [phone] Allergies Allergen (clinical drug ingredient) Drug/Non Drug [...] primary osteoarthritis of the ankle and/or foot (591801205) Primary osteoarthrit is, right ankle and foot (M19.071) Active confirmed Problem Localized, primary osteoarthritis of the ankle and/or foot (505496099) Primary osteoarthrit is, left ankle and foot (M19.072) Active confirmed Problem Acquired hammer toe of right foot (2107006893506732) Other hammer toe(s) (acquired), right foot (M20.41) Active confirmed Problem Acquired hammer toe of left foot (6777634475100507) Other hammer toe(s) (acquired), left foot (M20.42) Active confirmed Plan Of Treatment Pending Test Test Name Order Date X ray : Foot, left 2V 12/09/2012 X ray : Foot, left 2V 01/21/2018 X ray : Foot, right 2V 01/21/2018 X ray : Foot, right 2V 12/09/2012 X ray : Foot, right 3V 08/22/2022 [id number] Destruction, 1-14 08/13/2016 [id number] Destruction, 1-14 02/07/2014 27881- Debride <25 sq cm 09/14/2014 88367- Debride <25 sq cm 12/09/2012 Insurance Providers Payer Name Payer Address Payer Phone Subscriber Number Group Number Insured Name Patient Relationship to Insured Coverage Start Date Coverage End Date Medicare National [employer] [address] [place] [address] [phone] [id number] Radha Ndiaye Self - patient is the insured [employer] [address] [place] [address] [phone] [id number] Radha Ndiaye Self - patient is the insured Medical (General) History Medical History History ICD Code psoriasis/eczema Anxiety Arthritis nerve disorder Numbness thyroid Transfusions Surgical History Surgery Date(Month/Year) bladder suspension - urinary incontinenc e 1994 appendicitis - ruptured appendix 1963
== END 2025-06-09 07:16 | disposition home or self-care (01) ==
LOC: HO.MRI 07:15
PROVIDERS: PCP Physician Assistant; Visit Provider Physician Assistant
DX: R41.3 Other amnesia (principal)
CPT/HCPCS: 70551

== ENCOUNTER 2025-06-09 08:13 | Inpatient (IN) | payer MEDICARE, SELFPAY ==
[2025-06-09] VITALS (7 sets, daily range): BP systolic 116–144; BP diastolic 47–60; PULSE 71–79; RESP 16–95; TEMP 36–36.9; O2SAT 93–97; BMI 21.6; BMI 23.6
--- NOTE | 2025-06-09 | ECG_ITS ---
Test Reason : ? STROKE Blood Pressure : */* mmHG Vent. Rate : 73 BPM Atrial Rate : 73 BPM P-R Int : 166 ms QRS Dur : 68 ms QT Int : 370 ms P-R-T Axes : 79 -39 75 degrees QTcB Int : 407 ms Normal sinus rhythm Left axis deviation Abnormal ECG When compared with ECG of 29-May-2025 19:21, No significant change was found Referred By: Fredy Fong Electronically Signed By: Dean Plascencia
--- NOTE | ~2025-06-09 | CT_ITS ---
EXAMINATION: CTA NECK WITH CONTRAST (STROKE) CTA BRAIN WITH CONTRAST (STROKE) CLINICAL INFORMATION: Nonhemorrhagic acute cortical and subcortical infarct posterior right frontal lobe. COMPARISON: MRI brain performed 4 hours earlier TECHNIQUE: Test bolus sequences and head and neck intravenous bolus administration of 70mL of Omnipaque 350. Helical imaging was performed in the axial plane from the aortic arch to the skull vertex. The data was processed at the systems technologist's workstation for generation of MIP sequences. Angled MIPs and volume rendered reformatted images were also generated at an offline 3D workstation. Stenoses are assessed in accordance with NASCET criteria unless otherwise indicated. This CT examination was performed using dose optimization techniques as appropriate, variously including the following: *Automated exposure control *Adjustment of mA and/or kV according to patient size (this includes techniques or standardized protocols for targeted exams where dose is matched to indication/reason for exam; i.e. extremities or head) *Use of iterative reconstruction technique FINDINGS: NECK CTA: -AORTIC ARCH: Normal in caliber. Moderate atheromatous calcification. Three-vessel branching pattern. -GREAT VESSEL ORIGINS: No hemodynamically significant stenosis. -RIGHT COMMON CAROTID ARTERY: Normal in course and caliber to the level of the bifurcation. -CERVICAL RIGHT INTERNAL CAROTID ARTERY: There is a central and medial filling defect of the right internal carotid artery, 1 cm cephalad to the bifurcation. There is a short crescent-shaped filling of the lumen which narrows to 1.5 mm. More distally the vessel measures 4.75 mm consistent with approximately 70% stenosis. Just cephalad to this region, there is a 5 mm calcified plaque along the medial wall that results in focal narrowing of the lumen diameter to 1.7 mm consistent with 64% stenosis. -LEFT COMMON CAROTID ARTERY: Normal in course and caliber to the level of the bifurcation. -CERVICAL LEFT INTERNAL CAROTID ARTERY: Mild calcific atherosclerotic disease of the carotid bulb and proximal internal carotid artery resulting in approximate 36% short segment stenosis. -CERVICAL RIGHT VERTEBRAL ARTERY: Right dominant. Normal in course and caliber into the skull base. -CERVICAL LEFT VERTEBRAL ARTERY: Normal in course and caliber into the skull base. OTHER, SOFT TISSUES: -No lymphadenopathy or mass. No abnormal fluid collection or soft tissue swelling. -Normal thyroid. -Imaged superior mediastinal structures normal. -There is mild to moderate centrilobular emphysema. There is spiculated solid nodule in the lateral left apex measuring 11 x 12 mm. CTA OF THE BRAIN: -INTRACRANIAL INTERNAL CAROTID ARTERIES: Mild multifocal atherosclerotic calcifications. No focal stenosis or occlusion. -RIGHT ANTERIOR CEREBRAL ARTERY: Normal A1 segment. Normal arborization of the distal segments. -LEFT ANTERIOR CEREBRAL ARTERY: Normal A1 segment. Normal arborization of the distal segments. -ANTERIOR COMMUNICATING ARTERY: Normal. -RIGHT MIDDLE CEREBRAL ARTERY: Normal M1 segment of the MCA without focal stenosis or occlusion. Normal bifurcation. Normal arborization of the distal segments. -LEFT MIDDLE CEREBRAL ARTERY: Normal M1 segment of the MCA without focal stenosis or occlusion. Normal bifurcation. Normal arborization of the distal segments. -RIGHT VERTEBRAL ARTERY V4: Normal in course and caliber. Normal PICA branch. -LEFT VERTEBRAL ARTERY V4: Left vertebral artery terminates into the PICA branch. -BASILAR ARTERY: Tortuous course without focal stenosis or occlusion. Unremarkable appearance of the proximal superior cerebellar arteries. Normal basilar tip. -RIGHT POSTERIOR CEREBRAL ARTERY: Normal P1 segment. Normal opacification of the distal PROJECT CONTROLLER segments. -LEFT POSTERIOR CEREBRAL ARTERY: Normal P1 segment. Normal opacification of the distal PROJECT CONTROLLER segments. -POSTERIOR COMMUNICATING ARTERIES: Present on the right and absent on the left.. Normal opacification of the superior sagittal, straight, transverse, and sigmoid sinuses. No venous thrombosis CT/CT angio head neck STROKE IMPRESSION: There is a highly suspicious solid 11 x 12 mm spiculated nodule in the lateral left lung apex. Fleischner Society recommendation: Consider CT in 3 months, PET/CT, or consultation for biopsy. CTA NECK: There are 2 focal hemodynamically significant stenoses in the cervical right internal carotid artery. There is a filling defect in the central and medial right internal carotid artery 1 cm distal to the bifurcation resulting concentric filling of the vessel with approximately 70% stenosis. Just cephalad to the aforementioned, there is a calcified 5 mm plaque that results in 64% focal stenosis. CTA HEAD: No hemodynamically significant stenosis. Result delivered via [facility] [employer] to Dr. Fong at 12:15pm EST Electronically signed by: Jonathan Donaldson MD 06/09/2025 12:18 PM EST
--- NOTE | 2025-06-09 08:31 | ED_ITS ---
HPI - Neuro Symptoms/Deficit General Chief Complaint: Stroke Stated Complaint: possible Stroke Time Seen by Provider: 06/09/25 08:18 Source: patient and family ( [place]) Mode of arrival: wheelchair Limitations: no limitations History of Present Illness ED Provider: Dr. Fredy Fong HPI Narrative: 80-year-old female past medical history significant for tobacco use disorder, thyroid nodules, nephrolithiasis, impaired glucose metabolism, anxiety disorder, gammopathy monoclonal who saw her PCP,. Siddharth Madera on 05/12/2025 for left hand numbness with incoordination that occurred 1 week prior to the office visit. Patient was having difficulty with fine motor skills in her left arm. Patient's states that her strength is better but her left hand is still clumsy compared to the right. At that visit the patient also complained of having difficulty with memory and that has a concerned that she may be developing Alzheimer's disease. At that office visit an MRI of the brain was ordered to evaluate these symptoms. The MRI done today and in his contacted by our radiologist who was concerned that the patient may have had an acute stroke, therefore the patient was sent to the emergency department for evaluation. The patient states that she was not feeling ill in any way prior to getting this MRI this morning. She denied headache, lightheadedness, dizziness, difficulty thinking or talking, numbness or weakness. Related Data Home Medications ?Medication ?Instructions ?Recorded ?Confirmed glucosamine sulfate 500 mg tablet 500 mg PO DAILY 04/2406/09/25 (Glucosamine) albuterol sulfate 90 mcg/actuation 2 inh inhalation QI D PRN shortness 06/09/25 06/09/25 aerosol inhaler of breath or wheezing calcium carbonate (Calcium 500) 500 mg PO DAILY 06/09/25 glycopyrrolate 9 mcg-formoterol 2 puff inhalation BID 06/09/25 06/09/25 4.8 mcg HFA aerosol inhaler (Bevespi Aerosphere) ketoconazole 2 % shampoo 1 appl topical MOWEFR 06/09/25 levothyroxine 112 mcg tablet 112 mcg PO DAILY@0600 06/09/25 triamcinolone acetonide 0.1 % 1 appl topical DAILY PRN Skin 12/18/25 12/18/25 topical cream Irritation Previous Rx's ?Medication ?Instructions ?Recorded cholecalciferol (vitamin D3) 50 50 mcg PO DAILY 90 day s #90 caps 04/07/23 mcg (2,000 unit) capsule ferrous sulfate 325 mg (65 mg 325 mg PO DAILY #90 tabs 10/25/24 iron) tablet lorazepam 1 mg tablet (Ativan) 1 mg PO BID PRN Anxiety 30 days 05/12/25 #60 tabs Allergies Allergy/AdvReac Type Severity Reaction Status Date / Time dextran 40 (DEXTRAN 40) Allergy Severe TACHYCARDIA Verified 06/09/25 08:25 AND HYPERTENSIVE prednisone AdvReac Intermediate Palpitation Verified 06/09/25 08:25 s erythromycin base AdvReac Mild Nausea and Verified 06/09/25 08:25 Vomiting succinylcholine AdvReac Unknown FEVER, Verified 06/09/25 08:25 (SUCCINYLCHOLINE) COULD NOT MOVE immune globulin,gamma (IgG) AdvReac Hives Verified 06/09/25 08:25 [facility] Review of Systems 2 Review of Systems: Yes all other systems are reviewed and are negative [facility] Past Medical History Medical History Acute respiratory disease Wheezing on auscultation Postoperative hypothyroidism (~2022) Nicotine dependence, cigarettes, uncomplicated Vitamin D deficiency Osteopenia (~2020) AMANDA (generalized anxiety disorder) Post-menopausal Arthritis Anemia GERD (gastroesophageal reflux disease) Tubular adenoma of colon (~2020) Neuropathy Gammopathy, monoclonal (~2018) Surgical History History of total thyroidectomy (~2022) History of bone marrow biopsy (~2018) History of esophagogastroduodenoscopy (EGD) (~2018) History of colonoscopy (~2020) History of appendectomy History of bladder surgery (~1994) Family History Family History Sister Heart disease Brother Heart disease Sister Cancer Father Diabetes Mother Ovarian cancer Social History Social History Household Members: Spouse Housing: House Are you a primary home care specialist to a significant other at home: No Do you presently have visiting nurse or other home services: No Alcohol intake: current Alcohol intake frequency: does not drink Patient Tobacco Use Status: Current everyday Tobacco user Tobacco use type: Cigarette Cigarette Packs Per Day: 1 Cigarettes Per Day: 20.0 Years Smoked: onset 20yo, 1-1.5ppd x 56yrs - 70+PYH Smoked in Last 30 Days: Yes e-Cigarette/Vaping Use: Never Used Second Hand Smoke Exposure: No Advance Directives: No Advance Directives Information Provided: Yes Advance Directives Date on File: 07/25/14 service: No Current occupational status: retired Cognitive needs: No Hearing needs: No Vision needs: Yes Physical Exam 2 Vital Signs: Vital Signs: Last Vital Signs Temp 97.9 F 06/09/25 12:15 Pulse 79 06/09/25 12:15 Resp 16 06/09/25 12:15 BP 137/54 L 06/09/25 12:15 Pulse Ox 97 06/09/25 12:15 O2 Del Method Room Air 06/09/25 12:15 BMI result Body Mass Index 21.6 Vital signs were normal Exam: General: Awake, alert in no distress Head: Normocephalic, atraumatic EENT: PERRL, sclera and conjunctiva are normal, mouth with no erythema or exudates Neck: Supple, no adenopathy Lung: breath sounds symmetric, no wheezing, no rales and no rhonchi Chest: symmetric movement, nontender Heart: regular rate and rhythm, normal S1, S2 no murmurs or rubs Abdomen: soft, non-tender, nondistended, normal bowel sounds Back: no vertebral tenderness, no CVAT Extremities: no deformities, moves all extremities symmetrically, no edema Neuro: General: ?Awake, alert, oriented, normal speech Cranial nerves: ?Cranial nerves 2-12 ?intact Strength: ?Moves all extremities symmetrically, strength 5/5 Cerebellar: ?Good dbszwa-dx-hmai-to-finger, good rapid finger movement, normal heel to hartman Psych: Pleasant, cooperative Medications Administered Discontinued Medications Generic Name Dose Route Start Last Admin Trade Name Freq PRN Reason Stop Dose Admin Aspirin 162 mg 06/09/25 10:12 06/09/25 10:19 Aspirin 81 Mg Tab.Chew PO 06/09/25 10:13 162 mg ONCE STA Administration Sodium Chloride 1,000 mls @ 999 mls/hr 06/09/25 11:24 06/09/25 13:33 Ns IV 06/09/25 12:24 Infused .Q1H1M STA Infusion Iohexol 100 ml 06/09/25 11:40 06/09/25 11:44 Iohexol 350 Mg/Ml 100 Ml Infus..Btl IV 06/09/25 11:41 70 ml ONCE ONE Administration Lorazepam 1 mg 06/09/25 10:12 06/09/25 10:18 Lorazepam 1 Mg Tablet PO 06/09/25 10:13 1 mg ONCE ONE Administration Medical Decision Making Medical Decision Making MDM Narrative: 80-year-old female past medical history significant for tobacco use disorder, thyroid nodules, nephrolithiasis, impaired glucose metabolism, anxiety disorder, gammopathy monoclonal who saw her PCP,. Siddharth Madera on 05/12/2025 for left hand numbness with incoordination that occurred 1 week prior to the office visit. Patient was having difficulty with fine motor skills in her left arm. Patient's states that her strength is better but her left hand is still clumsy compared to the right. The patient states the numbness has resolved. At that visit the patient also complained of having difficulty with memory and that has a concerned that she may be developing Alzheimer's disease. At that office visit an MRI of the brain was ordered to evaluate these symptoms. The MRI done today and in his contacted by our radiologist who was concerned that the patient may have had an acute stroke, therefore the patient was sent to the emergency department for evaluation. The patient states that she was not feeling ill in any way prior to getting this MRI this morning. She denied headache, lightheadedness, dizziness, difficulty thinking or talking, numbness or weakness. Vital signs revealed an elevated blood pressure of 144/57 otherwise unremarkable. Physical examination was unremarkable with a normal neurologic exam. Differential diagnosis: ?Includes but is not limited to stroke, TIA, anemia, electrolyte abnormalities Course: 09:26 I did discuss the MRI report with Dr. Meeks and he is concerned that the patient is having acute stroke based on the diffusion component of the scan. I did discuss this with our nurse pharmacy benefits coordinator, Hazel Martin who is going to consult Dr. Bryant regarding the patient's presentation. I did discuss this with the patient and the patient's . I did order laboratory evaluation as well. 09:59 My interpretation patient's laboratory evaluation: CBC was normal. Coags were normal Twelve EKG was unremarkable. Dr. Bryant was able to review the patient's MRI and felt that the patient had an acute embolic stroke and is recommending admission for further treatment. The patient's NIH stroke scale is 0. The patient's last well-known time was unknown therefore she is not a thrombolytics candidate. 10:13 I did discuss admission over tiger text with the covering hospitalist, Dr. Redd and the patient will be admitted for further treat. I did discuss the need for admission with the patient and the patient's . The patient is not happy about being admitted but she did agree to stay in the hospital for further evaluation. She states she is feeling anxious therefore she was given Ativan 1 mg orally for her anxiety. I also gave her aspirin 160 mg orally. 11:26 Patient was seen by Dr. Bryant in the patient does not want to stay in the hospital. He recommended CT angiogram head and neck which was ordered. At this point, we will put the patient's admission on hold pending this result. 13:24 CT angiogram head and neck did reveal hemodynamically significant stenosis in the cervical right internal carotid with filling defects in the central and medial right internal carotid arteries. There is also an incidental finding of a I suspicions solid 11 x 12 mm spiculated nodule in the lateral aspect of the left lung. 14:04 I did discuss the patient's presentation over tiger text with our nurse pharmacy benefits coordinator Hazel Martin and after this discussion, Dr. Bryant amended his neurology consult note recommended that the patient stay for medical management of the CT angiogram findings. I was able to convince the patient to stay in the hospital and I did discuss the patient's presentation with Dr. Redd and the patient will be admitted for further treatment. Differential Diagnosis Differential Diagnoses: The differential diagnosis associated with the presentation includes (See above) Admission/Observation Consideration of admission/observation: Escalation of care including admission/observation considered (Yes) Consult Healthcare Provider Management of the patient was discussed with: Hospitalist (Dr. Redd) and Cloth Boil Off Machine Operator (Dr Bryant) Lab Data MDM Lab Attestation statement: I reviewed the patient's lab results. 06/09/25 09:28 06/09/25 09:28 Labs: Lab Results 12/18/25 Range/Units 09:28 WBC 7.2 (4.8-10.8) X10*3/uL RBC 4.76 (4.20-5.50) X10*6/uL Hgb 12.8 (12.0-16.0) g/dl Hct 41.5 (37.0-47.0) % MCV 87.2 (80.0-98.0) fL MCH 26.9 L (27.0-33.0) pg MCHC 30.8 L (31.0-35.0) g/dl RDW 13.2 (11.0-16.0) % Plt Count 345 (160-400) X10*3/uL MPV 9.8 (9.4-12.3) fL Immature Gran % (Auto) 0.3 (0.0-0.4) % Neut % (Auto) 73.4 H (45-73) % Lymph % (Auto) 13.0 L (20-40) % [place] % (Auto) 10.4 (2-11) % Eos % (Auto) 2.2 (0-4) % Baso % (Auto) 0.7 (0-2) % Lymph # (Auto) 0.9 L (1.2-4.9) X10*3/uL [place] # (Auto) 0.8 (0.1-1.2) X10*3/uL Eos # (Auto) 0.2 (0.0-0.4) X10*3/uL Baso # (Auto) 0.1 (0.0-0.2) X10*3/uL Abs Immat Gran (auto) 0.02 (0.00-0.03) X10*3/uL Absolute Neuts (auto) 5.3 (2.0-8.3) x10*3/uL Absolute Nucleated RBC 0.000 (0.0-0.012) X10*3/uL Nucleated RBC % (auto) 0.0 (0.0-0.2) /100WBC PT 12.1 (11.2-13.5) SEC INR 1.0 (0.9-1.1) APTT 30.3 (26.7-34.1) SEC Sodium 139 (135-145) mmol/L Potassium 4.9 (3.3-5.1) mmol/L Chloride 101 (96-108) mmol/L Carbon Dioxide 33 H (22-29) mmol/L Anion Gap 12 (12-20) BUN 21 H (9-16) mg/dL Creatinine 0.80 (0.5-1.4) mg/dL Estim Creat Clear Calc 44.3 Estimated GFR > 60 Random Glucose 92 (60-115) mg/dL Lactic Acid 1.0 (0.5-2.0) mmol/L Calcium 9.3 (8.4-10.2) mg/dL Magnesium 2.2 (1.6-2.6) mg/dL Total Bilirubin 0.5 (0.0-1.0) mg/dL AST 19 (5-31) U/L ALT 21 (0-31) U/L Alkaline Phosphatase 101 (39-117) U/L Total Protein 7.2 (6.5-8.0) g/dL Albumin 4.4 (3.5-5.0) g/dL Lipase 19 (8-78) U/L Influenza Type A (PCR) NEGATIVE (Negative) Influenza Type B (PCR) NEGATIVE (Negative) RSV RNA Qual (PCR) NEGATIVE (Negative) SARS-CoV-2 RNA (RT-PCR) NEGATIVE (Negative) Independent Interpretation I performed an independent interpretation of an: EKG Interpretation: My independent interpretation patient's 12 EKG done on 06/09/2025 at 08:31 hours is as follows: Normal sinus rhythm rate of 73, normal WI interval, QRS duration and QTC interval, no ST segment elevation, no ST segment depression, no PACs, no PVCs, no significant T-wave abnormalities. Radiology Impression Discussion of test interpretation with radiology: I discussed test interpretation with the radiologist and I have reviewed the radiologist's reading. Radiologist Impression: MR head/brain wo con IMPRESSION: Nonhemorrhagic acute cortical and subcortical infarct right frontal lobe. Referring physician was tiger texted but no response hence ER was called and patient was directed for ER visit. Electronically signed by: Paul Meeks MD 06/09/2025 08:[address] angio head neck STROKE IMPRESSION: There is a highly suspicious solid 11 x 12 mm spiculated nodule in the lateral left lung apex. Fleischner Society recommendation: Consider CT in 3 months, PET/CT, or consultation for biopsy. CTA NECK: There are 2 focal hemodynamically significant stenoses in the cervical right internal carotid artery. There is a filling defect in the central and medial right internal carotid artery 1 cm distal to the bifurcation resulting concentric filling of the vessel with approximately 70% stenosis. Just cephalad to the aforementioned, there is a calcified 5 mm plaque that results in 64% focal stenosis. CTA HEAD: No hemodynamically significant stenosis. Result delivered via [place] to Dr. Fong at 12:15pm EST Independent Historian Clinical information obtained from an independent historian. History obtained from or confirmed by: Spouse External Record Review External record reviewed: Office record Chronic Conditions Patient?s care impacted by: Diabetes and Hypertension NIH Stroke Scale Internal: Initial- Upon Arrival Level of Consciousness: Alert Level of Consciousness Questions: Answers both questions correctly Level of Consciousness Commands: Performs both tasks correctly Best Gaze: Normal Visual: No visual loss Facial Palsy: Normal Motor Arm (Right): No drift Motor Arm (Left): No drift Motor Leg (Right): No drift Motor Leg (Left): No drift Limb Ataxia: Absent Sensory: Normal Best Language: No aphasia Dysarthia: Normal Extinction and Inattention: No abnormality Score: 0 Critical Care Time Critical Care Time Critical Care Time: Yes Total Critical Care Time: 75 Attestation: Critical Care: The patient was critically ill with a high probability of imminent or life threatening deterioration. I spent greater than 30 minutes of discontinuous time evaluating the patient,delivering critical care at the bedside, discussing and evaluating pertinent data with consultants. Critical care time does not include time spent performing separately billable procedures or teaching. Total time spent performing critical care was 75 minutes. Discharge Plan Discharge Clinical Impression: Acute embolic stroke Print Language: Tamazight
[2025-06-09 09:33] LABS: MANUAL DIFF FLAG NO
[2025-06-09 09:35] LABS: Hematocrit 41.5 % (37.0-47.0); Hemoglobin 12.8 g/dl (12.0-16.0); Imm Gran Abs Auto 0.02 X10*3/uL (0.00-0.03); Imm Gran Pct Auto 0.3 % (0.0-0.4); Lymphocytes Absolute Auto 0.9 X10*3/uL (1.2-4.9); Mean Corpuscular HGB Conc 30.8 g/dl (31.0-35.0); Mean Corpuscular Hemoglobin 26.9 pg (27.0-33.0); Mean Corpuscular Volume 87.2 fL (80.0-98.0); NRBC Abs Auto 0.000 X10*3/uL (0.0-0.012); NRBC Pct Auto 0.0 /100WBC (0.0-0.2); Platelet Count 345 X10*3/uL (160-400); Red Blood Count 4.76 X10*6/uL (4.20-5.50); White Blood Count 7.2 X10*3/uL (4.8-10.8)
[2025-06-09 09:48] LABS: INTERNATIONAL NORM RATIO 1.0 (0.9-1.1); Prothrombin Time 12.1 SEC (11.2-13.5)
--- NOTE | 2025-06-09 09:49 | PC.NURSE ---
pt comes to ED from outpatient MRI. Radiologist called over to ED with concern for stroke. On arrival to unit pt is AOx4, ambulatory States she was getting the MRI due to ongoing memory issues for about 1 year. Pt states that a few weeks to a month ago she noticed some clumsiness in her left hand and some numbness. She states the numbness has resolved but sometimes her hand does not work quite right on the left. She does not have any complaints of pain, SOB, nausea. States she feels well. reports anxiety IV in left AC. EKG and labs done. NSR on tele. lung sounds clear. Pt has a wet sounding cough intermittent states I always have that
[2025-06-09 09:51] LABS: Partial Thromboplastin Time 30.3 SEC (26.7-34.1)
[2025-06-09 10:08] LABS: Alanine Aminotransferase 21 U/L (0-31); Albumin Level 4.4 g/dL (3.5-5.0); Alkaline Phosphatase 101 U/L (39-117); Anion Gap 12 (12-20); Aspartate Amino Transferase 19 U/L (5-31); Blood Urea Nitrogen 21 mg/dL (9-16); Calcium 9.3 mg/dL (8.4-10.2); Carbon Dioxide 33 mmol/L (22-29); Chloride 101 mmol/L (96-108); Creatinine Clr Calc Pharmacy 44.3; Estimated Glomerular Filt Rate > 60; Lipase 19 U/L (8-78); Magnesium 2.2 mg/dL (1.6-2.6); Potassium 4.9 mmol/L (3.3-5.1); Sodium 139 mmol/L (135-145); Total Protein 7.2 g/dL (6.5-8.0)
[2025-06-09 10:10] LABS: Resp Syncy Virus RNA Qual PCR NEGATIVE (Negative); SARS COV2 PCR INHOUSE NEGATIVE (Negative)
--- NOTE | 2025-06-09 11:35 | PM.NEUROCN ---
History of Present Illness Data of Consult Service Date: 06/09/25 Primary Care Provider: Siddharth Garcia PA-C HPI Reason for consult: Stroke 80 years old woman with no history of any significant heart disease complain of left arm numbness or hand numbness and forgetfulness recently and had an outpatient MRI of brain. Her MRI of brain revealed an acute stroke and she was referred to emergency room. He was not having any headaches. She denied any seizure disorder any cardiac problems. She did not want to stay in hospital and wanted to go back home. Review of Systems Review of Systems: Constitutional:?No fever, chills, fatigue, weight loss, or night sweats. HEENT:?No headache, vision changes, hearing loss, nasal congestion, sore throat. Cardiovascular:?No chest pain, palpitations, orthopnea, PND, or leg swelling. Respiratory:?No cough, shortness of breath, wheezing, or hemoptysis. Gastrointestinal:?No nausea, vomiting, abdominal pain, diarrhea, or constipation. Genitourinary:?No dysuria, frequency, incontinence, or hematuria. Musculoskeletal:?No joint pain, stiffness, weakness, or muscle aches. Neurological:? Complain of forgetfulness and left hand numbness Psychiatric:?No anxiety, depression, mood swings, sleep disturbance, or hallucinations. Endocrine:?No heat/cold intolerance, polydipsia, polyuria, or hair/skin changes. Hematologic/Lymphatic:?No easy bruising, bleeding, or lymphadenopathy. Integumentary (Skin):?No rash, lesions, itching, or color changes. Allergic/Immunologic:?No seasonal allergies, hives, or recurrent infections. [facility] Past Medical History Medical History Acute respiratory disease Wheezing on auscultation Postoperative hypothyroidism (~2022) Nicotine dependence, cigarettes, uncomplicated Vitamin D deficiency Osteopenia (~2020) AMANDA (generalized anxiety disorder) Post-menopausal Arthritis Anemia GERD (gastroesophageal reflux disease) Tubular adenoma of colon (~2020) Neuropathy Gammopathy, monoclonal (~2018) Family History Family History Sister Heart disease Brother Heart disease Sister Cancer Father Diabetes Mother Ovarian cancer Surgical History Surgical History History of total thyroidectomy (~2022) History of bone marrow biopsy (~2018) History of esophagogastroduodenoscopy (EGD) (~2018) History of colonoscopy (~2020) History of appendectomy History of bladder surgery (~1994) Social History Social History Household Members: Spouse Housing: House Are you a primary veterinarian laboratory animal care to a significant other at home: No Do you presently have visiting nurse or other home services: No Alcohol intake: current Alcohol intake frequency: does not drink Patient Tobacco Use Status: Current everyday Tobacco user Tobacco use type: Cigarette Cigarette Packs Per Day: 1 Cigarettes Per Day: 20.0 Years Smoked: onset 20yo, 1-1.5ppd x 56yrs - 70+PYH Smoked in Last 30 Days: Yes e-Cigarette/Vaping Use: Never Used Second Hand Smoke Exposure: No Advance Directives: No Advance Directives Information Provided: Yes Advance Directives Date on File: 07/25/14 service: No Current occupational status: retired Cognitive needs: No Hearing needs: No Vision needs: Yes Meds Allergies Allergy/AdvReac Type Severity Reaction Status Date / Time dextran 40 (DEXTRAN 40) Allergy Severe TACHYCARDIA Verified 06/09/25 08:25 AND HYPERTENSIVE prednisone AdvReac Intermediate Palpitation Verified 06/09/25 08:25 s erythromycin base AdvReac Mild Nausea and Verified 06/09/25 08:25 Vomiting succinylcholine AdvReac Unknown FEVER, Verified 06/09/25 08:25 (SUCCINYLCHOLINE) COULD NOT MOVE immune globulin,gamma (IgG) AdvReac Hives Verified 06/09/25 08:25 human (From [facility]bog[facility]) Active Medications: Current Medications Sodium Chloride (Ns) 1,000 mls @ 999 mls/hr IV .Q1H1M STA Stop: 06/09/25 12:24 Home Medications ?Medication ?Instructions ?Recorded ?Confirmed ?Last Taken ?Type vitamin B complex 1 tab PO DAILY 11/09/24 05/12/25 Unknown History vitamin E (dl, acetate) 180 mg 180 mg PO DAILY 11/09/24 05/12/25 Unknown History (400 unit) capsule glucosamine sulfate 500 mg tablet 500 mg PO DAILY 11/20/25 11/20/25 Unknown History (Glucosamine) Physical Exam Vital Signs: Vital Signs: Last Vital Signs Temp 97.6 F 06/09/25 08:25 Pulse 77 06/09/25 09:22 Resp 95 H 06/09/25 09:22 BP 131/47 L 06/09/25 09:22 Pulse Ox 96 06/09/25 09:22 O2 Del Method Room Air 06/09/25 09:22 BMI result Body Mass Index 21.6 Neuro: Other: Mental Status: Alert and oriented to person, place, and time. Normal attention. Normal spontaneous speech, fluency, and comprehension. Cranial Nerves: CN II: Visual wills full to confrontation, visual acuity intact. CN III, IV, : Pupils equal, round, reactive to light and accommodation. Extraocular movements are normal. CN V: Facial sensation is normal. CN VII: Facial movements symmetrical. CN VIII: Hearing intact to bedside conversation is normal. CN IX, X: Palate elevates symmetrically. CN XI: Shoulder shrug and head turn symmetrical. CN XII: Tongue midline without atrophy or fasciculations. Motor: Bulk and tone normal in all extremities. No significant muscle weakness in arms and legs. No drift. Reflexes: Deep tendon reflexes are trace. Coordination: Wbrojv-ju-knoo and brea-vb-vciq testing normal. No dysmetria. Extrapyramidal: Full facial expressions and blinking. No rigidity. Movements are appropriate with no tremor or abnormality. Speech: Normal; no dysarthria or tremor. Results Labs 06/09/25 09:28 06/09/25 09:28 Labs: Short CBC 06/09/25 Range/Units 09:28 WBC 7.2 (4.8-10.8) X10*3/uL Hgb 12.8 (12.0-16.0) g/dl Hct 41.5 (37.0-47.0) % Plt Count 345 (160-400) X10*3/uL BMP 06/09/25 09:28 Sodium 139 Potassium 4.9 Chloride 101 Carbon Dioxide 33 H BUN 21 H Creatinine 0.80 Calcium 9.3 Liver Function 06/09/25 Range/Units 09:28 Total Bilirubin 0.5 (0.0-1.0) mg/dL AST 19 (5-31) U/L ALT 21 (0-31) U/L Alkaline Phosphatase 101 (39-117) U/L Albumin 4.4 (3.5-5.0) g/dL [address] [address] Magnetic Resonance Report Signed Patient: Radha Ndiaye MR#: [id number] : 1945 Acct:[id number] Age/Sex: 80 / F ADM Date: 06/09/25 Loc: HO.MRI Attending Dr: Siddharth Garcia PA-C Ordering Physician: Siddharth Garcia PA-C Date of Service: 06/09/25 Procedure(s): MR head/brain wo con Accession Number(s): [id number] cc: Siddharth Garcia PA-C~ Reason for Exam: R41.3 - Other amnesia EXAMINATION: MR BRAIN WITHOUT CONTRAST CLINICAL INFORMATION: Amnesia. Worsening memory impairment. COMPARISON: None available. TECHNIQUE: MRI of the brain was obtained using routine sequences without contrast. FINDINGS: There are areas of restricted diffusion in cortical and subcortical subcortical white matter right frontal lobe on axial slice 40/6 with corresponding positive ADC findings. There is no corresponding hemorrhagic changes. Rest of the diffusion is unremarkable. There is extensive T2 weighted FLAIR signal changes in the deep white matter both cerebral hemispheres without mass effect suggestive of chronic small vessel ischemic changes. Similar findings are visualized extending into the hasmukh and the midbrain at the lateral ventricles. The lateral ventricles mildly enlarged but symmetrical in size and configuration. Normal flow-void signal is seen in major cerebral vasculature. Paranasal sinuses are well-aerated aerated and so are the mastoid sinuses. There is normal symmetry of optic nerves, optic globes and the periorbital soft tissues. IACs are symmetrical and unremarkable. The craniovertebral junction appears unremarkable. The scalp in the soft tissues are unremarkable. MR/MR head/brain wo con IMPRESSION: Nonhemorrhagic acute cortical and subcortical infarct right frontal lobe. Assessment and Plan (1) Acute embolic stroke: Status: Acute 80 years old woman with a small right frontoparietal cortical embolic cerebral infarction with numerous other similar chronic bilateral ischemic infarction. She recently had left hand numbness and forgetfulness that is explain based upon her acute and chronic pathology. Likely etiology is cardiac source of embolism. My recommendation is to obtain CTA of brain and neck to rule out large vessel disease. If that is negative, my recommendation is to start her on anticoagulation and during next few months complete workup for atrial fibrillation. 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 Procedures Date of Service Date of Service: 06/09/25
[2025-06-09] MEDS: iohexoL 350 MG/ML 100 ML INFUS..BTL IV (11:44)
--- NOTE | 2025-06-09 11:46 | MHC.STROKE ---
Met with patient and Cliff in ED room 3. Pt awake, alert and oriented x 4. No focal deficits noted. Pt reports that at a recent PCP visit, she was telling her provider that she feels that she is increasingly forgetful. She also recently c/o left hand numbness. Her PCP ordered and MRI and upon the radiologist reading it, she was subsequently sent to the ED. (MRI read as acute stroke) Pt tells this insurance writer that she has no interest in being admitted to the hospital. We discussed risk, benefits and alternatives in detail. Pt was also evaluated by Dr. Bryant during this time. Again, plan of care discussed and patient requesting to be discharged home. Medical history including dx, medications, diet, activity, and social hx reviewed in detail. All questions answered. Stroke pamphlet reviewed, discussed. Dr. Bryant requesting CTA prior to discharge home. Pt is aware that she will be leaving AMA. S/S of stroke reviewed along with the importance of utilizing 911 if necessary once she's home. Will continue to assist as needed.
--- NOTE | 2025-06-09 13:34 | PHA.MEDREC ---
Pharmacy Consult ? Medication Reconciliation Pharmacy has completed the medication reconciliation. Spoke to patient (had a written home med list with her) to confirm medication list. Per patient, she had finished the benadryl + famotidine + medrol dose alex that were given to her from last visit on 05/29/25. For inhalers, she uses Bevespi 2 puffs bid and albuterol prn. She was able to take vitamin D, levothyroxine and Bevespi today 06/09/25, everything else was yesterday 06/08/25.
--- NOTE | 2025-06-09 15:00 | CA_ITS ---
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 embolic Study Quality: Adequate ECG Rhythm: Sinus Conclusions: - Normal left ventricular size, thickness, systolic function, and wall motion. The visually estimated ejection fraction is between 55-60%. - E/E prime ratio is between 8 and 15 consistent with indeterminate filling pressures. - Normal right ventricular cavity size and systolic function. - There is no evidence of interatrial shunt by color Doppler. - There is mild calcification of the aortic valve. - Moderate pulmonary hypertension is present. Findings Left Ventricle Normal left ventricular size, thickness, systolic function, and wall motion. The visually estimated ejection fraction is between 55-60%. Abnormal diastolic function is noted. Spectral Doppler is indicative of an impaired relaxation filling pattern. E/E prime ratio is between 8 and 15 consistent with indeterminate filling pressures. Right Ventricle Normal right ventricular cavity size and systolic function. Atria The left atrium is normal in size. There is no evidence of interatrial shunt by color Doppler. The right atrium is normal in size. Aortic Valve There is a normal trileaflet aortic valve. There is mild calcification of the aortic valve. There is no aortic valve stenosis. There is no aortic valve regurgitation. Mitral Valve The mitral valve appears normal. There is no mitral valve regurgitation. There is no mitral valve stenosis. Pulmonic Valve The pulmonic valve is normal. There is no pulmonic valve regurgitation. Tricuspid Valve Normal tricuspid valve structure. There is no tricuspid valve regurgitation. Normal right atrial pressure. Moderate pulmonary hypertension is present. Great Vessels All visible segments of the aorta are normal in size. The visualized portions of the pulmonary artery and branches are normal. Venous The inferior vena cava is normal in size and collapses greater than 50% with inspiration. Pericardium/Pleural There is no evidence of pericardial effusion. Prior Study Comparison No prior study available for comparison. Measurements Aortic Valve KRISTY: 2.35 Right Ventricle TAPSE (mm): 19.50 TVS' John: 10.40 Tricuspid Valve RVSP: 51.00 Updated in Other Vendor System with Status of Final Dean Plascencia MD electronically signed on 06/10/2025 4:04:52 PM with status of Final
--- NOTE | 2025-06-09 15:11 | P.HPHOSP_ITS ---
History of Present Illness Date of Service: 06/09/25 Chief Complaint: Left arm numbness ,incoordination and forgetfulness. 80-year-old female patient with past medical history significant for tobacco use disorder, nephrolithiasis, impaired glucose tolerance, anxiety disorder, mono clonal gammopathy and thyroid nodule. Patient was recently seen by her PCP Siddharth Garcia on for left hand numbness with incoordination that occurred 1 week prior to her office visit. Patient also complained of memory impairment therefore an MRI brain was ordered to assess signs for stroke. An MRI brain was done today that showed acute right frontal lobe infarction based on diffusion images. At present patient denies numbness of hand but continued to have intermittent memory impairment specifically forgetful of names, complain of mild left hand incoordination. Patient denies prior history of CVA, no speech or visual impairment. Denies recent headache dizziness fever, chills. Patient evaluated by Dr. Bryant in the ED and a CTA head and neck obtained that showed 70% right internal carotid artery stenosis and an incidental finding of highly suspicious solid 11 into 12 mm spiculated nodule in the lateral left lung, CT chest is recommended in 3 months or consultation for biopsy. Patient is now being admitted to [facility] for further workup of embolic stroke, since acute right frontal ischemic infarct can be explained upon carotid disease but can not explain numerous other similar bilateral ischemic infarctions. Review of Systems 2 Review of Systems: General no headache no dizziness no fever chills. CVS no chest pain, no palpitation. Respiratory no cough, no shortness of breath. Gastrointestinal no nausea no vomiting, no abdominal pain no urgency, no frequency All other system reviewed and are negative. [facility] Medical History Acute respiratory disease Wheezing on auscultation Postoperative hypothyroidism (~2022) Nicotine dependence, cigarettes, uncomplicated Vitamin D deficiency Osteopenia (~2020) AMANDA (generalized anxiety disorder) Post-menopausal Arthritis Anemia GERD (gastroesophageal reflux disease) Tubular adenoma of colon (~2020) Neuropathy Gammopathy, monoclonal (~2018) Family History Sister Heart disease Brother Heart disease Sister Cancer Father Diabetes Mother Ovarian cancer Surgical History History of total thyroidectomy (~2022) History of bone marrow biopsy (~2018) History of esophagogastroduodenoscopy (EGD) (~2018) History of colonoscopy (~2020) History of appendectomy History of bladder surgery (~1994) Social History Household Members: Spouse Housing: House Are you a primary transitional care liaison to a significant other at home: No Do you presently have visiting nurse or other home services: No Alcohol intake: current Alcohol intake frequency: does not drink Patient Tobacco Use Status: Current everyday Tobacco user Tobacco use type: Cigarette Cigarette Packs Per Day: 1 Cigarettes Per Day: 20.0 Years Smoked: onset 20yo, 1-1.5ppd x 56yrs - 70+PYH Smoked in Last 30 Days: Yes e-Cigarette/Vaping Use: Never Used Second Hand Smoke Exposure: No Advance Directives: No Advance Directives Information Provided: Yes Advance Directives Date on File: 07/25/14 service: No Current occupational status: retired Cognitive needs: No Hearing needs: No Vision needs: Yes Meds Allergies Allergy/AdvReac Type Severity Reaction Status Date / Time dextran 40 (DEXTRAN 40) Allergy Severe TACHYCARDIA Verified 06/09/25 08:25 AND HYPERTENSIVE prednisone AdvReac Intermediate Palpitation Verified 06/09/25 08:25 s erythromycin base AdvReac Mild Nausea and Verified 06/09/25 08:25 Vomiting succinylcholine AdvReac Unknown FEVER, Verified 06/09/25 08:25 (SUCCINYLCHOLINE) COULD NOT MOVE immune globulin,gamma (IgG) AdvReac Hives Verified 06/09/25 08:25 human (From [facility]) Active Medications: Current Medications Acetaminophen (Acetaminophen 325 Mg Tablet) 650 mg PO Q6H PRN PRN Reason: Pain, Mild 1-3,fever,headache Albuterol Sulfate (Albuterol Sulfate 90 Mcg 8 Gm Inhaler) 2 puff INHALE QID PRN PRN Reason: shortness of breath or wheezing Apixaban (Apixaban 5 Mg Tablet) 5 mg PO BID QASIM Atorvastatin Calcium (Atorvastatin Calcium 40 Mg Tablet) 40 mg PO BEDTIME QASIM Calcium Carbonate (Calcium Carbonate 750 Mg Tab.Chew) 750 mg PO Q4H PRN PRN Reason: Heartburn Calcium Carbonate (Calcium Oyster Shell Elemental 500 Mg Tablet) 500 mg PO DAILY [facility] Ferrous Sulfate (Ferrous Sulfate 324 Mg Tablet.) 324 mg PO DAILY [facility] Levothyroxine Sodium (Levothyroxine Sodium 112 Mcg Tablet) 112 mcg PO DAILY@0600 QASIM Lorazepam (Lorazepam 1 Mg Tablet) 1 mg PO BID PRN PRN Reason: Anxiety Magnesium Hydroxide (Milk Of Magnesia 30 Ml Oral.Susp) 30 ml PO DAILY PRN PRN Reason: Constipation Melatonin (Melatonin 3 Mg Tablet) 6 mg PO BEDTIME PRN PRN Reason: Insomnia Nicotine (Nicotine 14 Mg Patch.Td24) 14 mg TRANSDERMA DAILY [facility] Non-Formulary Medication (Glycopyrrolate-Formoterol [Bevespi Aerosphere]) 2 puff INHALE BID [facility] Sodium Chloride (0.9 % Sodium Chloride Flush 3 Ml Syringe) 3 ml IVFLUSH QSHIFT [facility] Vitamin D (Cholecalciferol (Vitamin D3) 25 Mcg Tablet) 50 mcg PO DAILY [facility] Home Medications ?Medication ?Instructions ?Recorded ?Confirmed ?Last Taken ?Type glucosamine sulfate 500 mg tablet 500 mg PO DAILY 04/2406/09/25 06/08/25 History (Glucosamine) albuterol sulfate 90 mcg/actuation 2 inh inhalation QI D PRN shortness 06/09/25 06/09/25 Unknown History aerosol inhaler of breath or wheezing calcium carbonate (Calcium 500) 500 mg PO DAILY 06/09/25 06/08/25 History glycopyrrolate 9 mcg-formoterol 2 puff inhalation BID 06/09/25 06/09/25 06/09/25 History 4.8 mcg HFA aerosol inhaler (Bevespi Aerosphere) ketoconazole 2 % shampoo 1 appl topical MOWEFR 06/09/25 Unknown History levothyroxine 112 mcg tablet 112 mcg PO DAILY@0600 06/09/25 06/09/25 History triamcinolone acetonide 0.1 % 1 appl topical DAILY PRN Skin 06/09/25 06/09/25 Unknown History topical cream Irritation Physical Exam 2 Vital Signs and Narrative: Vital Signs: Last Vital Signs Temp 97.9 F 06/09/25 12:15 Pulse 79 06/09/25 12:15 Resp 16 06/09/25 12:15 BP 137/54 L 06/09/25 12:15 Pulse Ox 97 06/09/25 12:15 O2 Del Method Room Air 06/09/25 12:15 BMI result Body Mass Index 21.6 Const: Other: General patient resting comfortably in no acute distress. HEENT PERRLA Neck supple no JVD. CVS regular rate rhythm, Respiratory lungs clear to auscultation, no respiratory distress, no wheeze, no rhonchi. Gastrointestinal abdomen soft, nontender, bowel sounds audible, no no guarding , no rigidity. Extremities no clubbing cyanosis or edema. Neuro face symmetrical, speech normal, upper and lower extremity strength equal/normal bilaterally, no dysmetria, Skin no rash Psych appropriate affect Results Labs 06/09/25 09:28 06/09/25 09:28 Labs: Laboratory Results - last 24 hr 06/09/25 09:28 MCV 87.2 MCH 26.9 L MCHC 30.8 L RDW 13.2 Plt Count 345 MPV 9.8 Immature Gran % (Auto) 0.3 Neut % (Auto) 73.4 H Lymph % (Auto) 13.0 L [place] % (Auto) 10.4 Eos % (Auto) 2.2 Baso % (Auto) 0.7 Lymph # (Auto) 0.9 L [place] # (Auto) 0.8 Eos # (Auto) 0.2 Baso # (Auto) 0.1 Abs Immat Gran (auto) 0.02 Absolute Neuts (auto) 5.3 Absolute Nucleated RBC 0.000 Nucleated RBC % (auto) 0.0 PT 12.1 INR 1.0 APTT 30.3 Anion Gap 12 Estim Creat Clear Calc 44.3 Estimated GFR > 60 Random Glucose 92 Lactic Acid 1.0 Calcium 9.3 Magnesium 2.2 Total Bilirubin 0.5 AST 19 ALT 21 Alkaline Phosphatase 101 Total Protein 7.2 Albumin 4.4 Lipase 19 Influenza Type A (PCR) NEGATIVE Influenza Type B (PCR) NEGATIVE RSV RNA Qual (PCR) NEGATIVE SARS-CoV-2 RNA (RT-PCR) NEGATIVE Imaging Radiologist's Impressions: Impressions Head/Neck CTA 06/09/25 11:33 IMPRESSION: There is a highly suspicious solid 11 x 12 mm spiculated nodule in the lateral left lung apex. Fleischner Society recommendation: Consider CT in 3 months, PET/CT, or consultation for biopsy. CTA NECK: There are 2 focal hemodynamically significant stenoses in the cervical right internal carotid artery. There is a filling defect in the central and medial right internal carotid artery 1 cm distal to the bifurcation resulting concentric filling of the vessel with approximately 70% stenosis. Just cephalad to the aforementioned, there is a calcified 5 mm plaque that results in 64% focal stenosis. CTA HEAD: No hemodynamically significant stenosis. Result delivered via [facility] to Dr. Fong at 12:15pm EST Electronically signed by: Jonathan Donaldson MD 06/09/2025 12:18 PM EST Assessment and Plan (1) Right-sided carotid artery disease: Status: Acute (2) Acute CVA (cerebrovascular accident): Status: Acute Plan 80-year-old women diagnosed to have small right frontoparietal cortical cerebral infarction with numerous other similar chronic bilateral ischemic infarction likely embolic. CTA of brain and neck showed 70% stenosis of the right carotid artery patient is being admitted for further workup of embolic stroke. Acute right frontal ischemic infarction. Likely secondary to [id number] right internal carotid artery stenosis. Start Eliquis 5 mg b.i.d. as per neuro recommendation. Lipitor 40 mg at bedtime. Obtain echocardiogram, check lipid profile PT OT evaluation for in coordination of left hand and memory impairment Follow blood pressure/blood sugars Memory impairment likely early vascular dementia outpatient PCP follow-up, will check B12 folate and TSH. Hypothyroidism continue levothyroxine follow TSH Tobacco use disorder counseling done place on nicotine patch Left lung highly suspicious solid 11 into 12 mm spiculated nodule, patient prior chest CT from February 2023 showed heterogeneous left upper lobe nodule slightly increased from prior study of October 2022, as well as left lower lobe nodule unchanged. Recommend outpatient follow-up with primary care physician to discuss further workup as outpatient. DVT prophylaxis Eliquis b.i.d. Full code In my clinical judgment patient will require 2 midnight hospitalization due to acute CVA concerning for embolic stroke, with memory impairment and left hand incoordination requiring further workup including echocardiogram and further workup to rule out atrial fibrillation. Quality Stroke Does the patient have a stroke diagnosis?: Yes Reason for No Anti-thrombotic by Day Two: N/A - Med Ordered VTE Prior VTE?: No VTE Risk Level:: Medical - moderate - high VTE Device Contraindication: Treatment Not Indicated VTE Drug Contraindication: N/A - Med Ordered
--- NOTE | 2025-06-09 16:30 | P.CONGS_ITS ---
History of Present Illness Consult details Consult date: 06/09/25 Reason for consult: other (Carotid stenosis with stroke) Narrative: Complex 80-year-old female smoker with a history significant for peripheral vascular disease complained of left arm numbness and hand numbness and forgetfulness an outpatient MRI of her brain. MRI revealed an acute stroke and she was subsequently brought into the emergency room. She then underwent CT angiogram of the carotids and was found to have high-grade right carotid stenosis. This has been known to the patient as she does follow Dr. Medina at [facility] regarding her carotid disease. She now presents to us for vascular evaluation at the time of my exam she had normal motor and sensation of the upper extremities. Review of Systems 2 Review of Systems: Yes all other systems are reviewed and are negative Constitutional: Constitutional: Reports no additional constitutional complaints ENT: Reports Normal hearing present Cardiovascular: Cardiovascular: Denies chest pain, Denies chest pain at rest, Denies chest pain with activity and Denies pedal edema Respiratory: Respiratory: Denies cough Gastrointestinal: Gastrointestinal: Denies abdominal pain Musculoskeletal: Musculoskeletal: Denies abnormal gait, Denies muscle cramps and Denies radiating pain into limb Integumentary/Breasts: Skin/Breast: Denies skin ulcer and Denies wounds Neurologic: Reports Normal hearing present and Denies abnormal gait Psychiatric: Psychiatric: Reports no additional psychiatric complaints PMFSH Past Medical History Medical History Acute respiratory disease Wheezing on auscultation Postoperative hypothyroidism (~2022) Nicotine dependence, cigarettes, uncomplicated Vitamin D deficiency Osteopenia (~2020) AMANDA (generalized anxiety disorder) Post-menopausal Arthritis Anemia GERD (gastroesophageal reflux disease) Tubular adenoma of colon (~2020) Neuropathy Gammopathy, monoclonal (~2018) Family History Family History Sister Heart disease Brother Heart disease Sister Cancer Father Diabetes Mother Ovarian cancer Surgical History Surgical History History of total thyroidectomy (~2022) History of bone marrow biopsy (~2018) History of esophagogastroduodenoscopy (EGD) (~2018) History of colonoscopy (~2020) History of appendectomy History of bladder surgery (~1994) Social History Social History Household Members: Spouse Housing: House Are you a primary healthcare representative to a significant other at home: No Do you presently have visiting nurse or other home services: No Alcohol intake: current Alcohol intake frequency: does not drink Patient Tobacco Use Status: Current everyday Tobacco user Tobacco use type: Cigarette Cigarette Packs Per Day: 1 Cigarettes Per Day: 20.0 Years Smoked: onset 20yo, 1-1.5ppd x 56yrs - 70+PYH Smoked in Last 30 Days: Yes e-Cigarette/Vaping Use: Never Used Second Hand Smoke Exposure: No Advance Directives: No Advance Directives Information Provided: Yes Advance Directives Date on File: 07/25/14 service: No Current occupational status: retired Cognitive needs: No Hearing needs: No Vision needs: Yes Meds Allergies Allergy/AdvReac Type Severity Reaction Status Date / Time dextran 40 (DEXTRAN 40) Allergy Severe TACHYCARDIA Verified 06/09/25 08:25 AND HYPERTENSIVE prednisone AdvReac Intermediate Palpitation Verified 06/09/25 08:25 s erythromycin base AdvReac Mild Nausea and Verified 06/09/25 08:25 Vomiting succinylcholine AdvReac Unknown FEVER, Verified 06/09/25 08:25 (SUCCINYLCHOLINE) COULD NOT MOVE immune globulin,gamma (IgG) AdvReac Hives Verified 06/09/25 08:25 human (From [facility]) Active Medications: Current Medications Acetaminophen (Acetaminophen 325 Mg Tablet) 650 mg PO Q6H PRN PRN Reason: Pain, Mild 1-3,fever,headache Albuterol Sulfate (Albuterol Sulfate 90 Mcg 8 Gm Inhaler) 2 puff INHALE QID PRN PRN Reason: shortness of breath or wheezing Apixaban (Apixaban 2.5 Mg Tablet) 2.5 mg PO BID QASIM Atorvastatin Calcium (Atorvastatin Calcium 40 Mg Tablet) 40 mg PO BEDTIME QASIM Calcium Carbonate (Calcium Carbonate 750 Mg Tab.Chew) 750 mg PO Q4H PRN PRN Reason: Heartburn Calcium Carbonate (Calcium Oyster Shell Elemental 500 Mg Tablet) 500 mg PO DAILY QASIM Ferrous Sulfate (Ferrous Sulfate 324 Mg Tablet.Dr) 324 mg PO DAILY QASIM Levothyroxine Sodium (Levothyroxine Sodium 112 Mcg Tablet) 112 mcg PO DAILY@0600 QASIM Lorazepam (Lorazepam 1 Mg Tablet) 1 mg PO BID PRN PRN Reason: Anxiety Magnesium Hydroxide (Milk Of Magnesia 30 Ml Oral.Susp) 30 ml PO DAILY PRN PRN Reason: Constipation Melatonin (Melatonin 3 Mg Tablet) 6 mg PO BEDTIME PRN PRN Reason: Insomnia Nicotine (Nicotine 14 Mg Patch.Td24) 14 mg TRANSDERMA DAILY QASIM Non-Formulary Medication (Glycopyrrolate-Formoterol [Bevespi Aerosphere]) 2 puff INHALE BID QASIM Sodium Chloride (0.9 % Sodium Chloride Flush 3 Ml Syringe) 3 ml IVFLUSH QSHIFT QASIM Vitamin D (Cholecalciferol (Vitamin D3) 25 Mcg Tablet) 50 mcg PO DAILY [facility] Home Medications ?Medication ?Instructions ?Recorded ?Confirmed ?Last Taken ?Type glucosamine sulfate 500 mg tablet 500 mg PO DAILY 04/2406/09/25 06/08/25 History (Glucosamine) albuterol sulfate 90 mcg/actuation 2 inh inhalation QI D PRN shortness 06/09/25 06/09/25 Unknown History aerosol inhaler of breath or wheezing calcium carbonate (Calcium 500) 500 mg PO DAILY 06/09/25 06/08/25 History glycopyrrolate 9 mcg-formoterol 2 puff inhalation BID 06/09/25 06/09/25 06/09/25 History 4.8 mcg HFA aerosol inhaler (Bevespi Aerosphere) ketoconazole 2 % shampoo 1 appl topical MOWEFR 06/09/25 Unknown History levothyroxine 112 mcg tablet 112 mcg PO DAILY@0600 06/09/25 06/09/25 History triamcinolone acetonide 0.1 % 1 appl topical DAILY PRN Skin 06/09/25 06/09/25 Unknown History topical cream Irritation Physical Exam 2 Vital Signs: Vital Signs: Last Vital Signs Temp 97.9 F 06/09/25 12:15 Pulse 71 06/09/25 15:58 Resp 16 06/09/25 15:58 BP 137/54 L 06/09/25 12:15 Pulse Ox 97 06/09/25 12:15 O2 Del Method Room Air 06/09/25 12:15 BMI result Body Mass Index 21.6 Const: General: cooperative, healthy appearing and comfortable O rientation/consciousness: oriented to person, oriented to place and oriented to time HEENT: Head: Yes normal to inspection Neck: Neck: Yes normal visual inspection Carotids: no bruits Chest: Chest palpation & inspection: normal inspection of the chest Resp: Effort & Inspection: normal respiratory effort and able to speak in complete sentences Auscultation: clear to auscultation bilaterally, no crackles, no rales, no rhonchi and no wheezes Cardio: Rate: regular rate Rhythm: regular rhythm Heart sounds: S1 normal heart sound present and S2 normal heart sound present Bruits: no carotid bruits Peripheral pulses: Peripheral pulses 2+ throughout GI: Inspection: Yes normal to inspection Skin: Wounds: no wounds Hair: normal Neuro: General: oriented to person, oriented to place and oriented to time Cranial nerves: Yes CN's II-XII intact bilaterally and Yes Normal hearing present Cognition (Neuro): normal cognition Motor exam (neuro): 5/5 motor strength present throughout Extrem: Other: venous exam: No significant superficial varicosities or spider telangiectasias, minimal edema General: No clubbing, No cyanosis and No edema Psych: Appearance: grossly normal Mental Status: mental status grossly normal Speech and movement: Normal speech and movement present Results Labs 06/09/25 09:28 06/09/25 09:28 Labs: Abnormal lab results 06/09/25 Range/Units 09:28 MCH 26.9 L (27.0-33.0) pg MCHC 30.8 L (31.0-35.0) g/dl Neut % (Auto) 73.4 H (45-73) % Lymph % (Auto) 13.0 L (20-40) % Lymph # (Auto) 0.9 L (1.2-4.9) X10*3/uL Carbon Dioxide 33 H (22-29) mmol/L BUN 21 H (9-16) mg/dL Short CBC 06/09/25 Range/Units 09:28 WBC 7.2 (4.8-10.8) X10*3/uL Hgb 12.8 (12.0-16.0) g/dl Hct 41.5 (37.0-47.0) % Plt Count 345 (160-400) X10*3/uL BMP 06/09/25 09:28 Sodium 139 Potassium 4.9 Chloride 101 Carbon Dioxide 33 H BUN 21 H Creatinine 0.80 Calcium 9.3 Liver Function 12/18/25 Range/Units 09:28 Total Bilirubin 0.5 (0.0-1.0) mg/dL AST 19 (5-31) U/L ALT 21 (0-31) U/L Alkaline Phosphatase 101 (39-117) U/L Albumin 4.4 (3.5-5.0) g/dL All other labs normal. Assessment and Plan (1) Right-sided carotid artery disease: Qualifiers: Carotid artery disease type: stenosis Qualified Code(s): I65.21 - Occlusion and stenosis of right carotid artery Status: Acute Plan In short patient has high-grade right carotid disease. This does correlate with right-sided stroke and left arm weakness. The issue here is that she has also chronic bilateral ischemic infarcts. In addition there is this new finding of this left lateral lung apex lesion. In view of her all her current findings would manage carotid disease conservatively. She had medical workup be negative for this left lung lesion would consider elective surgery for this right carotid stenosis at 70%. Once again no acute surgical intervention. She can follow up with us as an outpatient once discharge or if she wishes can return to see Dr. Medina at [facility]. Thank you for allowing us to participate in her care. If there are any questions or concerns please do not hesitate to contact us. Procedures Date of Service Date of Service: 06/09/25
[2025-06-09] MEDS: 0.9 % Sodium Chloride Flush 3 ML SYRINGE IVFLUSH (17:13)
--- NOTE | 2025-06-09 17:13 | MHC.EDTECH ---
The Patient was walking to the bath room became very dizzy and almost fell, I assisted her and brought her back to the bed PRO velázquez.
[2025-06-09] MEDS: Nicotine 14 MG PATCH.TD24 TRANSDERMA (17:15)
[2025-06-10 03:07] VITALS: BP 142/66; PULSE 76; RESP 18; TEMP 36.4; O2SAT 94
[2025-06-10 07:07] LABS: Cholesterol 140 mg/dL (<200); HDL Cholesterol 54 mg/dL (>40); Triglycerides 77 mg/dL (<150)
[2025-06-10 07:47] LABS: Thyroid Stimulating Hormone 0.21 uIU/mL (0.32-4.0)
[2025-06-10 07:50] VITALS: BP 120/63; PULSE 77; RESP 18; TEMP 36.6; O2SAT 92
[2025-06-10] MEDS: Nicotine 14 MG PATCH.TD24 TRANSDERMA (08:02)
[2025-06-10] MEDS: Calcium Oyster Shell Elemental 500 MG TABLET PO (08:03)
[2025-06-10] MEDS: 0.9 % Sodium Chloride Flush 3 ML SYRINGE IVFLUSH (08:03)
[2025-06-10] MEDS: Ferrous Sulfate 324 MG TABLET.DR PO (08:03)
--- NOTE | 2025-06-10 08:27 | MHC.CM.PN ---
IMM was addressed with Patient. Per PT, no PT is indicated. Home/self care is Patient's goal and CM has initiated and will follow for dc planning. PCP/PA is Siddharth Garcia and HCP is Daughter/Fransisca.
--- NOTE | 2025-06-10 11:08 | P.DS_ITS ---
DS: Providers Provider Date of admission: 06/09/25 14:27 Date of discharge: 06/10/25 Primary care physician: Siddharth Garcia PA-C Consults: 06/09/25 11:29 Consult to Neurology Stat Consulting Provider: [facility] Reason for consultation: Abnormal MRI concerning for embolic stroke Has provider been notified: Yes 06/09/25 14:30 Consult to Vascular Surgery Routine Consulting Provider: [facility] Reason for consultation: carotid stenosis Has provider been notified: No Attending physician on discharge: Karina Velásquez Discharging clinician: Elise Lundberg DS: Diagnosis Discharge Diagnosis (1) Right-sided carotid artery disease: Status: Acute (2) Acute CVA (cerebrovascular accident): Status: Acute DS: Summary Hospital Course Hospital Course: From H&P on the day of admission 80-year-old female patient with past medical history significant for tobacco use disorder, nephrolithiasis, impaired glucose tolerance, anxiety disorder, mono clonal gammopathy and thyroid nodule. Patient was recently seen by her PCP Siddharth Garcia on for left hand numbness with incoordination that occurred 1 week prior to her office visit. Patient also complained of memory impairment therefore an MRI brain was ordered to assess signs for stroke. An MRI brain was done today that showed acute right frontal lobe infarction based on diffusion images. At present patient denies numbness of hand but continued to have intermittent memory impairment specifically forgetful of names, complain of mild left hand incoordination. Patient denies prior history of CVA, no speech or visual impairment. Denies recent headache dizziness fever, chills. Patient evaluated by Dr. Bryant in the ED and a CTA head and neck obtained that showed 70% right internal carotid artery stenosis and an incidental finding of highly suspicious solid 11 into 12 mm spiculated nodule in the lateral left lung, CT chest is recommended in 3 months or consultation for biopsy. Patient is now being admitted to [facility] for further workup of embolic stroke, since acute right frontal ischemi c infarct can be explained upon carotid disease but can not explain numerous other similar bilateral ischemic infarctions. Acute right frontal ischemic infarction. Seen on outpatient MRI. Likely secondary to [id number] right internal carotid artery stenosis. Acute right frontal ischemic infarct might be explain based upon carotid disease, it would not explain numerous other similar bilateral ischemic infarcts, recommended to Start Eliquis 2.5 and Lipitor 40 mg at bedtime. As far as this carotid disease is concerned, my recommendation is to treat it medically. Seen by general surgery who also recommended conservative management, can consider outpatient elective surgery with her vascular surgeon who she follows with at [facility]. Monitored on telemetry, no afib noted during hospital stay. echocardiogram obtained showing preserved ejection fraction, no evidence of interatrial shunt. moderate pulmonary hypertension. plan to set up outpatient cardiac event monitor. PT OT evaluation for in coordination of left hand and memory impairment - assessed by both and not deemed to need any services. 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 B12, folate pending Hypothyroidism TSH 0.21, free t4 1.49. continue current dose of levothyroxine. recommend outpatient follow up with PCP Tobacco use disorder. Smoking cessation advised. Left lung highly suspicious solid 11 into 12 mm spiculated nodule. patient prior chest CT from February 2023 showed heterogeneous left upper lobe nodule slightly increased from prior study of October 2022, as well as left lower lobe nodule unchanged. Seems to follow with pulmonology at [facility] and has previously deferred biopsy. Recommend outpatient follow-up with primary care physician to discuss further workup as outpatient. Patient had an episode of hypoxia with o2 saturation of 88% on room air. Known history of COPD. Had home o2 evaluation and did not qualify for home o2. Denies change is repiratory status from baseline. Time Attestation Discharge Coordination Time (in mins): 32 Quality: Safe Use of Opioids Does Pt have an Active Cancer Diagnosis on the Problem List?: No Quality: Stroke Does the patient have a stroke diagnosis?: Yes Reason for No Anti-thrombotic at DC: Not indicated Reason for No Anticoagulant at DC: N/A - Med Ordered Reason Not Initiating IV-Tpa: Not indicated Reason for No Anti-thrombotic by Day Two: N/A - Med Ordered Reason for No Statin at DC: N/A - Med Ordered Physical Exam Vital Signs: Vital Signs: Last Vital Signs Temp 97.9 F 06/10/25 07:50 Pulse 77 06/10/25 07:50 Resp 18 06/10/25 07:50 BP 120/63 06/10/25 07:50 Pulse Ox 92 06/10/25 07:50 O2 Del Method Room Air 06/10/25 07:50 BMI result Body Mass Index 23.6 Const: General: cooperative, comfortable, no acute distress, alert and awake Nutritional Appearance: average body habitus Orientation/consciousness: patient oriented x3 Resp: Effort & Inspection: normal respiratory effort, able to speak in complete sentences, no respiratory distress and no use of accessory muscles Cardio: Rate: regular rate GI: Inspection: No distended Palpation (GI): Soft to palpation and nontender Neuro: Other: no neuro deficits identified General: patient oriented x3, moves all extremities and CN's II-XI intact bilaterally DS: Data Data Completed and Pending Labs on day of discharge: Laboratory Results - last 24 hr 06/10/25 06:38 Hold Purple Top SEE NOTE Triglycerides 77 Cholesterol 140 LDL Cholesterol, Calc 71 HDL Cholesterol 54 TSH 0.21 L Discharge Plan Discharge Anticipated Discharge Date/Time: 06/10/25 16:04 Patient Disposition: Home, Self-Care Discharge Diagnosis: acute stroke, possible embolic in nature right internal carotid stenosis tobacco dependence pulmonary nodule hypothyroidism Referrals: Siddharth Garcia PA-C [Primary Care Provider, Internal Medicine] Dean Plascencia MD [Physician, Cardiology] - 1 Week Referral Note: cardiac event monitor Discharge Medications: New Eliquis 2.5 mg Tablet 2.5 mg PO BID 90 Days Qty: 180 0RF atorvastatin 40 mg Tablet 40 mg PO BEDTIME 90 Days Qty: 90 0RF Continued cholecalciferol (vitamin D3) 50 mcg (2,000 unit) capsule 50 mcg PO DAILY 90 Days Qty: 90 1RF ferrous sulfate 325 mg (65 mg iron) Tablet 325 mg PO DAILY Qty: 90 1RF albuterol sulfate 90 mcg/actuation HFA aerosol inhaler 2 inh inhalation QID PRN (Reason: shortness of breath or wheezing) ketoconazole 2 % shampoo 1 appl TOPICAL MOWEFR triamcinolone acetonide 0.1 % cream 1 appl topical DAILY PRN (Reason: Skin Irritation) Bevespi Aerosphere 9-4.8 mcg Hfa Aerosol Inhaler 2 puff INHALATION BID calcium carbonate [Calcium 500] 500 mg calcium (1,250 mg) tablet,chewable 500 mg PO DAILY levothyroxine 112 mcg tablet 112 mcg PO DAILY@0600 glucosamine sulfate [Glucosamine] 500 mg tablet 500 mg PO DAILY Rx Instructions: administer with a meal lorazepam [Ativan] 1 mg tablet 1 mg PO BID PRN (Reason: Anxiety) 30 Days Qty: 60 3RF Discharge Orders: Discharge Order (Routine); Ordered 06/10/25 Ordered By: Elise Lundberg Activity on Discharge: As tolerated Stand Alone Forms: Patient Portal Discharge page Print Language: French Care Plan Goals: see below Health Concerns: acute stroke, possibly embolic right internal carotid stenosis tobacco dependence pulmonary nodule Plan of Treatment: you have been started on Eliquis due to concern for embolic cause of acute stroke, do not combine with NSAIDs. monitor for signs of bleeding. You have been started on statin due to acute stroke, take as prescribed Call to schedule follow-up appointment with primary care provider recommend tobacco cessation Due to right internal carotid stenosis, call to schedule follow-up appointment with Dr. Alvarado of vascular surgery at [facility] For pulmonary nodule discuss further management with primary care provider versus your lead carpenter at [facility] recommend smoking cessation echo showing moderate pulmonary hypertension - outpatient follow up with PCP and can discuss with lead carpenter at [facility] Assessment: see discharge summary
[2025-06-10 11:15] VITALS: BP 140/61; PULSE 94; RESP 18; TEMP 36.8; O2SAT 88
[2025-06-10 11:39] VITALS: O2SAT 91
[2025-06-10 11:48] LABS: Free T4 (Free Thyroxine) 1.49 ng/dL (0.71-1.85)
[2025-06-10 12:15] VITALS: PULSE 87; O2SAT 89; O2SAT 90
[2025-06-10 12:26] LABS: Folate 9.2 ng/mL (> or = 4.0); Vitamin B12 565 pg/mL (200-900)
--- NOTE | 2025-06-10 12:38 | MHC.CM.PN ---
Per PA in ROUNDS, Patient will be medically cleared for dc to home today, self care.
[2025-06-10 15:16] VITALS: BP 129/60; PULSE 90; RESP 18; TEMP 37.1; O2SAT 92
== END 2025-06-10 16:50 | disposition home or self-care (01) | DRG 66 ==
LOC: HO.ED 14:25 → HO.EDOVER 14:36 → HO.S3 15:45 → HO.EDOVER 16:06 → HO.IMC 17:28
PROVIDERS: Admitting Provider Hospitalist; Emergency Provider Emergency Medicine Emergency Medical Services; PCP Physician Assistant; Visit Provider Physician Assistant Medical
DX: I63.131 Cerebral infarction due to embolism of right carotid artery (principal); F17.210 Nicotine dependence, cigarettes, uncomplicated; R91.1 Solitary pulmonary nodule; E03.9 Hypothyroidism, unspecified; Z71.6 Tobacco abuse counseling; Z20.822 Contact with and (suspected) exposure to COVID-19; R29.700 NIHSS score 0; Z79.890 Hormone replacement therapy; Z79.899 Other long term (current) drug therapy
CPT/HCPCS: 36415; 70496; 70498; 70551; 80053; 80061; 82607; 82746; 83605; 83690; 83735; 84439; 84443; 85025; 85610; 85730; 87637; 93005; 93306; 95886; 95909; 97161; 97165; 99285; Q9967

== ENCOUNTER → 2025-06-09 08:26 | Outpatient (BNV) | payer MEDICARE, SELFPAY | PROVIDERS: Emergency Provider Emergency Medicine Emergency Medical Services; PCP Physician Assistant; Visit Provider Psychiatry & Neurology Neurology | DX: I63.9 Cerebral infarction, unspecified (principal) | CPT/HCPCS: 99222 ==

== ENCOUNTER → 2025-06-09 08:31 | Outpatient (BNV) | payer MEDICARE, SELFPAY | PROVIDERS: Emergency Provider Emergency Medicine Emergency Medical Services; PCP Physician Assistant; Visit Provider Internal Medicine Cardiovascular Disease | DX: R94.31 Abnormal electrocardiogram [ECG] [EKG] (principal); Z13.6 Encounter for screening for cardiovascular disorders | CPT/HCPCS: 93010 ==

== ENCOUNTER → 2025-06-09 14:27 | Outpatient (BNV) | payer MEDICARE, SELFPAY | PROVIDERS: Admitting Provider Hospitalist; Emergency Provider Emergency Medicine Emergency Medical Services; PCP Physician Assistant; Visit Provider Hospitalist | DX: I63.9 Cerebral infarction, unspecified (principal); I77.9 Disorder of arteries and arterioles, unspecified | CPT/HCPCS: 99222 ==

== ENCOUNTER → 2025-06-09 14:27 | Outpatient (BNV) | payer MEDICARE, SELFPAY | PROVIDERS: Admitting Provider Hospitalist; Emergency Provider Emergency Medicine Emergency Medical Services; PCP Physician Assistant; Visit Provider Surgery Vascular Surgery | DX: I65.21 Occlusion and stenosis of right carotid artery (principal) | CPT/HCPCS: 99222 ==

== ENCOUNTER 2025-06-13 15:41 | Outpatient (AMB) | payer MEDICARE, SELFPAY ==
--- NOTE | 2025-06-13 15:54 | A.OFFPC_ITS ---
Vital Signs 06/13/25 15:57 Height 5 ft 3.5 in Weight 126 lb 6 oz BMI 22.0 BP 124/48 L Blood Pressure Location Lt brachial Position Sitting Respiration 18 Pulse 82 Pulse Source Pulse Oximeter Temp 97.6 F Temp Source Temporal Artery Scan Pulse Oximetry (%) 95 Oxygen Delivery Method Room Air Intake Visit Reasons: stroke Physician/Internist Required: No Accompanied by: Spouse Allergies dextran 40 (DEXTRAN 40) Allergy (Severe, Verified 06/13/25 16:14) TACHYCARDIA AND HYPERTENSIVE prednisone Adverse Reaction (Intermediate, Verified 06/13/25 16:14) Palpitations erythromycin base Adverse Reaction (Mild, Verified 06/13/25 16:14) Nausea and Vomiting succinylcholine (SUCCINYLCHOLINE) Adverse Reaction (Unknown, Verified 06/13/25 16:14) FEVER, COULD NOT MOVE immune globulin,gamma (IgG) human (From Flebogamma) Adverse Reaction (Verified 06/13/25 16:14) Hives Medication List - Last Reconciled 06/13/25 by Siddharth Garcia PA-C albuterol sulfate 90 mcg/actuation 2 inhalations inhalation QID PRN atorvastatin 40 mg PO BEDTIME 90 days calcium carbonate (Calcium 500) 500 mg PO DAILY cholecalciferol (vitamin D3) 50 mcg PO DAILY 90 days ferrous sulfate 325 mg PO DAILY glucosamine sulfate (Glucosamine) 500 mg PO DAILY glycopyrrolate-formoterol 9-4.8 mcg (Bevespi Aerosphere) 2 puffs inhalation BID ketoconazole 2% 1 appl topical MOWEFR levothyroxine 112 mcg PO DAILY@0600 lorazepam (Ativan) 1 mg PO BID PRN 30 days triamcinolone acetonide 0.1% 1 appl topical DAILY PRN Tobacco use date assessed: 11/09/24 Fall risk assessment: No Falls in past year Last assessed Fall Risk: 06/13/25 Dental Screening Dental Screen Date: 11/09/24 HPI stroke HPI Details Patient is an 80-year-old female here today for hospital discharge follow-up. Patient was seen at [facility] after MRI brain for memory deficit and left arm weakness was being down noted an acute ischemic stroke. During hospitalization she was evaluated by Neurology whom feels her ischemic events were embolic in nature recommend further cardiology workup with a cardiac event monitor. She was found to have carotid stenosis worse on right side. During her workup she was also noted to have a left 11 mm pulmonary spiculated nodule that appeared very concerning for malignancy. She is due for biopsy of the small nodule in the past though declined Patient has been started on Eliquis and statin therapy. Unfortunately continues to smoke. [facility] Medical History Acute respiratory disease Wheezing on auscultation Postoperative hypothyroidism (~2022) Nicotine dependence, cigarettes, uncomplicated Vitamin D deficiency Osteopenia (~2020) AMANDA (generalized anxiety disorder) Post-menopausal Arthritis Anemia GERD (gastroesophageal reflux disease) Tubular adenoma of colon (~2020) Neuropathy Gammopathy, monoclonal (~2018) Surgical History History of total thyroidectomy (~2022) History of bone marrow biopsy (~2018) History of esophagogastroduodenoscopy (EGD) (~2018) History of colonoscopy (~2020) History of appendectomy History of bladder surgery (~1994) Family History Sister Heart disease Brother Heart disease Sister Cancer Father Diabetes Mother Ovarian cancer Social History Household Members: Spouse Housing: House Are you a primary childbirth and infant care teacher to a significant other at home: No Do you presently have visiting nurse or other home services: No Alcohol intake: current Alcohol intake frequency: does not drink Comment: refusing bed alarm Patient Tobacco Use Status: Current everyday Tobacco user Tobacco use type: Cigarette Cigarette Packs Per Day: 1 Cigarettes Per Day: 20.0 Years Smoked: onset 20yo, 1-1.5ppd x 56yrs - 70+PYH e-Cigarette/Vaping Use: Never Used Second Hand Smoke Exposure: No Advance Directives Date on File: 07/25/14 service: No Current occupational status: retired Cognitive needs: No Hearing needs: No Vision needs: Yes Questionnaire Thrive Questionnaire Date Thrive assessed: 06/10/25 I am a: Patient What is your living situation today?: I have a steady place to live Within the past 12 months, did the food you bought not last and you didn't have the money to get more?: I choose not to answer this question Within the past 12 months, did you worry whether your food would run out before you got money to buy more?: Never true Do you have trouble paying for medicines?: I choose not to answer this question Do you have trouble getting transportation to medical appointments?: No Do you have trouble paying your heating and electricity bill?: No Do you have trouble taking care of your child, family member or friend?: No Do you have trouble with day-to-day activities such as bathing, preparing meals, shopping, managing finances, etc.?: No Are you currently unemployed and looking for a job?: No Are you interested in more education?: No Currently or been in a relationship where the following occur: No concerns reported THRIVE Score: 0 AMANDA-7 AMB Questionnaire AMANDA-7 Date AMANDA - 7 assessed: 11/09/24 Source: Developed by Drs. Barry Treviño, Tanya Nuñez, Evelio Ruiz and colleagues, with an educational obi from [employer]. Review of Systems Const Denies headache(s) Eyes Denies loss of vision ENT Denies vertigo, Denies dizziness, Denies headache(s) and Denies sore throat Card Denies chest pain, Denies leg edema and Denies lightheadedness Resp Denies cough, Denies hemoptysis and Denies wheezing GI Denies abdominal pain, Denies melena, Denies constipation, Denies diarrhea and Denies vomiting Denies urinary frequency, Denies dysuria and Denies urinary urgency Musc Denies arthralgias, Denies joint swelling, Denies numbness and Denies tingling Neuro Denies Abnormal speech present, Denies behavioral changes, Denies vertigo, Denies dizziness, Denies headache(s), Denies loss of vision, Denies memory loss, Denies numbness and Denies tingling Psych Denies anxiety, Denies behavioral changes, Denies depression, Denies memory loss and Denies panic attacks Sergei/Lymph Denies easy bleeding and Denies easy bruising Aller/Immun Denies wheezing Physical exam (Primary Care) Vital Signs: Last Vital Signs Temp 97.6 F 06/13/25 15:57 Pulse 82 06/13/25 15:57 Resp 18 06/13/25 15:57 BP 124/48 L 06/13/25 15:57 Pulse Ox 95 06/13/25 15:57 Oxygen Delivery Method Room Air 06/13/25 15:57 BMI result Body Mass Index 22.0 Tobacco/Smoking Status: Tobacco use Status Tobacco use date assessed 11/09/24 06/13/25 15:54 Patient Tobacco Use Status Current everyday Tobacco 06/13/25 15:54 Tobacco use type Cigarette 06/13/25 15:54 e-Cigarette/Vaping Use Never Used 06/13/25 15:54 Thrive Assessment: Date of Thrive Assessment Date Thrive assessed 06/10/25 06/13/25 15:54 Currently or been in a relationship where the following occur: No concerns reported Const General: healthy appearing, no acute distress, alert and awake Nutritional Appearance: well nourished Orientation/consciousness: oriented to person, oriented to place and oriented to time HENMT Ears: TM's normal bilaterally General nose exam: Normal nasal mucous membranes and turbinates present Eyes Conjunctivae: conjunctivae normal Sclerae: sclerae normal Pupils: Equal, round and reactive pupils present Neck Neck: Yes no lymphadenopathy and Yes no JVD Thyroid: Thyroid normal Carotids: no bruits Resp Effort & Inspection: normal respiratory effort and not tachypneic Auscultation: no crackles, no rales, no rhonchi and no wheezes Cardio Rate: regular rate Rhythm: regular rhythm Heart sounds: no murmurs and normal S1 and S2 GI Palpation (GI): Soft to palpation, nontender, no hepatomegaly and no splenomegaly Auscultation: normal bowel sounds Skin General skin exam: no rashes or lesions noted and dry skin Neuro General: oriented to person, oriented to place and oriented to time Cranial nerves: Yes Equal, round and reactive pupils present Speech: No Abnormal speech present Gait exam (Neuro): Normal gait present Motor exam (neuro): no tremor noted Extrem Right upper extremity: full ROM Left upper extremity: full ROM Right lower extremity: full ROM; no edema Left lower extremity: full ROM; no edema Psych Mental Status: mental status grossly normal Speech and movement: Normal speech and movement present Affect: normal affect Attitude: cooperative Thought process: Normal thought process present Coding Level of Care Code TCM Mod MDM <= 7 Days Diagnoses Hospital discharge follow-up Z51.89 Nodule of left lung R91.1 Acute embolic stroke I63.9 Bilateral stenosis of carotid arteries greater than 50% I65.23 Assessment & Plan Assessment & Plan (1) Hospital discharge follow-up: Code(s): Z51.89 - Encounter for other specified aftercare Category: Medical Plan: As per HPI (2) Nodule of left lung: Code(s): R91.1 - Solitary pulmonary nodule Category: Medical Plan: Given the highly suspicious nature of the left lung nodule, a biopsy is strongly recommended. The recent CT report will be sent to her career development facilitator, Dr. Arnold, and the patient is advised to call his office for follow-up. A referral to a thoracic surgeon, Dr. Raphael, will be available if needed for the biopsy. Unfortunately continues to smoke and does understand she needs to quit though found it very difficult to do so (3) Acute embolic stroke: Code(s): I63.9 - Cerebral infarction, unspecified Category: Medical Plan: A prescription for apixaban will be sent to the pharmacy as a more affordable alternative to the previously prescribed blood thinner, with instructions to take it twice daily for stroke prevention. The patient will continue taking atorvastatin at night for hyperlipidemia management. The patient was counseled on bleeding risks associated with the new medication. Goal LDL to be below 70 The etiology of the stroke is under investigation, with possibilities including her known atrial fibrillation or a hypercoagulable state secondary to a potential malignancy given the suspicious lung nodule. To evaluate for a cardiac source, she has a scheduled appointment with cardiology for a cardiac event monitor. (4) Bilateral stenosis of carotid arteries greater than 50%: Code(s): I65.23 - Occlusion and stenosis of bilateral carotid arteries Category: Medical Plan: Patient does have bilateral carotid stenosis to the level is 70% stenosis. She does see a vascular specialist at [facility]. Not likely need a surgical treatment for her carotid stenosis, continue medical management Medications: New apixaban 2.5 mg PO BID 180 tabs 1RF 90 days I63.9 - Cerebral infarction, unspecified
[2025-06-13 15:57] VITALS: BP 124/48; PULSE 82; RESP 18; TEMP 36.4; O2SAT 95; BMI 22.0
--- OUTSIDE RECORDS SUMMARY | 2025-06-13 18:38 | XMS_ITS | Patient Health Record ---
Author Organization [facility] Address [address] [place] [address] Care Team Providers Care Coal Chute Worker Name Role Phone Siddharth Garcia Primary Care Provider Jude Tobin Jr Unavailable [phone] Allergies Allergen (clinical drug ingredient) Drug/Non Drug [...] Problem History of polyp of colon (situation) (301596007) History of colon polyps (Z86.010) Active confirmed Plan Of Treatment Future Test Test Name Order Date COLONOSCOPY 09/11/2020 Insurance Providers Payer Name Payer Address Payer Phone Subscriber Number Group Number Insured Name Patient Relationship to Insured Coverage Start Date Coverage End Date MEDICARE OF [place] [address] [place] [address] [id number] GAYLE MADSEN Self - patient is the insured MED[employer] ATTN CLAIMS [address] [place] [address] [id number] GAYLE MADSEN Self - patient is the insured Medical (General) History Medical History History ICD Code anemia anxiety memory loss Surgical History Surgery Date(Month/Year) bladder suspension appendectomy
--- OUTSIDE RECORDS SUMMARY | 2025-06-13 18:38 | XMS_ITS | Patient Health Record ---
Author Organization [facility] [place] Address [address] [place] [address] Care Team Providers Care Program/Music Director Name Role Phone Jose Siddharth Primary Care Provider Unavailab Liborio Ramey Unavailable [phone] Allergies Allergen (clinical drug ingredient) Drug/Non Drug [...] primary osteoarthritis of the ankle and/or foot (786052316) Primary osteoarthrit is, right ankle and foot (M19.071) Active confirmed Problem Localized, primary osteoarthritis of the ankle and/or foot (545699852) Primary osteoarthrit is, left ankle and foot (M19.072) Active confirmed Problem Acquired hammer toe of right foot (2570770527218268) Other hammer toe(s) (acquired), right foot (M20.41) Active confirmed Problem Acquired hammer toe of left foot (5897947784062749) Other hammer toe(s) (acquired), left foot (M20.42) Active confirmed Plan Of Treatment Pending Test Test Name Order Date X ray : Foot, left 2V 12/09/2012 X ray : Foot, left 2V 01/21/2018 X ray : Foot, right 2V 01/21/2018 X ray : Foot, right 2V 12/09/2012 X ray : Foot, right 3V 08/22/2022 [id number] Destruction, 1-14 08/13/2016 [id number] Destruction, 1-14 02/07/2014 77178- Debride <25 sq cm 09/14/2014 42628- Debride <25 sq cm 12/09/2012 Insurance Providers Payer Name Payer Address Payer Phone Subscriber Number Group Number Insured Name Patient Relationship to Insured Coverage Start Date Coverage End Date Medicare National [employer]t [employer] [address] [place] [address] [id number] Radha Ndiaye Self - patient is the insured [employer] [address] [place] [address] [id number] Radha Ndiaye Self - patient is the insured Medical (General) History Medical History History ICD Code psoriasis/eczema Anxiety Arthritis nerve disorder Numbness thyroid Transfusions Surgical History Surgery Date(Month/Year) bladder suspension - urinary incontinenc e 1994 appendicitis - ruptured appendix 1963
--- OUTSIDE RECORDS SUMMARY | 2025-06-13 18:38 | XMS_ITS | Clinical Summary ---
Author Organization [facility] Address [address] [place] [id number] Phone Care Team Providers Care Collarette Separator Name Role Phone Siddharth Garcia Primary Care Provider + Allergies Active Allergy Reactions Criticality Noted Date Comments Erythromycin 2019 Patient thinks they might be allergic. Medications loratadine (CLARITIN) 10 mg tablet Take 10 mg by mouth daily. Active ferrous sulfate 324 mg (65 mg [place] iron) TbEC Take 324 mg by mouth [...] file Insurance MEDICARE PART A & B [email or web address] MEDEX SUPPLEMENT MEDICARE PART A & B [email or web address] MEDEX SUPPLEMENT MEDICARE PART A & B [facility] MEDEX SUPPLEMENT MEDICARE PART A & B [email or web address] MEDEX SUPPLEMENT MEDICARE PART A & B [email or web address] MEDEX SUPPLEMENT MEDICARE PART A & B [email or web address] MEDEX SUPPLEMENT MEDICARE PART A & B [email or web address] MEDEX SUPPLEMENT MEDICARE PART A & B [email or web address] MEDEX SUPPLEMENT MEDICARE PART A & B [email or web address] MEDEX SUPPLEMENT Care Teams Collarette Separator Relationship Specialty Start Date End Date Siddharth Garcia PA [address] [place] [address] PCP - General 10/06/20 Additional Source Comments The information contained in this document represents components of the legal health record. It is not the complete legal health record.[facility]
== END 2025-06-13 16:45 | disposition home or self-care (01) ==
LOC: HO.HMCH 15:42
PROVIDERS: PCP Physician Assistant; Visit Provider Physician Assistant
DX: Z51.89 Encounter for other specified aftercare (principal); R91.1 Solitary pulmonary nodule; I63.9 Cerebral infarction, unspecified; I65.23 Occlusion and stenosis of bilateral carotid arteries

== ENCOUNTER → 2025-06-13 15:41 | Outpatient (BNVA) | payer MEDICARE, SELFPAY | PROVIDERS: PCP Physician Assistant; Visit Provider Physician Assistant | DX: Z09 Encounter for follow-up examination after completed treatment for conditions other than malignant neoplasm (principal); R91.1 Solitary pulmonary nodule; I63.9 Cerebral infarction, unspecified; I65.23 Occlusion and stenosis of bilateral carotid arteries | CPT/HCPCS: 99495 ==

== ENCOUNTER → 2025-06-20 10:50 | Outpatient (REF) | payer MEDICARE, SELFPAY ==
--- OUTSIDE RECORDS SUMMARY | 2025-06-20 12:29 | XMS_ITS | Clinical Summary ---
Author Organization [facility] Address [address] [place] [address] Phone Care Team Providers Care Milk Delivery Driver Name Role Phone Siddharth Garcia Primary Care Provider + Allergies Active Allergy Reactions Criticality Noted Date Comments Erythromycin 2019 Patient thinks they might be allergic. Medications loratadine (CLARITIN) 10 mg tablet Take 10 mg by mouth daily. Active ferrous sulfate 324 mg (65 mg soboba iron) TbEC Take 324 mg by mouth [...] file Insurance MEDICARE PART A & B [employer] SU[employer]LEMENT MEDICARE PART A & B [employer] MED[employer] SUPPLEMENT MEDICARE PART A & B [facility] MEDEX SUPPLEMENT MEDICARE PART A & B [employer] MED[employer] SUPPLEMENT MEDICARE PART A & B [employer] SUPPLEMENT MEDICARE PART A & B [employer] SU[employer]MENT MEDICARE PART A & B [employer] SU[employer]MENT MEDICARE PART A & B [employer] SU[employer]MENT MEDICARE PART A & B [employer] SU[employer]MENT Care Teams Milk Delivery Driver Relationship Specialty Start Date End Date Siddharth Garcia PA [address] [place] [address] PCP - General 10/06/20 Additional Source Comments The information contained in this document represents components of the legal health record. It is not the complete legal health record.[facility]
--- OUTSIDE RECORDS SUMMARY | 2025-06-20 12:29 | XMS_ITS | Patient Health Record ---
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 Name Role Phone Siddharth Garcia Primary Care Provider Jude Tobin Jr Unavailable [phone] Allergies Allergen (clinical drug ingredient) Drug/Non [...] Problem History of polyp of colon (situation) (754768825) History of colon polyps (Z86.010) Active confirmed Plan Of Treatment Future Test Test Name Order Date COLONOSCOPY 09/11/2020 Insurance Providers Payer Name Payer Address Payer Phone Subscriber Number Group Number Insured Name Patient Relationship to Insured Coverage Start Date Coverage End Date MEDICARE OF [place] [address] [place] [address] [id number] GAYLE MADSEN Self - patient is the insured [employer] CLAIMS [address] [place] [address] [phone] [id number] GAYLE MADSEN Self - patient is the insured Medical (General) History Medical History History ICD Code anemia anxiety memory loss Surgical History Surgery Date(Month/Year) bladder suspension appendectomy
--- OUTSIDE RECORDS SUMMARY | 2025-06-20 12:30 | XMS_ITS | Patient Health Record ---
Author Organization [facility] Address [address] [place] [address] Care Team Providers Care Spiral Binder Name Role Phone Jose Siddharth Primary Care Provider Unavailab Liborio Ramey Unavailable [phone] Allergies Allergen (clinical drug ingredient) Drug/Non Drug [...] needed Orally every 6 hrs 12/09/2012 Not-Taking raNITIdine HCl Not-T aking Metoprolol Succinate ER Not-Taking [...] primary osteoarthritis of the ankle and/or foot (111019979) Primary osteoarthrit is, right ankle and foot (M19.071) Active confirmed Problem Localized, primary osteoarthritis of the ankle and/or foot (011624057) Primary osteoarthrit is, left ankle and foot (M19.072) Active confirmed Problem Acquired hammer toe of right foot (1543149462192368) Other hammer toe(s) (acquired), right foot (M20.41) Active confirmed Problem Acquired hammer toe of left foot (2240621109469051) Other hammer toe(s) (acquired), left foot (M20.42) Active confirmed Plan Of Treatment Pending Test Test Name Order Date X ray : Foot, left 2V 12/09/2012 X ray : Foot, left 2V 01/21/2018 X ray : Foot, right 2V 01/21/2018 X ray : Foot, right 2V 12/09/2012 X ray : Foot, right 3V 08/22/2022 [id number] Destruction, 1-14 08/13/2016 [id number] Destruction, 1-14 02/07/2014 38147- Debride <25 sq cm 09/14/2014 22005- Debride <25 sq cm 12/09/2012 Insurance Providers Payer Name Payer Address Payer Phone Subscriber Number Group Number Insured Name Patient Relationship to Insured Coverage Start Date Coverage End Date Medicare National [employer] [address] [place] [place] [address] [id number] Radha Ndiaye Self - patient is the insured [employer] [address] [place] [address] [phone] [id number] Radha Ndiaye Self - patient is the insured Medical (General) History Medical History History ICD Code psoriasis/eczema Anxiety Arthritis nerve disorder Numbness thyroid Transfusions Surgical History Surgery Date(Month/Year) bladder suspension - urinary incontinenc e 1994 appendicitis - ruptured appendix 1963
== END ==
LOC: HO.CARD 10:50
PROVIDERS: PCP Physician Assistant; Visit Provider Internal Medicine Cardiovascular Disease
DX: R00.2 Palpitations (principal); I63.9 Cerebral infarction, unspecified
CPT/HCPCS: 93242

== ENCOUNTER → 2025-06-20 11:27 | Outpatient (BNV) | payer MEDICARE, SELFPAY | PROVIDERS: PCP Physician Assistant; Visit Provider Internal Medicine Cardiovascular Disease | DX: I49.3 Ventricular premature depolarization (principal) | CPT/HCPCS: 93244 ==